=== PATIENT | male | born 1935 | race Caucasian/White ===

== ENCOUNTER 2017-05-05 14:32 | Inpatient (IN) | payer MEDICARE, BC ==
[2017-05-05] MEDS: METHYLPREDNISOLONE 125 MG INJ IV (15:30)
[2017-05-05] MEDS: SOD CHLORIDE 0.9% 500 ML IV (15:30)
[2017-05-05 15:42] LABS: ADD MAN DIFF? NO
[2017-05-05 16:01] LABS: ANION GAP 16 (8-16); BLOOD UREA NITROGEN 17 mg/dl (7-20); CALCIUM 9.8 mg/dl (8.4-10.2); CARBON DIOXIDE 31 mmol/L (21-31); CHLORIDE 99 mmol/L (97-110); GLUCOSE 117 mg/dl (70-220); POTASSIUM 4.8 mmol/L (3.5-5.1); SODIUM 141 mmol/L (135-144)
[2017-05-05 16:02] LABS: WHITE BLOOD COUNT 10.3 10^3/ul (4.8-10.8)
[2017-05-05 16:02] LABS: BASOPHILS % 0.4 % (0.0-2.0); EOSINOPHILS # 0.2 10^3/ul (0.0-0.5); EOSINOPHILS % 1.7 % (0.0-7.0); HEMATOCRIT 32.6 % (42.0-52.0); HEMOGLOBIN 10.6 g/dl (14.0-18.0); LYMPHOCYTES # 1.2 10^3/ul (0.8-2.9); LYMPHOCYTES % 11.3 % (15.0-51.0); MEAN CORPUSCULAR HGB CONC 32.5 g/dl (32.0-37.0); MEAN CORPUSCULAR VOLUME 89.1 fl (82.0-101.0); MEAN PLATELET VOLUME 9.7 fl (7.4-10.4); MONOCYTE # 1.3 10^3/ul (0.3-0.9); MONOCYTES % 12.1 % (0.0-11.0); NEUTROPHIL # 7.6 10^3/ul (1.6-7.5); NEUTROPHILS % 73.6 % (39.0-77.0); POSITIVE DIFF @See below; RED BLOOD COUNT 3.66 10^6/ul (4.70-6.10); RED CELL DISTRIBUTION WIDTH 16.3 % (11.5-14.5)
[2017-05-05 16:05] LABS: PLATELET COUNT 300 10^3/UL (140-415)
[2017-05-05 16:10] LABS: B-TYPE NATRIURETIC PEPTIDE 1350 PG/ML (0-450)
[2017-05-05] MEDS: ALBUTEROL 0.083% (NEB) 2.5 MG/3 ML AMP INH (16:33)
[2017-05-05] MEDS: IPRATROPIUM (NEB) 0.5 MG/2.5 ML AMP INH (16:34)
[2017-05-05] MEDS: DILTIAZEM-D5W 125MG/125ML DRIP 125 ML IV (17:05)
[2017-05-05] MEDS: DILTIAZEM 25 MG INJ IV (17:05)
[2017-05-05] MEDS ORDERED: ACETAMINOPHEN 325 MG TAB PO (17:30)
[2017-05-05] MEDS ORDERED: ONDANSETRON 4 MG INJ IV (17:30)
[2017-05-05] MEDS: DIGOXIN 500 MCG INJ IV (18:36)
[2017-05-05 21:36] LABS: CREATINE KINASE 27 IU/L (23-200)
[2017-05-05 21:47] LABS: CK-MB 1.63 ng/ml (0.0-2.4); TROPONIN-I 0.098 ng/ml (0.00-0.12)
[2017-05-05] MEDS: FERROUS SULFATE (EC) 325 MG TAB PO (23:03)
[2017-05-05] MEDS: ATORVASTATIN 20 MG TAB PO (23:03)
[2017-05-05] MEDS: MAGNESIUM OXIDE 400 MG TAB PO (23:03)
[2017-05-05] MEDS: MONTELUKAST 10 MG TAB PO (23:03)
[2017-05-05] MEDS: LUBIPROSTONE 24 MCG CAP PO (23:03)
[2017-05-05] MEDS: APIXABAN 5 MG TABLET PO (23:03)
[2017-05-05] MEDS: DIAZEPAM 5 MG TAB PO (23:15)
[2017-05-06 03:33] LABS: ADD MAN DIFF? NO
[2017-05-06 03:53] LABS: ALANINE AMINOTRANSFERASE 29 IU/L (13-69); ALBUMIN 3.2 g/dl (3.3-4.9); ALBUMIN/GLOBULIN RATIO 0.86; ALKALINE PHOSPHATASE 79 IU/L (42-121); ANION GAP 14 (8-16); ASPARTATE AMINO TRANSFERASE 18 IU/L (15-46); BILIRUBIN,INDIRECT 0.1 mg/dl (0-1.1); BILIRUBIN,TOTAL 0.1 mg/dl (0.2-1.3); BLOOD UREA NITROGEN 19 mg/dl (7-20); CALCIUM 9.3 mg/dl (8.4-10.2); CARBON DIOXIDE 30 mmol/L (21-31); CHLORIDE 102 mmol/L (97-110); CREATINE KINASE 28 IU/L (23-200); CREATININE 0.97 mg/dl (0.61-1.24); GLUCOSE 185 mg/dl (70-220); POTASSIUM 4.6 mmol/L (3.5-5.1); SODIUM 141 mmol/L (135-144); TOTAL PROTEIN 6.9 g/dl (6.1-8.1)
[2017-05-06 04:01] LABS: DIGOXIN 0.9 ng/ml (1.0-2.0)
[2017-05-06 04:02] LABS: B-TYPE NATRIURETIC PEPTIDE 2220 PG/ML (0-450)
[2017-05-06 04:07] LABS: CK INDEX 7.5; TROPONIN-I 0.101 ng/ml (0.00-0.12)
[2017-05-06 04:08] LABS: CK-MB 2.09 ng/ml (0.0-2.4)
[2017-05-06 04:14] LABS: WHITE BLOOD COUNT 7.7 10^3/ul (4.8-10.8)
[2017-05-06 04:14] LABS: ABNORMAL IP MESSAGE 1; BASOPHILS % 0.1 % (0.0-2.0); HEMATOCRIT 29.2 % (42.0-52.0); HEMOGLOBIN 9.5 g/dl (14.0-18.0); LYMPHOCYTES # 0.6 10^3/ul (0.8-2.9); LYMPHOCYTES % 7.4 % (15.0-51.0); MEAN CORPUSCULAR HEMOGLOBIN 29.2 pg (29.0-33.0); MEAN CORPUSCULAR HGB CONC 32.5 g/dl (32.0-37.0); MEAN CORPUSCULAR VOLUME 89.8 fl (82.0-101.0); MEAN PLATELET VOLUME 9.4 fl (7.4-10.4); MONOCYTE # 0.1 10^3/ul (0.3-0.9); MONOCYTES % 0.6 % (0.0-11.0); NEUTROPHILS % 91.1 % (39.0-77.0); PLATELET COUNT 281 10^3/UL (140-415); POSITIVE DIFF @See below; RED BLOOD COUNT 3.25 10^6/ul (4.70-6.10)
[2017-05-06] MEDS: LISINOPRIL 5 MG TAB PO (09:23)
[2017-05-06] MEDS: FERROUS SULFATE (EC) 325 MG TAB PO ×2 (09:23→21:15)
[2017-05-06] MEDS: FUROSEMIDE 20 MG TAB PO (09:23)
[2017-05-06] MEDS: ASPIRIN (EC) 81 MG TAB PO (09:23)
[2017-05-06] MEDS: DIAZEPAM 5 MG TAB PO ×3 (09:30→21:15)
[2017-05-06] MEDS: MAGNESIUM OXIDE 400 MG TAB PO ×3 (09:30→21:15)
[2017-05-06] MEDS: APIXABAN 5 MG TABLET PO (09:30)
[2017-05-06] MEDS: LUBIPROSTONE 24 MCG CAP PO ×3 (09:30→21:15)
[2017-05-06] MEDS: TIOTROPIUM 18 MCG CAPSULE INHA DEV INH ×2 (09:30→11:29)
[2017-05-06 13:46] LABS: TROPONIN-I 0.058 ng/ml (0.00-0.12)
[2017-05-06] MEDS: DIGOXIN 0.125 MG TAB PO (13:51)
[2017-05-06] MEDS: ATORVASTATIN 20 MG TAB PO (21:15)
[2017-05-06] MEDS: MONTELUKAST 10 MG TAB PO (21:15)
[2017-05-06] MEDS: GUAIFENESIN LA 600 MG TABSR PO (21:15)
[2017-05-07] MEDS: DIAZEPAM 5 MG TAB PO ×2 (09:00→20:50)
[2017-05-07 09:53] LABS: DIGOXIN 0.6 ng/ml (1.0-2.0)
[2017-05-07 09:55] LABS: ANION GAP 14 (8-16); BLOOD UREA NITROGEN 23 mg/dl (7-20); CALCIUM 9.2 mg/dl (8.4-10.2); CARBON DIOXIDE 33 mmol/L (21-31); CHLORIDE 100 mmol/L (97-110); CREATININE 0.95 mg/dl (0.61-1.24); GLUCOSE 101 mg/dl (70-220); POTASSIUM 4.4 mmol/L (3.5-5.1); SODIUM 143 mmol/L (135-144)
[2017-05-07 10:05] LABS: B-TYPE NATRIURETIC PEPTIDE 1740 PG/ML (0-450); TROPONIN-I 0.052 ng/ml (0.00-0.12)
[2017-05-07] MEDS: ASPIRIN (EC) 81 MG TAB PO (10:31)
[2017-05-07] MEDS: TIOTROPIUM 18 MCG CAPSULE INHA DEV INH (10:31)
[2017-05-07] MEDS: GUAIFENESIN LA 600 MG TABSR PO ×2 (10:31→20:50)
[2017-05-07] MEDS: predniSONE 20 MG TAB PO (10:32)
[2017-05-07] MEDS: FERROUS SULFATE (EC) 325 MG TAB PO ×2 (10:32→20:50)
[2017-05-07] MEDS: MAGNESIUM OXIDE 400 MG TAB PO ×2 (10:32→20:50)
[2017-05-07] MEDS: LISINOPRIL 5 MG TAB PO (10:32)
[2017-05-07] MEDS: FUROSEMIDE 40 MG TAB PO (10:32)
[2017-05-07] MEDS: LUBIPROSTONE 24 MCG CAP PO ×2 (10:32→20:50)
[2017-05-07] MEDS: ALBUTEROL HFA 8 GM INHALER INH ×2 (11:07→18:41)
[2017-05-07] MEDS: DIGOXIN 0.25 MG TAB PO (12:41)
[2017-05-07] MEDS: INFLUENZA VIRUS VACCINE 0.5 ML (DISPENSING) IM* (12:43)
[2017-05-07] MEDS: IPRATROPIUM (NEB) 0.5 MG/2.5 ML AMP HHN ×2 (14:50→21:55)
[2017-05-07] MEDS: AZITHROMYCIN 250 MG in SOD CHLORIDE 0.9% 250 ML IVPB (18:41)
[2017-05-07] MEDS: MONTELUKAST 10 MG TAB PO (20:50)
[2017-05-07] MEDS: ATORVASTATIN 20 MG TAB PO (20:50)
[2017-05-08] MEDS: IPRATROPIUM (NEB) 0.5 MG/2.5 ML AMP HHN ×5 (01:38→19:51)
[2017-05-08] MEDS: ALBUTEROL HFA 8 GM INHALER INH ×3 (02:02→20:35)
[2017-05-08] MEDS: DILTIAZEM (CD) 180 MG CAP PO ×2 (09:00→12:31)
[2017-05-08] MEDS: DIAZEPAM 5 MG TAB PO ×3 (09:00→20:35)
[2017-05-08] MEDS: FUROSEMIDE 40 MG TAB PO ×2 (09:00→12:32)
[2017-05-08] MEDS: LISINOPRIL 5 MG TAB PO (09:00)
[2017-05-08] MEDS: predniSONE 20 MG TAB PO (09:23)
[2017-05-08] MEDS: LUBIPROSTONE 24 MCG CAP PO ×2 (09:23→20:35)
[2017-05-08] MEDS: FERROUS SULFATE (EC) 325 MG TAB PO ×2 (09:23→20:35)
[2017-05-08] MEDS: ASPIRIN (EC) 81 MG TAB PO (09:23)
[2017-05-08] MEDS: GUAIFENESIN LA 600 MG TABSR PO ×2 (09:23→20:35)
[2017-05-08] MEDS: MAGNESIUM OXIDE 400 MG TAB PO ×2 (09:23→20:35)
[2017-05-08] MEDS: TIOTROPIUM 18 MCG CAPSULE INHA DEV INH (09:26)
[2017-05-08] MEDS: DIGOXIN 0.25 MG TAB PO (12:29)
[2017-05-08] MEDS: AZITHROMYCIN 250 MG in SOD CHLORIDE 0.9% 250 ML IVPB (17:57)
[2017-05-08] MEDS: ATORVASTATIN 20 MG TAB PO (20:35)
[2017-05-08] MEDS: MONTELUKAST 10 MG TAB PO (20:35)
[2017-05-09] MEDS: IPRATROPIUM (NEB) 0.5 MG/2.5 ML AMP HHN ×4 (01:20→22:07)
[2017-05-09] MEDS: ALBUTEROL HFA 8 GM INHALER INH (01:43)
[2017-05-09 08:44] LABS: ADD MAN DIFF? NO
[2017-05-09 08:46] LABS: BASOPHILS % 0.2 % (0.0-2.0); EOSINOPHILS % 0.1 % (0.0-7.0); HEMATOCRIT 32.1 % (42.0-52.0); HEMOGLOBIN 10.3 g/dl (14.0-18.0); LYMPHOCYTES # 1.7 10^3/ul (0.8-2.9); LYMPHOCYTES % 11.1 % (15.0-51.0); MEAN CORPUSCULAR HEMOGLOBIN 28.7 pg (29.0-33.0); MEAN CORPUSCULAR HGB CONC 32.1 g/dl (32.0-37.0); MEAN CORPUSCULAR VOLUME 89.4 fl (82.0-101.0); MEAN PLATELET VOLUME 9.7 fl (7.4-10.4); MONOCYTE # 1.5 10^3/ul (0.3-0.9); MONOCYTES % 9.7 % (0.0-11.0); NEUTROPHIL # 11.8 10^3/ul (1.6-7.5); NEUTROPHILS % 77.8 % (39.0-77.0); PLATELET COUNT 283 10^3/UL (140-415); RED BLOOD COUNT 3.59 10^6/ul (4.70-6.10); RED CELL DISTRIBUTION WIDTH 15.6 % (11.5-14.5)
[2017-05-09 08:46] LABS: WHITE BLOOD COUNT 15.2 10^3/ul (4.8-10.8)
[2017-05-09] MEDS: TIOTROPIUM 18 MCG CAPSULE INHA DEV INH ×2 (09:00→12:59)
[2017-05-09 09:36] LABS: DIGOXIN 0.8 ng/ml (1.0-2.0)
[2017-05-09 09:37] LABS: ANION GAP 13 (8-16); BLOOD UREA NITROGEN 32 mg/dl (7-20); CALCIUM 9.5 mg/dl (8.4-10.2); CARBON DIOXIDE 37 mmol/L (21-31); CHLORIDE 95 mmol/L (97-110); CREATININE 0.96 mg/dl (0.61-1.24); GLUCOSE 91 mg/dl (70-220); POTASSIUM 3.6 mmol/L (3.5-5.1); SODIUM 141 mmol/L (135-144)
[2017-05-09] MEDS: ASPIRIN (EC) 81 MG TAB PO (09:37)
[2017-05-09] MEDS: DILTIAZEM (CD) 180 MG CAP PO (09:37)
[2017-05-09] MEDS: LUBIPROSTONE 24 MCG CAP PO ×2 (09:37→21:48)
[2017-05-09] MEDS: MAGNESIUM OXIDE 400 MG TAB PO ×2 (09:38→21:48)
[2017-05-09] MEDS: GUAIFENESIN LA 600 MG TABSR PO ×2 (09:38→21:49)
[2017-05-09] MEDS: predniSONE 20 MG TAB PO (09:38)
[2017-05-09] MEDS: DIAZEPAM 5 MG TAB PO ×2 (09:38→21:48)
[2017-05-09] MEDS: FUROSEMIDE 40 MG TAB PO (09:38)
[2017-05-09] MEDS: FERROUS SULFATE (EC) 325 MG TAB PO ×2 (09:38→21:48)
[2017-05-09] MEDS: LISINOPRIL 5 MG TAB PO (09:40)
[2017-05-09 10:19] LABS: ALANINE AMINOTRANSFERASE 34 IU/L (13-69); ALBUMIN 3.3 g/dl (3.3-4.9); ALKALINE PHOSPHATASE 94 IU/L (42-121); ASPARTATE AMINO TRANSFERASE 20 IU/L (15-46); TOTAL PROTEIN 6.2 g/dl (6.1-8.1)
[2017-05-09 10:46] LABS: MAGNESIUM 1.8 mg/dl (1.7-2.5)
[2017-05-09 10:56] LABS: B-TYPE NATRIURETIC PEPTIDE 1260 PG/ML (0-450)
[2017-05-09] MEDS: predniSONE 10 MG TAB PO (12:57)
[2017-05-09] MEDS: DIGOXIN 0.25 MG TAB PO (12:58)
[2017-05-09] MEDS: AZITHROMYCIN 250 MG in SOD CHLORIDE 0.9% 250 ML IVPB (17:28)
[2017-05-09] MEDS: ATORVASTATIN 20 MG TAB PO (21:48)
[2017-05-09] MEDS: MONTELUKAST 10 MG TAB PO (21:48)
[2017-05-09] MEDS: LEVALBUTEROL (NEB) 0.63 MG/3 ML AMP HHN (22:07)
[2017-05-10] MEDS: IPRATROPIUM (NEB) 0.5 MG/2.5 ML AMP HHN ×4 (02:31→20:50)
[2017-05-10] MEDS: LEVALBUTEROL (NEB) 0.63 MG/3 ML AMP HHN ×4 (02:31→20:50)
[2017-05-10 06:10] LABS: ADD UMIC NO; UR ASCORBIC ACID NEGATIVE (NEGATIVE); UR BILIRUBIN (Dip) NEGATIVE (NEGATIVE); UR BLOOD (Dip) NEGATIVE (NEGATIVE); UR CLARITY CLEAR (CLEAR); UR COLOR YELLOW (YELLOW); UR GLUCOSE (Dip) NEGATIVE (NEGATIVE); UR KETONES (Dip) NEGATIVE (NEGATIVE); UR LEUKOCYTE ESTERASE (Dip) NEGATIVE Leu/ul (NEGATIVE); UR NITRITE (Dip) NEGATIVE (NEGATIVE); UR SPECIFIC GRAVITY (Dip) 1.019 (1.003-1.030); UR TOTAL PROTEIN (Dip) NEGATIVE (NEGATIVE); UR UROBILINOGEN (Dip) NEGATIVE (NEGATIVE)
[2017-05-10] MEDS: ASPIRIN (EC) 81 MG TAB PO (08:24)
[2017-05-10] MEDS: MAGNESIUM OXIDE 400 MG TAB PO ×2 (08:24→20:36)
[2017-05-10] MEDS: FERROUS SULFATE (EC) 325 MG TAB PO ×2 (08:24→20:36)
[2017-05-10] MEDS: TIOTROPIUM 18 MCG CAPSULE INHA DEV INH (08:25)
[2017-05-10] MEDS: DIAZEPAM 5 MG TAB PO ×2 (08:25→21:00)
[2017-05-10] MEDS: GUAIFENESIN LA 600 MG TABSR PO ×2 (08:25→20:37)
[2017-05-10] MEDS: LISINOPRIL 5 MG TAB PO (08:25)
[2017-05-10] MEDS: LUBIPROSTONE 24 MCG CAP PO ×2 (08:25→20:36)
[2017-05-10] MEDS: FUROSEMIDE 40 MG TAB PO (08:25)
[2017-05-10] MEDS: DILTIAZEM (CD) 180 MG CAP PO (08:26)
[2017-05-10 08:48] LABS: ADD MAN DIFF? NO
[2017-05-10 09:06] LABS: ABNORMAL IP MESSAGE 1; BASOPHILS % 0.1 % (0.0-2.0); HEMATOCRIT 33.1 % (42.0-52.0); HEMOGLOBIN 10.8 g/dl (14.0-18.0); LYMPHOCYTES # 1.3 10^3/ul (0.8-2.9); LYMPHOCYTES % 5.2 % (15.0-51.0); MEAN CORPUSCULAR HEMOGLOBIN 29.1 pg (29.0-33.0); MEAN CORPUSCULAR HGB CONC 32.6 g/dl (32.0-37.0); MEAN CORPUSCULAR VOLUME 89.2 fl (82.0-101.0); MEAN PLATELET VOLUME 9.7 fl (7.4-10.4); MONOCYTE # 2.1 10^3/ul (0.3-0.9); MONOCYTES % 8.5 % (0.0-11.0); NEUTROPHIL # 21.3 10^3/ul (1.6-7.5); NEUTROPHILS % 85.3 % (39.0-77.0); PLATELET COUNT 270 10^3/UL (140-415); POSITIVE DIFF @See below; RED BLOOD COUNT 3.71 10^6/ul (4.70-6.10); RED CELL DISTRIBUTION WIDTH 15.9 % (11.5-14.5)
[2017-05-10 09:38] LABS: ANION GAP 10 (8-16); BLOOD UREA NITROGEN 38 mg/dl (7-20); CALCIUM 9.4 mg/dl (8.4-10.2); CARBON DIOXIDE 37 mmol/L (21-31); CHLORIDE 95 mmol/L (97-110); CREATININE 0.91 mg/dl (0.61-1.24); GLUCOSE 97 mg/dl (70-220); POTASSIUM 3.8 mmol/L (3.5-5.1); SODIUM 138 mmol/L (135-144)
[2017-05-10 10:08] LABS: ERYTHROCYTE SEDIMENTATION RATE 58 mm/Hr (0-20)
[2017-05-10] MEDS: DIGOXIN 0.25 MG TAB PO (13:05)
[2017-05-10] MEDS: AZITHROMYCIN 250 MG in SOD CHLORIDE 0.9% 250 ML IVPB ×2 (17:26→18:00)
[2017-05-10] MEDS: MONTELUKAST 10 MG TAB PO (20:36)
[2017-05-10] MEDS: ATORVASTATIN 20 MG TAB PO (20:37)
[2017-05-10] MEDS: AZITHROMYCIN 250 MG TAB PO (23:37)
[2017-05-11] MEDS: IPRATROPIUM (NEB) 0.5 MG/2.5 ML AMP HHN ×3 (01:41→13:51)
[2017-05-11] MEDS: LEVALBUTEROL (NEB) 0.63 MG/3 ML AMP HHN ×3 (01:41→13:51)
[2017-05-11] MEDS: LUBIPROSTONE 24 MCG CAP PO (08:56)
[2017-05-11] MEDS: FUROSEMIDE 40 MG TAB PO (08:56)
[2017-05-11] MEDS: FERROUS SULFATE (EC) 325 MG TAB PO (08:56)
[2017-05-11] MEDS: DIAZEPAM 5 MG TAB PO (08:56)
[2017-05-11] MEDS: GUAIFENESIN LA 600 MG TABSR PO (08:57)
[2017-05-11] MEDS: DILTIAZEM (CD) 180 MG CAP PO (08:57)
[2017-05-11] MEDS: LISINOPRIL 5 MG TAB PO (08:57)
[2017-05-11] MEDS: MAGNESIUM OXIDE 400 MG TAB PO (08:57)
[2017-05-11] MEDS: ASPIRIN (EC) 81 MG TAB PO (08:57)
[2017-05-11] MEDS: TIOTROPIUM 18 MCG CAPSULE INHA DEV INH (08:57)
[2017-05-11 09:25] LABS: ADD MAN DIFF? NO
[2017-05-11 09:37] LABS: WHITE BLOOD COUNT 18.8 10^3/ul (4.8-10.8)
[2017-05-11 09:37] LABS: ABNORMAL IP MESSAGE 1; BASOPHILS % 0.2 % (0.0-2.0); EOSINOPHILS % 0.2 % (0.0-7.0); HEMATOCRIT 33.1 % (42.0-52.0); HEMOGLOBIN 10.6 g/dl (14.0-18.0); LYMPHOCYTES # 1.6 10^3/ul (0.8-2.9); LYMPHOCYTES % 8.7 % (15.0-51.0); MEAN CORPUSCULAR HEMOGLOBIN 28.6 pg (29.0-33.0); MEAN CORPUSCULAR VOLUME 89.2 fl (82.0-101.0); MEAN PLATELET VOLUME 9.6 fl (7.4-10.4); MONOCYTE # 1.7 10^3/ul (0.3-0.9); NEUTROPHIL # 15.2 10^3/ul (1.6-7.5); NEUTROPHILS % 80.9 % (39.0-77.0); PLATELET COUNT 265 10^3/UL (140-415); POSITIVE DIFF @See below; RED BLOOD COUNT 3.71 10^6/ul (4.70-6.10); RED CELL DISTRIBUTION WIDTH 16.5 % (11.5-14.5)
[2017-05-11 09:54] LABS: ALANINE AMINOTRANSFERASE 32 IU/L (13-69); ALBUMIN 3.2 g/dl (3.3-4.9); ALBUMIN/GLOBULIN RATIO 0.94; ALKALINE PHOSPHATASE 102 IU/L (42-121); ANION GAP 11 (8-16); ASPARTATE AMINO TRANSFERASE 17 IU/L (15-46); BILIRUBIN,INDIRECT 0.1 mg/dl (0-1.1); BILIRUBIN,TOTAL 0.1 mg/dl (0.2-1.3); BLOOD UREA NITROGEN 40 mg/dl (7-20); CALCIUM 9.1 mg/dl (8.4-10.2); CARBON DIOXIDE 34 mmol/L (21-31); CHLORIDE 96 mmol/L (97-110); CREATININE 1.01 mg/dl (0.61-1.24); GLUCOSE 107 mg/dl (70-220); POTASSIUM 3.8 mmol/L (3.5-5.1); SODIUM 137 mmol/L (135-144); TOTAL PROTEIN 6.6 g/dl (6.1-8.1)
[2017-05-11 10:00] LABS: B-TYPE NATRIURETIC PEPTIDE 872 PG/ML (0-450)
[2017-05-11] MEDS: DIGOXIN 0.25 MG TAB PO (12:41)
== END 2017-05-11 19:30 | disposition home health service (06) | DRG 308 ==
LOC: MS4 17:02 → E/R 14:32
DX: I48.0 Paroxysmal atrial fibrillation (principal); I50.33 Acute on chronic diastolic (congestive) heart failure; J96.01 Acute respiratory failure with hypoxia; I95.9 Hypotension, unspecified; I24.8 Other forms of acute ischemic heart disease; I27.23 Pulmonary hypertension due to lung diseases and hypoxia; I11.0 Hypertensive heart disease with heart failure; J44.1 Chronic obstructive pulmonary disease with (acute) exacerbation; Z99.81 Dependence on supplemental oxygen; I50.9 Heart failure, unspecified; I25.10 Atherosclerotic heart disease of native coronary artery without angina pectoris; I25.2 Old myocardial infarction; F17.210 Nicotine dependence, cigarettes, uncomplicated; I65.29 Occlusion and stenosis of unspecified carotid artery; D64.9 Anemia, unspecified; I10 Essential (primary) hypertension; E78.5 Hyperlipidemia, unspecified; I73.9 Peripheral vascular disease, unspecified; K59.09 Other constipation; R07.89 Other chest pain
CPT/HCPCS: 36415; 71045; 80048; 80053; 80076; 80162; 81003; 82550; 82553; 83735; 83880; 84484; 85025; 85651; 87081; 87086; 90686; 93005; 93306; 94640; 94644; 94664; 94667; 94668; 96365; 96366; 96375; 97162; 99291-25

== ENCOUNTER 2017-06-06 08:04 | Inpatient (IN) | payer MEDICARE, BC ==
[2017-06-06] MEDS ORDERED: NITROGLYCERIN (SL) 0.4 MG TAB SL (08:30)
[2017-06-06] MEDS: ASPIRIN 81 MG TAB PO (09:12)
[2017-06-06] MEDS: METHYLPREDNISOLONE 125 MG INJ IV (09:12)
[2017-06-06 09:27] LABS: ADD MAN DIFF? NO
[2017-06-06] MEDS: ALBUTEROL 0.083% (NEB) 2.5 MG/3 ML AMP NEB (09:32)
[2017-06-06] MEDS: IPRATROPIUM (NEB) 0.5 MG/2.5 ML AMP NEB (09:32)
[2017-06-06 09:33] LABS: BASOPHIL # 0.1 10^3/ul (0.0-0.1); BASOPHILS % 0.5 % (0.0-2.0); EOSINOPHILS # 0.3 10^3/ul (0.0-0.5); EOSINOPHILS % 2.7 % (0.0-7.0); HEMATOCRIT 33.1 % (42.0-52.0); HEMOGLOBIN 10.4 g/dl (14.0-18.0); LYMPHOCYTES # 1.5 10^3/ul (0.8-2.9); LYMPHOCYTES % 15.1 % (15.0-51.0); MEAN CORPUSCULAR HEMOGLOBIN 29.1 pg (29.0-33.0); MEAN CORPUSCULAR HGB CONC 31.4 g/dl (32.0-37.0); MEAN CORPUSCULAR VOLUME 92.5 fl (82.0-101.0); MEAN PLATELET VOLUME 10.4 fl (7.4-10.4); MONOCYTE # 1.4 10^3/ul (0.3-0.9); NEUTROPHIL # 6.9 10^3/ul (1.6-7.5); NEUTROPHILS % 67.5 % (39.0-77.0); PLATELET COUNT 206 10^3/UL (140-415); RED BLOOD COUNT 3.58 10^6/ul (4.70-6.10); RED CELL DISTRIBUTION WIDTH 18.3 % (11.5-14.5)
[2017-06-06 09:33] LABS: WHITE BLOOD COUNT 10.2 10^3/ul (4.8-10.8)
[2017-06-06] MEDS: NITROGLYCERIN 2% 1 GM OINT PKT TD (09:39)
[2017-06-06 09:51] LABS: ANION GAP 14 (8-16); BLOOD UREA NITROGEN 16 mg/dl (7-20); CALCIUM 9.3 mg/dl (8.4-10.2); CARBON DIOXIDE 30 mmol/L (21-31); CHLORIDE 102 mmol/L (97-110); CREATININE 0.99 mg/dl (0.61-1.24); GLUCOSE 113 mg/dl (70-220); POTASSIUM 4.9 mmol/L (3.5-5.1); SODIUM 141 mmol/L (135-144)
[2017-06-06] MEDS ORDERED: ONDANSETRON 4 MG INJ IV (10:00)
[2017-06-06] MEDS ORDERED: ACETAMINOPHEN 325 MG TAB PO (10:00)
[2017-06-06 10:02] LABS: TROPONIN-I 0.036 ng/ml (0.00-0.12)
[2017-06-06] MEDS: FUROSEMIDE 40 MG INJ IV (11:40)
[2017-06-06] MEDS: ALBUTEROL 0.083% (NEB) 2.5 MG/3 ML AMP HHN (11:59)
[2017-06-06 14:47] LABS: CREATINE KINASE 45 IU/L (23-200)
[2017-06-06 15:00] LABS: CK INDEX 1.6; CK-MB 0.71 ng/ml (0.0-2.4); TROPONIN-I 0.025 ng/ml (0.00-0.12)
[2017-06-06 20:40] LABS: CREATINE KINASE 41 IU/L (23-200)
[2017-06-06 20:52] LABS: CK INDEX 1.9; TROPONIN-I 0.028 ng/ml (0.00-0.12)
[2017-06-06 20:54] LABS: CK-MB 0.76 ng/ml (0.0-2.4)
[2017-06-07] MEDS: LEVALBUTEROL (NEB) 0.63 MG/3 ML AMP HHN ×4 (00:21→17:36)
[2017-06-07] MEDS: GUAIFENESIN/CODEINE 5ML CUP PO (01:23)
[2017-06-07] MEDS: TIOTROPIUM 18 MCG CAPSULE INHA DEV INH ×2 (01:23→09:03)
[2017-06-07] MEDS: MAGNESIUM HYDROXIDE 30ML CUP PO ×2 (06:55→17:12)
[2017-06-07] MEDS: FUROSEMIDE 40 MG INJ IV ×2 (06:56→17:13)
[2017-06-07 07:36] LABS: ADD MAN DIFF? NO
[2017-06-07 07:49] LABS: BASOPHILS % 0.1 % (0.0-2.0); HEMATOCRIT 29.9 % (42.0-52.0); HEMOGLOBIN 9.5 g/dl (14.0-18.0); LYMPHOCYTES # 0.8 10^3/ul (0.8-2.9); LYMPHOCYTES % 5.5 % (15.0-51.0); MEAN CORPUSCULAR HEMOGLOBIN 28.8 pg (29.0-33.0); MEAN CORPUSCULAR HGB CONC 31.8 g/dl (32.0-37.0); MEAN CORPUSCULAR VOLUME 90.6 fl (82.0-101.0); MEAN PLATELET VOLUME 10.4 fl (7.4-10.4); MONOCYTE # 0.9 10^3/ul (0.3-0.9); MONOCYTES % 5.7 % (0.0-11.0); NEUTROPHIL # 13.2 10^3/ul (1.6-7.5); PLATELET COUNT 224 10^3/UL (140-415); POSITIVE DIFF @See below; RED CELL DISTRIBUTION WIDTH 17.9 % (11.5-14.5)
[2017-06-07 08:03] LABS: ALANINE AMINOTRANSFERASE 26 IU/L (13-69); ALBUMIN 3.6 g/dl (3.3-4.9); ALBUMIN/GLOBULIN RATIO 1.12; ALKALINE PHOSPHATASE 80 IU/L (42-121); ANION GAP 15 (8-16); ASPARTATE AMINO TRANSFERASE 19 IU/L (15-46); BLOOD UREA NITROGEN 21 mg/dl (7-20); CALCIUM 9.1 mg/dl (8.4-10.2); CARBON DIOXIDE 30 mmol/L (21-31); CHLORIDE 101 mmol/L (97-110); CREATININE 1.09 mg/dl (0.61-1.24); GLUCOSE 133 mg/dl (70-220); POTASSIUM 4.6 mmol/L (3.5-5.1); SODIUM 141 mmol/L (135-144); TOTAL PROTEIN 6.8 g/dl (6.1-8.1)
[2017-06-07 08:07] LABS: MAGNESIUM 1.5 mg/dl (1.7-2.5)
[2017-06-07 08:11] LABS: DIGOXIN < 0.4 ng/ml (1.0-2.0)
[2017-06-07] MEDS: LUBIPROSTONE 24 MCG CAP PO ×2 (08:57→21:28)
[2017-06-07] MEDS: FERROUS SULFATE (EC) 325 MG TAB PO ×2 (08:57→21:28)
[2017-06-07] MEDS: SALMETEROL/FLUTICASONE 500/50 INHA INH ×2 (08:57→21:27)
[2017-06-07] MEDS: predniSONE 10 MG TAB PO (08:58)
[2017-06-07] MEDS: ESCITALOPRAM 10 MG TAB PO (08:58)
[2017-06-07] MEDS: MAGNESIUM OXIDE 400 MG TAB PO ×2 (08:58→21:28)
[2017-06-07] MEDS: DIAZEPAM 5 MG TAB PO ×2 (08:58→21:28)
[2017-06-07] MEDS: POTASSIUM CHLORIDE (SR) 20 MEQ TAB PO (08:58)
[2017-06-07] MEDS: ASPIRIN (EC) 81 MG TAB PO (08:58)
[2017-06-07] MEDS: LISINOPRIL 5 MG TAB PO (08:59)
[2017-06-07] MEDS ORDERED: TIOTROPIUM 18 MCG CAPSULE INHA DEV INH (09:00)
[2017-06-07] MEDS ORDERED: LEVALBUTEROL (NEB) 0.63 MG/3 ML AMP HHN (09:00)
[2017-06-07] MEDS: DILTIAZEM (CD) 120 MG CAP PO (09:05)
[2017-06-07] MEDS: DIGOXIN 0.125 MG TAB PO (12:11)
[2017-06-07 13:17] LABS: B-TYPE NATRIURETIC PEPTIDE 1800 PG/ML (0-450)
[2017-06-07] MEDS: MAGNESIUM SULFATE 3 GM in DEXTROSE 5% 100 ML IVPB (14:39)
[2017-06-07] MEDS ORDERED: MAGNESIUM SULFATE 4 GM in DEXTROSE 5% 100 ML IV (16:30)
[2017-06-07] MEDS: MAGNESIUM CHLORIDE (SR) 64 MG TAB PO (21:27)
[2017-06-07] MEDS: MONTELUKAST 10 MG TAB PO (21:28)
[2017-06-07] MEDS: ATORVASTATIN 20 MG TAB PO (21:28)
[2017-06-08] MEDS: ENOXAPARIN 100 MG/ML SYG SC ×2 (03:16→22:02)
[2017-06-08] MEDS: FUROSEMIDE 40 MG INJ IV (06:50)
[2017-06-08 08:08] LABS: ADD MAN DIFF? NO
[2017-06-08 08:15] LABS: BASOPHILS % 0.1 % (0.0-2.0); EOSINOPHILS % 0.1 % (0.0-7.0); HEMATOCRIT 31.9 % (42.0-52.0); HEMOGLOBIN 10.2 g/dl (14.0-18.0); LYMPHOCYTES # 1.9 10^3/ul (0.8-2.9); LYMPHOCYTES % 11.2 % (15.0-51.0); MEAN CORPUSCULAR HEMOGLOBIN 29.3 pg (29.0-33.0); MEAN CORPUSCULAR VOLUME 91.7 fl (82.0-101.0); MEAN PLATELET VOLUME 10.2 fl (7.4-10.4); MONOCYTE # 1.3 10^3/ul (0.3-0.9); MONOCYTES % 7.4 % (0.0-11.0); NEUTROPHIL # 13.6 10^3/ul (1.6-7.5); NEUTROPHILS % 80.4 % (39.0-77.0); PLATELET COUNT 249 10^3/UL (140-415); RED BLOOD COUNT 3.48 10^6/ul (4.70-6.10); RED CELL DISTRIBUTION WIDTH 18.5 % (11.5-14.5)
[2017-06-08] MEDS: MAGNESIUM OXIDE 400 MG TAB PO ×2 (08:40→21:57)
[2017-06-08] MEDS: POTASSIUM CHLORIDE (SR) 20 MEQ TAB PO (08:41)
[2017-06-08] MEDS: predniSONE 10 MG TAB PO (08:41)
[2017-06-08] MEDS: LUBIPROSTONE 24 MCG CAP PO ×2 (08:41→21:57)
[2017-06-08] MEDS: ASPIRIN (EC) 81 MG TAB PO (08:41)
[2017-06-08] MEDS: FERROUS SULFATE (EC) 325 MG TAB PO ×2 (08:41→21:56)
[2017-06-08] MEDS: ESCITALOPRAM 10 MG TAB PO (08:41)
[2017-06-08] MEDS: LISINOPRIL 5 MG TAB PO (08:42)
[2017-06-08] MEDS: SALMETEROL/FLUTICASONE 500/50 INHA INH ×2 (08:42→21:57)
[2017-06-08] MEDS: DILTIAZEM (CD) 120 MG CAP PO (08:42)
[2017-06-08] MEDS: TIOTROPIUM 18 MCG CAPSULE INHA DEV INH (08:43)
[2017-06-08] MEDS: DIAZEPAM 5 MG TAB PO ×2 (08:47→21:57)
[2017-06-08 08:54] LABS: ANION GAP 14 (8-16); BLOOD UREA NITROGEN 38 mg/dl (7-20); CALCIUM 9.3 mg/dl (8.4-10.2); CARBON DIOXIDE 34 mmol/L (21-31); CHLORIDE 97 mmol/L (97-110); CREATININE 1.17 mg/dl (0.61-1.24); GLUCOSE 121 mg/dl (70-220); SODIUM 141 mmol/L (135-144)
[2017-06-08] MEDS: LEVALBUTEROL (NEB) 0.63 MG/3 ML AMP HHN ×3 (09:00→16:15)
[2017-06-08] MEDS: DIGOXIN 0.125 MG TAB PO (13:01)
[2017-06-08] MEDS: ATORVASTATIN 20 MG TAB PO (21:57)
[2017-06-08] MEDS: MONTELUKAST 10 MG TAB PO (21:57)
[2017-06-09 07:20] LABS: ADD MAN DIFF? NO
[2017-06-09 07:28] LABS: WHITE BLOOD COUNT 12.9 10^3/ul (4.8-10.8)
[2017-06-09 07:28] LABS: BASOPHILS % 0.2 % (0.0-2.0); EOSINOPHILS % 0.2 % (0.0-7.0); HEMATOCRIT 31.3 % (42.0-52.0); LYMPHOCYTES % 15.9 % (15.0-51.0); MEAN CORPUSCULAR HEMOGLOBIN 29.2 pg (29.0-33.0); MEAN CORPUSCULAR HGB CONC 31.9 g/dl (32.0-37.0); MEAN CORPUSCULAR VOLUME 91.5 fl (82.0-101.0); MEAN PLATELET VOLUME 10.1 fl (7.4-10.4); MONOCYTE # 1.2 10^3/ul (0.3-0.9); MONOCYTES % 9.6 % (0.0-11.0); NEUTROPHIL # 9.5 10^3/ul (1.6-7.5); NEUTROPHILS % 73.4 % (39.0-77.0); PLATELET COUNT 242 10^3/UL (140-415); RED BLOOD COUNT 3.42 10^6/ul (4.70-6.10); RED CELL DISTRIBUTION WIDTH 18.4 % (11.5-14.5)
[2017-06-09 07:46] LABS: MAGNESIUM 2.5 mg/dl (1.7-2.5)
[2017-06-09 07:50] LABS: ANION GAP 13 (8-16); BLOOD UREA NITROGEN 44 mg/dl (7-20); CARBON DIOXIDE 33 mmol/L (21-31); CHLORIDE 100 mmol/L (97-110); CREATININE 1.03 mg/dl (0.61-1.24); GLUCOSE 94 mg/dl (70-220); POTASSIUM 3.9 mmol/L (3.5-5.1); SODIUM 142 mmol/L (135-144)
[2017-06-09] MEDS: ESCITALOPRAM 10 MG TAB PO (08:43)
[2017-06-09] MEDS: FERROUS SULFATE (EC) 325 MG TAB PO ×2 (08:43→20:04)
[2017-06-09] MEDS: predniSONE 20 MG TAB PO (08:44)
[2017-06-09] MEDS: DILTIAZEM (CD) 120 MG CAP PO (08:44)
[2017-06-09] MEDS: MAGNESIUM OXIDE 400 MG TAB PO ×2 (08:44→20:04)
[2017-06-09] MEDS: ASPIRIN (EC) 81 MG TAB PO (08:44)
[2017-06-09] MEDS: ARIPIPRAZOLE 2 MG TAB PO (08:44)
[2017-06-09] MEDS: LUBIPROSTONE 24 MCG CAP PO ×2 (08:44→20:05)
[2017-06-09] MEDS: LISINOPRIL 5 MG TAB PO (08:45)
[2017-06-09] MEDS: POTASSIUM CHLORIDE (SR) 20 MEQ TAB PO (08:45)
[2017-06-09] MEDS: FUROSEMIDE 40 MG TAB PO (08:45)
[2017-06-09] MEDS: DIAZEPAM 5 MG TAB PO ×2 (08:49→20:06)
[2017-06-09] MEDS: SALMETEROL/FLUTICASONE 500/50 INHA INH ×2 (08:49→20:04)
[2017-06-09] MEDS: TIOTROPIUM 18 MCG CAPSULE INHA DEV INH (08:49)
[2017-06-09] MEDS: LEVALBUTEROL (NEB) 0.63 MG/3 ML AMP HHN ×3 (09:24→17:29)
[2017-06-09] MEDS: DIGOXIN 0.125 MG TAB PO (12:29)
[2017-06-09] MEDS: ATORVASTATIN 20 MG TAB PO (20:05)
[2017-06-09] MEDS: MONTELUKAST 10 MG TAB PO (20:05)
== END 2017-06-09 21:00 | disposition home or self-care (01) | DRG 190 ==
LOC: E/R 08:04 → TEL 09:55
DX: J44.1 Chronic obstructive pulmonary disease with (acute) exacerbation (principal); I50.33 Acute on chronic diastolic (congestive) heart failure; I25.5 Ischemic cardiomyopathy; E83.42 Hypomagnesemia; I11.0 Hypertensive heart disease with heart failure; F17.210 Nicotine dependence, cigarettes, uncomplicated; Z91.19 Patient's noncompliance with other medical treatment and regimen; F41.8 Other specified anxiety disorders
CPT/HCPCS: 36415; 71045; 80048; 80053; 80162; 82550; 82553; 83735; 83880; 84484; 85025; 87081; 93005; 93970; 94640; 94664; 96374; 96375; 97163; 99285-25; G0378

== ENCOUNTER 2017-06-12 20:36 | Inpatient (IN) | payer MEDICARE, BC ==
[2017-06-12 21:54] LABS: ABNORMAL IP MESSAGE 1; HEMATOCRIT 34.9 % (42.0-52.0); HEMOGLOBIN 11.4 g/dl (14.0-18.0); MEAN CORPUSCULAR HEMOGLOBIN 29.5 pg (29.0-33.0); MEAN CORPUSCULAR HGB CONC 32.7 g/dl (32.0-37.0); MEAN CORPUSCULAR VOLUME 90.2 fl (82.0-101.0); PLATELET COUNT 261 10^3/UL (140-415); POSITIVE DIFF @See below; RED BLOOD COUNT 3.87 10^6/ul (4.70-6.10); RED CELL DISTRIBUTION WIDTH 18.6 % (11.5-14.5)
[2017-06-12 21:54] LABS: WHITE BLOOD COUNT 29.6 10^3/ul (4.8-10.8)
[2017-06-12 22:00] LABS: ADD MAN DIFF? YES
[2017-06-12 22:20] LABS: ALANINE AMINOTRANSFERASE 42 IU/L (13-69); ALBUMIN 3.7 g/dl (3.3-4.9); ALBUMIN/GLOBULIN RATIO 1.02; ALKALINE PHOSPHATASE 85 IU/L (42-121); ANION GAP 14 (8-16); ASPARTATE AMINO TRANSFERASE 26 IU/L (15-46); BILIRUBIN,INDIRECT 0.7 mg/dl (0-1.1); BILIRUBIN,TOTAL 0.7 mg/dl (0.2-1.3); BLOOD UREA NITROGEN 40 mg/dl (7-20); CALCIUM 9.4 mg/dl (8.4-10.2); CARBON DIOXIDE 29 mmol/L (21-31); CHLORIDE 100 mmol/L (97-110); CREATINE KINASE 21 IU/L (23-200); CREATININE 1.58 mg/dl (0.61-1.24); GLUCOSE 163 mg/dl (70-220); INR 1.02; POTASSIUM 4.7 mmol/L (3.5-5.1); PROTIME 13.5 Sec (11.9-14.9); PT RATIO 1.1; SODIUM 138 mmol/L (135-144); TOTAL PROTEIN 7.3 g/dl (6.1-8.1)
[2017-06-12 22:21] LABS: PARTIAL THROMBOPLASTIN TIME 30.8 Sec (25.0-35.0)
[2017-06-12] MEDS: ONDANSETRON 4 MG INJ IV (22:21)
[2017-06-12] MEDS: METHYLPREDNISOLONE 125 MG INJ IV (22:23)
[2017-06-12 22:32] LABS: CK INDEX 2.2; TROPONIN-I 0.043 ng/ml (0.00-0.12)
[2017-06-12 22:37] LABS: CK-MB 0.47 ng/ml (0.0-2.4)
[2017-06-12] MEDS: IPRATROPIUM (NEB) 0.5 MG/2.5 ML AMP INH (22:51)
[2017-06-12] MEDS: ALBUTEROL 0.5% (NEB) 2.5 MG/0.5 ML AMP INH (22:52)
[2017-06-12 22:54] LABS: ANISOCYTOSIS 2+ (0-0); BAND NEUTROPHILS #M 5.6 10^3/ul (0.0-0.6); BAND NEUTROPHILS % (M) 19 % (0-4); BASOPHIL #M 0.2 10^3/ul (0.0-0.0); BASOPHILS % (M) 1 % (0-2); GIANT THROMBO% (M) 1 % (0-0); LYMPHOCYTES #M 0.8 10^3/ul (0.8-2.9); LYMPHOCYTES % (M) 3 % (15-51); METAMYELOCYTES #M 0.2 10^3/ul (0.0-0.0); METAMYELOCYTES %M 1 % (0-0); MICROCYTOSIS 1+ (0-0); MONOCYTE #M 1.7 10^3/ul (0.3-0.9); MONOCYTES % (M) 6 % (0-11); PLATELET ESTIMATE NORMAL; POIKILOCYTOSIS 1+ (0-0); POLYCHROMASIA 3+ (0-0); SEG NEUT #M 22.4 10^3/ul (1.6-7.5); SEGMENTED NEUTROPHILS (M) % 70 % (39-77); SMUDGE%M 2 % (0-0)
[2017-06-12] MEDS: LEVOFLOXACIN 750MG/D5W (PMX) 150 ML IVPB (23:16)
[2017-06-12] MEDS ORDERED: ONDANSETRON 4 MG INJ IV (23:30)
[2017-06-12] MEDS ORDERED: ACETAMINOPHEN 325 MG TAB PO (23:30)
[2017-06-13] MEDS ORDERED: GUAIFENESIN/CODEINE 5ML CUP PO
[2017-06-13] MEDS ORDERED: ZOLPIDEM 5 MG TAB PO
[2017-06-13] MEDS ORDERED: ONDANSETRON 4 MG INJ IV
[2017-06-13] MEDS ORDERED: PROVENTIL HFA 6.7GM INHALER INH
[2017-06-13] MEDS ORDERED: NACL 0.9% 3 ML SYG IV
[2017-06-13] MEDS ORDERED: ALBUTEROL HFA 8 GM INHALER INH (00:10)
[2017-06-13 01:14] LABS: LACTIC ACID 1.5 mmol/L (0.5-2.0)
[2017-06-13 03:00] LABS: LACTIC ACID 1.5 mmol/L (0.5-2.0)
[2017-06-13] MEDS: ACETAMINOPHEN 325 MG TAB PO (03:43)
[2017-06-13] MEDS: DILTIAZEM 25 MG INJ IV (04:10)
[2017-06-13 07:33] LABS: WHITE BLOOD COUNT 29.8 10^3/ul (4.8-10.8)
[2017-06-13 07:33] LABS: ABNORMAL IP MESSAGE 1; HEMOGLOBIN 11.1 g/dl (14.0-18.0); MEAN CORPUSCULAR HEMOGLOBIN 29.3 pg (29.0-33.0); MEAN CORPUSCULAR HGB CONC 32.6 g/dl (32.0-37.0); MEAN CORPUSCULAR VOLUME 89.7 fl (82.0-101.0); PLATELET COUNT 229 10^3/UL (140-415); POSITIVE DIFF @See below; RED BLOOD COUNT 3.79 10^6/ul (4.70-6.10); RED CELL DISTRIBUTION WIDTH 18.6 % (11.5-14.5)
[2017-06-13 07:40] LABS: ADD MAN DIFF? YES
[2017-06-13 07:50] LABS: ALANINE AMINOTRANSFERASE 37 IU/L (13-69); ALBUMIN 3.8 g/dl (3.3-4.9); ALBUMIN/GLOBULIN RATIO 1.02; ALKALINE PHOSPHATASE 75 IU/L (42-121); ANION GAP 15 (8-16); ASPARTATE AMINO TRANSFERASE 22 IU/L (15-46); BILIRUBIN,INDIRECT 0.4 mg/dl (0-1.1); BILIRUBIN,TOTAL 0.4 mg/dl (0.2-1.3); BLOOD UREA NITROGEN 39 mg/dl (7-20); CALCIUM 9.4 mg/dl (8.4-10.2); CARBON DIOXIDE 28 mmol/L (21-31); CHLORIDE 99 mmol/L (97-110); CREATININE 1.42 mg/dl (0.61-1.24); GLUCOSE 192 mg/dl (70-220); POTASSIUM 4.3 mmol/L (3.5-5.1); SODIUM 138 mmol/L (135-144); TOTAL PROTEIN 7.5 g/dl (6.1-8.1)
[2017-06-13 08:07] LABS: LACTIC ACID 1.5 mmol/L (0.5-2.0)
[2017-06-13] MEDS: FUROSEMIDE 40 MG TAB PO (09:00)
[2017-06-13] MEDS: DILTIAZEM (CD) 120 MG CAP PO ×2 (09:00→12:47)
[2017-06-13] MEDS: FERROUS SULFATE (EC) 325 MG TAB PO ×2 (09:16→22:22)
[2017-06-13] MEDS: DIAZEPAM 5 MG TAB PO ×2 (09:17→22:22)
[2017-06-13] MEDS: SALMETEROL/FLUTICASONE 500/50 INHA INH ×2 (09:17→22:23)
[2017-06-13] MEDS: ASPIRIN (EC) 81 MG TAB PO (09:17)
[2017-06-13] MEDS: ESCITALOPRAM 10 MG TAB PO (09:18)
[2017-06-13] MEDS: LUBIPROSTONE 24 MCG CAP PO ×2 (09:19→21:00)
[2017-06-13] MEDS: ARIPIPRAZOLE 2 MG TAB PO (09:19)
[2017-06-13] MEDS: METHYLPREDNISOLONE 125 MG INJ IV (09:20)
[2017-06-13 09:39] LABS: ANISOCYTOSIS 2+ (0-0); BAND NEUTROPHILS #M 10.7 10^3/ul (0.0-0.6); BAND NEUTROPHILS % (M) 36 % (0-4); GIANT THROMBO% (M) 4 % (0-0); LYMPHOCYTES #M 0.5 10^3/ul (0.8-2.9); LYMPHOCYTES % (M) 2 % (15-51); MICROCYTOSIS 1+ (0-0); MONOCYTE #M 0.8 10^3/ul (0.3-0.9); MONOCYTES % (M) 3 % (0-11); MYELOCYTES #M 0.2 10^3/ul (0.0-0.0); MYELOCYTES % (M) 1 % (0-0); PLATELET ESTIMATE NORMAL; POIKILOCYTOSIS 1+ (0-0); POLYCHROMASIA 2+ (0-0); REACTIVE LYMPHOCYTES #M 0.2 10^3/ul (0.0-0.0); REACTIVE LYMPHOCYTES% (M) 1 % (0-0); SEG NEUT #M 20.5 10^3/ul (1.6-7.5); SEGMENTED NEUTROPHILS (M) % 58 % (39-77); SMUDGE%M 12 % (0-0)
[2017-06-13] MEDS: ENOXAPARIN 40 MG/0.4 ML SYG SC (09:45)
[2017-06-13] MEDS: LEVALBUTEROL (NEB) 0.63 MG/3 ML AMP HHN ×3 (10:13→18:05)
[2017-06-13] MEDS: DIGOXIN 0.125 MG TAB PO (12:46)
[2017-06-13] MEDS: ATORVASTATIN 20 MG TAB PO (22:22)
[2017-06-13] MEDS: MONTELUKAST 10 MG TAB PO (22:22)
[2017-06-14 06:56] LABS: WHITE BLOOD COUNT 26.6 10^3/ul (4.8-10.8)
[2017-06-14 06:56] LABS: ABNORMAL IP MESSAGE 1; HEMOGLOBIN 9.9 g/dl (14.0-18.0); MEAN CORPUSCULAR HEMOGLOBIN 29.7 pg (29.0-33.0); MEAN CORPUSCULAR VOLUME 90.1 fl (82.0-101.0); MEAN PLATELET VOLUME 10.8 fl (7.4-10.4); PLATELET COUNT 234 10^3/UL (140-415); POSITIVE DIFF @See below; RED BLOOD COUNT 3.33 10^6/ul (4.70-6.10); RED CELL DISTRIBUTION WIDTH 18.4 % (11.5-14.5)
[2017-06-14 07:08] LABS: ADD MAN DIFF? YES
[2017-06-14 07:33] LABS: LIPASE 17 U/L (23-300)
[2017-06-14 07:33] LABS: AMYLASE 72 U/L (11-123)
[2017-06-14 07:35] LABS: BLOOD UREA NITROGEN 53 mg/dl (7-20); CALCIUM 9.2 mg/dl (8.4-10.2); CARBON DIOXIDE 29 mmol/L (21-31); CHLORIDE 101 mmol/L (97-110); CREATININE 1.26 mg/dl (0.61-1.24); GLUCOSE 145 mg/dl (70-220); SODIUM 137 mmol/L (135-144)
[2017-06-14 07:36] LABS: ANION GAP 11 (8-16)
[2017-06-14 07:40] LABS: POTASSIUM 4.3 mmol/L (3.5-5.1)
[2017-06-14 08:11] LABS: ANISOCYTOSIS 1+ (0-0); BAND NEUTROPHILS #M 2.1 10^3/ul (0.0-0.6); BAND NEUTROPHILS % (M) 8 % (0-4); LYMPHOCYTES #M 2.1 10^3/ul (0.8-2.9); LYMPHOCYTES % (M) 8 % (15-51); MICROCYTOSIS 1+ (0-0); MONOCYTE #M 1.5 10^3/ul (0.3-0.9); MONOCYTES % (M) 6 % (0-11); PLATELET ESTIMATE NORMAL; POLYCHROMASIA 3+ (0-0); REACTIVE LYMPHOCYTES #M 0.2 10^3/ul (0.0-0.0); REACTIVE LYMPHOCYTES% (M) 1 % (0-0); SEGMENTED NEUTROPHILS (M) % 77 % (39-77); SMUDGE%M 1 % (0-0)
[2017-06-14 08:12] LABS: ERYTHROCYTE SEDIMENTATION RATE 110 mm/Hr (0-20)
[2017-06-14] MEDS: predniSONE 20 MG TAB PO (09:05)
[2017-06-14] MEDS: ASPIRIN (EC) 81 MG TAB PO (09:05)
[2017-06-14] MEDS: FERROUS SULFATE (EC) 325 MG TAB PO ×2 (09:05→22:36)
[2017-06-14] MEDS: SALMETEROL/FLUTICASONE 500/50 INHA INH ×2 (09:05→22:34)
[2017-06-14] MEDS: LUBIPROSTONE 24 MCG CAP PO ×2 (09:05→22:36)
[2017-06-14] MEDS: ESCITALOPRAM 10 MG TAB PO (09:06)
[2017-06-14] MEDS: FUROSEMIDE 40 MG TAB PO (09:06)
[2017-06-14] MEDS: ARIPIPRAZOLE 2 MG TAB PO (09:06)
[2017-06-14] MEDS: DIAZEPAM 5 MG TAB PO ×2 (09:07→22:36)
[2017-06-14] MEDS: DILTIAZEM (CD) 120 MG CAP PO (09:08)
[2017-06-14] MEDS: ENOXAPARIN 40 MG/0.4 ML SYG SC (09:09)
[2017-06-14] MEDS: LEVALBUTEROL (NEB) 0.63 MG/3 ML AMP HHN ×3 (09:40→17:29)
[2017-06-14 13:18] LABS: ADD UMIC YES; UR ASCORBIC ACID NEGATIVE (NEGATIVE); UR BILIRUBIN (Dip) NEGATIVE (NEGATIVE); UR BLOOD (Dip) NEGATIVE (NEGATIVE); UR CLARITY CLEAR (CLEAR); UR COLOR YELLOW (YELLOW); UR GLUCOSE (Dip) NEGATIVE (NEGATIVE); UR KETONES (Dip) NEGATIVE (NEGATIVE); UR LEUKOCYTE ESTERASE (Dip) NEGATIVE Leu/ul (NEGATIVE); UR NITRITE (Dip) NEGATIVE (NEGATIVE); UR RBC 1 /HPF (0-5); UR SPECIFIC GRAVITY (Dip) 1.019 (1.003-1.030); UR TOTAL PROTEIN (Dip) 1+ mg/dl (NEGATIVE); UR UROBILINOGEN (Dip) NEGATIVE (NEGATIVE); UR WBC 1 /HPF (0-5)
[2017-06-14] MEDS: DIGOXIN 0.125 MG TAB PO (13:49)
[2017-06-14] MEDS: AMIODARONE 200 MG TAB PO ×2 (14:49→21:00)
[2017-06-14] MEDS: ATORVASTATIN 20 MG TAB PO (22:36)
[2017-06-14] MEDS: MONTELUKAST 10 MG TAB PO (22:36)
[2017-06-15 07:16] LABS: ADD MAN DIFF? NO
[2017-06-15 07:23] LABS: WHITE BLOOD COUNT 20.3 10^3/ul (4.8-10.8)
[2017-06-15 07:23] LABS: BASOPHILS % 0.1 % (0.0-2.0); HEMOGLOBIN 9.8 g/dl (14.0-18.0); LYMPHOCYTES # 1.2 10^3/ul (0.8-2.9); MEAN CORPUSCULAR HEMOGLOBIN 29.5 pg (29.0-33.0); MEAN CORPUSCULAR HGB CONC 32.7 g/dl (32.0-37.0); MEAN CORPUSCULAR VOLUME 90.4 fl (82.0-101.0); MEAN PLATELET VOLUME 10.3 fl (7.4-10.4); MONOCYTE # 1.5 10^3/ul (0.3-0.9); MONOCYTES % 7.3 % (0.0-11.0); NEUTROPHIL # 17.4 10^3/ul (1.6-7.5); NEUTROPHILS % 85.8 % (39.0-77.0); PLATELET COUNT 231 10^3/UL (140-415); RED BLOOD COUNT 3.32 10^6/ul (4.70-6.10)
[2017-06-15 07:50] LABS: ANION GAP 13 (8-16); BLOOD UREA NITROGEN 57 mg/dl (7-20); CALCIUM 8.9 mg/dl (8.4-10.2); CARBON DIOXIDE 27 mmol/L (21-31); CHLORIDE 102 mmol/L (97-110); CREATININE 1.06 mg/dl (0.61-1.24); GLUCOSE 120 mg/dl (70-220); POTASSIUM 4.1 mmol/L (3.5-5.1); SODIUM 138 mmol/L (135-144)
[2017-06-15] MEDS: LEVALBUTEROL (NEB) 0.63 MG/3 ML AMP HHN ×4 (08:37→18:21)
[2017-06-15] MEDS: ARIPIPRAZOLE 2 MG TAB PO (10:20)
[2017-06-15] MEDS: LUBIPROSTONE 24 MCG CAP PO ×2 (10:20→22:53)
[2017-06-15] MEDS: predniSONE 20 MG TAB PO (10:20)
[2017-06-15] MEDS: FERROUS SULFATE (EC) 325 MG TAB PO ×2 (10:20→22:50)
[2017-06-15] MEDS: ESCITALOPRAM 10 MG TAB PO (10:20)
[2017-06-15] MEDS: ASPIRIN (EC) 81 MG TAB PO (10:21)
[2017-06-15] MEDS: SALMETEROL/FLUTICASONE 500/50 INHA INH ×2 (10:21→22:49)
[2017-06-15] MEDS: FUROSEMIDE 40 MG TAB PO (10:22)
[2017-06-15] MEDS: AMIODARONE 200 MG TAB PO ×2 (10:22→21:00)
[2017-06-15] MEDS: DILTIAZEM (CD) 120 MG CAP PO (10:23)
[2017-06-15] MEDS: ENOXAPARIN 40 MG/0.4 ML SYG SC (11:17)
[2017-06-15] MEDS: DIAZEPAM 5 MG TAB PO ×2 (11:21→22:50)
[2017-06-15] MEDS: DIGOXIN 0.125 MG TAB PO (14:42)
[2017-06-15] MEDS: MONTELUKAST 10 MG TAB PO (22:50)
[2017-06-15] MEDS: ATORVASTATIN 20 MG TAB PO (22:50)
[2017-06-16] MEDS: DIAZEPAM 5 MG TAB PO ×2 (09:00→21:15)
[2017-06-16] MEDS: DILTIAZEM (CD) 120 MG CAP PO (09:14)
[2017-06-16] MEDS: SALMETEROL/FLUTICASONE 500/50 INHA INH ×2 (09:14→21:15)
[2017-06-16] MEDS: predniSONE 10 MG TAB PO (09:15)
[2017-06-16] MEDS: FUROSEMIDE 40 MG TAB PO (09:15)
[2017-06-16] MEDS: LUBIPROSTONE 24 MCG CAP PO ×2 (09:15→21:15)
[2017-06-16] MEDS: FERROUS SULFATE (EC) 325 MG TAB PO ×2 (09:15→21:15)
[2017-06-16] MEDS: ESCITALOPRAM 10 MG TAB PO (09:15)
[2017-06-16] MEDS: ARIPIPRAZOLE 2 MG TAB PO (09:15)
[2017-06-16] MEDS: ASPIRIN (EC) 81 MG TAB PO (09:15)
[2017-06-16] MEDS: AMIODARONE 200 MG TAB PO ×2 (09:15→21:16)
[2017-06-16] MEDS: ENOXAPARIN 40 MG/0.4 ML SYG SC (09:21)
[2017-06-16] MEDS: DIGOXIN 0.125 MG TAB PO (12:19)
[2017-06-16] MEDS: LEVALBUTEROL (NEB) 0.63 MG/3 ML AMP HHN ×2 (13:00→16:16)
[2017-06-16] MEDS: D5W-0.45 NACL + KCL 20 MEQ 1,000 ML IV (18:52)
[2017-06-16] MEDS: ATORVASTATIN 20 MG TAB PO (21:15)
[2017-06-16] MEDS: MONTELUKAST 10 MG TAB PO (21:15)
[2017-06-17 06:51] LABS: ADD MAN DIFF? NO
[2017-06-17 07:02] LABS: WHITE BLOOD COUNT 17.3 10^3/ul (4.8-10.8)
[2017-06-17 07:02] LABS: BASOPHIL # 0.1 10^3/ul (0.0-0.1); BASOPHILS % 0.3 % (0.0-2.0); EOSINOPHILS # 0.1 10^3/ul (0.0-0.5); EOSINOPHILS % 0.3 % (0.0-7.0); HEMATOCRIT 33.2 % (42.0-52.0); HEMOGLOBIN 10.7 g/dl (14.0-18.0); LYMPHOCYTES # 1.9 10^3/ul (0.8-2.9); MEAN CORPUSCULAR HGB CONC 32.2 g/dl (32.0-37.0); MONOCYTE # 1.4 10^3/ul (0.3-0.9); NEUTROPHIL # 13.6 10^3/ul (1.6-7.5); NEUTROPHILS % 78.5 % (39.0-77.0); PLATELET COUNT 232 10^3/UL (140-415); POSITIVE DIFF @See below; RED BLOOD COUNT 3.69 10^6/ul (4.70-6.10); RED CELL DISTRIBUTION WIDTH 17.6 % (11.5-14.5)
[2017-06-17 07:10] LABS: ANION GAP 12 (8-16); BLOOD UREA NITROGEN 40 mg/dl (7-20); CALCIUM 9.3 mg/dl (8.4-10.2); CARBON DIOXIDE 27 mmol/L (21-31); CHLORIDE 103 mmol/L (97-110); CREATININE 1.04 mg/dl (0.61-1.24); GLUCOSE 121 mg/dl (70-220); MAGNESIUM 1.6 mg/dl (1.7-2.5); SODIUM 138 mmol/L (135-144)
[2017-06-17] MEDS: LEVALBUTEROL (NEB) 0.63 MG/3 ML AMP HHN ×3 (07:51→16:33)
[2017-06-17] MEDS: LUBIPROSTONE 24 MCG CAP PO ×2 (08:12→21:09)
[2017-06-17] MEDS: ESCITALOPRAM 10 MG TAB PO (08:12)
[2017-06-17] MEDS: ASPIRIN (EC) 81 MG TAB PO (08:12)
[2017-06-17] MEDS: FERROUS SULFATE (EC) 325 MG TAB PO ×2 (08:12→21:09)
[2017-06-17] MEDS: FUROSEMIDE 40 MG TAB PO (08:12)
[2017-06-17] MEDS: DILTIAZEM (CD) 120 MG CAP PO (08:13)
[2017-06-17] MEDS: SALMETEROL/FLUTICASONE 500/50 INHA INH ×2 (08:13→21:08)
[2017-06-17] MEDS: predniSONE 10 MG TAB PO (08:13)
[2017-06-17] MEDS: ARIPIPRAZOLE 2 MG TAB PO (08:13)
[2017-06-17] MEDS: AMIODARONE 200 MG TAB PO (08:13)
[2017-06-17] MEDS: ENOXAPARIN 40 MG/0.4 ML SYG SC (08:18)
[2017-06-17] MEDS: DIAZEPAM 5 MG TAB PO ×2 (08:19→21:09)
[2017-06-17 08:37] LABS: ERYTHROCYTE SEDIMENTATION RATE 45 mm/Hr (0-20)
[2017-06-17] MEDS: DIGOXIN 0.125 MG TAB PO (12:35)
[2017-06-17] MEDS: MAGNESIUM SULFATE 3 GM in DEXTROSE 5% 100 ML IVPB (13:18)
[2017-06-17] MEDS: CEFTRIAXONE 1 GM/50 ML (PMX) 50 ML IVPB (17:37)
[2017-06-17] MEDS: MONTELUKAST 10 MG TAB PO (21:08)
[2017-06-17] MEDS: APIXABAN 5 MG TABLET PO (21:09)
[2017-06-17] MEDS: ATORVASTATIN 20 MG TAB PO (21:09)
[2017-06-18] MEDS: DILTIAZEM (CD) 120 MG CAP PO (09:00)
[2017-06-18] MEDS: ESCITALOPRAM 10 MG TAB PO (09:28)
[2017-06-18] MEDS: FUROSEMIDE 40 MG TAB PO (09:29)
[2017-06-18] MEDS: predniSONE 10 MG TAB PO (09:29)
[2017-06-18] MEDS: ASPIRIN (EC) 81 MG TAB PO (09:29)
[2017-06-18] MEDS: FERROUS SULFATE (EC) 325 MG TAB PO ×2 (09:29→20:20)
[2017-06-18] MEDS: APIXABAN 5 MG TABLET PO ×2 (09:30→20:21)
[2017-06-18] MEDS: LUBIPROSTONE 24 MCG CAP PO ×2 (09:30→20:20)
[2017-06-18] MEDS: DIAZEPAM 5 MG TAB PO ×2 (09:30→20:21)
[2017-06-18] MEDS: ARIPIPRAZOLE 2 MG TAB PO (09:30)
[2017-06-18] MEDS: SALMETEROL/FLUTICASONE 500/50 INHA INH ×2 (09:31→20:21)
[2017-06-18] MEDS: AMIODARONE 200 MG TAB PO (09:31)
[2017-06-18] MEDS: LEVALBUTEROL (NEB) 0.63 MG/3 ML AMP HHN ×3 (09:43→17:00)
[2017-06-18] MEDS: DIGOXIN 0.125 MG TAB PO (13:00)
[2017-06-18] MEDS: CEFTRIAXONE 1 GM/50 ML (PMX) 50 ML IVPB (17:07)
[2017-06-18] MEDS: ATORVASTATIN 20 MG TAB PO (20:21)
[2017-06-18] MEDS: MONTELUKAST 10 MG TAB PO (20:21)
[2017-06-19 06:21] LABS: ADD MAN DIFF? NO
[2017-06-19 06:27] LABS: WHITE BLOOD COUNT 19.5 10^3/ul (4.8-10.8)
[2017-06-19 06:27] LABS: BASOPHILS % 0.2 % (0.0-2.0); EOSINOPHILS # 0.2 10^3/ul (0.0-0.5); EOSINOPHILS % 0.8 % (0.0-7.0); HEMATOCRIT 34.9 % (42.0-52.0); HEMOGLOBIN 11.4 g/dl (14.0-18.0); LYMPHOCYTES # 2.2 10^3/ul (0.8-2.9); LYMPHOCYTES % 11.4 % (15.0-51.0); MEAN CORPUSCULAR HEMOGLOBIN 29.1 pg (29.0-33.0); MEAN CORPUSCULAR HGB CONC 32.7 g/dl (32.0-37.0); MEAN PLATELET VOLUME 9.7 fl (7.4-10.4); MONOCYTE # 1.4 10^3/ul (0.3-0.9); MONOCYTES % 7.1 % (0.0-11.0); NEUTROPHIL # 15.4 10^3/ul (1.6-7.5); PLATELET COUNT 293 10^3/UL (140-415); RED BLOOD COUNT 3.92 10^6/ul (4.70-6.10); RED CELL DISTRIBUTION WIDTH 17.6 % (11.5-14.5)
[2017-06-19 07:31] LABS: ANION GAP 12 (8-16); BLOOD UREA NITROGEN 35 mg/dl (7-20); CALCIUM 9.3 mg/dl (8.4-10.2); CARBON DIOXIDE 32 mmol/L (21-31); CHLORIDE 100 mmol/L (97-110); CREATININE 1.03 mg/dl (0.61-1.24); GLUCOSE 97 mg/dl (70-220); MAGNESIUM 1.6 mg/dl (1.7-2.5); POTASSIUM 4.1 mmol/L (3.5-5.1); SODIUM 140 mmol/L (135-144)
[2017-06-19 07:49] LABS: DIGOXIN 0.5 ng/ml (1.0-2.0)
[2017-06-19] MEDS: LEVALBUTEROL (NEB) 0.63 MG/3 ML AMP HHN ×3 (09:00→17:32)
[2017-06-19] MEDS: AMIODARONE 200 MG TAB PO (09:00)
[2017-06-19] MEDS: FUROSEMIDE 40 MG TAB PO (09:00)
[2017-06-19] MEDS: DILTIAZEM (CD) 120 MG CAP PO (09:00)
[2017-06-19] MEDS: ASPIRIN (EC) 81 MG TAB PO (09:33)
[2017-06-19] MEDS: DIAZEPAM 5 MG TAB PO ×2 (09:34→20:38)
[2017-06-19] MEDS: predniSONE 10 MG TAB PO (09:34)
[2017-06-19] MEDS: ESCITALOPRAM 10 MG TAB PO (09:35)
[2017-06-19] MEDS: LUBIPROSTONE 24 MCG CAP PO ×2 (09:35→20:38)
[2017-06-19] MEDS: ARIPIPRAZOLE 2 MG TAB PO (09:35)
[2017-06-19] MEDS: FERROUS SULFATE (EC) 325 MG TAB PO ×2 (09:36→20:38)
[2017-06-19] MEDS: APIXABAN 5 MG TABLET PO ×2 (09:38→20:38)
[2017-06-19] MEDS: SALMETEROL/FLUTICASONE 500/50 INHA INH ×2 (09:41→20:39)
[2017-06-19] MEDS: MAGNESIUM SULFATE 3 GM in DEXTROSE 5% 100 ML IVPB (10:50)
[2017-06-19 11:58] LABS: ALANINE AMINOTRANSFERASE 34 IU/L (13-69); ALBUMIN 3.7 g/dl (3.3-4.9); ALKALINE PHOSPHATASE 109 IU/L (42-121); ASPARTATE AMINO TRANSFERASE 20 IU/L (15-46); TOTAL PROTEIN 6.9 g/dl (6.1-8.1)
[2017-06-19] MEDS ORDERED: MAGNESIUM SULFATE 3 GM in DEXTROSE 5% 100 ML IVPB (13:00)
[2017-06-19] MEDS: DIGOXIN 0.125 MG TAB PO (14:08)
[2017-06-19] MEDS: CEFTRIAXONE 1 GM/50 ML (PMX) 50 ML IVPB (17:17)
[2017-06-19] MEDS: MONTELUKAST 10 MG TAB PO (20:38)
[2017-06-19] MEDS: ATORVASTATIN 20 MG TAB PO (20:38)
[2017-06-20 07:00] LABS: ADD MAN DIFF? NO
[2017-06-20 07:07] LABS: WHITE BLOOD COUNT 15.1 10^3/ul (4.8-10.8)
[2017-06-20 07:07] LABS: BASOPHILS % 0.1 % (0.0-2.0); EOSINOPHILS # 0.1 10^3/ul (0.0-0.5); EOSINOPHILS % 0.9 % (0.0-7.0); HEMATOCRIT 32.3 % (42.0-52.0); HEMOGLOBIN 10.5 g/dl (14.0-18.0); LYMPHOCYTES # 1.9 10^3/ul (0.8-2.9); LYMPHOCYTES % 12.8 % (15.0-51.0); MEAN CORPUSCULAR HGB CONC 32.5 g/dl (32.0-37.0); MEAN CORPUSCULAR VOLUME 89.2 fl (82.0-101.0); MEAN PLATELET VOLUME 10.1 fl (7.4-10.4); MONOCYTE # 1.2 10^3/ul (0.3-0.9); MONOCYTES % 7.9 % (0.0-11.0); NEUTROPHIL # 11.6 10^3/ul (1.6-7.5); PLATELET COUNT 278 10^3/UL (140-415); RED BLOOD COUNT 3.62 10^6/ul (4.70-6.10); RED CELL DISTRIBUTION WIDTH 17.5 % (11.5-14.5)
[2017-06-20 07:22] LABS: ALANINE AMINOTRANSFERASE 28 IU/L (13-69); ALBUMIN 3.2 g/dl (3.3-4.9); ALBUMIN/GLOBULIN RATIO 0.96; ALKALINE PHOSPHATASE 106 IU/L (42-121); ANION GAP 11 (8-16); ASPARTATE AMINO TRANSFERASE 15 IU/L (15-46); BLOOD UREA NITROGEN 37 mg/dl (7-20); CALCIUM 9.3 mg/dl (8.4-10.2); CARBON DIOXIDE 32 mmol/L (21-31); CHLORIDE 98 mmol/L (97-110); CREATININE 1.03 mg/dl (0.61-1.24); GLUCOSE 126 mg/dl (70-220); MAGNESIUM 1.9 mg/dl (1.7-2.5); SODIUM 137 mmol/L (135-144); TOTAL PROTEIN 6.5 g/dl (6.1-8.1)
[2017-06-20] MEDS: ASPIRIN (EC) 81 MG TAB PO (08:11)
[2017-06-20] MEDS: SALMETEROL/FLUTICASONE 500/50 INHA INH ×2 (08:11→20:26)
[2017-06-20] MEDS: FERROUS SULFATE (EC) 325 MG TAB PO ×2 (08:12→20:27)
[2017-06-20] MEDS: LUBIPROSTONE 24 MCG CAP PO ×2 (08:12→20:27)
[2017-06-20] MEDS: predniSONE 10 MG TAB PO (08:12)
[2017-06-20] MEDS: DIAZEPAM 5 MG TAB PO ×2 (08:12→20:27)
[2017-06-20] MEDS: APIXABAN 5 MG TABLET PO ×2 (08:12→20:27)
[2017-06-20] MEDS: FUROSEMIDE 40 MG TAB PO (08:12)
[2017-06-20] MEDS: AMIODARONE 200 MG TAB PO (08:12)
[2017-06-20] MEDS: ESCITALOPRAM 10 MG TAB PO (08:13)
[2017-06-20] MEDS: ARIPIPRAZOLE 2 MG TAB PO (08:13)
[2017-06-20] MEDS: DILTIAZEM (CD) 120 MG CAP PO (08:13)
[2017-06-20] MEDS: LEVALBUTEROL (NEB) 0.63 MG/3 ML AMP HHN ×3 (09:32→17:13)
[2017-06-20] MEDS: DIGOXIN 0.125 MG TAB PO (12:44)
[2017-06-20] MEDS: TRIMETHOPRIM/SULFAMETHOX (DS) TAB PO (16:39)
[2017-06-20] MEDS: CEFTRIAXONE 1 GM/50 ML (PMX) 50 ML IVPB (16:39)
[2017-06-20] MEDS: ATORVASTATIN 20 MG TAB PO (20:27)
[2017-06-20] MEDS: MONTELUKAST 10 MG TAB PO (20:27)
[2017-06-21] MEDS: SALMETEROL/FLUTICASONE 500/50 INHA INH ×2 (08:19→20:51)
[2017-06-21] MEDS: FUROSEMIDE 40 MG TAB PO (08:20)
[2017-06-21] MEDS: predniSONE 10 MG TAB PO (08:21)
[2017-06-21] MEDS: LUBIPROSTONE 24 MCG CAP PO ×2 (08:21→20:51)
[2017-06-21] MEDS: APIXABAN 5 MG TABLET PO ×2 (08:21→20:51)
[2017-06-21] MEDS: FERROUS SULFATE (EC) 325 MG TAB PO ×2 (08:21→20:51)
[2017-06-21] MEDS: TRIMETHOPRIM/SULFAMETHOX (DS) TAB PO ×2 (08:21→20:51)
[2017-06-21] MEDS: ESCITALOPRAM 10 MG TAB PO (08:21)
[2017-06-21] MEDS: DILTIAZEM (CD) 120 MG CAP PO (08:21)
[2017-06-21] MEDS: AMIODARONE 200 MG TAB PO (08:21)
[2017-06-21] MEDS: ASPIRIN (EC) 81 MG TAB PO (08:21)
[2017-06-21] MEDS: ARIPIPRAZOLE 2 MG TAB PO (08:21)
[2017-06-21] MEDS: DIAZEPAM 5 MG TAB PO ×2 (08:23→20:51)
[2017-06-21] MEDS: LEVALBUTEROL (NEB) 0.63 MG/3 ML AMP HHN ×3 (10:04→16:52)
[2017-06-21] MEDS: DIGOXIN 0.125 MG TAB PO (12:04)
[2017-06-21] MEDS: CEFTRIAXONE 1 GM/50 ML (PMX) 50 ML IVPB (17:09)
[2017-06-21] MEDS: MONTELUKAST 10 MG TAB PO (20:51)
[2017-06-21] MEDS: ATORVASTATIN 20 MG TAB PO (20:51)
[2017-06-22 07:08] LABS: ADD MAN DIFF? NO
[2017-06-22 07:10] LABS: BASOPHILS % 0.1 % (0.0-2.0); EOSINOPHILS # 0.1 10^3/ul (0.0-0.5); EOSINOPHILS % 0.9 % (0.0-7.0); HEMATOCRIT 30.9 % (42.0-52.0); HEMOGLOBIN 10.1 g/dl (14.0-18.0); LYMPHOCYTES # 1.9 10^3/ul (0.8-2.9); LYMPHOCYTES % 12.8 % (15.0-51.0); MEAN CORPUSCULAR HEMOGLOBIN 28.9 pg (29.0-33.0); MEAN CORPUSCULAR HGB CONC 32.7 g/dl (32.0-37.0); MEAN CORPUSCULAR VOLUME 88.5 fl (82.0-101.0); MEAN PLATELET VOLUME 9.7 fl (7.4-10.4); MONOCYTE # 0.9 10^3/ul (0.3-0.9); NEUTROPHIL # 11.8 10^3/ul (1.6-7.5); NEUTROPHILS % 79.5 % (39.0-77.0); PLATELET COUNT 264 10^3/UL (140-415); RED BLOOD COUNT 3.49 10^6/ul (4.70-6.10); RED CELL DISTRIBUTION WIDTH 17.4 % (11.5-14.5)
[2017-06-22 07:10] LABS: WHITE BLOOD COUNT 14.8 10^3/ul (4.8-10.8)
[2017-06-22 07:30] LABS: ALANINE AMINOTRANSFERASE 33 IU/L (13-69); ALBUMIN 3.3 g/dl (3.3-4.9); ALKALINE PHOSPHATASE 107 IU/L (42-121); ANION GAP 13 (8-16); ASPARTATE AMINO TRANSFERASE 17 IU/L (15-46); BLOOD UREA NITROGEN 34 mg/dl (7-20); CALCIUM 9.1 mg/dl (8.4-10.2); CARBON DIOXIDE 32 mmol/L (21-31); CHLORIDE 100 mmol/L (97-110); CREATININE 1.24 mg/dl (0.61-1.24); GLUCOSE 106 mg/dl (70-220); POTASSIUM 3.7 mmol/L (3.5-5.1); SODIUM 141 mmol/L (135-144); TOTAL PROTEIN 6.3 g/dl (6.1-8.1)
[2017-06-22] MEDS: SALMETEROL/FLUTICASONE 500/50 INHA INH ×2 (08:46→21:13)
[2017-06-22] MEDS: DILTIAZEM (CD) 120 MG CAP PO (08:46)
[2017-06-22] MEDS: FERROUS SULFATE (EC) 325 MG TAB PO ×2 (08:47→21:14)
[2017-06-22] MEDS: AMIODARONE 200 MG TAB PO (08:47)
[2017-06-22] MEDS: ESCITALOPRAM 10 MG TAB PO (08:47)
[2017-06-22] MEDS: FUROSEMIDE 40 MG TAB PO (08:47)
[2017-06-22] MEDS: APIXABAN 5 MG TABLET PO ×2 (08:47→21:13)
[2017-06-22] MEDS: predniSONE 1 MG TAB PO (08:47)
[2017-06-22] MEDS: LUBIPROSTONE 24 MCG CAP PO ×2 (08:48→21:14)
[2017-06-22] MEDS: ASPIRIN (EC) 81 MG TAB PO (08:48)
[2017-06-22] MEDS: ARIPIPRAZOLE 2 MG TAB PO (08:48)
[2017-06-22] MEDS: TRIMETHOPRIM/SULFAMETHOX (DS) TAB PO ×2 (08:48→21:14)
[2017-06-22] MEDS: DIAZEPAM 5 MG TAB PO ×2 (08:50→21:14)
[2017-06-22] MEDS: LEVALBUTEROL (NEB) 0.63 MG/3 ML AMP HHN ×3 (09:00→17:06)
[2017-06-22] MEDS: CEFTRIAXONE 1 GM/50 ML (PMX) 50 ML IVPB (17:17)
[2017-06-22] MEDS: MAGNESIUM CITRATE 300 ML BTL PO (19:00)
[2017-06-22] MEDS: MONTELUKAST 10 MG TAB PO (21:14)
[2017-06-22] MEDS: ATORVASTATIN 20 MG TAB PO (21:14)
[2017-06-23] MEDS: LEVALBUTEROL (NEB) 0.63 MG/3 ML AMP HHN ×3 (07:22→16:54)
[2017-06-23] MEDS: ESCITALOPRAM 10 MG TAB PO (08:31)
[2017-06-23] MEDS: predniSONE 1 MG TAB PO (08:31)
[2017-06-23] MEDS: ARIPIPRAZOLE 2 MG TAB PO (08:31)
[2017-06-23] MEDS: FERROUS SULFATE (EC) 325 MG TAB PO ×2 (08:32→20:54)
[2017-06-23] MEDS: DILTIAZEM (CD) 120 MG CAP PO (08:32)
[2017-06-23] MEDS: TRIMETHOPRIM/SULFAMETHOX (DS) TAB PO ×2 (08:33→20:55)
[2017-06-23] MEDS: FUROSEMIDE 40 MG TAB PO (08:33)
[2017-06-23] MEDS: APIXABAN 5 MG TABLET PO ×2 (08:33→20:55)
[2017-06-23] MEDS: ASPIRIN (EC) 81 MG TAB PO (08:34)
[2017-06-23] MEDS: AMIODARONE 200 MG TAB PO (08:34)
[2017-06-23] MEDS: DIAZEPAM 5 MG TAB PO ×2 (08:57→20:55)
[2017-06-23] MEDS: SALMETEROL/FLUTICASONE 500/50 INHA INH ×2 (08:57→20:55)
[2017-06-23] MEDS: LUBIPROSTONE 24 MCG CAP PO ×3 (09:00→20:55)
[2017-06-23] MEDS: DIGOXIN 0.125 MG TAB PO (12:32)
[2017-06-23] MEDS: CEFTRIAXONE 1 GM/50 ML (PMX) 50 ML IVPB (16:39)
[2017-06-23] MEDS: MONTELUKAST 10 MG TAB PO (20:54)
[2017-06-23] MEDS: ATORVASTATIN 20 MG TAB PO (20:55)
[2017-06-24] MEDS: SALMETEROL/FLUTICASONE 500/50 INHA INH (08:32)
[2017-06-24] MEDS: predniSONE 1 MG TAB PO (08:33)
[2017-06-24] MEDS: AMOXICILLIN/CLAV 500 MG TAB PO ×2 (08:33→12:45)
[2017-06-24] MEDS: TIOTROPIUM 18 MCG CAPSULE INHA DEV INH (08:33)
[2017-06-24] MEDS: ESCITALOPRAM 10 MG TAB PO (08:34)
[2017-06-24] MEDS: TRIMETHOPRIM/SULFAMETHOX (DS) TAB PO (08:34)
[2017-06-24] MEDS: CELECOXIB 200 MG CAP PO (08:34)
[2017-06-24] MEDS: LUBIPROSTONE 24 MCG CAP PO (08:34)
[2017-06-24] MEDS: APIXABAN 5 MG TABLET PO (08:34)
[2017-06-24] MEDS: ARIPIPRAZOLE 2 MG TAB PO (08:34)
[2017-06-24] MEDS: ASPIRIN (EC) 81 MG TAB PO (08:34)
[2017-06-24] MEDS: FERROUS SULFATE (EC) 325 MG TAB PO (08:34)
[2017-06-24] MEDS: AMIODARONE 200 MG TAB PO (08:36)
[2017-06-24] MEDS: DILTIAZEM (CD) 120 MG CAP PO (08:36)
[2017-06-24] MEDS: FUROSEMIDE 40 MG TAB PO (08:39)
[2017-06-24] MEDS: DIAZEPAM 5 MG TAB PO (08:40)
[2017-06-24] MEDS: LEVALBUTEROL (NEB) 0.63 MG/3 ML AMP HHN ×2 (09:42→13:56)
[2017-06-24 18:31] LABS: FREE TESTOSTERONE 0.5 pg/mL (30.0-135.0); TESTOSTERONE, TOTAL 2 ng/dL (250-1100)
== END 2017-06-24 14:48 | disposition home health service (06) | DRG 190 ==
LOC: TEL 23:07 → E/R 20:36
DX: J44.1 Chronic obstructive pulmonary disease with (acute) exacerbation (principal); J18.9 Pneumonia, unspecified organism; N17.9 Acute kidney failure, unspecified; I11.0 Hypertensive heart disease with heart failure; I50.42 Chronic combined systolic (congestive) and diastolic (congestive) heart failure; I48.0 Paroxysmal atrial fibrillation; I10 Essential (primary) hypertension; D72.829 Elevated white blood cell count, unspecified; M48.061 Spinal stenosis, lumbar region without neurogenic claudication; F41.9 Anxiety disorder, unspecified; F32.9 Major depressive disorder, single episode, unspecified; K59.00 Constipation, unspecified; Z79.82 Long term (current) use of aspirin; F17.200 Nicotine dependence, unspecified, uncomplicated; I25.10 Atherosclerotic heart disease of native coronary artery without angina pectoris; R11.2 Nausea with vomiting, unspecified
CPT/HCPCS: 71045; 71250; 80048; 80053; 80076; 80162; 81001; 82150; 82550; 82553; 83605; 83690; 83735; 84403; 84484; 85025; 85610; 85651; 85730; 87040; 87086; 87400; 92610; 93005; 94640; 94664; 96374; 96375; 97116; 97162; 97530; 99291-25

== ENCOUNTER 2017-10-27 08:24 | Inpatient (IN) | payer MEDICARE, BC ==
[2017-10-27] MEDS: METHYLPREDNISOLONE 125 MG INJ IV ×2 (09:16→22:31)
[2017-10-27 09:38] LABS: ADD MAN DIFF? NO
[2017-10-27] MEDS: ALBUTEROL 0.5% (NEB) 2.5 MG/0.5 ML AMP INH (09:38)
[2017-10-27 09:54] LABS: BASOPHIL # 0.1 10^3/ul (0.0-0.1); BASOPHILS % 0.7 % (0.0-2.0); EOSINOPHILS # 0.4 10^3/ul (0.0-0.5); EOSINOPHILS % 4.5 % (0.0-7.0); HEMATOCRIT 38.7 % (42.0-52.0); HEMOGLOBIN 12.1 g/dl (14.0-18.0); LYMPHOCYTES # 1.4 10^3/ul (0.8-2.9); LYMPHOCYTES % 17.4 % (15.0-51.0); MEAN CORPUSCULAR HEMOGLOBIN 27.6 pg (29.0-33.0); MEAN CORPUSCULAR HGB CONC 31.3 g/dl (32.0-37.0); MEAN CORPUSCULAR VOLUME 88.2 fl (82.0-101.0); MEAN PLATELET VOLUME 11.4 fl (7.4-10.4); MONOCYTE # 0.9 10^3/ul (0.3-0.9); MONOCYTES % 11.3 % (0.0-11.0); NEUTROPHIL # 5.4 10^3/ul (1.6-7.5); NEUTROPHILS % 65.9 % (39.0-77.0); PLATELET COUNT 181 10^3/UL (140-415); RED BLOOD COUNT 4.39 10^6/ul (4.70-6.10); RED CELL DISTRIBUTION WIDTH 16.1 % (11.5-14.5)
[2017-10-27 09:54] LABS: WHITE BLOOD COUNT 8.3 10^3/ul (4.8-10.8)
[2017-10-27 10:11] LABS: ALANINE AMINOTRANSFERASE 18 IU/L (13-69); ALBUMIN 4.3 g/dl (3.3-4.9); ALBUMIN/GLOBULIN RATIO 0.95; ALKALINE PHOSPHATASE 104 IU/L (42-121); ANION GAP 17 (8-16); ASPARTATE AMINO TRANSFERASE 29 IU/L (15-46); BILIRUBIN,INDIRECT 0.4 mg/dl (0-1.1); BILIRUBIN,TOTAL 0.4 mg/dl (0.2-1.3); BLOOD UREA NITROGEN 20 mg/dl (7-20); CALCIUM 9.3 mg/dl (8.4-10.2); CARBON DIOXIDE 23 mmol/L (21-31); CHLORIDE 106 mmol/L (97-110); CREATININE 1.11 mg/dl (0.61-1.24); GLUCOSE 119 mg/dl (70-220); POTASSIUM 4.9 mmol/L (3.5-5.1); SODIUM 141 mmol/L (135-144); TOTAL PROTEIN 8.8 g/dl (6.1-8.1)
[2017-10-27 10:22] LABS: B-TYPE NATRIURETIC PEPTIDE 521 PG/ML (0-450)
[2017-10-27 10:42] LABS: TROPONIN-I < 0.012 ng/ml (0.000-0.120)
[2017-10-27] MEDS: FUROSEMIDE 40 MG INJ IV (13:56)
[2017-10-27] MEDS ORDERED: ACETAMINOPHEN 325 MG TAB PO (14:00)
[2017-10-27] MEDS ORDERED: ONDANSETRON 4 MG INJ IV (14:00)
[2017-10-27] MEDS ORDERED: LEVALBUTEROL (NEB) 0.63 MG/3 ML AMP HHN (14:30)
[2017-10-27 18:16] LABS: CREATINE KINASE 33 IU/L (23-200)
[2017-10-27 18:27] LABS: CK INDEX 1.6
[2017-10-27 18:29] LABS: CK-MB 0.54 ng/ml (0.0-2.4); TROPONIN-I < 0.012 ng/ml (0.000-0.120)
[2017-10-27] MEDS: LUBIPROSTONE 24 MCG CAP PO (20:19)
[2017-10-27] MEDS: APIXABAN 5 MG TABLET PO (20:20)
[2017-10-27] MEDS: MAGNESIUM OXIDE 400 MG TAB PO (20:20)
[2017-10-27] MEDS: FERROUS SULFATE (EC) 325 MG TAB PO (20:20)
[2017-10-27] MEDS: ATORVASTATIN 20 MG TAB PO (20:20)
[2017-10-27] MEDS: MONTELUKAST 10 MG TAB PO (20:21)
[2017-10-27] MEDS ORDERED: DIAZEPAM 5 MG TAB PO ×2 (21:00)
[2017-10-28 05:22] LABS: ADD MAN DIFF? NO
[2017-10-28 05:37] LABS: BASOPHILS % 0.1 % (0.0-2.0); HEMATOCRIT 35.8 % (42.0-52.0); HEMOGLOBIN 11.2 g/dl (14.0-18.0); LYMPHOCYTES # 0.7 10^3/ul (0.8-2.9); LYMPHOCYTES % 6.4 % (15.0-51.0); MEAN CORPUSCULAR HGB CONC 31.3 g/dl (32.0-37.0); MEAN CORPUSCULAR VOLUME 86.3 fl (82.0-101.0); MEAN PLATELET VOLUME 11.1 fl (7.4-10.4); MONOCYTE # 0.1 10^3/ul (0.3-0.9); MONOCYTES % 1.1 % (0.0-11.0); NEUTROPHILS % 91.9 % (39.0-77.0); PLATELET COUNT 242 10^3/UL (140-415); RED BLOOD COUNT 4.15 10^6/ul (4.70-6.10); RED CELL DISTRIBUTION WIDTH 15.6 % (11.5-14.5)
[2017-10-28 05:37] LABS: WHITE BLOOD COUNT 10.9 10^3/ul (4.8-10.8)
[2017-10-28] MEDS: METHYLPREDNISOLONE 125 MG INJ IV ×3 (05:38→21:05)
[2017-10-28 06:00] LABS: ALANINE AMINOTRANSFERASE 12 IU/L (13-69); ALBUMIN 3.9 g/dl (3.3-4.9); ALBUMIN/GLOBULIN RATIO 1.14; ALKALINE PHOSPHATASE 98 IU/L (42-121); ANION GAP 18 (8-16); ASPARTATE AMINO TRANSFERASE 13 IU/L (15-46); BILIRUBIN,INDIRECT 0.1 mg/dl (0-1.1); BILIRUBIN,TOTAL 0.1 mg/dl (0.2-1.3); BLOOD UREA NITROGEN 29 mg/dl (7-20); CALCIUM 9.4 mg/dl (8.4-10.2); CARBON DIOXIDE 33 mmol/L (21-31); CHLORIDE 97 mmol/L (97-110); CREATININE 1.19 mg/dl (0.61-1.24); GLUCOSE 167 mg/dl (70-220); MAGNESIUM 1.9 mg/dl (1.7-2.5); POTASSIUM 4.8 mmol/L (3.5-5.1); SODIUM 143 mmol/L (135-144); TOTAL PROTEIN 7.3 g/dl (6.1-8.1)
[2017-10-28 06:39] LABS: B-TYPE NATRIURETIC PEPTIDE 1330 PG/ML (0-450)
[2017-10-28] MEDS ORDERED: ARIPIPRAZOLE 2 MG TAB PO (09:00)
[2017-10-28] MEDS ORDERED: ESCITALOPRAM 10 MG TAB PO (09:00)
[2017-10-28] MEDS: FERROUS SULFATE (EC) 325 MG TAB PO ×2 (09:40→21:04)
[2017-10-28] MEDS: MAGNESIUM OXIDE 400 MG TAB PO ×2 (09:41→21:00)
[2017-10-28] MEDS: APIXABAN 5 MG TABLET PO ×2 (09:41→21:04)
[2017-10-28] MEDS: LUBIPROSTONE 24 MCG CAP PO ×2 (09:41→21:04)
[2017-10-28] MEDS: DILTIAZEM (CD) 120 MG CAP PO (09:42)
[2017-10-28] MEDS: FUROSEMIDE 40 MG INJ IV (09:42)
[2017-10-28] MEDS: TIOTROPIUM 18 MCG CAPSULE INHA DEV INH (09:43)
[2017-10-28] MEDS: MAGNESIUM HYDROXIDE 30ML CUP PO (09:43)
[2017-10-28] MEDS: POTASSIUM CHLORIDE (SR) 20 MEQ TAB PO (11:21)
[2017-10-28] MEDS: FUROSEMIDE 40 MG TAB PO (16:44)
[2017-10-28] MEDS: ATORVASTATIN 20 MG TAB PO (21:04)
[2017-10-28] MEDS: MONTELUKAST 10 MG TAB PO (21:09)
[2017-10-29] MEDS: METHYLPREDNISOLONE 125 MG INJ IV ×3 (05:21→21:55)
[2017-10-29 06:11] LABS: ADD MAN DIFF? NO
[2017-10-29 06:13] LABS: WHITE BLOOD COUNT 20.1 10^3/ul (4.8-10.8)
[2017-10-29 06:13] LABS: BASOPHILS % 0.1 % (0.0-2.0); HEMATOCRIT 35.9 % (42.0-52.0); HEMOGLOBIN 11.4 g/dl (14.0-18.0); LYMPHOCYTES # 0.8 10^3/ul (0.8-2.9); LYMPHOCYTES % 3.8 % (15.0-51.0); MEAN CORPUSCULAR HEMOGLOBIN 27.5 pg (29.0-33.0); MEAN CORPUSCULAR HGB CONC 31.8 g/dl (32.0-37.0); MEAN CORPUSCULAR VOLUME 86.5 fl (82.0-101.0); MEAN PLATELET VOLUME 10.9 fl (7.4-10.4); MONOCYTE # 0.4 10^3/ul (0.3-0.9); MONOCYTES % 1.9 % (0.0-11.0); NEUTROPHIL # 18.8 10^3/ul (1.6-7.5); NEUTROPHILS % 93.5 % (39.0-77.0); PLATELET COUNT 250 10^3/UL (140-415); RED BLOOD COUNT 4.15 10^6/ul (4.70-6.10); RED CELL DISTRIBUTION WIDTH 16.1 % (11.5-14.5)
[2017-10-29 06:58] LABS: B-TYPE NATRIURETIC PEPTIDE 1080 PG/ML (0-450)
[2017-10-29 07:11] LABS: ANION GAP 17 (8-16); BLOOD UREA NITROGEN 48 mg/dl (7-20); CALCIUM 9.4 mg/dl (8.4-10.2); CARBON DIOXIDE 33 mmol/L (21-31); CHLORIDE 96 mmol/L (97-110); CREATININE 1.21 mg/dl (0.61-1.24); GLUCOSE 144 mg/dl (70-220); MAGNESIUM 2.2 mg/dl (1.7-2.5); POTASSIUM 4.6 mmol/L (3.5-5.1); SODIUM 141 mmol/L (135-144)
[2017-10-29] MEDS: DILTIAZEM (CD) 120 MG CAP PO (08:53)
[2017-10-29] MEDS: POTASSIUM CHLORIDE (SR) 20 MEQ TAB PO (08:53)
[2017-10-29] MEDS: MAGNESIUM OXIDE 400 MG TAB PO ×2 (08:53→21:53)
[2017-10-29] MEDS: APIXABAN 5 MG TABLET PO ×2 (08:53→21:53)
[2017-10-29] MEDS: FERROUS SULFATE (EC) 325 MG TAB PO ×2 (08:53→21:53)
[2017-10-29] MEDS: FUROSEMIDE 40 MG TAB PO (08:53)
[2017-10-29] MEDS: LUBIPROSTONE 24 MCG CAP PO ×2 (08:54→21:51)
[2017-10-29] MEDS: TIOTROPIUM 18 MCG CAPSULE INHA DEV INH (09:00)
[2017-10-29] MEDS: ATORVASTATIN 20 MG TAB PO (21:53)
[2017-10-29] MEDS: MONTELUKAST 10 MG TAB PO (21:59)
[2017-10-29] MEDS: CEFAZOLIN 1 GM/50 ML (PMX) 50 ML IVPB (22:03)
[2017-10-30] MEDS: CEFAZOLIN 1 GM/50 ML (PMX) 50 ML IVPB ×3 (05:54→21:26)
[2017-10-30] MEDS: METHYLPREDNISOLONE 125 MG INJ IV ×3 (05:54→21:26)
[2017-10-30 06:12] LABS: ADD MAN DIFF? NO
[2017-10-30 06:20] LABS: BASOPHILS % 0.2 % (0.0-2.0); HEMOGLOBIN 11.9 g/dl (14.0-18.0); LYMPHOCYTES # 0.6 10^3/ul (0.8-2.9); LYMPHOCYTES % 3.8 % (15.0-51.0); MEAN CORPUSCULAR HEMOGLOBIN 27.3 pg (29.0-33.0); MEAN CORPUSCULAR HGB CONC 31.3 g/dl (32.0-37.0); MEAN CORPUSCULAR VOLUME 87.2 fl (82.0-101.0); MONOCYTE # 0.3 10^3/ul (0.3-0.9); NEUTROPHIL # 15.5 10^3/ul (1.6-7.5); NEUTROPHILS % 92.9 % (39.0-77.0); PLATELET COUNT 241 10^3/UL (140-415); RED BLOOD COUNT 4.36 10^6/ul (4.70-6.10); RED CELL DISTRIBUTION WIDTH 15.7 % (11.5-14.5)
[2017-10-30 06:20] LABS: WHITE BLOOD COUNT 16.6 10^3/ul (4.8-10.8)
[2017-10-30 07:19] LABS: B-TYPE NATRIURETIC PEPTIDE 1450 PG/ML (0-450)
[2017-10-30 07:28] LABS: ALANINE AMINOTRANSFERASE 53 IU/L (13-69); ALBUMIN 3.7 g/dl (3.3-4.9); ALBUMIN/GLOBULIN RATIO 0.97; ALKALINE PHOSPHATASE 96 IU/L (42-121); ANION GAP 16 (8-16); ASPARTATE AMINO TRANSFERASE 58 IU/L (15-46); BILIRUBIN,INDIRECT 0.2 mg/dl (0-1.1); BILIRUBIN,TOTAL 0.2 mg/dl (0.2-1.3); BLOOD UREA NITROGEN 57 mg/dl (7-20); CALCIUM 9.2 mg/dl (8.4-10.2); CARBON DIOXIDE 30 mmol/L (21-31); CHLORIDE 101 mmol/L (97-110); CREATININE 1.05 mg/dl (0.61-1.24); GLUCOSE 139 mg/dl (70-220); MAGNESIUM 2.2 mg/dl (1.7-2.5); POTASSIUM 5.2 mmol/L (3.5-5.1); SODIUM 142 mmol/L (135-144); TOTAL PROTEIN 7.5 g/dl (6.1-8.1)
[2017-10-30] MEDS: APIXABAN 5 MG TABLET PO ×2 (08:42→21:23)
[2017-10-30] MEDS: MAGNESIUM OXIDE 400 MG TAB PO ×2 (08:42→21:22)
[2017-10-30] MEDS: FERROUS SULFATE (EC) 325 MG TAB PO ×2 (08:42→21:23)
[2017-10-30] MEDS: LUBIPROSTONE 24 MCG CAP PO ×2 (08:42→21:23)
[2017-10-30] MEDS: DILTIAZEM (CD) 120 MG CAP PO (08:42)
[2017-10-30] MEDS: TIOTROPIUM 18 MCG CAPSULE INHA DEV INH (08:42)
[2017-10-30] MEDS: FUROSEMIDE 40 MG TAB PO (08:42)
[2017-10-30] MEDS: ATORVASTATIN 20 MG TAB PO (21:23)
[2017-10-30] MEDS: MONTELUKAST 10 MG TAB PO (21:23)
[2017-10-31] MEDS ORDERED: MAGNESIUM HYDROXIDE 30ML CUP PO (03:00)
[2017-10-31] MEDS: NA POLYST SULFON 15 GM/60 ML BTL PO (05:22)
[2017-10-31] MEDS: METHYLPREDNISOLONE 125 MG INJ IV ×2 (05:22→13:16)
[2017-10-31] MEDS: MAGNESIUM HYDROXIDE 30ML CUP PO (05:23)
[2017-10-31] MEDS: CEFAZOLIN 1 GM/50 ML (PMX) 50 ML IVPB ×4 (05:24→22:00)
[2017-10-31 07:47] LABS: ADD MAN DIFF? NO
[2017-10-31 07:51] LABS: BASOPHILS % 0.2 % (0.0-2.0); HEMATOCRIT 38.4 % (42.0-52.0); HEMOGLOBIN 11.8 g/dl (14.0-18.0); LYMPHOCYTES # 0.6 10^3/ul (0.8-2.9); LYMPHOCYTES % 5.2 % (15.0-51.0); MEAN CORPUSCULAR HEMOGLOBIN 27.1 pg (29.0-33.0); MEAN CORPUSCULAR HGB CONC 30.7 g/dl (32.0-37.0); MEAN CORPUSCULAR VOLUME 88.3 fl (82.0-101.0); MEAN PLATELET VOLUME 10.8 fl (7.4-10.4); MONOCYTE # 0.4 10^3/ul (0.3-0.9); MONOCYTES % 3.3 % (0.0-11.0); NEUTROPHIL # 10.8 10^3/ul (1.6-7.5); NEUTROPHILS % 90.1 % (39.0-77.0); PLATELET COUNT 225 10^3/UL (140-415); RED BLOOD COUNT 4.35 10^6/ul (4.70-6.10); RED CELL DISTRIBUTION WIDTH 15.7 % (11.5-14.5)
[2017-10-31 08:40] LABS: ANION GAP 18 (8-16); BLOOD UREA NITROGEN 57 mg/dl (7-20); CALCIUM 8.9 mg/dl (8.4-10.2); CARBON DIOXIDE 32 mmol/L (21-31); CHLORIDE 98 mmol/L (97-110); CREATININE 1.09 mg/dl (0.61-1.24); GLUCOSE 142 mg/dl (70-220); POTASSIUM 4.5 mmol/L (3.5-5.1); SODIUM 143 mmol/L (135-144)
[2017-10-31] MEDS: TIOTROPIUM 18 MCG CAPSULE INHA DEV INH (09:00)
[2017-10-31] MEDS: MAGNESIUM OXIDE 400 MG TAB PO ×2 (09:21→21:28)
[2017-10-31] MEDS: LUBIPROSTONE 24 MCG CAP PO ×2 (09:22→21:28)
[2017-10-31] MEDS: FERROUS SULFATE (EC) 325 MG TAB PO ×2 (09:22→21:28)
[2017-10-31] MEDS: DOCUSATE SODIUM 100 MG CAP PO ×2 (09:23→21:28)
[2017-10-31] MEDS: DILTIAZEM (CD) 120 MG CAP PO (09:24)
[2017-10-31] MEDS: APIXABAN 5 MG TABLET PO ×2 (09:25→21:28)
[2017-10-31] MEDS: FUROSEMIDE 40 MG TAB PO (09:28)
[2017-10-31] MEDS: LEVALBUTEROL (NEB) 0.63 MG/3 ML AMP HHN (20:21)
[2017-10-31] MEDS: METHYLPREDNISOLONE 40 MG INJ IV ×2 (21:00→21:27)
[2017-10-31] MEDS: ATORVASTATIN 20 MG TAB PO (21:28)
[2017-10-31] MEDS: MONTELUKAST 10 MG TAB PO (21:28)
[2017-10-31] MEDS: GUAIFENESIN LA 600 MG TABSR PO (22:21)
[2017-11-01] MEDS: CEFAZOLIN 1 GM/50 ML (PMX) 50 ML IVPB ×3 (05:40→20:53)
[2017-11-01 07:13] LABS: ADD MAN DIFF? NO
[2017-11-01 07:16] LABS: BASOPHILS % 0.1 % (0.0-2.0); HEMATOCRIT 38.4 % (42.0-52.0); HEMOGLOBIN 12.2 g/dl (14.0-18.0); LYMPHOCYTES # 0.7 10^3/ul (0.8-2.9); LYMPHOCYTES % 5.2 % (15.0-51.0); MEAN CORPUSCULAR HEMOGLOBIN 27.6 pg (29.0-33.0); MEAN CORPUSCULAR HGB CONC 31.8 g/dl (32.0-37.0); MEAN CORPUSCULAR VOLUME 86.9 fl (82.0-101.0); MEAN PLATELET VOLUME 10.6 fl (7.4-10.4); MONOCYTE # 0.6 10^3/ul (0.3-0.9); MONOCYTES % 4.6 % (0.0-11.0); NEUTROPHIL # 12.2 10^3/ul (1.6-7.5); NEUTROPHILS % 88.6 % (39.0-77.0); PLATELET COUNT 222 10^3/UL (140-415); RED BLOOD COUNT 4.42 10^6/ul (4.70-6.10); RED CELL DISTRIBUTION WIDTH 15.4 % (11.5-14.5)
[2017-11-01 07:16] LABS: WHITE BLOOD COUNT 13.7 10^3/ul (4.8-10.8)
[2017-11-01 07:35] LABS: ANION GAP 12 (8-16); BLOOD UREA NITROGEN 56 mg/dl (7-20); CALCIUM 8.5 mg/dl (8.4-10.2); CARBON DIOXIDE 38 mmol/L (21-31); CHLORIDE 95 mmol/L (97-110); CREATININE 0.99 mg/dl (0.61-1.24); GLUCOSE 134 mg/dl (70-220); POTASSIUM 4.4 mmol/L (3.5-5.1); SODIUM 141 mmol/L (135-144)
[2017-11-01] MEDS: TIOTROPIUM 18 MCG CAPSULE INHA DEV INH (08:23)
[2017-11-01] MEDS: GUAIFENESIN LA 600 MG TABSR PO ×2 (08:24→20:53)
[2017-11-01] MEDS: LUBIPROSTONE 24 MCG CAP PO ×2 (08:24→20:53)
[2017-11-01] MEDS: MAGNESIUM OXIDE 400 MG TAB PO ×2 (08:24→20:53)
[2017-11-01] MEDS: FERROUS SULFATE (EC) 325 MG TAB PO ×2 (08:25→20:53)
[2017-11-01] MEDS: DILTIAZEM (CD) 120 MG CAP PO (08:25)
[2017-11-01] MEDS: APIXABAN 5 MG TABLET PO ×2 (08:25→20:53)
[2017-11-01] MEDS: DOCUSATE SODIUM 100 MG CAP PO ×2 (08:25→20:53)
[2017-11-01] MEDS: METHYLPREDNISOLONE 40 MG INJ IV ×2 (08:25→20:52)
[2017-11-01] MEDS: ESCITALOPRAM 10 MG TAB PO (08:25)
[2017-11-01] MEDS: FUROSEMIDE 40 MG INJ IV (08:25)
[2017-11-01] MEDS: LEVALBUTEROL (NEB) 0.63 MG/3 ML AMP HHN ×3 (09:00→16:37)
[2017-11-01] MEDS: ATORVASTATIN 20 MG TAB PO (20:53)
[2017-11-01] MEDS: MONTELUKAST 10 MG TAB PO (20:53)
[2017-11-02] MEDS: LEVALBUTEROL (NEB) 0.63 MG/3 ML AMP HHN ×4 (00:21→17:13)
[2017-11-02] MEDS: ACETYLCYSTEINE 20% 4 ML VIAL NEB ×3 (00:21→17:13)
[2017-11-02 03:47] LABS: PROTEIN, TOTAL 6.5 g/dL (6.1-8.1)
[2017-11-02] MEDS: CEFAZOLIN 1 GM/50 ML (PMX) 50 ML IVPB ×3 (05:57→21:24)
[2017-11-02] MEDS: DOCUSATE SODIUM 100 MG CAP PO ×2 (08:37→20:21)
[2017-11-02] MEDS: TIOTROPIUM 18 MCG CAPSULE INHA DEV INH (08:37)
[2017-11-02] MEDS: FERROUS SULFATE (EC) 325 MG TAB PO ×2 (08:38→20:21)
[2017-11-02] MEDS: FUROSEMIDE 40 MG INJ IV (08:38)
[2017-11-02] MEDS: DILTIAZEM (CD) 120 MG CAP PO (08:38)
[2017-11-02] MEDS: MAGNESIUM OXIDE 400 MG TAB PO ×2 (08:39→20:21)
[2017-11-02] MEDS: GUAIFENESIN LA 600 MG TABSR PO ×2 (08:39→20:21)
[2017-11-02] MEDS: APIXABAN 5 MG TABLET PO ×2 (08:39→20:21)
[2017-11-02] MEDS: METHYLPREDNISOLONE 40 MG INJ IV (08:39)
[2017-11-02] MEDS: ESCITALOPRAM 10 MG TAB PO (08:39)
[2017-11-02] MEDS: LUBIPROSTONE 24 MCG CAP PO ×2 (08:40→20:21)
[2017-11-02 08:44] LABS: ABNORMAL IP MESSAGE 1; MEAN CORPUSCULAR HGB CONC 31.7 g/dl (32.0-37.0); MEAN CORPUSCULAR VOLUME 85.1 fl (82.0-101.0); PLATELET COUNT 238 10^3/UL (140-415); POSITIVE DIFF @See below; RED BLOOD COUNT 4.82 10^6/ul (4.70-6.10); RED CELL DISTRIBUTION WIDTH 15.8 % (11.5-14.5)
[2017-11-02 08:51] LABS: ADD MAN DIFF? YES
[2017-11-02 09:11] LABS: ANION GAP 17 (8-16); BLOOD UREA NITROGEN 65 mg/dl (7-20); CALCIUM 8.6 mg/dl (8.4-10.2); GLUCOSE 161 mg/dl (70-220)
[2017-11-02 09:15] LABS: ANISOCYTOSIS 1+ (0-0); BAND NEUTROPHILS #M 0.2 10^3/ul (0.0-0.6); BAND NEUTROPHILS % (M) 1 % (0-4); GIANT THROMBO% (M) 2 % (0-0); LYMPHOCYTES #M 0.2 10^3/ul (0.8-2.9); LYMPHOCYTES % (M) 1 % (15-51); MICROCYTOSIS 1+ (0-0); MONOCYTE #M 3.7 10^3/ul (0.3-0.9); MONOCYTES % (M) 13 % (0-11); PLATELET ESTIMATE NORMAL; POLYCHROMASIA 2+ (0-0); RBC MORPHOLOGY COMMENT @See below; SEG NEUT #M 24.7 10^3/ul (1.6-7.5); SEGMENTED NEUTROPHILS (M) % 85 % (39-77); SMUDGE%M 3 % (0-0); WBC MORPHOLOGY COMMENT @See below
[2017-11-02 09:22] LABS: POTASSIUM 4.2 mmol/L (3.5-5.1); SODIUM 141 mmol/L (135-144)
[2017-11-02 09:23] LABS: CARBON DIOXIDE 35 mmol/L (21-31); CHLORIDE 93 mmol/L (97-110)
[2017-11-02] MEDS ORDERED: ACETAMINOPHEN 325 MG TAB PO (10:30)
[2017-11-02] MEDS: ACETAMINOPHEN 325 MG TAB PO (10:36)
[2017-11-02] MEDS: DILTIAZEM 25 MG INJ IV (10:42)
[2017-11-02] MEDS: ATORVASTATIN 20 MG TAB PO (20:21)
[2017-11-02] MEDS: MONTELUKAST 10 MG TAB PO (20:21)
[2017-11-03] MEDS: CEFAZOLIN 1 GM/50 ML (PMX) 50 ML IVPB ×3 (05:36→21:21)
[2017-11-03 06:38] LABS: ABNORMAL IP MESSAGE 1; HEMATOCRIT 37.7 % (42.0-52.0); HEMOGLOBIN 12.1 g/dl (14.0-18.0); MEAN CORPUSCULAR HEMOGLOBIN 27.3 pg (29.0-33.0); MEAN CORPUSCULAR HGB CONC 32.1 g/dl (32.0-37.0); MEAN CORPUSCULAR VOLUME 85.1 fl (82.0-101.0); MEAN PLATELET VOLUME 11.3 fl (7.4-10.4); PLATELET COUNT 175 10^3/UL (140-415); POSITIVE DIFF @See below; RED BLOOD COUNT 4.43 10^6/ul (4.70-6.10); RED CELL DISTRIBUTION WIDTH 16.2 % (11.5-14.5)
[2017-11-03 07:04] LABS: ADD MAN DIFF? YES
[2017-11-03 07:11] LABS: ANION GAP 12 (8-16); BLOOD UREA NITROGEN 68 mg/dl (7-20); CALCIUM 8.3 mg/dl (8.4-10.2); CARBON DIOXIDE 40 mmol/L (21-31); CHLORIDE 93 mmol/L (97-110); CREATININE 1.03 mg/dl (0.61-1.24); GLUCOSE 120 mg/dl (70-220); MAGNESIUM 2.2 mg/dl (1.7-2.5); POTASSIUM 4.1 mmol/L (3.5-5.1); SODIUM 141 mmol/L (135-144)
[2017-11-03] MEDS: ACETYLCYSTEINE 20% 4 ML VIAL NEB ×3 (07:15→23:43)
[2017-11-03] MEDS: LEVALBUTEROL (NEB) 0.63 MG/3 ML AMP HHN ×4 (07:15→23:43)
[2017-11-03 08:54] LABS: BAND NEUTROPHILS #M 2.4 10^3/ul (0.0-0.6); BAND NEUTROPHILS % (M) 9 % (0-4); LYMPHOCYTES #M 1.8 10^3/ul (0.8-2.9); LYMPHOCYTES % (M) 7 % (15-51); MONOCYTE #M 2.4 10^3/ul (0.3-0.9); MONOCYTES % (M) 9 % (0-11); OVALOCYTES 1+ (0-0); PLATELET ESTIMATE NORMAL; POIKILOCYTOSIS 2+ (0-0); SEG NEUT #M 20.9 10^3/ul (1.6-7.5); SEGMENTED NEUTROPHILS (M) % 75 % (39-77); SMUDGE%M 2 % (0-0)
[2017-11-03] MEDS: APIXABAN 5 MG TABLET PO ×2 (08:59→20:19)
[2017-11-03] MEDS: MAGNESIUM OXIDE 400 MG TAB PO ×2 (08:59→20:19)
[2017-11-03] MEDS: GUAIFENESIN LA 600 MG TABSR PO ×2 (08:59→20:19)
[2017-11-03] MEDS: LUBIPROSTONE 24 MCG CAP PO ×2 (08:59→20:19)
[2017-11-03] MEDS: DOCUSATE SODIUM 100 MG CAP PO ×2 (09:00→20:19)
[2017-11-03] MEDS: predniSONE 20 MG TAB PO ×2 (09:01→20:21)
[2017-11-03] MEDS: ESCITALOPRAM 10 MG TAB PO (09:01)
[2017-11-03] MEDS: DILTIAZEM (CD) 120 MG CAP PO (09:01)
[2017-11-03] MEDS: FERROUS SULFATE (EC) 325 MG TAB PO ×2 (09:01→20:19)
[2017-11-03] MEDS: TIOTROPIUM 18 MCG CAPSULE INHA DEV INH (09:02)
[2017-11-03] MEDS: FUROSEMIDE 40 MG INJ IV (09:02)
[2017-11-03 10:05] LABS: ADD UMIC NO; UR ASCORBIC ACID NEGATIVE (NEGATIVE); UR BILIRUBIN (Dip) NEGATIVE (NEGATIVE); UR BLOOD (Dip) NEGATIVE (NEGATIVE); UR CLARITY CLEAR (CLEAR); UR COLOR YELLOW (YELLOW); UR GLUCOSE (Dip) NEGATIVE (NEGATIVE); UR KETONES (Dip) NEGATIVE (NEGATIVE); UR LEUKOCYTE ESTERASE (Dip) NEGATIVE Leu/ul (NEGATIVE); UR NITRITE (Dip) NEGATIVE (NEGATIVE); UR SPECIFIC GRAVITY (Dip) 1.023 (1.003-1.030); UR TOTAL PROTEIN (Dip) NEGATIVE (NEGATIVE); UR UROBILINOGEN (Dip) NEGATIVE (NEGATIVE)
[2017-11-03] MEDS: DILTIAZEM 25 MG INJ IV ×3 (11:44→13:50)
[2017-11-03] MEDS: FUROSEMIDE 20 MG INJ IV (13:49)
[2017-11-03] MEDS: DIGOXIN 500 MCG INJ IV (16:34)
[2017-11-03 16:41] LABS: ALBUMIN 3.3 g/dL (3.8-4.8); ALPHA-1-GLOBULINS 0.3 g/dL (0.2-0.3); ALPHA-2-GLOBULINS 0.7 g/dL (0.5-0.9); BETA 2 GLOBULINS 0.5 g/dL (0.2-0.5); BETA GLOBULINS 0.5 g/dL (0.4-0.6); GAMMA GLOBULINS 1.2 g/dL (0.8-1.7)
[2017-11-03] MEDS: DILTIAZEM-D5W 125MG/125ML DRIP 125 ML IV (17:43)
[2017-11-03] MEDS: ATORVASTATIN 20 MG TAB PO (20:19)
[2017-11-03] MEDS: MONTELUKAST 10 MG TAB PO (20:19)
[2017-11-04] MEDS: CEFAZOLIN 1 GM/50 ML (PMX) 50 ML IVPB ×2 (05:31→13:47)
[2017-11-04 05:54] LABS: ADD MAN DIFF? NO
[2017-11-04 06:03] LABS: ABNORMAL IP MESSAGE 1; BASOPHIL # 0.1 10^3/ul (0.0-0.1); BASOPHILS % 0.2 % (0.0-2.0); HEMOGLOBIN 11.9 g/dl (14.0-18.0); LYMPHOCYTES # 0.6 10^3/ul (0.8-2.9); LYMPHOCYTES % 1.8 % (15.0-51.0); MEAN CORPUSCULAR HEMOGLOBIN 27.2 pg (29.0-33.0); MEAN CORPUSCULAR HGB CONC 32.2 g/dl (32.0-37.0); MEAN CORPUSCULAR VOLUME 84.7 fl (82.0-101.0); MEAN PLATELET VOLUME 11.2 fl (7.4-10.4); MONOCYTE # 1.7 10^3/ul (0.3-0.9); MONOCYTES % 5.1 % (0.0-11.0); NEUTROPHILS % 91.5 % (39.0-77.0); PLATELET COUNT 172 10^3/UL (140-415); POSITIVE DIFF @See below; RED BLOOD COUNT 4.37 10^6/ul (4.70-6.10); RED CELL DISTRIBUTION WIDTH 16.3 % (11.5-14.5)
[2017-11-04 06:03] LABS: WHITE BLOOD COUNT 33.9 10^3/ul (4.8-10.8)
[2017-11-04 06:57] LABS: B-TYPE NATRIURETIC PEPTIDE 7310 PG/ML (0-450)
[2017-11-04] MEDS: DILTIAZEM-D5W 125MG/125ML DRIP 125 ML IV (07:03)
[2017-11-04] MEDS: LEVALBUTEROL (NEB) 0.63 MG/3 ML AMP HHN ×4 (08:17→23:40)
[2017-11-04] MEDS: ACETYLCYSTEINE 20% 4 ML VIAL NEB ×3 (08:28→23:40)
[2017-11-04] MEDS: TIOTROPIUM 18 MCG CAPSULE INHA DEV INH (09:16)
[2017-11-04] MEDS: LUBIPROSTONE 24 MCG CAP PO ×2 (09:17→20:21)
[2017-11-04] MEDS: MAGNESIUM OXIDE 400 MG TAB PO ×2 (09:17→20:20)
[2017-11-04] MEDS: ESCITALOPRAM 10 MG TAB PO (09:18)
[2017-11-04] MEDS: FERROUS SULFATE (EC) 325 MG TAB PO ×2 (09:18→20:21)
[2017-11-04] MEDS: DOCUSATE SODIUM 100 MG CAP PO ×2 (09:19→20:20)
[2017-11-04] MEDS: GUAIFENESIN LA 600 MG TABSR PO ×2 (09:19→20:20)
[2017-11-04] MEDS: FUROSEMIDE 40 MG INJ IV (09:19)
[2017-11-04] MEDS: predniSONE 20 MG TAB PO (09:19)
[2017-11-04] MEDS: APIXABAN 5 MG TABLET PO ×2 (09:19→20:20)
[2017-11-04 10:01] LABS: ADD UMIC YES; UR ASCORBIC ACID NEGATIVE (NEGATIVE); UR BILIRUBIN (Dip) NEGATIVE (NEGATIVE); UR BLOOD (Dip) NEGATIVE (NEGATIVE); UR CLARITY CLEAR (CLEAR); UR COLOR YELLOW (YELLOW); UR GLUCOSE (Dip) NEGATIVE (NEGATIVE); UR KETONES (Dip) NEGATIVE (NEGATIVE); UR LEUKOCYTE ESTERASE (Dip) NEGATIVE Leu/ul (NEGATIVE); UR NITRITE (Dip) NEGATIVE (NEGATIVE); UR RBC 1 /HPF (0-5); UR SPECIFIC GRAVITY (Dip) 1.014 (1.003-1.030); UR TOTAL PROTEIN (Dip) 1+ mg/dl (NEGATIVE); UR UROBILINOGEN (Dip) NEGATIVE (NEGATIVE); UR WBC 0 /HPF (0-5)
[2017-11-04] MEDS: DILTIAZEM 30 MG TAB NGT ×2 (12:30→17:39)
[2017-11-04] MEDS: AMIODARONE 150MG/D5W BOLUS 100 ML IV (12:46)
[2017-11-04] MEDS ORDERED: FUROSEMIDE 40 MG INJ IV (14:00)
[2017-11-04] MEDS ORDERED: VANCOMYCIN IV PER PHARMACY XX (14:00)
[2017-11-04] MEDS: AMIODARONE 900 MG in DEXTROSE 5% 482 ML IV (14:05)
[2017-11-04] MEDS: MEROPENEM 1 GM/50ML(PMX) 50 ML IVPB ×2 (15:49→21:17)
[2017-11-04] MEDS: FUROSEMIDE 20 MG TAB PO (16:11)
[2017-11-04] MEDS: VANCOMYCIN 1.75 GM in SOD CHLORIDE 0.9% 500 ML IVPB (16:24)
[2017-11-04] MEDS: NACL 3% FOR INHALATION 15 ML NEBU NEB (18:06)
[2017-11-04] MEDS: MONTELUKAST 10 MG TAB PO (20:20)
[2017-11-04] MEDS: ATORVASTATIN 20 MG TAB PO (20:21)
[2017-11-05] MEDS: DILTIAZEM 30 MG TAB NGT ×5 (00:20→23:37)
[2017-11-05] MEDS: MEROPENEM 1 GM/50ML(PMX) 50 ML IVPB ×3 (05:33→21:26)
[2017-11-05] MEDS: FUROSEMIDE 40 MG TAB PO (05:34)
[2017-11-05 06:12] LABS: ADD MAN DIFF? NO
[2017-11-05 06:30] LABS: ABNORMAL IP MESSAGE 1; BASOPHIL # 0.1 10^3/ul (0.0-0.1); BASOPHILS % 0.2 % (0.0-2.0); HEMATOCRIT 34.7 % (42.0-52.0); HEMOGLOBIN 11.3 g/dl (14.0-18.0); LYMPHOCYTES # 1.3 10^3/ul (0.8-2.9); MEAN CORPUSCULAR HEMOGLOBIN 27.8 pg (29.0-33.0); MEAN CORPUSCULAR HGB CONC 32.6 g/dl (32.0-37.0); MEAN CORPUSCULAR VOLUME 85.3 fl (82.0-101.0); MEAN PLATELET VOLUME 11.3 fl (7.4-10.4); MONOCYTE # 1.8 10^3/ul (0.3-0.9); MONOCYTES % 7.1 % (0.0-11.0); NEUTROPHIL # 21.9 10^3/ul (1.6-7.5); NEUTROPHILS % 86.4 % (39.0-77.0); PLATELET COUNT 173 10^3/UL (140-415); POSITIVE DIFF @See below; RED BLOOD COUNT 4.07 10^6/ul (4.70-6.10); RED CELL DISTRIBUTION WIDTH 16.7 % (11.5-14.5)
[2017-11-05 06:30] LABS: WHITE BLOOD COUNT 25.4 10^3/ul (4.8-10.8)
[2017-11-05 06:50] LABS: MAGNESIUM 2.2 mg/dl (1.7-2.5)
[2017-11-05 06:53] LABS: ANION GAP 11 (8-16); BLOOD UREA NITROGEN 63 mg/dl (7-20); CALCIUM 8.3 mg/dl (8.4-10.2); CARBON DIOXIDE 35 mmol/L (21-31); CHLORIDE 98 mmol/L (97-110); CREATININE 1.05 mg/dl (0.61-1.24); GLUCOSE 115 mg/dl (70-220); POTASSIUM 4.1 mmol/L (3.5-5.1); SODIUM 140 mmol/L (135-144)
[2017-11-05 07:56] LABS: B-TYPE NATRIURETIC PEPTIDE 2860 PG/ML (0-450)
[2017-11-05] MEDS: ACETYLCYSTEINE 20% 4 ML VIAL NEB ×2 (09:07→16:08)
[2017-11-05] MEDS: LEVALBUTEROL (NEB) 0.63 MG/3 ML AMP HHN ×3 (09:08→16:09)
[2017-11-05] MEDS: ESCITALOPRAM 10 MG TAB PO (09:15)
[2017-11-05] MEDS: MAGNESIUM OXIDE 400 MG TAB PO ×2 (09:15→20:33)
[2017-11-05] MEDS: DOCUSATE SODIUM 100 MG CAP PO ×2 (09:15→20:33)
[2017-11-05] MEDS: predniSONE 20 MG TAB PO (09:15)
[2017-11-05] MEDS: LUBIPROSTONE 24 MCG CAP PO ×2 (09:15→20:33)
[2017-11-05] MEDS: FERROUS SULFATE (EC) 325 MG TAB PO ×2 (09:15→20:33)
[2017-11-05] MEDS: APIXABAN 5 MG TABLET PO ×2 (09:15→20:33)
[2017-11-05] MEDS: GUAIFENESIN LA 600 MG TABSR PO ×2 (09:16→20:33)
[2017-11-05] MEDS: TIOTROPIUM 18 MCG CAPSULE INHA DEV INH (09:23)
[2017-11-05] MEDS: AMIODARONE 900 MG in DEXTROSE 5% 482 ML IV (11:31)
[2017-11-05] MEDS: VANCOMYCIN 1.5 GM in SOD CHLORIDE 0.9% 250 ML IVPB (13:34)
[2017-11-05] MEDS: ATORVASTATIN 20 MG TAB PO (20:33)
[2017-11-05] MEDS: MONTELUKAST 10 MG TAB PO (20:33)
[2017-11-06] MEDS: LEVALBUTEROL (NEB) 0.63 MG/3 ML AMP HHN ×5 (00:28→23:34)
[2017-11-06] MEDS: ACETYLCYSTEINE 20% 4 ML VIAL NEB ×4 (00:29→23:34)
[2017-11-06] MEDS: MEROPENEM 1 GM/50ML(PMX) 50 ML IVPB ×3 (05:40→23:28)
[2017-11-06] MEDS: DILTIAZEM 30 MG TAB NGT (05:40)
[2017-11-06] MEDS: FUROSEMIDE 40 MG TAB PO (05:40)
[2017-11-06 06:10] LABS: ADD MAN DIFF? NO
[2017-11-06 06:18] LABS: ABNORMAL IP MESSAGE 1; BASOPHILS % 0.1 % (0.0-2.0); EOSINOPHILS % 0.1 % (0.0-7.0); HEMATOCRIT 35.5 % (42.0-52.0); HEMOGLOBIN 11.3 g/dl (14.0-18.0); LYMPHOCYTES # 1.3 10^3/ul (0.8-2.9); LYMPHOCYTES % 6.2 % (15.0-51.0); MEAN CORPUSCULAR HGB CONC 31.8 g/dl (32.0-37.0); MEAN CORPUSCULAR VOLUME 84.7 fl (82.0-101.0); MEAN PLATELET VOLUME 11.5 fl (7.4-10.4); MONOCYTE # 1.8 10^3/ul (0.3-0.9); MONOCYTES % 8.8 % (0.0-11.0); NEUTROPHIL # 17.1 10^3/ul (1.6-7.5); NEUTROPHILS % 83.6 % (39.0-77.0); PLATELET COUNT 169 10^3/UL (140-415); POSITIVE DIFF @See below; RED BLOOD COUNT 4.19 10^6/ul (4.70-6.10); RED CELL DISTRIBUTION WIDTH 16.8 % (11.5-14.5)
[2017-11-06 06:18] LABS: WHITE BLOOD COUNT 20.4 10^3/ul (4.8-10.8)
[2017-11-06 07:01] LABS: ANION GAP 9 (8-16); BLOOD UREA NITROGEN 56 mg/dl (7-20); CALCIUM 8.3 mg/dl (8.4-10.2); CARBON DIOXIDE 35 mmol/L (21-31); CHLORIDE 98 mmol/L (97-110); CREATININE 0.93 mg/dl (0.61-1.24); GLUCOSE 112 mg/dl (70-220); MAGNESIUM 2.1 mg/dl (1.7-2.5); POTASSIUM 4.3 mmol/L (3.5-5.1); SODIUM 138 mmol/L (135-144)
[2017-11-06 07:51] LABS: B-TYPE NATRIURETIC PEPTIDE 1650 PG/ML (0-450)
[2017-11-06 08:12] LABS: AADO2 Arterial 135.1 mmHg (7.0-24.0); Allen Test ACCEPTAB; Arterial Base Excess 9.2 mmol/L (-3.0-3); Arterial Blood Gas Oxygen Sat 96.4 mmHG (95.0-100.0); Arterial COHb 0.7 % (0.0-3.0); Arterial Fraction of Oxyhgb 95.4 % (93.0-99.0); Arterial HCO3 35.1 mmol/L (22.0-26.0); Arterial MetHb 0.3 % (0.0-1.5); Arterial Total Hemglobin 15.8 g/dl (12.0-18.0); Arterial pCO2 51.9 mmhg (35-45); MODE NASAL CANNULA; Site Right Radial
[2017-11-06] MEDS: MAGNESIUM OXIDE 400 MG TAB PO ×2 (09:40→20:39)
[2017-11-06] MEDS: TIOTROPIUM 18 MCG CAPSULE INHA DEV INH (09:40)
[2017-11-06] MEDS: DOCUSATE SODIUM 100 MG CAP PO ×2 (09:40→20:44)
[2017-11-06] MEDS: FERROUS SULFATE (EC) 325 MG TAB PO ×2 (09:40→20:39)
[2017-11-06] MEDS: GUAIFENESIN LA 600 MG TABSR PO ×2 (09:40→20:43)
[2017-11-06] MEDS: predniSONE 20 MG TAB PO (09:41)
[2017-11-06] MEDS: ESCITALOPRAM 10 MG TAB PO (09:41)
[2017-11-06] MEDS: LUBIPROSTONE 24 MCG CAP PO ×2 (09:41→20:39)
[2017-11-06] MEDS: APIXABAN 5 MG TABLET PO ×2 (09:41→20:39)
[2017-11-06] MEDS: AMIODARONE 200 MG TAB PO ×2 (13:44→20:39)
[2017-11-06] MEDS: DILTIAZEM (CD) 120 MG CAP PO ×2 (15:39→20:39)
[2017-11-06] MEDS: ATORVASTATIN 20 MG TAB PO (20:39)
[2017-11-06] MEDS: MONTELUKAST 10 MG TAB PO (20:39)
[2017-11-07] MEDS: MEROPENEM 1 GM/50ML(PMX) 50 ML IVPB ×3 (05:28→20:30)
[2017-11-07] MEDS: FUROSEMIDE 40 MG TAB PO (05:32)
[2017-11-07] MEDS: LEVALBUTEROL (NEB) 0.63 MG/3 ML AMP HHN ×3 (07:36→16:16)
[2017-11-07 07:42] LABS: ADD MAN DIFF? NO
[2017-11-07 07:47] LABS: ABNORMAL IP MESSAGE 1; BASOPHILS % 0.2 % (0.0-2.0); EOSINOPHILS % 0.1 % (0.0-7.0); HEMATOCRIT 35.2 % (42.0-52.0); HEMOGLOBIN 11.2 g/dl (14.0-18.0); LYMPHOCYTES # 1.5 10^3/ul (0.8-2.9); LYMPHOCYTES % 7.2 % (15.0-51.0); MEAN CORPUSCULAR HEMOGLOBIN 27.1 pg (29.0-33.0); MEAN CORPUSCULAR HGB CONC 31.8 g/dl (32.0-37.0); MEAN CORPUSCULAR VOLUME 85.2 fl (82.0-101.0); MEAN PLATELET VOLUME 11.1 fl (7.4-10.4); MONOCYTE # 2.2 10^3/ul (0.3-0.9); MONOCYTES % 10.9 % (0.0-11.0); NEUTROPHIL # 16.2 10^3/ul (1.6-7.5); NEUTROPHILS % 80.7 % (39.0-77.0); PLATELET COUNT 167 10^3/UL (140-415); POSITIVE DIFF @See below; RED BLOOD COUNT 4.13 10^6/ul (4.70-6.10); RED CELL DISTRIBUTION WIDTH 16.6 % (11.5-14.5)
[2017-11-07 07:47] LABS: WHITE BLOOD COUNT 20.1 10^3/ul (4.8-10.8)
[2017-11-07] MEDS: ACETYLCYSTEINE 20% 4 ML VIAL NEB ×2 (07:49→16:27)
[2017-11-07 08:10] LABS: ANION GAP 9 (8-16); BLOOD UREA NITROGEN 55 mg/dl (7-20); CALCIUM 8.5 mg/dl (8.4-10.2); CARBON DIOXIDE 34 mmol/L (21-31); CHLORIDE 98 mmol/L (97-110); CREATININE 1.04 mg/dl (0.61-1.24); GLUCOSE 93 mg/dl (70-220); POTASSIUM 4.2 mmol/L (3.5-5.1); SODIUM 137 mmol/L (135-144)
[2017-11-07 08:16] LABS: B-TYPE NATRIURETIC PEPTIDE 1450 PG/ML (0-450)
[2017-11-07] MEDS: DOCUSATE SODIUM 100 MG CAP PO ×2 (08:56→20:31)
[2017-11-07] MEDS: TIOTROPIUM 18 MCG CAPSULE INHA DEV INH (08:56)
[2017-11-07] MEDS: FERROUS SULFATE (EC) 325 MG TAB PO ×2 (08:56→20:31)
[2017-11-07] MEDS: MAGNESIUM OXIDE 400 MG TAB PO ×2 (08:56→20:31)
[2017-11-07] MEDS: GUAIFENESIN LA 600 MG TABSR PO ×2 (08:57→20:31)
[2017-11-07] MEDS: LUBIPROSTONE 24 MCG CAP PO ×2 (08:57→20:31)
[2017-11-07] MEDS: APIXABAN 5 MG TABLET PO ×2 (08:57→20:31)
[2017-11-07] MEDS: predniSONE 20 MG TAB PO (08:57)
[2017-11-07] MEDS: ESCITALOPRAM 10 MG TAB PO (08:57)
[2017-11-07] MEDS: AMIODARONE 200 MG TAB PO ×2 (08:58→20:31)
[2017-11-07] MEDS: DILTIAZEM (CD) 120 MG CAP PO ×2 (08:59→20:31)
[2017-11-07] MEDS: ATORVASTATIN 20 MG TAB PO (20:31)
[2017-11-07] MEDS: MONTELUKAST 10 MG TAB PO (20:31)
[2017-11-08] MEDS: LEVALBUTEROL (NEB) 0.63 MG/3 ML AMP HHN ×4 (00:08→16:45)
[2017-11-08] MEDS: ACETYLCYSTEINE 20% 4 ML VIAL NEB ×4 (00:08→23:59)
[2017-11-08] MEDS: HYDROCODONE/APAP (10/325) TAB PO ×2 (05:32→13:06)
[2017-11-08] MEDS: MEROPENEM 1 GM/50ML(PMX) 50 ML IVPB ×3 (05:32→21:12)
[2017-11-08] MEDS: FUROSEMIDE 40 MG TAB PO (06:41)
[2017-11-08] MEDS: TIOTROPIUM 18 MCG CAPSULE INHA DEV INH (08:51)
[2017-11-08] MEDS: DOCUSATE SODIUM 100 MG CAP PO ×2 (08:51→21:00)
[2017-11-08] MEDS: DILTIAZEM (CD) 120 MG CAP PO ×2 (08:51→21:04)
[2017-11-08] MEDS: GUAIFENESIN LA 600 MG TABSR PO ×2 (08:51→21:00)
[2017-11-08] MEDS: FERROUS SULFATE (EC) 325 MG TAB PO ×2 (08:51→21:00)
[2017-11-08] MEDS: MAGNESIUM OXIDE 400 MG TAB PO ×2 (08:51→21:00)
[2017-11-08] MEDS: APIXABAN 5 MG TABLET PO ×2 (08:51→21:00)
[2017-11-08] MEDS: ESCITALOPRAM 10 MG TAB PO (08:52)
[2017-11-08] MEDS: ACETAMINOPHEN 325 MG TAB PO (08:52)
[2017-11-08] MEDS: AMIODARONE 200 MG TAB PO ×2 (08:52→21:04)
[2017-11-08] MEDS: predniSONE 20 MG TAB PO (08:52)
[2017-11-08] MEDS: LUBIPROSTONE 24 MCG CAP PO ×2 (09:09→21:00)
[2017-11-08] MEDS: ATORVASTATIN 20 MG TAB PO (21:00)
[2017-11-08] MEDS: MONTELUKAST 10 MG TAB PO (21:12)
[2017-11-08] MEDS: POTASSIUM IODIDE 20 DROPS/ML 30 ML BTL PO (21:13)
[2017-11-09] MEDS: ACETYLCYSTEINE 20% 4 ML VIAL NEB ×4 (01:49→19:43)
[2017-11-09] MEDS: LEVALBUTEROL (NEB) 0.63 MG/3 ML AMP HHN ×5 (01:49→19:43)
[2017-11-09] MEDS: FUROSEMIDE 40 MG TAB PO (05:26)
[2017-11-09] MEDS: MEROPENEM 1 GM/50ML(PMX) 50 ML IVPB ×3 (05:29→22:18)
[2017-11-09] MEDS: POTASSIUM IODIDE 20 DROPS/ML 30 ML BTL PO ×3 (05:29→21:35)
[2017-11-09 07:38] LABS: ADD MAN DIFF? NO
[2017-11-09 07:41] LABS: ABNORMAL IP MESSAGE 1; BASOPHILS % 0.2 % (0.0-2.0); EOSINOPHILS % 0.2 % (0.0-7.0); HEMATOCRIT 35.3 % (42.0-52.0); HEMOGLOBIN 11.4 g/dl (14.0-18.0); LYMPHOCYTES # 1.9 10^3/ul (0.8-2.9); LYMPHOCYTES % 7.6 % (15.0-51.0); MEAN CORPUSCULAR HEMOGLOBIN 27.7 pg (29.0-33.0); MEAN CORPUSCULAR HGB CONC 32.3 g/dl (32.0-37.0); MEAN CORPUSCULAR VOLUME 85.9 fl (82.0-101.0); MEAN PLATELET VOLUME 10.9 fl (7.4-10.4); MONOCYTE # 2.7 10^3/ul (0.3-0.9); MONOCYTES % 10.6 % (0.0-11.0); NEUTROPHIL # 20.4 10^3/ul (1.6-7.5); NEUTROPHILS % 80.5 % (39.0-77.0); PLATELET COUNT 189 10^3/UL (140-415); POSITIVE DIFF @See below; RED BLOOD COUNT 4.11 10^6/ul (4.70-6.10)
[2017-11-09 07:41] LABS: WHITE BLOOD COUNT 25.3 10^3/ul (4.8-10.8)
[2017-11-09 08:02] LABS: ANION GAP 11 (8-16); BLOOD UREA NITROGEN 62 mg/dl (7-20); CALCIUM 8.4 mg/dl (8.4-10.2); CARBON DIOXIDE 33 mmol/L (21-31); CHLORIDE 98 mmol/L (97-110); CREATININE 0.97 mg/dl (0.61-1.24); GLUCOSE 87 mg/dl (70-220); MAGNESIUM 2.1 mg/dl (1.7-2.5); PHOSPHORUS 3.2 mg/dl (2.5-4.9); POTASSIUM 4.3 mmol/L (3.5-5.1); SODIUM 138 mmol/L (135-144)
[2017-11-09] MEDS: TIOTROPIUM 18 MCG CAPSULE INHA DEV INH (08:29)
[2017-11-09] MEDS: LUBIPROSTONE 24 MCG CAP PO ×2 (08:31→21:27)
[2017-11-09] MEDS: GUAIFENESIN LA 600 MG TABSR PO ×2 (08:31→21:29)
[2017-11-09] MEDS: predniSONE 20 MG TAB PO (08:31)
[2017-11-09] MEDS: MAGNESIUM OXIDE 400 MG TAB PO ×2 (08:31→21:29)
[2017-11-09] MEDS: APIXABAN 5 MG TABLET PO ×2 (08:31→21:29)
[2017-11-09] MEDS: FERROUS SULFATE (EC) 325 MG TAB PO ×2 (08:31→21:29)
[2017-11-09] MEDS: DOCUSATE SODIUM 100 MG CAP PO ×2 (08:31→21:29)
[2017-11-09] MEDS: ESCITALOPRAM 10 MG TAB PO (08:31)
[2017-11-09] MEDS: AMIODARONE 200 MG TAB PO ×2 (08:32→21:29)
[2017-11-09] MEDS: DILTIAZEM (CD) 120 MG CAP PO ×2 (08:32→21:28)
[2017-11-09] MEDS: ATORVASTATIN 20 MG TAB PO (21:29)
[2017-11-09] MEDS: MONTELUKAST 10 MG TAB PO (21:29)
[2017-11-10] MEDS: ACETYLCYSTEINE 20% 4 ML VIAL NEB ×4 (02:30→21:07)
[2017-11-10] MEDS: FUROSEMIDE 40 MG TAB PO (05:22)
[2017-11-10] MEDS: MEROPENEM 1 GM/50ML(PMX) 50 ML IVPB ×3 (05:22→20:49)
[2017-11-10] MEDS: POTASSIUM IODIDE 20 DROPS/ML 30 ML BTL PO ×3 (05:22→20:50)
[2017-11-10 08:04] LABS: ADD MAN DIFF? NO
[2017-11-10 08:10] LABS: ABNORMAL IP MESSAGE 1; BASOPHILS % 0.1 % (0.0-2.0); EOSINOPHILS % 0.3 % (0.0-7.0); HEMATOCRIT 33.8 % (42.0-52.0); HEMOGLOBIN 10.6 g/dl (14.0-18.0); LYMPHOCYTES # 1.9 10^3/ul (0.8-2.9); LYMPHOCYTES % 12.6 % (15.0-51.0); MEAN CORPUSCULAR HEMOGLOBIN 26.6 pg (29.0-33.0); MEAN CORPUSCULAR HGB CONC 31.4 g/dl (32.0-37.0); MEAN CORPUSCULAR VOLUME 84.9 fl (82.0-101.0); MEAN PLATELET VOLUME 10.5 fl (7.4-10.4); MONOCYTE # 1.6 10^3/ul (0.3-0.9); MONOCYTES % 10.9 % (0.0-11.0); NEUTROPHILS % 75.1 % (39.0-77.0); PLATELET COUNT 175 10^3/UL (140-415); POSITIVE DIFF @See below; RED BLOOD COUNT 3.98 10^6/ul (4.70-6.10); RED CELL DISTRIBUTION WIDTH 17.1 % (11.5-14.5)
[2017-11-10 08:10] LABS: WHITE BLOOD COUNT 14.7 10^3/ul (4.8-10.8)
[2017-11-10 08:30] LABS: ANION GAP 6 (8-16); BLOOD UREA NITROGEN 51 mg/dl (7-20); CALCIUM 8.2 mg/dl (8.4-10.2); CARBON DIOXIDE 35 mmol/L (21-31); CHLORIDE 100 mmol/L (97-110); CREATININE 0.91 mg/dl (0.61-1.24); GLUCOSE 89 mg/dl (70-220); PHOSPHORUS 2.8 mg/dl (2.5-4.9); POTASSIUM 3.8 mmol/L (3.5-5.1); SODIUM 137 mmol/L (135-144)
[2017-11-10] MEDS: FERROUS SULFATE (EC) 325 MG TAB PO ×2 (08:38→20:40)
[2017-11-10] MEDS: ESCITALOPRAM 10 MG TAB PO (08:38)
[2017-11-10] MEDS: predniSONE 20 MG TAB PO (08:39)
[2017-11-10] MEDS: LUBIPROSTONE 24 MCG CAP PO ×2 (08:39→20:40)
[2017-11-10] MEDS: APIXABAN 5 MG TABLET PO ×2 (08:40→20:40)
[2017-11-10] MEDS: MAGNESIUM OXIDE 400 MG TAB PO ×2 (08:40→20:40)
[2017-11-10] MEDS: DOCUSATE SODIUM 100 MG CAP PO ×2 (08:40→20:40)
[2017-11-10] MEDS: GUAIFENESIN LA 600 MG TABSR PO ×2 (08:40→20:40)
[2017-11-10] MEDS: AMIODARONE 200 MG TAB PO ×2 (08:41→20:41)
[2017-11-10] MEDS: TIOTROPIUM 18 MCG CAPSULE INHA DEV INH ×2 (08:43→11:20)
[2017-11-10] MEDS: LEVALBUTEROL (NEB) 0.63 MG/3 ML AMP HHN ×4 (08:54→21:07)
[2017-11-10] MEDS: DILTIAZEM (CD) 120 MG CAP PO ×2 (08:55→20:40)
[2017-11-10] MEDS: MAGNESIUM HYDROXIDE 30ML CUP PO (18:02)
[2017-11-10] MEDS: ATORVASTATIN 20 MG TAB PO (20:40)
[2017-11-10] MEDS: MONTELUKAST 10 MG TAB PO (20:40)
[2017-11-11] MEDS: ACETYLCYSTEINE 20% 4 ML VIAL NEB ×3 (01:31→13:19)
[2017-11-11] MEDS: LEVALBUTEROL (NEB) 0.63 MG/3 ML AMP HHN ×3 (01:32→13:00)
[2017-11-11] MEDS: POTASSIUM IODIDE 20 DROPS/ML 30 ML BTL PO ×2 (05:28→14:13)
[2017-11-11] MEDS: FUROSEMIDE 40 MG TAB PO (05:28)
[2017-11-11] MEDS: DOCUSATE SODIUM 100 MG CAP PO (08:37)
[2017-11-11] MEDS: APIXABAN 5 MG TABLET PO (08:37)
[2017-11-11] MEDS: LUBIPROSTONE 24 MCG CAP PO (08:38)
[2017-11-11] MEDS: ESCITALOPRAM 10 MG TAB PO (08:38)
[2017-11-11] MEDS: predniSONE 20 MG TAB PO (08:38)
[2017-11-11] MEDS: FERROUS SULFATE (EC) 325 MG TAB PO (08:38)
[2017-11-11] MEDS: MAGNESIUM OXIDE 400 MG TAB PO (08:38)
[2017-11-11] MEDS: AMIODARONE 200 MG TAB PO (08:38)
[2017-11-11] MEDS: GUAIFENESIN LA 600 MG TABSR PO (08:38)
[2017-11-11] MEDS: DILTIAZEM (CD) 120 MG CAP PO (08:39)
[2017-11-11] MEDS: TIOTROPIUM 18 MCG CAPSULE INHA DEV INH (08:39)
== END 2017-11-11 16:20 | DRG 291 ==
LOC: MS4 17:12 → E/R 08:24 → MS3 13:53
DX: I11.0 Hypertensive heart disease with heart failure (principal); J96.22 Acute and chronic respiratory failure with hypercapnia; J96.21 Acute and chronic respiratory failure with hypoxia; J18.9 Pneumonia, unspecified organism; J44.1 Chronic obstructive pulmonary disease with (acute) exacerbation; J98.11 Atelectasis; J44.0 Chronic obstructive pulmonary disease with (acute) lower respiratory infection; I50.33 Acute on chronic diastolic (congestive) heart failure; I25.10 Atherosclerotic heart disease of native coronary artery without angina pectoris; I48.0 Paroxysmal atrial fibrillation; F17.210 Nicotine dependence, cigarettes, uncomplicated; F41.9 Anxiety disorder, unspecified; F32.9 Major depressive disorder, single episode, unspecified; E78.5 Hyperlipidemia, unspecified; K59.09 Other constipation; D64.9 Anemia, unspecified; I73.9 Peripheral vascular disease, unspecified; K59.00 Constipation, unspecified; R53.1 Weakness; F17.208 Nicotine dependence, unspecified, with other nicotine-induced disorders; T17.990A Other foreign object in respiratory tract, part unspecified in causing asphyxiation, initial encounter; X58.XXXA Exposure to other specified factors, initial encounter; Y92.230 Patient room in hospital as the place of occurrence of the external cause; Z98.61 Coronary angioplasty status; Z99.81 Dependence on supplemental oxygen
CPT/HCPCS: 36600; 71045; 71250; 73030-50; 76604; 80048; 80053; 81001; 81003; 82550; 82553; 82803; 82962; 83735; 83880; 84100; 84155; 84165; 84484; 85025; 87040; 89220; 92610; 93005; 93306; 93922; 94640; 94644; 94667; 94668; 96374; 96375; 97110; 97116; 97162; 97530; 99285-25; G0378

== ENCOUNTER 2017-12-05 12:42 | Inpatient (IN) | payer MEDICARE, BC ==
[2017-12-05 13:28] LABS: WHITE BLOOD COUNT 11.2 10^3/ul (4.8-10.8)
[2017-12-05 13:28] LABS: ABNORMAL IP MESSAGE 1; HEMATOCRIT 21.2 % (42.0-52.0); MEAN CORPUSCULAR HEMOGLOBIN 27.6 pg (29.0-33.0); MEAN CORPUSCULAR HGB CONC 29.7 g/dl (32.0-37.0); MEAN PLATELET VOLUME 10.5 fl (7.4-10.4); PLATELET COUNT 196 10^3/UL (140-415); POSITIVE DIFF @See below; RED BLOOD COUNT 2.28 10^6/ul (4.70-6.10); RED CELL DISTRIBUTION WIDTH 21.1 % (11.5-14.5)
[2017-12-05 13:35] LABS: HEMOGLOBIN 6.3 g/dl (14.0-18.0)
[2017-12-05 13:36] LABS: ADD MAN DIFF? YES
[2017-12-05 13:42] LABS: ALANINE AMINOTRANSFERASE 22 IU/L (13-69); ALBUMIN 3.1 g/dl (3.3-4.9); ALBUMIN/GLOBULIN RATIO 1.03; ALKALINE PHOSPHATASE 84 IU/L (42-121); ASPARTATE AMINO TRANSFERASE 13 IU/L (15-46); BILIRUBIN,INDIRECT 0.3 mg/dl (0-1.1); BILIRUBIN,TOTAL 0.3 mg/dl (0.2-1.3); BLOOD UREA NITROGEN 39 mg/dl (7-20); CALCIUM 8.7 mg/dl (8.4-10.2); CHLORIDE 111 mmol/L (97-110); CREATININE 1.16 mg/dl (0.61-1.24); GLUCOSE 115 mg/dl (70-220); IRON 31 ug/dl (35-150); RETICULOCYTE COUNT # 0.103 X10^6 (0.020-0.110); RETICULOCYTE COUNT % 4.6 % (0.5-1.5); SODIUM 140 mmol/L (135-144); TOTAL PROTEIN 6.1 g/dl (6.1-8.1)
[2017-12-05 13:42] LABS: RETICULOCYTE RBC 2.24
[2017-12-05 13:49] LABS: PROTIME 15.4 Sec (11.9-14.9); PT RATIO 1.2
[2017-12-05 13:50] LABS: PARTIAL THROMBOPLASTIN TIME 34.5 Sec (25.0-35.0)
[2017-12-05 13:52] LABS: % IRON SATURATION 12 % SAT (22-52); TOTAL IRON BINDING CAPACITY 255 ug/dl (241-421)
[2017-12-05 14:06] LABS: ANION GAP -8 (8-16); CARBON DIOXIDE 41 mmol/L (21-31)
[2017-12-05 14:12] LABS: IMMEDIATE SPIN CROSSMATCH 1 3
[2017-12-05 14:22] LABS: ANISOCYTOSIS 2+ (0-0); BAND NEUTROPHILS #M 1.1 10^3/ul (0.0-0.6); BAND NEUTROPHILS % (M) 10 % (0-4); GIANT THROMBO% (M) 1 % (0-0); LYMPHOCYTES #M 0.2 10^3/ul (0.8-2.9); LYMPHOCYTES % (M) 2 % (15-51); MICROCYTOSIS 1+ (0-0); MONOCYTE #M 0.2 10^3/ul (0.3-0.9); MONOCYTES % (M) 2 % (0-11); PLATELET ESTIMATE NORMAL; POIKILOCYTOSIS 1+ (0-0); POLYCHROMASIA 3+ (0-0); REACTIVE LYMPHOCYTES #M 0.1 10^3/ul (0.0-0.0); REACTIVE LYMPHOCYTES% (M) 1 % (0-0); SEG NEUT #M 9.6 10^3/ul (1.6-7.5); SEGMENTED NEUTROPHILS (M) % 85 % (39-77); SMUDGE%M 1 % (0-0)
[2017-12-05] MEDS ORDERED: SOD CHLORIDE 0.9% 1,000 ML IV (14:46)
[2017-12-05 14:48] LABS: FOLATE 8.1 ng/ml (2.8-20.0)
[2017-12-05 14:50] LABS: ADD UMIC NO; UR ASCORBIC ACID 40 mg/dL (NEGATIVE); UR BILIRUBIN (Dip) NEGATIVE (NEGATIVE); UR BLOOD (Dip) NEGATIVE (NEGATIVE); UR CLARITY CLEAR (CLEAR); UR COLOR YELLOW (YELLOW); UR GLUCOSE (Dip) NEGATIVE (NEGATIVE); UR KETONES (Dip) NEGATIVE (NEGATIVE); UR LEUKOCYTE ESTERASE (Dip) NEGATIVE Leu/ul (NEGATIVE); UR NITRITE (Dip) NEGATIVE (NEGATIVE); UR SPECIFIC GRAVITY (Dip) 1.013 (1.003-1.030); UR TOTAL PROTEIN (Dip) NEGATIVE (NEGATIVE); UR UROBILINOGEN (Dip) NEGATIVE (NEGATIVE)
[2017-12-05] MEDS ORDERED: ACETAMINOPHEN 325 MG TAB PO (15:00)
[2017-12-05] MEDS ORDERED: ONDANSETRON 4 MG INJ IV (15:00)
[2017-12-05] MEDS: CEFEPIME 2GM/50 ML (PMX) 50 ML IVPB (16:03)
[2017-12-05] MEDS: VANCOMYCIN 1 GM (PMX) 250 ML IVPB (16:36)
[2017-12-05] MEDS ORDERED: ALBUTEROL HFA 8 GM INHALER INH (17:30)
[2017-12-05] MEDS: LUBIPROSTONE 24 MCG CAP PO (21:22)
[2017-12-05] MEDS: BUPROPION (SR) 150 MG TAB PO (21:22)
[2017-12-05] MEDS: MONTELUKAST 10 MG TAB PO (21:23)
[2017-12-05] MEDS: ATORVASTATIN 20 MG TAB PO (21:23)
[2017-12-05] MEDS: DIAZEPAM 5 MG TAB PO (21:23)
[2017-12-06] MEDS: CEFEPIME 1GM/50 ML (PMX) 50 ML IVPB ×3 (00:30→21:21)
[2017-12-06] MEDS: LUBIPROSTONE 24 MCG CAP PO ×2 (08:22→21:21)
[2017-12-06] MEDS: DIAZEPAM 5 MG TAB PO ×2 (08:22→21:22)
[2017-12-06] MEDS: ESCITALOPRAM 10 MG TAB PO (08:24)
[2017-12-06] MEDS: AMIODARONE 200 MG TAB PO (08:24)
[2017-12-06] MEDS: BUPROPION (SR) 150 MG TAB PO ×2 (08:24→21:21)
[2017-12-06] MEDS: POTASSIUM CHLORIDE (SR) 20 MEQ TAB PO (08:24)
[2017-12-06] MEDS: FUROSEMIDE 20 MG TAB PO (08:25)
[2017-12-06] MEDS: LEVALBUTEROL (NEB) 0.63 MG/3 ML AMP HHN (08:38)
[2017-12-06 08:43] LABS: ADD MAN DIFF? NO
[2017-12-06 08:56] LABS: WHITE BLOOD COUNT 7.1 10^3/ul (4.8-10.8)
[2017-12-06 08:56] LABS: BASOPHILS % 0.1 % (0.0-2.0); EOSINOPHILS % 0.3 % (0.0-7.0); HEMATOCRIT 25.8 % (42.0-52.0); HEMOGLOBIN 7.9 g/dl (14.0-18.0); LYMPHOCYTES % 14.5 % (15.0-51.0); MEAN CORPUSCULAR HGB CONC 30.6 g/dl (32.0-37.0); MEAN CORPUSCULAR VOLUME 91.5 fl (82.0-101.0); MEAN PLATELET VOLUME 10.9 fl (7.4-10.4); MONOCYTE # 0.7 10^3/ul (0.3-0.9); NEUTROPHIL # 5.2 10^3/ul (1.6-7.5); NEUTROPHILS % 73.7 % (39.0-77.0); NUCLEATED RED BLOOD CELLS% 0.3 /100WBC (0.0-0.0); PLATELET COUNT 195 10^3/UL (140-415); RED BLOOD COUNT 2.82 10^6/ul (4.70-6.10)
[2017-12-06 10:10] LABS: ALANINE AMINOTRANSFERASE 14 IU/L (13-69); ALBUMIN 2.9 g/dl (3.3-4.9); ALBUMIN/GLOBULIN RATIO 0.96; ALKALINE PHOSPHATASE 70 IU/L (42-121); ANION GAP 1 (8-16); ASPARTATE AMINO TRANSFERASE 16 IU/L (15-46); BILIRUBIN,INDIRECT 0.3 mg/dl (0-1.1); BILIRUBIN,TOTAL 0.3 mg/dl (0.2-1.3); BLOOD UREA NITROGEN 40 mg/dl (7-20); CALCIUM 8.2 mg/dl (8.4-10.2); CARBON DIOXIDE 38 mmol/L (21-31); CHLORIDE 106 mmol/L (97-110); CREATININE 0.97 mg/dl (0.61-1.24); GLUCOSE 85 mg/dl (70-220); SODIUM 141 mmol/L (135-144); TOTAL PROTEIN 5.9 g/dl (6.1-8.1)
[2017-12-06] MEDS: FLUTICASONE/VILANTEROL 200-25 INH DEVICE INH (11:28)
[2017-12-06] MEDS ORDERED: FUROSEMIDE 20 MG INJ IV (16:30)
[2017-12-06] MEDS: PANTOPRAZOLE 40 MG INJ IV (18:01)
[2017-12-06] MEDS: DILTIAZEM (CD) 120 MG CAP PO (18:01)
[2017-12-06] MEDS: FUROSEMIDE 20 MG INJ IV (18:02)
[2017-12-06] MEDS: DIPHENHYDRAMINE 25 MG CAP PO ×2 (18:27→22:57)
[2017-12-06] MEDS: MONTELUKAST 10 MG TAB PO (21:21)
[2017-12-06] MEDS: ATORVASTATIN 20 MG TAB PO (21:22)
[2017-12-06] MEDS: ACETAMINOPHEN 325 MG TAB PO (22:57)
[2017-12-07 05:54] LABS: ADD MAN DIFF? NO
[2017-12-07 05:57] LABS: WHITE BLOOD COUNT 7.9 10^3/ul (4.8-10.8)
[2017-12-07 05:57] LABS: BASOPHILS % 0.1 % (0.0-2.0); EOSINOPHILS % 0.4 % (0.0-7.0); HEMATOCRIT 26.6 % (42.0-52.0); HEMOGLOBIN 8.4 g/dl (14.0-18.0); LYMPHOCYTES # 1.2 10^3/ul (0.8-2.9); LYMPHOCYTES % 15.5 % (15.0-51.0); MEAN CORPUSCULAR HEMOGLOBIN 28.9 pg (29.0-33.0); MEAN CORPUSCULAR HGB CONC 31.6 g/dl (32.0-37.0); MEAN CORPUSCULAR VOLUME 91.4 fl (82.0-101.0); MEAN PLATELET VOLUME 10.4 fl (7.4-10.4); MONOCYTE # 0.7 10^3/ul (0.3-0.9); MONOCYTES % 8.2 % (0.0-11.0); NEUTROPHIL # 5.9 10^3/ul (1.6-7.5); NEUTROPHILS % 74.7 % (39.0-77.0); PLATELET COUNT 185 10^3/UL (140-415); RED BLOOD COUNT 2.91 10^6/ul (4.70-6.10); RED CELL DISTRIBUTION WIDTH 19.4 % (11.5-14.5)
[2017-12-07] MEDS: PANTOPRAZOLE 40 MG INJ IV ×2 (06:34→18:37)
[2017-12-07 06:42] LABS: BLOOD UREA NITROGEN 32 mg/dl (7-20); CALCIUM 8.1 mg/dl (8.4-10.2); CHLORIDE 102 mmol/L (97-110); GLUCOSE 88 mg/dl (70-220); POTASSIUM 3.5 mmol/L (3.5-5.1); SODIUM 139 mmol/L (135-144)
[2017-12-07 06:45] LABS: MAGNESIUM 1.8 mg/dl (1.7-2.5)
[2017-12-07 06:49] LABS: ANION GAP 1 (8-16)
[2017-12-07 07:03] LABS: CARBON DIOXIDE 40 mmol/L (21-31)
[2017-12-07 07:35] LABS: AADO2 Arterial 100.9 mmHg (7.0-24.0); Allen Test ACCEPTAB; Arterial Base Excess 13.3 mmol/L (-3.0-3); Arterial Blood Gas Oxygen Sat 90.2 mmHG (95.0-100.0); Arterial COHb 0.3 % (0.0-3.0); Arterial Fraction of Oxyhgb 89.6 % (93.0-99.0); Arterial HCO3 39.1 mmol/L (22.0-26.0); Arterial MetHb 0.4 % (0.0-1.5); Arterial Total Hemglobin 9.5 g/dl (12.0-18.0); Arterial pCO2 57.5 mmhg (35-45); MODE NASAL CANNULA; Site Right Radial
[2017-12-07] MEDS: CEFEPIME 1GM/50 ML (PMX) 50 ML IVPB ×2 (09:35→21:40)
[2017-12-07] MEDS: FLUTICASONE/VILANTEROL 200-25 INH DEVICE INH (09:35)
[2017-12-07] MEDS: ESCITALOPRAM 10 MG TAB PO (09:36)
[2017-12-07] MEDS: POTASSIUM CHLORIDE (SR) 20 MEQ TAB PO ×2 (09:36→18:37)
[2017-12-07] MEDS: LUBIPROSTONE 24 MCG CAP PO ×2 (09:36→21:40)
[2017-12-07] MEDS: BUPROPION (SR) 150 MG TAB PO ×2 (09:36→21:40)
[2017-12-07] MEDS: DILTIAZEM (CD) 120 MG CAP PO (09:37)
[2017-12-07] MEDS: FUROSEMIDE 20 MG TAB PO ×2 (09:38→18:38)
[2017-12-07] MEDS: AMIODARONE 200 MG TAB PO (09:38)
[2017-12-07] MEDS: DIAZEPAM 5 MG TAB PO ×2 (09:43→21:40)
[2017-12-07] MEDS: LEVALBUTEROL (NEB) 0.63 MG/3 ML AMP HHN (10:44)
[2017-12-07] MEDS: MAGNESIUM SULFATE 2 GM/50 ML 50 ML IVPB (18:37)
[2017-12-07] MEDS: ACETYLCYSTEINE 20% 4 ML VIAL NEB (20:21)
[2017-12-07] MEDS: GUAIFENESIN LA 600 MG TABSR PO (21:40)
[2017-12-07] MEDS: MONTELUKAST 10 MG TAB PO (21:40)
[2017-12-07] MEDS: ATORVASTATIN 20 MG TAB PO (21:41)
[2017-12-07] MEDS: EPOETIN ALFA (NESRD) 3,000 UNITS/ML VIAL SC (23:30)
[2017-12-08] MEDS: ACETYLCYSTEINE 20% 4 ML VIAL NEB ×4 (01:54→21:21)
[2017-12-08] MEDS: FUROSEMIDE 20 MG TAB PO ×2 (05:31→17:24)
[2017-12-08] MEDS: PANTOPRAZOLE 40 MG INJ IV ×2 (05:31→17:23)
[2017-12-08] MEDS: LEVALBUTEROL (NEB) 0.63 MG/3 ML AMP HHN ×3 (08:02→21:21)
[2017-12-08] MEDS: FLUTICASONE/VILANTEROL 200-25 INH DEVICE INH (09:02)
[2017-12-08] MEDS: CEFEPIME 1GM/50 ML (PMX) 50 ML IVPB ×2 (09:03→20:01)
[2017-12-08] MEDS: DIAZEPAM 5 MG TAB PO ×2 (09:04→20:01)
[2017-12-08] MEDS: FERROUS SULFATE (SR) 142 MG TAB PO ×2 (09:04→20:02)
[2017-12-08] MEDS: POTASSIUM CHLORIDE (SR) 20 MEQ TAB PO (09:04)
[2017-12-08] MEDS: ESCITALOPRAM 10 MG TAB PO (09:04)
[2017-12-08] MEDS: AMIODARONE 200 MG TAB PO (09:04)
[2017-12-08] MEDS: GUAIFENESIN LA 600 MG TABSR PO ×2 (09:04→20:02)
[2017-12-08] MEDS: LUBIPROSTONE 24 MCG CAP PO ×2 (09:04→20:01)
[2017-12-08] MEDS: BUPROPION (SR) 150 MG TAB PO ×2 (09:05→20:01)
[2017-12-08] MEDS: DILTIAZEM (CD) 120 MG CAP PO (09:05)
[2017-12-08] MEDS: MONTELUKAST 10 MG TAB PO (20:01)
[2017-12-08] MEDS: ATORVASTATIN 20 MG TAB PO (20:02)
[2017-12-09] MEDS: LEVALBUTEROL (NEB) 0.63 MG/3 ML AMP HHN ×2 (03:21→07:23)
[2017-12-09] MEDS: ACETYLCYSTEINE 20% 4 ML VIAL NEB ×4 (03:21→20:14)
[2017-12-09] MEDS: FUROSEMIDE 20 MG TAB PO ×2 (05:19→18:34)
[2017-12-09] MEDS: PANTOPRAZOLE 40 MG INJ IV ×2 (05:20→18:33)
[2017-12-09 05:55] LABS: ADD MAN DIFF? NO
[2017-12-09 06:07] LABS: WHITE BLOOD COUNT 8.8 10^3/ul (4.8-10.8)
[2017-12-09 06:07] LABS: BASOPHILS % 0.1 % (0.0-2.0); EOSINOPHILS % 0.1 % (0.0-7.0); HEMATOCRIT 26.4 % (42.0-52.0); HEMOGLOBIN 8.2 g/dl (14.0-18.0); LYMPHOCYTES # 1.3 10^3/ul (0.8-2.9); LYMPHOCYTES % 15.1 % (15.0-51.0); MEAN CORPUSCULAR HEMOGLOBIN 28.7 pg (29.0-33.0); MEAN CORPUSCULAR HGB CONC 31.1 g/dl (32.0-37.0); MEAN CORPUSCULAR VOLUME 92.3 fl (82.0-101.0); MEAN PLATELET VOLUME 10.4 fl (7.4-10.4); MONOCYTE # 0.8 10^3/ul (0.3-0.9); MONOCYTES % 8.5 % (0.0-11.0); NEUTROPHIL # 6.7 10^3/ul (1.6-7.5); NEUTROPHILS % 75.5 % (39.0-77.0); PLATELET COUNT 193 10^3/UL (140-415); RED BLOOD COUNT 2.86 10^6/ul (4.70-6.10); RED CELL DISTRIBUTION WIDTH 19.5 % (11.5-14.5)
[2017-12-09 07:03] LABS: ALANINE AMINOTRANSFERASE 17 IU/L (13-69); ALBUMIN 2.7 g/dl (3.3-4.9); ALKALINE PHOSPHATASE 60 IU/L (42-121); ANION GAP 10 (8-16); ASPARTATE AMINO TRANSFERASE 12 IU/L (15-46); BILIRUBIN,INDIRECT 0.5 mg/dl (0-1.1); BILIRUBIN,TOTAL 0.5 mg/dl (0.2-1.3); BLOOD UREA NITROGEN 23 mg/dl (7-20); CALCIUM 7.8 mg/dl (8.4-10.2); CARBON DIOXIDE 35 mmol/L (21-31); CHLORIDE 100 mmol/L (97-110); CREATININE 1.06 mg/dl (0.61-1.24); GLUCOSE 94 mg/dl (70-220); POTASSIUM 3.9 mmol/L (3.5-5.1); SODIUM 141 mmol/L (135-144); TOTAL PROTEIN 5.7 g/dl (6.1-8.1)
[2017-12-09] MEDS: CEFEPIME 1GM/50 ML (PMX) 50 ML IVPB ×2 (08:06→21:30)
[2017-12-09] MEDS: DILTIAZEM (CD) 120 MG CAP PO ×2 (08:07→18:34)
[2017-12-09] MEDS: FLUTICASONE/VILANTEROL 200-25 INH DEVICE INH (08:07)
[2017-12-09] MEDS: LUBIPROSTONE 24 MCG CAP PO ×2 (08:07→21:30)
[2017-12-09] MEDS: POTASSIUM CHLORIDE (SR) 20 MEQ TAB PO (08:07)
[2017-12-09] MEDS: GUAIFENESIN LA 600 MG TABSR PO ×2 (08:08→21:30)
[2017-12-09] MEDS: FERROUS SULFATE (SR) 142 MG TAB PO ×2 (08:08→21:30)
[2017-12-09] MEDS: BUPROPION (SR) 150 MG TAB PO ×2 (08:08→21:31)
[2017-12-09] MEDS: AMIODARONE 200 MG TAB PO (08:09)
[2017-12-09] MEDS: ESCITALOPRAM 10 MG TAB PO (08:09)
[2017-12-09] MEDS: AZITHROMYCIN 250 MG TAB PO (10:32)
[2017-12-09] MEDS: DIAZEPAM 5 MG TAB PO ×2 (10:32→21:36)
[2017-12-09] MEDS: METHYLPREDNISOLONE 40 MG INJ IV ×2 (10:32→21:30)
[2017-12-09] MEDS: ALBUTEROL/IPRATROPIUM (NEB) 3 ML AMP HHN ×2 (13:14→20:14)
[2017-12-09] MEDS: ATORVASTATIN 20 MG TAB PO (21:30)
[2017-12-09] MEDS: DOCUSATE SODIUM 250 MG CAP PO (21:31)
[2017-12-09] MEDS: MONTELUKAST 10 MG TAB PO (21:31)
[2017-12-10] MEDS: ACETYLCYSTEINE 20% 4 ML VIAL NEB ×4 (02:50→19:41)
[2017-12-10] MEDS: PANTOPRAZOLE 40 MG INJ IV ×2 (05:49→17:27)
[2017-12-10] MEDS: FUROSEMIDE 20 MG TAB PO ×2 (05:50→17:28)
[2017-12-10 06:38] LABS: ADD MAN DIFF? NO
[2017-12-10 06:46] LABS: WHITE BLOOD COUNT 9.1 10^3/ul (4.8-10.8)
[2017-12-10 06:46] LABS: ABNORMAL IP MESSAGE 1; HEMATOCRIT 27.4 % (42.0-52.0); HEMOGLOBIN 8.6 g/dl (14.0-18.0); IMMATURE GRANS #M 0.05 10^3/ul; IMMATURE GRANS % (M) 0.5 %; LYMPHOCYTES # 0.5 10^3/ul (0.8-2.9); LYMPHOCYTES % 5.1 % (15.0-51.0); MEAN CORPUSCULAR HEMOGLOBIN 28.8 pg (29.0-33.0); MEAN CORPUSCULAR HGB CONC 31.4 g/dl (32.0-37.0); MEAN CORPUSCULAR VOLUME 91.6 fl (82.0-101.0); MEAN PLATELET VOLUME 10.6 fl (7.4-10.4); MONOCYTE # 0.1 10^3/ul (0.3-0.9); MONOCYTES % 1.4 % (0.0-11.0); NEUTROPHIL # 8.5 10^3/ul (1.6-7.5); PLATELET COUNT 212 10^3/UL (140-415); POSITIVE DIFF @See below; RED BLOOD COUNT 2.99 10^6/ul (4.70-6.10); RED CELL DISTRIBUTION WIDTH 18.9 % (11.5-14.5)
[2017-12-10 07:07] LABS: ANION GAP 9 (8-16); BLOOD UREA NITROGEN 22 mg/dl (7-20); CALCIUM 8.3 mg/dl (8.4-10.2); CARBON DIOXIDE 33 mmol/L (21-31); CHLORIDE 101 mmol/L (97-110); CREATININE 0.89 mg/dl (0.61-1.24); GLUCOSE 145 mg/dl (70-220); POTASSIUM 4.2 mmol/L (3.5-5.1); SODIUM 139 mmol/L (135-144)
[2017-12-10] MEDS: ALBUTEROL/IPRATROPIUM (NEB) 3 ML AMP HHN ×3 (07:45→19:41)
[2017-12-10] MEDS: FERROUS SULFATE (SR) 142 MG TAB PO ×2 (08:54→21:48)
[2017-12-10] MEDS: ESCITALOPRAM 10 MG TAB PO (08:54)
[2017-12-10] MEDS: DIAZEPAM 5 MG TAB PO ×2 (08:54→21:53)
[2017-12-10] MEDS: FLUTICASONE/VILANTEROL 200-25 INH DEVICE INH (08:54)
[2017-12-10] MEDS: METHYLPREDNISOLONE 40 MG INJ IV ×2 (08:54→21:49)
[2017-12-10] MEDS: BUPROPION (SR) 150 MG TAB PO ×2 (08:55→21:48)
[2017-12-10] MEDS: AZITHROMYCIN 250 MG TAB PO (08:55)
[2017-12-10] MEDS: LUBIPROSTONE 24 MCG CAP PO ×2 (08:55→21:48)
[2017-12-10] MEDS: DILTIAZEM (CD) 120 MG CAP PO (08:56)
[2017-12-10] MEDS: AMIODARONE 200 MG TAB PO (08:56)
[2017-12-10] MEDS: GUAIFENESIN LA 600 MG TABSR PO ×2 (08:57→21:49)
[2017-12-10] MEDS: POTASSIUM CHLORIDE (SR) 20 MEQ TAB PO (08:57)
[2017-12-10] MEDS: CEFEPIME 1GM/50 ML (PMX) 50 ML IVPB ×2 (09:05→21:49)
[2017-12-10] MEDS: ATORVASTATIN 20 MG TAB PO (21:48)
[2017-12-10] MEDS: MONTELUKAST 10 MG TAB PO (21:48)
[2017-12-10] MEDS: DOCUSATE SODIUM 250 MG CAP PO (21:48)
[2017-12-11] MEDS: ACETYLCYSTEINE 20% 4 ML VIAL NEB ×4 (02:20→19:30)
[2017-12-11] MEDS: LEVALBUTEROL (NEB) 0.63 MG/3 ML AMP HHN (02:20)
[2017-12-11 05:47] LABS: HEMATOCRIT 26.5 % (42.0-52.0); HEMOGLOBIN 8.1 g/dl (14.0-18.0)
[2017-12-11] MEDS: FUROSEMIDE 20 MG TAB PO ×2 (06:10→17:26)
[2017-12-11] MEDS: PANTOPRAZOLE 40 MG INJ IV ×2 (06:10→17:25)
[2017-12-11 06:18] LABS: ALBUMIN 3.1 g/dl (3.3-4.9); ANION GAP 10 (8-16); BLOOD UREA NITROGEN 30 mg/dl (7-20); CALCIUM 8.4 mg/dl (8.4-10.2); CARBON DIOXIDE 33 mmol/L (21-31); CHLORIDE 99 mmol/L (97-110); CREATININE 1.04 mg/dl (0.61-1.24); GLUCOSE 156 mg/dl (70-220); POTASSIUM 4.9 mmol/L (3.5-5.1); SODIUM 137 mmol/L (135-144)
[2017-12-11] MEDS: ALBUTEROL/IPRATROPIUM (NEB) 3 ML AMP HHN ×3 (07:22→19:30)
[2017-12-11] MEDS: METHYLPREDNISOLONE 40 MG INJ IV ×2 (08:31→22:02)
[2017-12-11] MEDS: BUPROPION (SR) 150 MG TAB PO ×2 (08:33→22:02)
[2017-12-11] MEDS: LUBIPROSTONE 24 MCG CAP PO ×2 (08:33→22:02)
[2017-12-11] MEDS: ESCITALOPRAM 10 MG TAB PO (08:33)
[2017-12-11] MEDS: FERROUS SULFATE (SR) 142 MG TAB PO ×2 (08:33→22:02)
[2017-12-11] MEDS: DILTIAZEM (CD) 120 MG CAP PO (08:35)
[2017-12-11] MEDS: AZITHROMYCIN 250 MG TAB PO (08:35)
[2017-12-11] MEDS: POTASSIUM CHLORIDE (SR) 20 MEQ TAB PO (08:35)
[2017-12-11] MEDS: GUAIFENESIN LA 600 MG TABSR PO ×2 (08:35→22:02)
[2017-12-11] MEDS: DIAZEPAM 5 MG TAB PO ×2 (08:36→22:32)
[2017-12-11] MEDS: AMIODARONE 200 MG TAB PO (08:37)
[2017-12-11] MEDS: CEFEPIME 1GM/50 ML (PMX) 50 ML IVPB ×2 (08:37→22:01)
[2017-12-11] MEDS: FLUTICASONE/VILANTEROL 200-25 INH DEVICE INH (08:37)
[2017-12-11 14:06] LABS: HAPTOGLOBIN 200 mg/dL (43-212); TRANSFERRIN 182 mg/dL (188-341)
[2017-12-11] MEDS: MONTELUKAST 10 MG TAB PO (22:02)
[2017-12-11] MEDS: ATORVASTATIN 20 MG TAB PO (22:02)
[2017-12-11] MEDS: DOCUSATE SODIUM 250 MG CAP PO (22:02)
[2017-12-11] MEDS: DOXYCYCLINE 100 MG in SOD CHLORIDE 0.9% 250 ML IVPB (22:27)
[2017-12-12 06:05] LABS: HEMATOCRIT 27.5 % (42.0-52.0); HEMOGLOBIN 8.4 g/dl (14.0-18.0)
[2017-12-12 06:17] LABS: INR 1.03; PARTIAL THROMBOPLASTIN TIME 25.2 Sec (25.0-35.0); PROTIME 13.6 Sec (11.9-14.9); PT RATIO 1.1
[2017-12-12] MEDS: PANTOPRAZOLE 40 MG INJ IV ×2 (06:20→17:10)
[2017-12-12] MEDS: FUROSEMIDE 20 MG TAB PO ×2 (06:21→17:10)
[2017-12-12 06:51] LABS: ANION GAP 11 (8-16); BLOOD UREA NITROGEN 35 mg/dl (7-20); CALCIUM 8.5 mg/dl (8.4-10.2); CARBON DIOXIDE 32 mmol/L (21-31); CHLORIDE 101 mmol/L (97-110); CREATININE 1.05 mg/dl (0.61-1.24); GLUCOSE 101 mg/dl (70-220); POTASSIUM 4.5 mmol/L (3.5-5.1); SODIUM 139 mmol/L (135-144)
[2017-12-12] MEDS: ALBUTEROL/IPRATROPIUM (NEB) 3 ML AMP HHN ×3 (07:30→20:03)
[2017-12-12] MEDS: ACETYLCYSTEINE 20% 4 ML VIAL NEB ×4 (07:38→20:03)
[2017-12-12] MEDS: ESCITALOPRAM 10 MG TAB PO (08:42)
[2017-12-12] MEDS: CEFEPIME 1GM/50 ML (PMX) 50 ML IVPB ×2 (08:43→22:37)
[2017-12-12] MEDS: LUBIPROSTONE 24 MCG CAP PO ×2 (08:43→22:40)
[2017-12-12] MEDS: DILTIAZEM (CD) 120 MG CAP PO (08:43)
[2017-12-12] MEDS: POTASSIUM CHLORIDE (SR) 20 MEQ TAB PO (08:43)
[2017-12-12] MEDS: FERROUS SULFATE (SR) 142 MG TAB PO ×2 (08:43→22:40)
[2017-12-12] MEDS: AMIODARONE 200 MG TAB PO (08:43)
[2017-12-12] MEDS: GUAIFENESIN LA 600 MG TABSR PO ×2 (08:43→22:40)
[2017-12-12] MEDS: METHYLPREDNISOLONE 40 MG INJ IV ×2 (08:44→22:37)
[2017-12-12] MEDS: BUPROPION (SR) 150 MG TAB PO ×2 (09:15→22:40)
[2017-12-12] MEDS: DIAZEPAM 5 MG TAB PO ×2 (09:15→22:39)
[2017-12-12] MEDS: FLUTICASONE/VILANTEROL 200-25 INH DEVICE INH (09:15)
[2017-12-12] MEDS: DOXYCYCLINE 100 MG in SOD CHLORIDE 0.9% 250 ML IVPB ×2 (09:19→22:39)
[2017-12-12] MEDS: LACTULOSE 30ML CUP PO ×2 (18:01→22:37)
[2017-12-12] MEDS: DOCUSATE SODIUM 250 MG CAP PO (21:00)
[2017-12-12] MEDS: MONTELUKAST 10 MG TAB PO (22:40)
[2017-12-12] MEDS: ATORVASTATIN 20 MG TAB PO (22:40)
[2017-12-13] MEDS: LACTULOSE 30ML CUP PO ×6 (01:39→21:00)
[2017-12-13] MEDS: ACETYLCYSTEINE 20% 4 ML VIAL NEB ×4 (02:29→19:21)
[2017-12-13] MEDS: FUROSEMIDE 20 MG TAB PO ×2 (06:03→17:51)
[2017-12-13] MEDS: PANTOPRAZOLE 40 MG INJ IV ×2 (06:03→17:51)
[2017-12-13 06:14] LABS: ADD MAN DIFF? NO
[2017-12-13 06:19] LABS: WHITE BLOOD COUNT 10.5 10^3/ul (4.8-10.8)
[2017-12-13 06:19] LABS: ABNORMAL IP MESSAGE 1; HEMATOCRIT 28.4 % (42.0-52.0); HEMOGLOBIN 8.9 g/dl (14.0-18.0); IMMATURE GRANS #M 0.08 10^3/ul; IMMATURE GRANS % (M) 0.8 %; LYMPHOCYTES # 0.5 10^3/ul (0.8-2.9); LYMPHOCYTES % 4.3 % (15.0-51.0); MEAN CORPUSCULAR HEMOGLOBIN 28.9 pg (29.0-33.0); MEAN CORPUSCULAR HGB CONC 31.3 g/dl (32.0-37.0); MEAN CORPUSCULAR VOLUME 92.2 fl (82.0-101.0); MEAN PLATELET VOLUME 10.5 fl (7.4-10.4); MONOCYTE # 0.3 10^3/ul (0.3-0.9); NEUTROPHIL # 9.7 10^3/ul (1.6-7.5); NEUTROPHILS % 91.9 % (39.0-77.0); PLATELET COUNT 225 10^3/UL (140-415); POSITIVE DIFF @See below; RED BLOOD COUNT 3.08 10^6/ul (4.70-6.10); RED CELL DISTRIBUTION WIDTH 18.5 % (11.5-14.5)
[2017-12-13 06:52] LABS: ALANINE AMINOTRANSFERASE 21 IU/L (13-69); ALBUMIN 3.2 g/dl (3.3-4.9); ALBUMIN/GLOBULIN RATIO 1.03; ALKALINE PHOSPHATASE 66 IU/L (42-121); ANION GAP 14 (8-16); ASPARTATE AMINO TRANSFERASE 17 IU/L (15-46); BILIRUBIN,INDIRECT 0.1 mg/dl (0-1.1); BILIRUBIN,TOTAL 0.1 mg/dl (0.2-1.3); BLOOD UREA NITROGEN 34 mg/dl (7-20); CALCIUM 8.9 mg/dl (8.4-10.2); CARBON DIOXIDE 30 mmol/L (21-31); CHLORIDE 102 mmol/L (97-110); CREATININE 1.02 mg/dl (0.61-1.24); GLUCOSE 131 mg/dl (70-220); MAGNESIUM 1.7 mg/dl (1.7-2.5); POTASSIUM 4.5 mmol/L (3.5-5.1); SODIUM 141 mmol/L (135-144); TOTAL PROTEIN 6.3 g/dl (6.1-8.1)
[2017-12-13] MEDS: ALBUTEROL/IPRATROPIUM (NEB) 3 ML AMP HHN ×3 (08:00→19:21)
[2017-12-13] MEDS: METHYLPREDNISOLONE 40 MG INJ IV ×2 (08:16→20:44)
[2017-12-13] MEDS: LUBIPROSTONE 24 MCG CAP PO ×2 (08:16→23:15)
[2017-12-13] MEDS: ESCITALOPRAM 10 MG TAB PO (08:16)
[2017-12-13] MEDS: FERROUS SULFATE (SR) 142 MG TAB PO ×2 (08:16→23:16)
[2017-12-13] MEDS: BUPROPION (SR) 150 MG TAB PO ×2 (08:16→23:14)
[2017-12-13] MEDS: GUAIFENESIN LA 600 MG TABSR PO ×2 (08:16→23:16)
[2017-12-13] MEDS: POTASSIUM CHLORIDE (SR) 20 MEQ TAB PO (08:17)
[2017-12-13] MEDS: AMIODARONE 200 MG TAB PO (08:17)
[2017-12-13] MEDS: FLUTICASONE/VILANTEROL 200-25 INH DEVICE INH (08:18)
[2017-12-13] MEDS: CEFEPIME 1GM/50 ML (PMX) 50 ML IVPB (08:18)
[2017-12-13] MEDS: DILTIAZEM (CD) 120 MG CAP PO (08:18)
[2017-12-13] MEDS: DIAZEPAM 5 MG TAB PO ×2 (09:07→23:21)
[2017-12-13] MEDS: DOXYCYCLINE 100 MG in SOD CHLORIDE 0.9% 250 ML IVPB (09:08)
[2017-12-13 10:08] LABS: B-TYPE NATRIURETIC PEPTIDE 2440 PG/ML (0-450)
[2017-12-13] MEDS: MAGNESIUM SULFATE 1 GM/D5W 100 ML IVPB (10:48)
[2017-12-13] MEDS ORDERED: ONDANSETRON 4 MG TAB PO (20:00)
[2017-12-13] MEDS: ONDANSETRON 4 MG INJ IV (23:09)
[2017-12-13] MEDS: DOXYCYCLINE 100 MG TAB PO (23:14)
[2017-12-13] MEDS: MONTELUKAST 10 MG TAB PO (23:14)
[2017-12-13] MEDS: ATORVASTATIN 20 MG TAB PO (23:16)
[2017-12-13] MEDS: DOCUSATE SODIUM 250 MG CAP PO (23:21)
[2017-12-13] MEDS: LEVALBUTEROL (NEB) 0.63 MG/3 ML AMP HHN (23:42)
[2017-12-14] MEDS: FUROSEMIDE 40 MG INJ IV (00:10)
[2017-12-14] MEDS: hydrALAzine 20 MG INJ IV (00:18)
[2017-12-14] MEDS: LACTULOSE 30ML CUP PO ×6 (01:00→21:11)
[2017-12-14] MEDS: ALBUTEROL/IPRATROPIUM (NEB) 3 ML AMP HHN ×4 (01:09→20:10)
[2017-12-14] MEDS: ACETYLCYSTEINE 20% 4 ML VIAL NEB ×4 (01:09→20:10)
[2017-12-14] MEDS: HYDROmorphONE 2 MG/ML SYG IV (03:16)
[2017-12-14 03:33] LABS: AADO2 Arterial 575.5 mmHg (7.0-24.0); Allen Test ACCEPTAB; Arterial Base Excess 4.4 mmol/L (-3.0-3); Arterial Blood Gas Oxygen Sat 92.4 mmHG (95.0-100.0); Arterial COHb 0.4 % (0.0-3.0); Arterial Fraction of Oxyhgb 91.7 % (93.0-99.0); Arterial HCO3 32.1 mmol/L (22.0-26.0); Arterial MetHb 0.4 % (0.0-1.5); Arterial Total Hemglobin 11.9 g/dl (12.0-18.0); Arterial pCO2 63.8 mmhg (35-45); MODE MASK - NRB; Site Right Radial
[2017-12-14] MEDS: LEVALBUTEROL (NEB) 0.63 MG/3 ML AMP HHN (04:06)
[2017-12-14 05:12] LABS: ABNORMAL IP MESSAGE 1; HEMATOCRIT 35.6 % (42.0-52.0); HEMOGLOBIN 11.1 g/dl (14.0-18.0); IMMATURE GRANS #M 0.28 10^3/ul; IMMATURE GRANS % (M) 0.9 %; MEAN CORPUSCULAR HEMOGLOBIN 28.5 pg (29.0-33.0); MEAN CORPUSCULAR HGB CONC 31.2 g/dl (32.0-37.0); MEAN CORPUSCULAR VOLUME 91.3 fl (82.0-101.0); MEAN PLATELET VOLUME 10.7 fl (7.4-10.4); PLATELET COUNT 316 10^3/UL (140-415); POSITIVE DIFF @See below; RED CELL DISTRIBUTION WIDTH 18.1 % (11.5-14.5)
[2017-12-14 05:12] LABS: WHITE BLOOD COUNT 32.2 10^3/ul (4.8-10.8)
[2017-12-14 05:25] LABS: ADD MAN DIFF? YES
[2017-12-14 05:35] LABS: ANION GAP 13 (8-16); BLOOD UREA NITROGEN 30 mg/dl (7-20); CALCIUM 9.1 mg/dl (8.4-10.2); CARBON DIOXIDE 33 mmol/L (21-31); CHLORIDE 98 mmol/L (97-110); CREATININE 1.08 mg/dl (0.61-1.24); GLUCOSE 161 mg/dl (70-220); MAGNESIUM 1.7 mg/dl (1.7-2.5); POTASSIUM 4.4 mmol/L (3.5-5.1); SODIUM 140 mmol/L (135-144)
[2017-12-14] MEDS: FUROSEMIDE 20 MG TAB PO ×2 (06:00→18:32)
[2017-12-14] MEDS: PANTOPRAZOLE 40 MG INJ IV ×2 (06:41→18:32)
[2017-12-14 07:36] LABS: ANISOCYTOSIS 1+ (0-0); BAND NEUTROPHILS #M 1.9 10^3/ul (0.0-0.6); BAND NEUTROPHILS % (M) 6 % (0-4); EOSINOPHILS % (M) 1 % (0-7); LYMPHOCYTES #M 0.3 10^3/ul (0.8-2.9); LYMPHOCYTES % (M) 1 % (15-51); MONOCYTE #M 2.2 10^3/ul (0.3-0.9); MONOCYTES % (M) 7 % (0-11); MYELOCYTES #M 0.3 10^3/ul (0.0-0.0); MYELOCYTES % (M) 1 % (0-0); PLATELET ESTIMATE NORMAL; POIKILOCYTOSIS 1+ (0-0); POLYCHROMASIA 1+ (0-0); SEG NEUT #M 27.7 10^3/ul (1.6-7.5); SEGMENTED NEUTROPHILS (M) % 84 % (39-77); SMUDGE%M 4 % (0-0)
[2017-12-14 08:19] LABS: AADO2 Arterial 222.1 mmHg (7.0-24.0); Allen Test ACCEPTAB; Arterial Blood Gas Oxygen Sat 99.5 mmHG (95.0-100.0); Arterial COHb 0.1 % (0.0-3.0); Arterial HCO3 33.8 mmol/L (22.0-26.0); Arterial MetHb 0.4 % (0.0-1.5); Arterial Total Hemglobin 11.8 g/dl (12.0-18.0); Arterial pCO2 66.1 mmhg (35-45); Blood Gas IEPAP 15/5; Blood Gas PS 10; MODE MASK - BIPAP; Site Right Radial
[2017-12-14] MEDS: DIAZEPAM 5 MG TAB PO ×2 (09:00→21:00)
[2017-12-14] MEDS: METHYLPREDNISOLONE 40 MG INJ IV ×2 (09:29→21:12)
[2017-12-14] MEDS: LUBIPROSTONE 24 MCG CAP PO ×2 (09:32→21:12)
[2017-12-14] MEDS: AMIODARONE 200 MG TAB PO (09:32)
[2017-12-14] MEDS: DILTIAZEM (CD) 120 MG CAP PO (09:32)
[2017-12-14] MEDS: BUPROPION (SR) 150 MG TAB PO ×2 (09:32→21:12)
[2017-12-14] MEDS: FERROUS SULFATE (SR) 142 MG TAB PO ×2 (09:32→21:11)
[2017-12-14] MEDS: ESCITALOPRAM 10 MG TAB PO (09:32)
[2017-12-14] MEDS: POTASSIUM CHLORIDE (SR) 20 MEQ TAB PO (09:33)
[2017-12-14] MEDS: GUAIFENESIN LA 600 MG TABSR PO ×2 (09:33→21:11)
[2017-12-14] MEDS: MAGNESIUM SULFATE 1 GM/D5W 100 ML IVPB (09:50)
[2017-12-14] MEDS: DOXYCYCLINE 100 MG TAB PO ×2 (11:59→21:12)
[2017-12-14] MEDS: ATORVASTATIN 20 MG TAB PO (21:11)
[2017-12-14] MEDS: MONTELUKAST 10 MG TAB PO (21:11)
[2017-12-14] MEDS: FLUTICASONE/VILANTEROL 200-25 INH DEVICE INH (21:11)
[2017-12-14] MEDS: DOCUSATE SODIUM 250 MG CAP PO (21:12)
[2017-12-14] MEDS: MEROPENEM 500MG/50 ML (PMX) 50 ML IVPB (22:05)
[2017-12-15] MEDS: LACTULOSE 30ML CUP PO ×6 (01:12→21:00)
[2017-12-15] MEDS: LEVALBUTEROL (NEB) 0.63 MG/3 ML AMP HHN (02:11)
[2017-12-15] MEDS: ACETYLCYSTEINE 20% 4 ML VIAL NEB ×4 (02:11→20:00)
[2017-12-15 05:50] LABS: ABNORMAL IP MESSAGE 1; HEMATOCRIT 35.7 % (42.0-52.0); MEAN CORPUSCULAR HEMOGLOBIN 28.2 pg (29.0-33.0); MEAN CORPUSCULAR HGB CONC 30.8 g/dl (32.0-37.0); MEAN CORPUSCULAR VOLUME 91.5 fl (82.0-101.0); MEAN PLATELET VOLUME 11.1 fl (7.4-10.4); PLATELET COUNT 272 10^3/UL (140-415); POSITIVE DIFF @See below; RED CELL DISTRIBUTION WIDTH 18.9 % (11.5-14.5)
[2017-12-15 05:50] LABS: WHITE BLOOD COUNT 32.8 10^3/ul (4.8-10.8)
[2017-12-15 05:55] LABS: ADD MAN DIFF? YES
[2017-12-15] MEDS: PANTOPRAZOLE 40 MG INJ IV ×2 (06:05→18:00)
[2017-12-15] MEDS: FUROSEMIDE 20 MG TAB PO ×2 (06:06→18:00)
[2017-12-15] MEDS: MEROPENEM 500MG/50 ML (PMX) 50 ML IVPB ×3 (06:06→22:03)
[2017-12-15 06:15] LABS: ALANINE AMINOTRANSFERASE 26 IU/L (13-69); ALBUMIN 3.3 g/dl (3.3-4.9); ALBUMIN/GLOBULIN RATIO 0.94; ALKALINE PHOSPHATASE 95 IU/L (42-121); ANION GAP 11 (8-16); ASPARTATE AMINO TRANSFERASE 16 IU/L (15-46); B-TYPE NATRIURETIC PEPTIDE 4420 PG/ML (0-450); BILIRUBIN,INDIRECT 0.6 mg/dl (0-1.1); BILIRUBIN,TOTAL 0.6 mg/dl (0.2-1.3); BLOOD UREA NITROGEN 41 mg/dl (7-20); CALCIUM 9.4 mg/dl (8.4-10.2); CARBON DIOXIDE 34 mmol/L (21-31); CHLORIDE 101 mmol/L (97-110); CREATININE 1.22 mg/dl (0.61-1.24); GLUCOSE 155 mg/dl (70-220); MAGNESIUM 2.1 mg/dl (1.7-2.5); SODIUM 142 mmol/L (135-144); TOTAL PROTEIN 6.8 g/dl (6.1-8.1)
[2017-12-15] MEDS ORDERED: ALBUMIN HUMAN 5% 250 ML INJ (07:00)
[2017-12-15 07:16] LABS: ANISOCYTOSIS 1+ (0-0); BAND NEUTROPHILS #M 1.9 10^3/ul (0.0-0.6); BAND NEUTROPHILS % (M) 6 % (0-4); BURR CELLS 2+ (0-0); EOSINOPHILS % (M) 1 % (0-7); LYMPHOCYTES #M 1.6 10^3/ul (0.8-2.9); LYMPHOCYTES % (M) 5 % (15-51); MICROCYTOSIS 1+ (0-0); MONOCYTE #M 0.9 10^3/ul (0.3-0.9); MONOCYTES % (M) 3 % (0-11); PLATELET ESTIMATE NORMAL; POIKILOCYTOSIS 2+ (0-0); POLYCHROMASIA 3+ (0-0); REACTIVE LYMPHOCYTES #M 0.3 10^3/ul (0.0-0.0); REACTIVE LYMPHOCYTES% (M) 1 % (0-0); SEG NEUT #M 28.2 10^3/ul (1.6-7.5); SEGMENTED NEUTROPHILS (M) % 84 % (39-77)
[2017-12-15 07:35] LABS: AADO2 Arterial 229.6 mmHg (7.0-24.0); Allen Test ACCEPTAB; Arterial Base Excess 7.8 mmol/L (-3.0-3); Arterial Blood Gas Oxygen Sat 93.2 mmHG (95.0-100.0); Arterial COHb 0.7 % (0.0-3.0); Arterial Fraction of Oxyhgb 92.3 % (93.0-99.0); Arterial HCO3 33.7 mmol/L (22.0-26.0); Arterial MetHb 0.3 % (0.0-1.5); Arterial Total Hemglobin 11.6 g/dl (12.0-18.0); Arterial pCO2 53.5 mmhg (35-45); MODE HFNC; Site Right Radial
[2017-12-15] MEDS: ALBUTEROL/IPRATROPIUM (NEB) 3 ML AMP HHN ×3 (08:23→20:00)
[2017-12-15] MEDS: DIAZEPAM 5 MG TAB PO ×2 (09:00→21:00)
[2017-12-15] MEDS: LUBIPROSTONE 24 MCG CAP PO ×2 (09:47→21:00)
[2017-12-15] MEDS: FUROSEMIDE 40 MG INJ IV (09:47)
[2017-12-15] MEDS: METHYLPREDNISOLONE 40 MG INJ IV ×2 (09:47→22:03)
[2017-12-15] MEDS: FERROUS SULFATE (SR) 142 MG TAB PO ×2 (09:48→21:00)
[2017-12-15] MEDS: DILTIAZEM (CD) 120 MG CAP PO (09:48)
[2017-12-15] MEDS: GUAIFENESIN LA 600 MG TABSR PO ×2 (09:48→21:00)
[2017-12-15] MEDS: BUPROPION (SR) 150 MG TAB PO ×2 (09:48→21:00)
[2017-12-15] MEDS: DOXYCYCLINE 100 MG TAB PO ×2 (09:48→21:00)
[2017-12-15] MEDS: POTASSIUM CHLORIDE (SR) 20 MEQ TAB PO (09:49)
[2017-12-15] MEDS: AMIODARONE 200 MG TAB PO (09:49)
[2017-12-15] MEDS: ESCITALOPRAM 10 MG TAB PO (09:49)
[2017-12-15] MEDS ORDERED: SUCCINYLCHOLINE CHLORIDE 100 MG/5 ML SYG IV (17:42)
[2017-12-15] MEDS ORDERED: LIDOCAINE 2% (SDV) 5 ML INJ (18:22)
[2017-12-15] MEDS ORDERED: ETOMIDATE 20 MG INJ (18:22)
[2017-12-15] MEDS ORDERED: ROCURONIUM 50 MG INJ ×4 (18:22→18:52)
[2017-12-15] MEDS ORDERED: PHENYLephrine (100 MCG/ML) 5ML SYG (18:33)
[2017-12-15] MEDS ORDERED: ALBUMIN HUMAN 5% 250 ML (18:39)
[2017-12-15] MEDS ORDERED: HYDROmorphONE 0.5 MG/0.5 ML SYG IV (20:00)
[2017-12-15] MEDS ORDERED: FENTAnyl 50 MCG/ML VIAL IV (20:00)
[2017-12-15] MEDS ORDERED: ONDANSETRON 4 MG INJ IV (20:00)
[2017-12-15] MEDS ORDERED: PROPOFOL 100 ML (20:33)
[2017-12-15] MEDS: MONTELUKAST 10 MG TAB PO (21:00)
[2017-12-15] MEDS: MUPIROCIN 2% 22 GM OINT TOP (21:00)
[2017-12-15] MEDS: ATORVASTATIN 20 MG TAB PO (21:00)
[2017-12-15] MEDS: DOCUSATE SODIUM 250 MG CAP PO (21:00)
[2017-12-15] MEDS: PROPOFOL 100 ML IV (22:04)
[2017-12-15 22:08] LABS: AADO2 Arterial 426.7 mmHg (7.0-24.0); Arterial Base Excess 4.1 mmol/L (-3.0-3); Arterial Blood Gas Oxygen Sat 99.1 mmHG (95.0-100.0); Arterial COHb 0.1 % (0.0-3.0); Arterial Fraction of Oxyhgb 98.6 % (93.0-99.0); Arterial HCO3 31.7 mmol/L (22.0-26.0); Arterial MetHb 0.4 % (0.0-1.5); MODE VENT - AC; Site A-Line
[2017-12-16] MEDS: LACTULOSE 30ML CUP PO ×6 (01:00→20:33)
[2017-12-16] MEDS: LEVALBUTEROL (NEB) 0.63 MG/3 ML AMP HHN (02:12)
[2017-12-16] MEDS: ACETYLCYSTEINE 20% 4 ML VIAL NEB ×4 (02:12→21:05)
[2017-12-16] MEDS: HYDROmorphONE 2 MG/ML SYG IV ×3 (04:02→18:37)
[2017-12-16 05:18] LABS: ABNORMAL IP MESSAGE 1; HEMATOCRIT 28.7 % (42.0-52.0); HEMOGLOBIN 8.6 g/dl (14.0-18.0); MEAN CORPUSCULAR HEMOGLOBIN 27.8 pg (29.0-33.0); MEAN CORPUSCULAR VOLUME 92.9 fl (82.0-101.0); MEAN PLATELET VOLUME 10.6 fl (7.4-10.4); PLATELET COUNT 193 10^3/UL (140-415); POSITIVE DIFF @See below; RED BLOOD COUNT 3.09 10^6/ul (4.70-6.10); RED CELL DISTRIBUTION WIDTH 18.7 % (11.5-14.5)
[2017-12-16 05:18] LABS: WHITE BLOOD COUNT 19.9 10^3/ul (4.8-10.8)
[2017-12-16] MEDS: PANTOPRAZOLE 40 MG INJ IV ×2 (05:24→18:27)
[2017-12-16] MEDS: MEROPENEM 500MG/50 ML (PMX) 50 ML IVPB ×3 (05:25→21:01)
[2017-12-16] MEDS: FUROSEMIDE 20 MG TAB PO ×2 (05:25→18:28)
[2017-12-16 05:27] LABS: ADD MAN DIFF? YES
[2017-12-16 05:52] LABS: ALANINE AMINOTRANSFERASE 21 IU/L (13-69); ALBUMIN 2.7 g/dl (3.3-4.9); ALBUMIN/GLOBULIN RATIO 1.08; ALKALINE PHOSPHATASE 56 IU/L (42-121); ANION GAP 10 (8-16); ASPARTATE AMINO TRANSFERASE 14 IU/L (15-46); BILIRUBIN,INDIRECT 0.5 mg/dl (0-1.1); BILIRUBIN,TOTAL 0.5 mg/dl (0.2-1.3); BLOOD UREA NITROGEN 49 mg/dl (7-20); CALCIUM 8.3 mg/dl (8.4-10.2); CARBON DIOXIDE 31 mmol/L (21-31); CHLORIDE 107 mmol/L (97-110); CREATININE 1.21 mg/dl (0.61-1.24); GLUCOSE 149 mg/dl (70-220); MAGNESIUM 1.7 mg/dl (1.7-2.5); POTASSIUM 4.1 mmol/L (3.5-5.1); SODIUM 144 mmol/L (135-144); TOTAL PROTEIN 5.2 g/dl (6.1-8.1)
[2017-12-16 06:45] LABS: BAND NEUTROPHILS #M 1.3 10^3/ul (0.0-0.6); BAND NEUTROPHILS % (M) 7 % (0-4); LYMPHOCYTES #M 0.7 10^3/ul (0.8-2.9); LYMPHOCYTES % (M) 4 % (15-51); MONOCYTE #M 0.5 10^3/ul (0.3-0.9); MONOCYTES % (M) 3 % (0-11); PLATELET ESTIMATE NORMAL; POIKILOCYTOSIS 1+ (0-0); POLYCHROMASIA 1+ (0-0); SEG NEUT #M 17.4 10^3/ul (1.6-7.5); SEGMENTED NEUTROPHILS (M) % 86 % (39-77); SMUDGE%M 59 % (0-0); SPHEROCYTES 1+ (0-0)
[2017-12-16] MEDS: PROPOFOL 100 ML IV ×3 (06:46→22:23)
[2017-12-16] MEDS: ALBUTEROL/IPRATROPIUM (NEB) 3 ML AMP HHN ×3 (07:56→21:05)
[2017-12-16 08:06] LABS: PHOSPHORUS 3.9 mg/dl (2.5-4.9)
[2017-12-16] MEDS: DILTIAZEM (CD) 120 MG CAP PO (09:00)
[2017-12-16] MEDS: LUBIPROSTONE 24 MCG CAP PO ×2 (09:00→20:34)
[2017-12-16] MEDS: GUAIFENESIN LA 600 MG TABSR PO ×2 (09:00→20:57)
[2017-12-16] MEDS: POTASSIUM CHLORIDE (SR) 20 MEQ TAB PO (09:00)
[2017-12-16] MEDS: BUPROPION (SR) 150 MG TAB PO ×2 (09:00→20:57)
[2017-12-16] MEDS: FERROUS SULFATE (SR) 142 MG TAB PO ×2 (09:00→20:57)
[2017-12-16] MEDS: DIAZEPAM 5 MG TAB PO ×2 (09:57→20:57)
[2017-12-16] MEDS: AMIODARONE 200 MG TAB PO (09:57)
[2017-12-16] MEDS: ESCITALOPRAM 10 MG TAB PO (09:57)
[2017-12-16] MEDS: METHYLPREDNISOLONE 40 MG INJ IV ×2 (09:58→20:57)
[2017-12-16] MEDS: MUPIROCIN 2% 22 GM OINT TOP ×2 (09:58→20:59)
[2017-12-16] MEDS: DOXYCYCLINE 100 MG TAB PO ×2 (09:58→20:57)
[2017-12-16] MEDS: MAGNESIUM SULFATE 2 GM/50 ML 50 ML IVPB (10:02)
[2017-12-16 10:21] LABS: AADO2 Arterial 302.5 mmHg (7.0-24.0); Arterial Blood Gas Oxygen Sat 93.1 mmHG (95.0-100.0); Arterial COHb 0 % (0.0-3.0); Arterial Fraction of Oxyhgb 92.8 % (93.0-99.0); Arterial HCO3 30.7 mmol/L (22.0-26.0); Arterial MetHb 0.3 % (0.0-1.5); Arterial Total Hemglobin 9.7 g/dl (12.0-18.0); Arterial pCO2 51.8 mmhg (35-45); MODE VENT - AC; Site A-Line
[2017-12-16] MEDS: DOCUSATE SODIUM 250 MG CAP PO (20:33)
[2017-12-16] MEDS: MONTELUKAST 10 MG TAB PO (20:57)
[2017-12-16] MEDS: ATORVASTATIN 20 MG TAB PO (20:57)
[2017-12-16] MEDS: FLUTICASONE/VILANTEROL 200-25 INH DEVICE INH (22:24)
[2017-12-17] MEDS: HYDROmorphONE 2 MG/ML SYG IV (00:53)
[2017-12-17] MEDS: LACTULOSE 30ML CUP PO ×6 (01:00→21:00)
[2017-12-17] MEDS: LEVALBUTEROL (NEB) 0.63 MG/3 ML AMP HHN (01:15)
[2017-12-17] MEDS: ACETYLCYSTEINE 20% 4 ML VIAL NEB ×4 (01:15→19:35)
[2017-12-17 05:33] LABS: ADD MAN DIFF? NO
[2017-12-17] MEDS: PANTOPRAZOLE 40 MG INJ IV ×2 (05:36→17:33)
[2017-12-17] MEDS: FUROSEMIDE 20 MG TAB PO (05:36)
[2017-12-17] MEDS: MEROPENEM 500MG/50 ML (PMX) 50 ML IVPB ×3 (05:36→22:35)
[2017-12-17 05:43] LABS: ABNORMAL IP MESSAGE 1; HEMATOCRIT 26.3 % (42.0-52.0); LYMPHOCYTES # 0.2 10^3/ul (0.8-2.9); LYMPHOCYTES % 1.1 % (15.0-51.0); MEAN CORPUSCULAR HEMOGLOBIN 28.7 pg (29.0-33.0); MEAN CORPUSCULAR HGB CONC 30.4 g/dl (32.0-37.0); MEAN CORPUSCULAR VOLUME 94.3 fl (82.0-101.0); MEAN PLATELET VOLUME 11.1 fl (7.4-10.4); MONOCYTE # 0.6 10^3/ul (0.3-0.9); NEUTROPHIL # 14.1 10^3/ul (1.6-7.5); NEUTROPHILS % 94.4 % (39.0-77.0); PLATELET COUNT 173 10^3/UL (140-415); POSITIVE DIFF @See below; RED BLOOD COUNT 2.79 10^6/ul (4.70-6.10); RED CELL DISTRIBUTION WIDTH 18.6 % (11.5-14.5)
[2017-12-17 05:43] LABS: WHITE BLOOD COUNT 14.9 10^3/ul (4.8-10.8)
[2017-12-17 06:16] LABS: ALANINE AMINOTRANSFERASE 17 IU/L (13-69); ALBUMIN 2.4 g/dl (3.3-4.9); ALBUMIN/GLOBULIN RATIO 1.04; ALKALINE PHOSPHATASE 60 IU/L (42-121); ANION GAP 13 (8-16); ASPARTATE AMINO TRANSFERASE 13 IU/L (15-46); BILIRUBIN,INDIRECT 0.1 mg/dl (0-1.1); BILIRUBIN,TOTAL 0.1 mg/dl (0.2-1.3); BLOOD UREA NITROGEN 57 mg/dl (7-20); CALCIUM 8.4 mg/dl (8.4-10.2); CARBON DIOXIDE 30 mmol/L (21-31); CHLORIDE 107 mmol/L (97-110); CREATININE 1.18 mg/dl (0.61-1.24); GLUCOSE 138 mg/dl (70-220); MAGNESIUM 2.4 mg/dl (1.7-2.5); PHOSPHORUS 3.3 mg/dl (2.5-4.9); POTASSIUM 3.9 mmol/L (3.5-5.1); SODIUM 146 mmol/L (135-144); TOTAL PROTEIN 4.7 g/dl (6.1-8.1)
[2017-12-17] MEDS: PROPOFOL 100 ML IV (06:26)
[2017-12-17] MEDS: ALBUTEROL/IPRATROPIUM (NEB) 3 ML AMP HHN ×3 (08:06→19:35)
[2017-12-17] MEDS: FERROUS SULFATE (SR) 142 MG TAB PO ×2 (08:20→21:00)
[2017-12-17] MEDS: LUBIPROSTONE 24 MCG CAP PO ×2 (08:20→21:00)
[2017-12-17] MEDS: DOXYCYCLINE 100 MG TAB PO ×2 (08:20→21:00)
[2017-12-17] MEDS: BUPROPION (SR) 150 MG TAB PO ×2 (08:20→21:00)
[2017-12-17] MEDS: AMIODARONE 200 MG TAB PO (08:21)
[2017-12-17] MEDS: POTASSIUM CHLORIDE (SR) 20 MEQ TAB PO (08:21)
[2017-12-17] MEDS: METHYLPREDNISOLONE 40 MG INJ IV ×2 (08:21→21:21)
[2017-12-17] MEDS: ESCITALOPRAM 10 MG TAB PO (08:21)
[2017-12-17] MEDS: DILTIAZEM (CD) 120 MG CAP PO ×2 (08:22→08:27)
[2017-12-17] MEDS: DIAZEPAM 5 MG TAB PO ×2 (08:26→21:00)
[2017-12-17] MEDS: GUAIFENESIN LA 600 MG TABSR PO ×2 (08:27→21:00)
[2017-12-17 08:48] LABS: AADO2 Arterial 182.5 mmHg (7.0-24.0); Allen Test ACCEPTAB; Arterial Base Excess 7.3 mmol/L (-3.0-3); Arterial Blood Gas Oxygen Sat 84.3 mmHG (95.0-100.0); Arterial COHb 0.3 % (0.0-3.0); Arterial Fraction of Oxyhgb 83.8 % (93.0-99.0); Arterial HCO3 32.1 mmol/L (22.0-26.0); Arterial MetHb 0.3 % (0.0-1.5); Arterial Total Hemglobin 8.4 g/dl (12.0-18.0); Arterial pCO2 47.2 mmhg (35-45); MODE VENT - AC; Site Left Radial
[2017-12-17] MEDS: FLUTICASONE/VILANTEROL 200-25 INH DEVICE INH (09:00)
[2017-12-17] MEDS: MUPIROCIN 2% 22 GM OINT TOP ×2 (10:08→21:21)
[2017-12-17 10:19] LABS: AADO2 Arterial 142.4 mmHg (7.0-24.0); Arterial Base Excess 7.5 mmol/L (-3.0-3); Arterial Blood Gas Oxygen Sat 97.2 mmHG (95.0-100.0); Arterial COHb 0.3 % (0.0-3.0); Arterial Fraction of Oxyhgb 96.5 % (93.0-99.0); Arterial HCO3 31.5 mmol/L (22.0-26.0); Arterial MetHb 0.4 % (0.0-1.5); Arterial Total Hemglobin 8.6 g/dl (12.0-18.0); Arterial pCO2 42.3 mmhg (35-45); MODE VENT - AC; Site A-Line
[2017-12-17 12:52] LABS: AADO2 Arterial 153.6 mmHg (7.0-24.0); Arterial Base Excess 5.9 mmol/L (-3.0-3); Arterial Blood Gas Oxygen Sat 93.5 mmHG (95.0-100.0); Arterial COHb 0.3 % (0.0-3.0); Arterial Fraction of Oxyhgb 92.8 % (93.0-99.0); Arterial HCO3 31.8 mmol/L (22.0-26.0); Arterial MetHb 0.4 % (0.0-1.5); Arterial Total Hemglobin 10.2 g/dl (12.0-18.0); Blood Gas PS 10; MODE VENT - CPAP; Site A-Line
[2017-12-17] MEDS: POTASSIUM CHLORIDE 50 ML IVPB (18:43)
[2017-12-17] MEDS: FUROSEMIDE 20 MG INJ IV (18:43)
[2017-12-17] MEDS: ATORVASTATIN 20 MG TAB PO (21:00)
[2017-12-17] MEDS: MONTELUKAST 10 MG TAB PO (21:00)
[2017-12-17] MEDS: DOCUSATE SODIUM 250 MG CAP PO (21:00)
[2017-12-18] MEDS: LACTULOSE 30ML CUP PO ×6 (01:00→21:00)
[2017-12-18] MEDS: PANTOPRAZOLE 40 MG INJ IV ×2 (05:14→17:14)
[2017-12-18] MEDS: FUROSEMIDE 20 MG INJ IV ×2 (05:14→17:14)
[2017-12-18] MEDS: MEROPENEM 500MG/50 ML (PMX) 50 ML IVPB ×3 (05:14→21:32)
[2017-12-18 05:18] LABS: ADD MAN DIFF? NO
[2017-12-18 05:26] LABS: WHITE BLOOD COUNT 14.9 10^3/ul (4.8-10.8)
[2017-12-18 05:26] LABS: HEMATOCRIT 27.6 % (42.0-52.0); HEMOGLOBIN 8.3 g/dl (14.0-18.0); LYMPHOCYTES % 1.7 % (15.0-51.0); MEAN CORPUSCULAR HGB CONC 30.1 g/dl (32.0-37.0); MEAN CORPUSCULAR VOLUME 93.2 fl (82.0-101.0); NEUTROPHILS % 92.2 % (39.0-77.0); PLATELET COUNT 197 10^3/UL (140-415); RED BLOOD COUNT 2.96 10^6/ul (4.70-6.10); RED CELL DISTRIBUTION WIDTH 18.5 % (11.5-14.5)
[2017-12-18 05:27] LABS: ABNORMAL IP MESSAGE 1; BASOPHILS % 0.1 % (0.0-2.0); LYMPHOCYTES # 0.3 10^3/ul (0.8-2.9); MONOCYTE # 0.8 10^3/ul (0.3-0.9); MONOCYTES % 5.2 % (0.0-11.0); NEUTROPHIL # 13.8 10^3/ul (1.6-7.5); POSITIVE DIFF @See below
[2017-12-18 06:00] LABS: ANION GAP 9 (8-16); BLOOD UREA NITROGEN 55 mg/dl (7-20); CALCIUM 8.7 mg/dl (8.4-10.2); CARBON DIOXIDE 33 mmol/L (21-31); CHLORIDE 109 mmol/L (97-110); CREATININE 1.02 mg/dl (0.61-1.24); GLUCOSE 135 mg/dl (70-220); MAGNESIUM 2.1 mg/dl (1.7-2.5); PHOSPHORUS 2.9 mg/dl (2.5-4.9); POTASSIUM 3.7 mmol/L (3.5-5.1); SODIUM 147 mmol/L (135-144)
[2017-12-18 06:07] LABS: B-TYPE NATRIURETIC PEPTIDE 4470 PG/ML (0-450)
[2017-12-18] MEDS: DILTIAZEM-D5W 125MG/125ML DRIP 125 ML IV ×3 (06:27→23:04)
[2017-12-18] MEDS: ACETYLCYSTEINE 20% 4 ML VIAL NEB ×2 (06:36→08:24)
[2017-12-18] MEDS: PROPOFOL 100 ML IV ×2 (08:00→20:00)
[2017-12-18] MEDS: ALBUTEROL/IPRATROPIUM (NEB) 3 ML AMP HHN ×3 (08:24→19:38)
[2017-12-18] MEDS: POTASSIUM CHLORIDE (SR) 20 MEQ TAB PO (08:29)
[2017-12-18] MEDS: AMIODARONE 200 MG TAB PO (08:29)
[2017-12-18] MEDS: GUAIFENESIN LA 600 MG TABSR PO ×2 (08:29→21:00)
[2017-12-18] MEDS: DILTIAZEM (CD) 120 MG CAP PO (08:29)
[2017-12-18] MEDS: FERROUS SULFATE (SR) 142 MG TAB PO ×2 (08:29→21:00)
[2017-12-18] MEDS: LUBIPROSTONE 24 MCG CAP PO ×2 (08:29→21:00)
[2017-12-18] MEDS: ESCITALOPRAM 10 MG TAB PO (08:29)
[2017-12-18] MEDS: BUPROPION (SR) 150 MG TAB PO ×2 (08:30→21:00)
[2017-12-18] MEDS: DOXYCYCLINE 100 MG TAB PO ×2 (08:30→21:00)
[2017-12-18] MEDS: DIAZEPAM 5 MG TAB PO ×2 (08:30→21:00)
[2017-12-18] MEDS: METHYLPREDNISOLONE 40 MG INJ IV ×2 (08:36→21:32)
[2017-12-18] MEDS: MUPIROCIN 2% 22 GM OINT TOP ×2 (08:36→21:32)
[2017-12-18] MEDS: FLUTICASONE/VILANTEROL 200-25 INH DEVICE INH (09:00)
[2017-12-18 11:36] LABS: ALANINE AMINOTRANSFERASE 27 IU/L (13-69); ALBUMIN 2.9 g/dl (3.3-4.9); ALBUMIN/GLOBULIN RATIO 0.96; ALKALINE PHOSPHATASE 62 IU/L (42-121); ANION GAP 10 (8-16); ASPARTATE AMINO TRANSFERASE 21 IU/L (15-46); BILIRUBIN,INDIRECT 0.4 mg/dl (0-1.1); BILIRUBIN,TOTAL 0.4 mg/dl (0.2-1.3); BLOOD UREA NITROGEN 54 mg/dl (7-20); CALCIUM 8.8 mg/dl (8.4-10.2); CARBON DIOXIDE 36 mmol/L (21-31); CHLORIDE 105 mmol/L (97-110); CREATININE 1.03 mg/dl (0.61-1.24); GLUCOSE 128 mg/dl (70-220); MAGNESIUM 1.9 mg/dl (1.7-2.5); PHOSPHORUS 2.8 mg/dl (2.5-4.9); POTASSIUM 3.6 mmol/L (3.5-5.1); SODIUM 147 mmol/L (135-144); TOTAL PROTEIN 5.9 g/dl (6.1-8.1); TRIGLYCERIDES 108 mg/dl (0-149)
[2017-12-18 12:47] LABS: PREALBUMIN 11.2 mg/dl (17.6-36.0)
[2017-12-18] MEDS: hydrALAzine 20 MG INJ IV (15:10)
[2017-12-18] MEDS: TPN 1,000 ML IV ×2 (16:00→17:14)
[2017-12-18] MEDS: ACCU-CHEK XX ×2 (16:36→21:00)
[2017-12-18] MEDS: HYDROmorphONE 2 MG/ML SYG IV (16:50)
[2017-12-18] MEDS ORDERED: TPN 1,000 ML IV (17:00)
[2017-12-18] MEDS: MONTELUKAST 10 MG TAB PO (21:00)
[2017-12-18] MEDS: DOCUSATE SODIUM 250 MG CAP PO (21:00)
[2017-12-18] MEDS: ATORVASTATIN 20 MG TAB PO (21:00)
[2017-12-18] MEDS: AMIODARONE 150MG/D5W BOLUS 100 ML IV (22:32)
[2017-12-18 22:43] LABS: ADD MAN DIFF? NO
[2017-12-18 22:44] LABS: ABNORMAL IP MESSAGE 1; BASOPHILS % 0.1 % (0.0-2.0); HEMATOCRIT 28.3 % (42.0-52.0); HEMOGLOBIN 8.7 g/dl (14.0-18.0); LYMPHOCYTES # 0.4 10^3/ul (0.8-2.9); MEAN CORPUSCULAR HEMOGLOBIN 28.4 pg (29.0-33.0); MEAN CORPUSCULAR HGB CONC 30.7 g/dl (32.0-37.0); MEAN CORPUSCULAR VOLUME 92.5 fl (82.0-101.0); MEAN PLATELET VOLUME 10.8 fl (7.4-10.4); MONOCYTES % 7.8 % (0.0-11.0); NEUTROPHIL # 11.5 10^3/ul (1.6-7.5); NEUTROPHILS % 88.6 % (39.0-77.0); PLATELET COUNT 189 10^3/UL (140-415); POSITIVE DIFF @See below; RED BLOOD COUNT 3.06 10^6/ul (4.70-6.10); RED CELL DISTRIBUTION WIDTH 18.2 % (11.5-14.5)
[2017-12-18] MEDS: AMIODARONE 900 MG in DEXTROSE 5% 482 ML IV (23:05)
[2017-12-18] MEDS ORDERED: GLUCOSE GEL 15 GRAM TUBE BUCCAL (23:45)
[2017-12-18] MEDS ORDERED: GLUCAGON 1 MG INJ IM (23:45)
[2017-12-18] MEDS ORDERED: GLUCOSE GEL 15 GRAM TUBE PO ×2 (23:45)
[2017-12-18] MEDS ORDERED: DEXTROSE 50% 50 ML SYRINGE IV ×2 (23:45)
[2017-12-19] MEDS: LACTULOSE 30ML CUP PO ×6 (01:00→21:50)
[2017-12-19] MEDS: ACCU-CHEK XX ×6 (01:00→21:00)
[2017-12-19] MEDS ORDERED: INSULIN ASPART [NOVOLOG] 3 ML PEN SC ×2 (01:00→07:35)
[2017-12-19] MEDS ORDERED: Insulin NOVOLOG SS MILD Algorithm (NPO/TPN/ENTERAL FEEDS) SC (01:00)
[2017-12-19] MEDS: Insulin NOVOLOG SS MILD Algorithm (NPO/TPN/ENTERAL FEEDS) SC ×6 (01:53→20:46)
[2017-12-19] MEDS: HYDROmorphONE 2 MG/ML SYG IV (01:59)
[2017-12-19 05:22] LABS: ADD MAN DIFF? NO
[2017-12-19 05:29] LABS: ABNORMAL IP MESSAGE 1; BASOPHILS % 0.1 % (0.0-2.0); HEMOGLOBIN 8.4 g/dl (14.0-18.0); LYMPHOCYTES % 0.1 % (15.0-51.0); MEAN CORPUSCULAR HEMOGLOBIN 28.2 pg (29.0-33.0); MEAN PLATELET VOLUME 10.9 fl (7.4-10.4); MONOCYTE # 0.9 10^3/ul (0.3-0.9); MONOCYTES % 6.7 % (0.0-11.0); NEUTROPHIL # 12.1 10^3/ul (1.6-7.5); NEUTROPHILS % 92.3 % (39.0-77.0); PLATELET COUNT 184 10^3/UL (140-415); POSITIVE DIFF @See below; RED BLOOD COUNT 2.98 10^6/ul (4.70-6.10); RED CELL DISTRIBUTION WIDTH 18.2 % (11.5-14.5)
[2017-12-19 05:29] LABS: WHITE BLOOD COUNT 13.1 10^3/ul (4.8-10.8)
[2017-12-19] MEDS: PANTOPRAZOLE 40 MG INJ IV ×2 (05:29→17:45)
[2017-12-19] MEDS: FUROSEMIDE 20 MG INJ IV ×2 (05:29→17:45)
[2017-12-19] MEDS: MEROPENEM 500MG/50 ML (PMX) 50 ML IVPB ×3 (05:29→21:48)
[2017-12-19] MEDS: TPN 1,000 ML IV ×2 (05:31→21:45)
[2017-12-19 06:05] LABS: PHOSPHORUS 3.3 mg/dl (2.5-4.9)
[2017-12-19 06:07] LABS: ALANINE AMINOTRANSFERASE 22 IU/L (13-69); ALBUMIN 2.7 g/dl (3.3-4.9); ALBUMIN/GLOBULIN RATIO 0.93; ALKALINE PHOSPHATASE 49 IU/L (42-121); ANION GAP 9 (8-16); ASPARTATE AMINO TRANSFERASE 18 IU/L (15-46); BILIRUBIN,INDIRECT 0.2 mg/dl (0-1.1); BILIRUBIN,TOTAL 0.2 mg/dl (0.2-1.3); BLOOD UREA NITROGEN 61 mg/dl (7-20); CALCIUM 8.7 mg/dl (8.4-10.2); CARBON DIOXIDE 37 mmol/L (21-31); CHLORIDE 104 mmol/L (97-110); CREATININE 0.99 mg/dl (0.61-1.24); GLUCOSE 171 mg/dl (70-220); POTASSIUM 4.1 mmol/L (3.5-5.1); SODIUM 146 mmol/L (135-144); TOTAL PROTEIN 5.6 g/dl (6.1-8.1)
[2017-12-19] MEDS: PROPOFOL 100 ML IV ×2 (08:00→20:00)
[2017-12-19] MEDS: ALBUTEROL/IPRATROPIUM (NEB) 3 ML AMP HHN ×3 (08:16→19:38)
[2017-12-19] MEDS: AMIODARONE 200 MG TAB PO (09:00)
[2017-12-19] MEDS: METHYLPREDNISOLONE 40 MG INJ IV ×2 (10:24→21:46)
[2017-12-19] MEDS: MUPIROCIN 2% 22 GM OINT TOP ×2 (10:24→21:47)
[2017-12-19] MEDS: FERROUS SULFATE (SR) 142 MG TAB PO ×2 (14:40→21:59)
[2017-12-19] MEDS: DIAZEPAM 5 MG TAB PO ×2 (14:40→21:50)
[2017-12-19] MEDS: DOXYCYCLINE 100 MG TAB PO ×2 (14:41→21:46)
[2017-12-19] MEDS: ESCITALOPRAM 10 MG TAB PO (14:41)
[2017-12-19] MEDS: BUPROPION (SR) 150 MG TAB PO ×2 (14:41→21:46)
[2017-12-19] MEDS: LUBIPROSTONE 24 MCG CAP PO ×2 (14:47→21:46)
[2017-12-19] MEDS: GUAIFENESIN LA 600 MG TABSR PO ×2 (14:53→21:59)
[2017-12-19] MEDS: POTASSIUM CHLORIDE (SR) 20 MEQ TAB PO (14:53)
[2017-12-19] MEDS: DILTIAZEM (CD) 120 MG CAP PO (14:53)
[2017-12-19] MEDS: ENOXAPARIN 100 MG/ML SYG SC ×2 (14:59→21:47)
[2017-12-19] MEDS: DILTIAZEM-D5W 125MG/125ML DRIP 125 ML IV (17:36)
[2017-12-19] MEDS: FLUTICASONE/VILANTEROL 200-25 INH DEVICE INH (21:44)
[2017-12-19] MEDS: ATORVASTATIN 20 MG TAB PO (21:50)
[2017-12-19] MEDS: MONTELUKAST 10 MG TAB PO (21:50)
[2017-12-19] MEDS: DOCUSATE SODIUM 250 MG CAP PO (21:59)
[2017-12-20] MEDS: Insulin NOVOLOG SS MILD Algorithm (NPO/TPN/ENTERAL FEEDS) SC ×6 (00:55→21:38)
[2017-12-20] MEDS: DILTIAZEM-D5W 125MG/125ML DRIP 125 ML IV ×3 (00:58→21:49)
[2017-12-20] MEDS: ACCU-CHEK XX ×6 (01:00→21:40)
[2017-12-20] MEDS: LACTULOSE 30ML CUP PO ×6 (01:00→21:50)
[2017-12-20] MEDS: AMIODARONE 900 MG in DEXTROSE 5% 482 ML IV (02:10)
[2017-12-20] MEDS: FUROSEMIDE 20 MG INJ IV ×2 (05:32→17:21)
[2017-12-20] MEDS: PANTOPRAZOLE 40 MG INJ IV ×2 (05:32→17:20)
[2017-12-20] MEDS: MEROPENEM 500MG/50 ML (PMX) 50 ML IVPB ×3 (05:32→21:50)
[2017-12-20 05:37] LABS: ABNORMAL IP MESSAGE 1; ADD MAN DIFF? NO; BASOPHILS % 0.2 % (0.0-2.0); HEMATOCRIT 31.6 % (42.0-52.0); HEMOGLOBIN 9.6 g/dl (14.0-18.0); LYMPHOCYTES # 0.5 10^3/ul (0.8-2.9); LYMPHOCYTES % 2.7 % (15.0-51.0); MEAN CORPUSCULAR HEMOGLOBIN 27.9 pg (29.0-33.0); MEAN CORPUSCULAR HGB CONC 30.4 g/dl (32.0-37.0); MEAN CORPUSCULAR VOLUME 91.9 fl (82.0-101.0); MEAN PLATELET VOLUME 11.4 fl (7.4-10.4); MONOCYTE # 0.7 10^3/ul (0.3-0.9); MONOCYTES % 3.6 % (0.0-11.0); NEUTROPHIL # 18.5 10^3/ul (1.6-7.5); NEUTROPHILS % 92.5 % (39.0-77.0); PLATELET COUNT 221 10^3/UL (140-415); POSITIVE DIFF @See below; RED BLOOD COUNT 3.44 10^6/ul (4.70-6.10)
[2017-12-20 05:41] LABS: MAGNESIUM 1.8 mg/dl (1.7-2.5)
[2017-12-20 05:41] LABS: PHOSPHORUS 2.3 mg/dl (2.5-4.9)
[2017-12-20 05:42] LABS: ALANINE AMINOTRANSFERASE 34 IU/L (13-69); ALBUMIN 2.8 g/dl (3.3-4.9); ALKALINE PHOSPHATASE 63 IU/L (42-121); ANION GAP 11 (8-16); ASPARTATE AMINO TRANSFERASE 24 IU/L (15-46); BILIRUBIN,INDIRECT 0.4 mg/dl (0-1.1); BILIRUBIN,TOTAL 0.4 mg/dl (0.2-1.3); BLOOD UREA NITROGEN 62 mg/dl (7-20); CALCIUM 9.1 mg/dl (8.4-10.2); CARBON DIOXIDE 31 mmol/L (21-31); CHLORIDE 103 mmol/L (97-110); CREATININE 0.88 mg/dl (0.61-1.24); GLUCOSE 158 mg/dl (70-220); POTASSIUM 4.3 mmol/L (3.5-5.1); SODIUM 141 mmol/L (135-144); TOTAL PROTEIN 5.9 g/dl (6.1-8.1)
[2017-12-20] MEDS: PROPOFOL 100 ML IV ×2 (08:00→19:45)
[2017-12-20] MEDS: ALBUTEROL/IPRATROPIUM (NEB) 3 ML AMP HHN ×3 (08:01→19:46)
[2017-12-20] MEDS: METHYLPREDNISOLONE 40 MG INJ IV ×2 (08:52→21:36)
[2017-12-20] MEDS: DOXYCYCLINE 100 MG TAB PO ×2 (08:53→21:42)
[2017-12-20] MEDS: ESCITALOPRAM 10 MG TAB PO (08:53)
[2017-12-20] MEDS: AMIODARONE 200 MG TAB PO (08:53)
[2017-12-20] MEDS: BUPROPION (SR) 150 MG TAB PO ×2 (08:53→21:43)
[2017-12-20] MEDS: POTASSIUM CHLORIDE (SR) 20 MEQ TAB PO (08:53)
[2017-12-20] MEDS: GUAIFENESIN LA 600 MG TABSR PO ×2 (08:53→21:44)
[2017-12-20] MEDS: LUBIPROSTONE 24 MCG CAP PO ×2 (08:53→21:42)
[2017-12-20] MEDS: FERROUS SULFATE (SR) 142 MG TAB PO ×2 (08:53→21:42)
[2017-12-20] MEDS: MUPIROCIN 2% 22 GM OINT TOP ×2 (08:54→21:40)
[2017-12-20] MEDS: FLUTICASONE/VILANTEROL 200-25 INH DEVICE INH (08:54)
[2017-12-20] MEDS: DIAZEPAM 5 MG TAB PO ×2 (08:57→21:48)
[2017-12-20] MEDS: ENOXAPARIN 100 MG/ML SYG SC ×2 (08:59→21:39)
[2017-12-20] MEDS: TPN 1,000 ML IV (10:22)
[2017-12-20] MEDS: DILTIAZEM (CD) 240 MG CAP PO (10:31)
[2017-12-20] MEDS: DIGOXIN 0.125 MG TAB PO (12:28)
[2017-12-20] MEDS: ATORVASTATIN 20 MG TAB PO (21:43)
[2017-12-20] MEDS: DOCUSATE SODIUM 250 MG CAP PO (21:44)
[2017-12-20] MEDS: MONTELUKAST 10 MG TAB PO (21:48)
[2017-12-21] MEDS: LACTULOSE 30ML CUP PO ×6 (00:28→20:41)
[2017-12-21] MEDS: TPN 1,000 ML IV ×2 (00:28→14:18)
[2017-12-21] MEDS: Insulin NOVOLOG SS MILD Algorithm (NPO/TPN/ENTERAL FEEDS) SC ×2 (00:32→05:28)
[2017-12-21] MEDS: ACCU-CHEK XX ×6 (00:37→20:37)
[2017-12-21] MEDS: FUROSEMIDE 20 MG INJ IV ×2 (05:14→17:06)
[2017-12-21] MEDS: PANTOPRAZOLE 40 MG INJ IV ×2 (05:15→17:06)
[2017-12-21] MEDS: MEROPENEM 500MG/50 ML (PMX) 50 ML IVPB ×3 (05:15→22:26)
[2017-12-21] MEDS: DILTIAZEM-D5W 125MG/125ML DRIP 125 ML IV ×2 (05:21→12:28)
[2017-12-21 05:26] LABS: ADD MAN DIFF? NO
[2017-12-21 05:31] LABS: ABNORMAL IP MESSAGE 1; BASOPHILS % 0.2 % (0.0-2.0); HEMATOCRIT 30.5 % (42.0-52.0); HEMOGLOBIN 9.4 g/dl (14.0-18.0); LYMPHOCYTES # 0.5 10^3/ul (0.8-2.9); LYMPHOCYTES % 2.3 % (15.0-51.0); MEAN CORPUSCULAR HGB CONC 30.8 g/dl (32.0-37.0); MEAN CORPUSCULAR VOLUME 90.8 fl (82.0-101.0); MEAN PLATELET VOLUME 11.4 fl (7.4-10.4); MONOCYTE # 0.6 10^3/ul (0.3-0.9); MONOCYTES % 3.2 % (0.0-11.0); NEUTROPHIL # 18.1 10^3/ul (1.6-7.5); PLATELET COUNT 221 10^3/UL (140-415); POSITIVE DIFF @See below; RED BLOOD COUNT 3.36 10^6/ul (4.70-6.10); RED CELL DISTRIBUTION WIDTH 17.8 % (11.5-14.5)
[2017-12-21 05:31] LABS: WHITE BLOOD COUNT 19.6 10^3/ul (4.8-10.8)
[2017-12-21 05:53] LABS: NEUTROPHILS % 92.6 % (39.0-77.0)
[2017-12-21 05:57] LABS: ALANINE AMINOTRANSFERASE 32 IU/L (13-69); ALBUMIN 3.1 g/dl (3.3-4.9); ALBUMIN/GLOBULIN RATIO 0.96; ALKALINE PHOSPHATASE 59 IU/L (42-121); ANION GAP 12 (8-16); ASPARTATE AMINO TRANSFERASE 27 IU/L (15-46); BILIRUBIN,INDIRECT 0.3 mg/dl (0-1.1); BILIRUBIN,TOTAL 0.3 mg/dl (0.2-1.3); BLOOD UREA NITROGEN 65 mg/dl (7-20); CALCIUM 9.1 mg/dl (8.4-10.2); CARBON DIOXIDE 30 mmol/L (21-31); CHLORIDE 103 mmol/L (97-110); CREATININE 0.96 mg/dl (0.61-1.24); GLUCOSE 176 mg/dl (70-220); MAGNESIUM 1.9 mg/dl (1.7-2.5); POTASSIUM 4.2 mmol/L (3.5-5.1); SODIUM 141 mmol/L (135-144); TOTAL PROTEIN 6.3 g/dl (6.1-8.1)
[2017-12-21] MEDS: PROPOFOL 100 ML IV ×2 (08:00→19:59)
[2017-12-21] MEDS: ALBUTEROL/IPRATROPIUM (NEB) 3 ML AMP HHN ×3 (08:32→20:11)
[2017-12-21] MEDS: METHYLPREDNISOLONE 40 MG INJ IV ×2 (08:40→20:32)
[2017-12-21] MEDS: FLUTICASONE/VILANTEROL 200-25 INH DEVICE INH (08:40)
[2017-12-21] MEDS: MUPIROCIN 2% 22 GM OINT TOP ×2 (08:40→20:32)
[2017-12-21] MEDS: LUBIPROSTONE 24 MCG CAP PO ×2 (08:41→20:38)
[2017-12-21] MEDS: DOXYCYCLINE 100 MG TAB PO (08:41)
[2017-12-21] MEDS: DILTIAZEM (CD) 240 MG CAP PO (08:41)
[2017-12-21] MEDS: FERROUS SULFATE (SR) 142 MG TAB PO ×2 (08:41→20:40)
[2017-12-21] MEDS: BUPROPION (SR) 150 MG TAB PO ×2 (08:41→20:38)
[2017-12-21] MEDS: AMIODARONE 200 MG TAB PO (08:41)
[2017-12-21] MEDS: ESCITALOPRAM 10 MG TAB PO (08:42)
[2017-12-21] MEDS: POTASSIUM CHLORIDE (SR) 20 MEQ TAB PO (08:42)
[2017-12-21] MEDS: GUAIFENESIN LA 600 MG TABSR PO ×2 (08:42→20:41)
[2017-12-21] MEDS: ENOXAPARIN 100 MG/ML SYG SC ×2 (08:44→20:34)
[2017-12-21] MEDS: DIAZEPAM 5 MG TAB PO ×2 (08:47→20:38)
[2017-12-21] MEDS: AMIODARONE 900 MG in DEXTROSE 5% 482 ML IV (09:10)
[2017-12-21] MEDS: INSULIN ASPART [NOVOLOG] 3 ML PEN SC ×3 (11:15→20:33)
[2017-12-21] MEDS: DIGOXIN 0.125 MG TAB PO (12:20)
[2017-12-21 13:23] LABS: AADO2 Arterial 91.3 mmHg (7.0-24.0); Allen Test ACCEPTAB; Arterial Base Excess 4.8 mmol/L (-3.0-3); Arterial Blood Gas Oxygen Sat 91.1 mmHG (95.0-100.0); Arterial COHb 0.1 % (0.0-3.0); Arterial Fraction of Oxyhgb 90.8 % (93.0-99.0); Arterial HCO3 27.7 mmol/L (22.0-26.0); Arterial MetHb 0.2 % (0.0-1.5); Arterial Total Hemglobin 11.5 g/dl (12.0-18.0); Arterial pCO2 35.1 mmhg (35-45); MODE NASAL CANNULA; Site Right Radial
[2017-12-21] MEDS: METOPROLOL 5 MG INJ IV ×2 (13:53→21:08)
[2017-12-21] MEDS: DOXYCYCLINE 100 MG in SOD CHLORIDE 0.9% 250 ML IVPB (20:30)
[2017-12-21] MEDS: MONTELUKAST 10 MG TAB PO (20:39)
[2017-12-21] MEDS: ATORVASTATIN 20 MG TAB PO (20:40)
[2017-12-21] MEDS: DOCUSATE SODIUM 250 MG CAP PO (20:40)
[2017-12-22] MEDS: ACCU-CHEK XX ×6 (01:00→21:00)
[2017-12-22] MEDS: LACTULOSE 30ML CUP PO ×6 (01:00→21:00)
[2017-12-22 03:43] LABS: ADD MAN DIFF? NO
[2017-12-22 04:01] LABS: ABNORMAL IP MESSAGE 1; BASOPHILS % 0.1 % (0.0-2.0); LYMPHOCYTES # 0.3 10^3/ul (0.8-2.9); LYMPHOCYTES % 1.6 % (15.0-51.0); MEAN CORPUSCULAR HEMOGLOBIN 27.9 pg (29.0-33.0); MEAN CORPUSCULAR VOLUME 89.8 fl (82.0-101.0); MEAN PLATELET VOLUME 11.4 fl (7.4-10.4); MONOCYTE # 0.4 10^3/ul (0.3-0.9); MONOCYTES % 2.2 % (0.0-11.0); NEUTROPHIL # 18.1 10^3/ul (1.6-7.5); NEUTROPHILS % 94.2 % (39.0-77.0); PLATELET COUNT 208 10^3/UL (140-415); POSITIVE DIFF @See below; RED BLOOD COUNT 3.23 10^6/ul (4.70-6.10); RED CELL DISTRIBUTION WIDTH 17.9 % (11.5-14.5)
[2017-12-22 04:01] LABS: WHITE BLOOD COUNT 19.2 10^3/ul (4.8-10.8)
[2017-12-22] MEDS: TPN 1,000 ML IV ×2 (06:24→18:40)
[2017-12-22] MEDS: PANTOPRAZOLE 40 MG INJ IV ×2 (06:24→17:28)
[2017-12-22] MEDS: FUROSEMIDE 20 MG INJ IV ×2 (06:25→17:28)
[2017-12-22] MEDS: MEROPENEM 500MG/50 ML (PMX) 50 ML IVPB ×3 (06:28→22:11)
[2017-12-22] MEDS: METOPROLOL 5 MG INJ IV ×3 (06:37→22:12)
[2017-12-22 07:07] LABS: ALANINE AMINOTRANSFERASE 36 IU/L (13-69); ALBUMIN/GLOBULIN RATIO 1.07; ALKALINE PHOSPHATASE 61 IU/L (42-121); ANION GAP 14 (8-16); ASPARTATE AMINO TRANSFERASE 20 IU/L (15-46); BILIRUBIN,INDIRECT 0.1 mg/dl (0-1.1); BILIRUBIN,TOTAL 0.1 mg/dl (0.2-1.3); BLOOD UREA NITROGEN 72 mg/dl (7-20); CARBON DIOXIDE 24 mmol/L (21-31); CHLORIDE 106 mmol/L (97-110); CREATININE 1.01 mg/dl (0.61-1.24); GLUCOSE 185 mg/dl (70-220); MAGNESIUM 1.9 mg/dl (1.7-2.5); PHOSPHORUS 3.8 mg/dl (2.5-4.9); POTASSIUM 4.3 mmol/L (3.5-5.1); SODIUM 140 mmol/L (135-144); TOTAL PROTEIN 5.8 g/dl (6.1-8.1)
[2017-12-22] MEDS: ALBUTEROL/IPRATROPIUM (NEB) 3 ML AMP HHN ×4 (08:00→21:46)
[2017-12-22] MEDS: PROPOFOL 100 ML IV (08:00)
[2017-12-22 09:07] LABS: AADO2 Arterial 70.5 mmHg (7.0-24.0); Allen Test ACCEPTAB; Arterial Base Excess 0.6 mmol/L (-3.0-3); Arterial Blood Gas Oxygen Sat 94.2 mmHG (95.0-100.0); Arterial COHb 0 % (0.0-3.0); Arterial Fraction of Oxyhgb 93.9 % (93.0-99.0); Arterial HCO3 24.9 mmol/L (22.0-26.0); Arterial MetHb 0.3 % (0.0-1.5); Arterial Total Hemglobin 10.9 g/dl (12.0-18.0); Arterial pCO2 38.6 mmhg (35-45); MODE NASAL CANNULA; Site Right Radial
[2017-12-22] MEDS: DILTIAZEM (CD) 300 MG CAP PO (09:07)
[2017-12-22] MEDS: GUAIFENESIN LA 600 MG TABSR PO ×2 (09:07→21:06)
[2017-12-22] MEDS: BUPROPION (SR) 150 MG TAB PO ×2 (09:08→21:06)
[2017-12-22] MEDS: AMIODARONE 200 MG TAB PO (09:08)
[2017-12-22] MEDS: DIAZEPAM 5 MG TAB PO ×2 (09:08→21:07)
[2017-12-22] MEDS: LUBIPROSTONE 24 MCG CAP PO ×2 (09:09→21:07)
[2017-12-22] MEDS: ENOXAPARIN 100 MG/ML SYG SC ×2 (09:09→21:15)
[2017-12-22] MEDS: FERROUS SULFATE (SR) 142 MG TAB PO ×2 (09:09→22:12)
[2017-12-22] MEDS: ESCITALOPRAM 10 MG TAB PO (09:10)
[2017-12-22] MEDS: MUPIROCIN 2% 22 GM OINT TOP ×2 (09:10→22:12)
[2017-12-22] MEDS: DOXYCYCLINE 100 MG in SOD CHLORIDE 0.9% 250 ML IVPB (09:10)
[2017-12-22] MEDS: POTASSIUM CHLORIDE (SR) 20 MEQ TAB PO (09:10)
[2017-12-22] MEDS: predniSONE 20 MG TAB PO (09:10)
[2017-12-22] MEDS: FLUTICASONE/VILANTEROL 200-25 INH DEVICE INH (09:11)
[2017-12-22] MEDS: INSULIN ASPART [NOVOLOG] 3 ML PEN SC ×4 (09:22→20:45)
[2017-12-22] MEDS: AMIODARONE 900 MG in DEXTROSE 5% 482 ML IV (10:20)
[2017-12-22] MEDS ORDERED: VANCOMYCIN IV PER PHARMACY XX (12:30)
[2017-12-22] MEDS: DIGOXIN 0.125 MG TAB PO (14:06)
[2017-12-22] MEDS: VANCOMYCIN 1 GM 250 ML IVPB ×2 (15:20→17:41)
[2017-12-22] MEDS: DILTIAZEM-D5W 125MG/125ML DRIP 125 ML IV (18:37)
[2017-12-22] MEDS: DOCUSATE SODIUM 250 MG CAP PO (21:00)
[2017-12-22] MEDS: MONTELUKAST 10 MG TAB PO (21:06)
[2017-12-22] MEDS: ATORVASTATIN 20 MG TAB PO (21:06)
[2017-12-23] MEDS: LACTULOSE 30ML CUP PO ×6 (01:00→21:31)
[2017-12-23] MEDS: ACCU-CHEK XX ×6 (01:00→21:30)
[2017-12-23] MEDS: PANTOPRAZOLE 40 MG INJ IV ×2 (05:25→17:46)
[2017-12-23] MEDS: MEROPENEM 500MG/50 ML (PMX) 50 ML IVPB ×3 (05:25→21:47)
[2017-12-23] MEDS: METOPROLOL 5 MG INJ IV (05:31)
[2017-12-23] MEDS: FUROSEMIDE 20 MG INJ IV (05:31)
[2017-12-23 06:24] LABS: ADD MAN DIFF? NO
[2017-12-23 06:26] LABS: ABNORMAL IP MESSAGE 1; BASOPHILS % 0.1 % (0.0-2.0); HEMATOCRIT 31.8 % (42.0-52.0); HEMOGLOBIN 9.8 g/dl (14.0-18.0); LYMPHOCYTES # 0.6 10^3/ul (0.8-2.9); LYMPHOCYTES % 2.1 % (15.0-51.0); MEAN CORPUSCULAR HEMOGLOBIN 28.1 pg (29.0-33.0); MEAN CORPUSCULAR HGB CONC 30.8 g/dl (32.0-37.0); MEAN CORPUSCULAR VOLUME 91.1 fl (82.0-101.0); MEAN PLATELET VOLUME 11.3 fl (7.4-10.4); MONOCYTE # 1.5 10^3/ul (0.3-0.9); MONOCYTES % 5.1 % (0.0-11.0); NEUTROPHIL # 25.6 10^3/ul (1.6-7.5); NEUTROPHILS % 90.6 % (39.0-77.0); NUCLEATED RED BLOOD CELLS% 0.1 /100WBC (0.0-0.0); PLATELET COUNT 217 10^3/UL (140-415); POSITIVE DIFF @See below; RED BLOOD COUNT 3.49 10^6/ul (4.70-6.10); RED CELL DISTRIBUTION WIDTH 17.9 % (11.5-14.5)
[2017-12-23 06:26] LABS: WHITE BLOOD COUNT 28.2 10^3/ul (4.8-10.8)
[2017-12-23 06:58] LABS: ALANINE AMINOTRANSFERASE 30 IU/L (13-69); ALBUMIN 2.9 g/dl (3.3-4.9); ALBUMIN/GLOBULIN RATIO 0.96; ALKALINE PHOSPHATASE 66 IU/L (42-121); ANION GAP 13 (8-16); ASPARTATE AMINO TRANSFERASE 17 IU/L (15-46); BILIRUBIN,INDIRECT 0.2 mg/dl (0-1.1); BILIRUBIN,TOTAL 0.2 mg/dl (0.2-1.3); BLOOD UREA NITROGEN 85 mg/dl (7-20); CALCIUM 9.1 mg/dl (8.4-10.2); CARBON DIOXIDE 23 mmol/L (21-31); CHLORIDE 106 mmol/L (97-110); GLUCOSE 139 mg/dl (70-220); MAGNESIUM 1.9 mg/dl (1.7-2.5); POTASSIUM 4.5 mmol/L (3.5-5.1); SODIUM 137 mmol/L (135-144); TOTAL PROTEIN 5.9 g/dl (6.1-8.1)
[2017-12-23 07:04] LABS: PHOSPHORUS 4.4 mg/dl (2.5-4.9)
[2017-12-23] MEDS: LEVALBUTEROL (NEB) 0.63 MG/3 ML AMP HHN (08:07)
[2017-12-23] MEDS: INSULIN ASPART [NOVOLOG] 3 ML PEN SC ×4 (08:18→21:00)
[2017-12-23] MEDS: FERROUS SULFATE (SR) 142 MG TAB PO ×2 (08:46→21:29)
[2017-12-23] MEDS: BUPROPION (SR) 150 MG TAB PO ×2 (08:46→21:29)
[2017-12-23] MEDS: GUAIFENESIN LA 600 MG TABSR PO ×2 (08:47→21:29)
[2017-12-23] MEDS: predniSONE 20 MG TAB PO (08:47)
[2017-12-23] MEDS: POTASSIUM CHLORIDE (SR) 20 MEQ TAB PO (08:47)
[2017-12-23] MEDS: ESCITALOPRAM 10 MG TAB PO (08:47)
[2017-12-23] MEDS: LUBIPROSTONE 24 MCG CAP PO ×2 (08:47→23:48)
[2017-12-23] MEDS: AMIODARONE 200 MG TAB PO (08:49)
[2017-12-23] MEDS: DILTIAZEM (CD) 300 MG CAP PO (08:49)
[2017-12-23] MEDS: MUPIROCIN 2% 22 GM OINT TOP ×2 (08:50→21:31)
[2017-12-23] MEDS: ENOXAPARIN 100 MG/ML SYG SC ×2 (08:52→21:50)
[2017-12-23] MEDS: DIAZEPAM 5 MG TAB PO ×2 (08:55→21:29)
[2017-12-23] MEDS: FLUTICASONE/VILANTEROL 200-25 INH DEVICE INH (09:00)
[2017-12-23] MEDS: TPN 1,000 ML IV (12:11)
[2017-12-23] MEDS: DIGOXIN 0.125 MG TAB PO (13:21)
[2017-12-23] MEDS ORDERED: METOPROLOL 5 MG INJ IV (13:30)
[2017-12-23] MEDS: ALBUTEROL/IPRATROPIUM (NEB) 3 ML AMP HHN ×2 (14:48→21:23)
[2017-12-23] MEDS: VANCOMYCIN 1.5 GM in SOD CHLORIDE 0.9% 250 ML IVPB (16:22)
[2017-12-23] MEDS: ATORVASTATIN 20 MG TAB PO (21:29)
[2017-12-23] MEDS: DOCUSATE SODIUM 250 MG CAP PO (21:30)
[2017-12-23] MEDS: METOPROLOL 50 MG TAB PO (21:30)
[2017-12-23] MEDS: MONTELUKAST 10 MG TAB PO (21:31)
[2017-12-24] MEDS: LACTULOSE 30ML CUP PO ×6 (01:14→22:20)
[2017-12-24] MEDS: TPN 1,000 ML IV ×2 (01:15→16:02)
[2017-12-24] MEDS: ACCU-CHEK XX ×6 (01:15→21:00)
[2017-12-24] MEDS: MEROPENEM 500MG/50 ML (PMX) 50 ML IVPB ×3 (05:48→22:20)
[2017-12-24] MEDS: PANTOPRAZOLE 40 MG INJ IV ×2 (05:48→17:14)
[2017-12-24 06:37] LABS: ADD MAN DIFF? NO
[2017-12-24 06:46] LABS: WHITE BLOOD COUNT 20.4 10^3/ul (4.8-10.8)
[2017-12-24 06:46] LABS: ABNORMAL IP MESSAGE 1; BASOPHILS % 0.1 % (0.0-2.0); HEMATOCRIT 32.9 % (42.0-52.0); HEMOGLOBIN 10.5 g/dl (14.0-18.0); LYMPHOCYTES # 0.5 10^3/ul (0.8-2.9); LYMPHOCYTES % 2.4 % (15.0-51.0); MEAN CORPUSCULAR HEMOGLOBIN 28.9 pg (29.0-33.0); MEAN CORPUSCULAR HGB CONC 31.9 g/dl (32.0-37.0); MEAN CORPUSCULAR VOLUME 90.6 fl (82.0-101.0); MONOCYTE # 1.1 10^3/ul (0.3-0.9); MONOCYTES % 5.1 % (0.0-11.0); NEUTROPHIL # 18.4 10^3/ul (1.6-7.5); NEUTROPHILS % 90.2 % (39.0-77.0); PLATELET COUNT 197 10^3/UL (140-415); POSITIVE DIFF @See below; RED BLOOD COUNT 3.63 10^6/ul (4.70-6.10); RED CELL DISTRIBUTION WIDTH 17.9 % (11.5-14.5)
[2017-12-24 07:10] LABS: ALANINE AMINOTRANSFERASE 28 IU/L (13-69); ALBUMIN 2.9 g/dl (3.3-4.9); ALBUMIN/GLOBULIN RATIO 0.96; ALKALINE PHOSPHATASE 61 IU/L (42-121); ANION GAP 12 (8-16); ASPARTATE AMINO TRANSFERASE 15 IU/L (15-46); BILIRUBIN,INDIRECT 0.1 mg/dl (0-1.1); BILIRUBIN,TOTAL 0.1 mg/dl (0.2-1.3); BLOOD UREA NITROGEN 79 mg/dl (7-20); CALCIUM 9.1 mg/dl (8.4-10.2); CARBON DIOXIDE 21 mmol/L (21-31); CHLORIDE 110 mmol/L (97-110); CREATININE 0.99 mg/dl (0.61-1.24); GLUCOSE 133 mg/dl (70-220); MAGNESIUM 2.1 mg/dl (1.7-2.5); POTASSIUM 4.4 mmol/L (3.5-5.1); SODIUM 139 mmol/L (135-144); TOTAL PROTEIN 5.9 g/dl (6.1-8.1)
[2017-12-24] MEDS: ALBUTEROL/IPRATROPIUM (NEB) 3 ML AMP HHN ×3 (08:22→20:48)
[2017-12-24] MEDS: INSULIN ASPART [NOVOLOG] 3 ML PEN SC ×4 (08:57→22:19)
[2017-12-24] MEDS: FLUTICASONE/VILANTEROL 200-25 INH DEVICE INH (08:58)
[2017-12-24] MEDS: MUPIROCIN 2% 22 GM OINT TOP ×2 (08:58→22:22)
[2017-12-24] MEDS: ESCITALOPRAM 10 MG TAB PO (08:59)
[2017-12-24] MEDS: LUBIPROSTONE 24 MCG CAP PO ×2 (08:59→22:20)
[2017-12-24] MEDS: FERROUS SULFATE (SR) 142 MG TAB PO ×2 (08:59→22:20)
[2017-12-24] MEDS: DILTIAZEM (CD) 300 MG CAP PO (08:59)
[2017-12-24] MEDS: predniSONE 20 MG TAB PO (09:00)
[2017-12-24] MEDS: METOPROLOL 50 MG TAB PO ×2 (09:00→22:21)
[2017-12-24] MEDS: POTASSIUM CHLORIDE (SR) 20 MEQ TAB PO (09:00)
[2017-12-24] MEDS: AMIODARONE 200 MG TAB PO (09:01)
[2017-12-24] MEDS: GUAIFENESIN LA 600 MG TABSR PO ×2 (09:01→22:20)
[2017-12-24] MEDS: BUPROPION (SR) 150 MG TAB PO ×2 (09:01→22:21)
[2017-12-24] MEDS: FUROSEMIDE 20 MG INJ IV (09:02)
[2017-12-24] MEDS: DIAZEPAM 5 MG TAB PO ×2 (09:05→22:21)
[2017-12-24] MEDS: ENOXAPARIN 100 MG/ML SYG SC ×2 (09:27→22:58)
[2017-12-24] MEDS: DIGOXIN 0.125 MG TAB PO (12:59)
[2017-12-24] MEDS: VANCOMYCIN 1.5 GM in SOD CHLORIDE 0.9% 250 ML IVPB (16:01)
[2017-12-24] MEDS: DOCUSATE SODIUM 250 MG CAP PO (22:20)
[2017-12-24] MEDS: ATORVASTATIN 20 MG TAB PO (22:21)
[2017-12-24] MEDS: MONTELUKAST 10 MG TAB PO (22:22)
[2017-12-25] MEDS: LACTULOSE 30ML CUP PO ×6 (01:00→22:13)
[2017-12-25] MEDS: ACCU-CHEK XX ×6 (01:00→21:00)
[2017-12-25 06:16] LABS: ADD MAN DIFF? NO
[2017-12-25] MEDS: PANTOPRAZOLE 40 MG INJ IV ×2 (06:22→17:05)
[2017-12-25] MEDS: MEROPENEM 500MG/50 ML (PMX) 50 ML IVPB (06:23)
[2017-12-25] MEDS: TPN 1,000 ML IV ×2 (06:23→22:13)
[2017-12-25 06:24] LABS: WHITE BLOOD COUNT 19.6 10^3/ul (4.8-10.8)
[2017-12-25 06:24] LABS: ABNORMAL IP MESSAGE 1; BASOPHILS % 0.1 % (0.0-2.0); EOSINOPHILS % 0.1 % (0.0-7.0); HEMATOCRIT 36.9 % (42.0-52.0); HEMOGLOBIN 11.5 g/dl (14.0-18.0); LYMPHOCYTES # 0.5 10^3/ul (0.8-2.9); LYMPHOCYTES % 2.3 % (15.0-51.0); MEAN CORPUSCULAR HEMOGLOBIN 28.4 pg (29.0-33.0); MEAN CORPUSCULAR HGB CONC 31.2 g/dl (32.0-37.0); MEAN CORPUSCULAR VOLUME 91.1 fl (82.0-101.0); MEAN PLATELET VOLUME 12.6 fl (7.4-10.4); MONOCYTE # 1.2 10^3/ul (0.3-0.9); MONOCYTES % 6.2 % (0.0-11.0); NEUTROPHIL # 17.5 10^3/ul (1.6-7.5); NEUTROPHILS % 89.5 % (39.0-77.0); PLATELET COUNT 144 10^3/UL (140-415); POSITIVE DIFF @See below; RED BLOOD COUNT 4.05 10^6/ul (4.70-6.10); RED CELL DISTRIBUTION WIDTH 18.2 % (11.5-14.5)
[2017-12-25 06:43] LABS: DIGOXIN 0.6 ng/ml (1.0-2.0)
[2017-12-25 06:51] LABS: ALANINE AMINOTRANSFERASE 33 IU/L (13-69); ALBUMIN 3.2 g/dl (3.3-4.9); ALKALINE PHOSPHATASE 68 IU/L (42-121); ANION GAP 14 (8-16); ASPARTATE AMINO TRANSFERASE 18 IU/L (15-46); BILIRUBIN,INDIRECT 0.2 mg/dl (0-1.1); BILIRUBIN,TOTAL 0.2 mg/dl (0.2-1.3); BLOOD UREA NITROGEN 83 mg/dl (7-20); CALCIUM 9.4 mg/dl (8.4-10.2); CARBON DIOXIDE 18 mmol/L (21-31); CHLORIDE 115 mmol/L (97-110); CREATININE 0.94 mg/dl (0.61-1.24); GLUCOSE 124 mg/dl (70-220); MAGNESIUM 2.5 mg/dl (1.7-2.5); POTASSIUM 4.6 mmol/L (3.5-5.1); SODIUM 142 mmol/L (135-144); TOTAL PROTEIN 6.4 g/dl (6.1-8.1)
[2017-12-25 06:54] LABS: B-TYPE NATRIURETIC PEPTIDE 1090 PG/ML (0-450)
[2017-12-25 07:15] LABS: PREALBUMIN 33.9 mg/dl (17.6-36.0)
[2017-12-25 07:23] LABS: PHOSPHORUS 4.1 mg/dl (2.5-4.9)
[2017-12-25] MEDS: INSULIN ASPART [NOVOLOG] 3 ML PEN SC ×4 (07:55→21:00)
[2017-12-25] MEDS: ALBUTEROL/IPRATROPIUM (NEB) 3 ML AMP HHN ×3 (08:42→20:20)
[2017-12-25] MEDS: METOPROLOL 50 MG TAB PO ×2 (09:00→22:15)
[2017-12-25] MEDS: ENOXAPARIN 100 MG/ML SYG SC ×2 (09:01→22:41)
[2017-12-25] MEDS: FUROSEMIDE 20 MG INJ IV (09:04)
[2017-12-25] MEDS: DILTIAZEM (CD) 300 MG CAP PO (09:05)
[2017-12-25] MEDS: FERROUS SULFATE (SR) 142 MG TAB PO ×2 (09:06→22:14)
[2017-12-25] MEDS: DIAZEPAM 5 MG TAB PO ×2 (09:06→22:14)
[2017-12-25] MEDS: predniSONE 20 MG TAB PO (09:06)
[2017-12-25] MEDS: GUAIFENESIN LA 600 MG TABSR PO ×2 (09:06→22:14)
[2017-12-25] MEDS: BUPROPION (SR) 150 MG TAB PO ×2 (09:06→22:15)
[2017-12-25] MEDS: AMIODARONE 200 MG TAB PO (09:07)
[2017-12-25] MEDS: ESCITALOPRAM 10 MG TAB PO (09:07)
[2017-12-25] MEDS: LUBIPROSTONE 24 MCG CAP PO ×2 (09:08→22:14)
[2017-12-25] MEDS: POTASSIUM CHLORIDE (SR) 20 MEQ TAB PO (09:08)
[2017-12-25] MEDS: MUPIROCIN 2% 22 GM OINT TOP ×2 (09:09→21:00)
[2017-12-25] MEDS: FLUTICASONE/VILANTEROL 200-25 INH DEVICE INH (09:10)
[2017-12-25] MEDS: DIGOXIN 0.125 MG TAB PO (12:57)
[2017-12-25 15:10] LABS: LACTIC ACID 0.9 mmol/L (0.5-2.0)
[2017-12-25 15:22] LABS: VANCOMYCIN,TROUGH 19.1 ug/ml (10.0-20.0)
[2017-12-25] MEDS: VANCOMYCIN 1 GM 250 ML IVPB (16:47)
[2017-12-25] MEDS: ATORVASTATIN 20 MG TAB PO (22:14)
[2017-12-25] MEDS: MONTELUKAST 10 MG TAB PO (22:14)
[2017-12-25] MEDS: DOCUSATE SODIUM 250 MG CAP PO (22:14)
[2017-12-26] MEDS: LACTULOSE 30ML CUP PO ×6 (01:00→21:25)
[2017-12-26] MEDS: ACCU-CHEK XX ×6 (01:00→21:00)
[2017-12-26] MEDS: PANTOPRAZOLE 40 MG INJ IV ×2 (06:18→16:42)
[2017-12-26 07:07] LABS: ANION GAP 12 (8-16); BLOOD UREA NITROGEN 90 mg/dl (7-20); CARBON DIOXIDE 18 mmol/L (21-31); CHLORIDE 117 mmol/L (97-110); CREATININE 1.03 mg/dl (0.61-1.24); GLUCOSE 122 mg/dl (70-220); MAGNESIUM 2.5 mg/dl (1.7-2.5); PHOSPHORUS 3.4 mg/dl (2.5-4.9); SODIUM 143 mmol/L (135-144)
[2017-12-26] MEDS: LIDOCAINE 1% (MPF) 5 ML VIAL SC (07:28)
[2017-12-26] MEDS: INSULIN ASPART [NOVOLOG] 3 ML PEN SC ×4 (07:55→21:00)
[2017-12-26] MEDS: ALBUTEROL/IPRATROPIUM (NEB) 3 ML AMP HHN ×3 (08:05→20:20)
[2017-12-26] MEDS: DILTIAZEM (CD) 300 MG CAP PO (09:00)
[2017-12-26] MEDS: predniSONE 20 MG TAB PO (09:09)
[2017-12-26] MEDS: FERROUS SULFATE (SR) 142 MG TAB PO ×2 (09:09→21:24)
[2017-12-26] MEDS: LUBIPROSTONE 24 MCG CAP PO ×2 (09:09→21:24)
[2017-12-26] MEDS: ESCITALOPRAM 10 MG TAB PO (09:09)
[2017-12-26] MEDS: POTASSIUM CHLORIDE (SR) 20 MEQ TAB PO (09:11)
[2017-12-26] MEDS: FUROSEMIDE 20 MG INJ IV (09:11)
[2017-12-26] MEDS: AMIODARONE 200 MG TAB PO (09:11)
[2017-12-26] MEDS: METOPROLOL 50 MG TAB PO ×2 (09:12→21:25)
[2017-12-26] MEDS: BUPROPION (SR) 150 MG TAB PO ×2 (09:12→21:24)
[2017-12-26] MEDS: MUPIROCIN 2% 22 GM OINT TOP ×2 (09:12→21:27)
[2017-12-26] MEDS: ENOXAPARIN 100 MG/ML SYG SC ×2 (09:16→21:29)
[2017-12-26] MEDS: GUAIFENESIN LA 600 MG TABSR PO ×2 (09:35→21:26)
[2017-12-26] MEDS: DIAZEPAM 5 MG TAB PO ×2 (09:35→21:27)
[2017-12-26] MEDS: FLUTICASONE/VILANTEROL 200-25 INH DEVICE INH (09:35)
[2017-12-26] MEDS: TPN 1,000 ML IV ×2 (10:46→23:54)
[2017-12-26] MEDS: DIGOXIN 0.125 MG TAB PO (13:21)
[2017-12-26] MEDS: VANCOMYCIN 1 GM 250 ML IVPB (16:42)
[2017-12-26] MEDS: MONTELUKAST 10 MG TAB PO (21:24)
[2017-12-26] MEDS: ATORVASTATIN 20 MG TAB PO (21:25)
[2017-12-26] MEDS: DOCUSATE SODIUM 250 MG CAP PO (21:25)
[2017-12-27] MEDS: ACCU-CHEK XX ×6 (01:00→20:55)
[2017-12-27] MEDS: LACTULOSE 30ML CUP PO ×6 (01:00→21:04)
[2017-12-27] MEDS: PANTOPRAZOLE 40 MG INJ IV ×2 (05:03→17:37)
[2017-12-27] MEDS: INSULIN ASPART [NOVOLOG] 3 ML PEN SC ×4 (07:55→20:54)
[2017-12-27 08:13] LABS: ADD MAN DIFF? NO
[2017-12-27 08:23] LABS: WHITE BLOOD COUNT 17.9 10^3/ul (4.8-10.8)
[2017-12-27 08:23] LABS: BASOPHILS % 0.2 % (0.0-2.0); EOSINOPHILS % 0.2 % (0.0-7.0); HEMATOCRIT 36.9 % (42.0-52.0); HEMOGLOBIN 11.4 g/dl (14.0-18.0); LYMPHOCYTES # 0.8 10^3/ul (0.8-2.9); LYMPHOCYTES % 4.5 % (15.0-51.0); MEAN CORPUSCULAR HEMOGLOBIN 28.5 pg (29.0-33.0); MEAN CORPUSCULAR HGB CONC 30.9 g/dl (32.0-37.0); MEAN CORPUSCULAR VOLUME 92.3 fl (82.0-101.0); MEAN PLATELET VOLUME 12.3 fl (7.4-10.4); MONOCYTE # 1.4 10^3/ul (0.3-0.9); MONOCYTES % 7.5 % (0.0-11.0); NEUTROPHIL # 15.5 10^3/ul (1.6-7.5); NEUTROPHILS % 86.4 % (39.0-77.0); PLATELET COUNT 176 10^3/UL (140-415); RED CELL DISTRIBUTION WIDTH 18.2 % (11.5-14.5)
[2017-12-27 08:38] LABS: ANION GAP 10 (8-16); BLOOD UREA NITROGEN 99 mg/dl (7-20); CALCIUM 9.4 mg/dl (8.4-10.2); CARBON DIOXIDE 20 mmol/L (21-31); CHLORIDE 115 mmol/L (97-110); CREATININE 1.02 mg/dl (0.61-1.24); GLUCOSE 120 mg/dl (70-220); MAGNESIUM 2.4 mg/dl (1.7-2.5); POTASSIUM 4.3 mmol/L (3.5-5.1); SODIUM 141 mmol/L (135-144)
[2017-12-27] MEDS: MUPIROCIN 2% 22 GM OINT TOP ×2 (09:00→20:55)
[2017-12-27] MEDS: DILTIAZEM (CD) 300 MG CAP PO (09:00)
[2017-12-27] MEDS: FLUTICASONE/VILANTEROL 200-25 INH DEVICE INH (09:00)
[2017-12-27] MEDS: DIAZEPAM 5 MG TAB PO (09:00)
[2017-12-27] MEDS: ALBUTEROL/IPRATROPIUM (NEB) 3 ML AMP HHN ×3 (09:01→20:45)
[2017-12-27] MEDS: LUBIPROSTONE 24 MCG CAP PO ×2 (10:40→20:54)
[2017-12-27] MEDS: GUAIFENESIN LA 600 MG TABSR PO ×2 (10:40→20:54)
[2017-12-27] MEDS: BUPROPION (SR) 150 MG TAB PO ×2 (10:40→21:04)
[2017-12-27] MEDS: POTASSIUM CHLORIDE (SR) 20 MEQ TAB PO (10:41)
[2017-12-27] MEDS: predniSONE 20 MG TAB PO (10:41)
[2017-12-27] MEDS: FERROUS SULFATE (SR) 142 MG TAB PO ×2 (10:41→20:54)
[2017-12-27] MEDS: ESCITALOPRAM 10 MG TAB PO (10:41)
[2017-12-27] MEDS: AMIODARONE 200 MG TAB PO (10:42)
[2017-12-27] MEDS: METOPROLOL 50 MG TAB PO ×2 (10:42→20:55)
[2017-12-27] MEDS: FUROSEMIDE 20 MG INJ IV (10:43)
[2017-12-27] MEDS: ENOXAPARIN 100 MG/ML SYG SC (10:44)
[2017-12-27] MEDS: DIGOXIN 0.125 MG TAB PO (14:57)
[2017-12-27] MEDS: TPN 1,000 ML IV (16:32)
[2017-12-27] MEDS: POTASSIUM CHLORIDE 10 MEQ in DEXTROSE 5%-0.9% NACL 1,000 ML IV (20:53)
[2017-12-27] MEDS: DOCUSATE SODIUM 250 MG CAP PO (20:54)
[2017-12-27] MEDS: MONTELUKAST 10 MG TAB PO (20:54)
[2017-12-27] MEDS: ATORVASTATIN 20 MG TAB PO (20:54)
[2017-12-28] MEDS: LACTULOSE 30ML CUP PO ×6 (01:00→20:40)
[2017-12-28] MEDS: ACCU-CHEK XX ×6 (01:00→20:58)
[2017-12-28] MEDS: TPN 1,000 ML IV ×2 (05:41→18:06)
[2017-12-28] MEDS: PANTOPRAZOLE 40 MG INJ IV ×2 (05:41→18:06)
[2017-12-28] MEDS: PIPER-TAZO 3.375 GM IV (PMX) 100 ML IVPB ×3 (05:41→18:05)
[2017-12-28 06:18] LABS: ADD MAN DIFF? NO
[2017-12-28 06:37] LABS: ABNORMAL IP MESSAGE 1; BASOPHILS % 0.1 % (0.0-2.0); EOSINOPHILS % 0.1 % (0.0-7.0); HEMATOCRIT 37.9 % (42.0-52.0); HEMOGLOBIN 11.6 g/dl (14.0-18.0); LYMPHOCYTES # 0.6 10^3/ul (0.8-2.9); LYMPHOCYTES % 2.9 % (15.0-51.0); MEAN CORPUSCULAR HGB CONC 30.6 g/dl (32.0-37.0); MEAN CORPUSCULAR VOLUME 91.3 fl (82.0-101.0); MEAN PLATELET VOLUME 12.2 fl (7.4-10.4); MONOCYTE # 1.1 10^3/ul (0.3-0.9); MONOCYTES % 5.7 % (0.0-11.0); NEUTROPHILS % 90.2 % (39.0-77.0); NUCLEATED RED BLOOD CELLS% 0.1 /100WBC (0.0-0.0); PLATELET COUNT 185 10^3/UL (140-415); POSITIVE DIFF @See below; RED BLOOD COUNT 4.15 10^6/ul (4.70-6.10); RED CELL DISTRIBUTION WIDTH 18.6 % (11.5-14.5)
[2017-12-28 06:37] LABS: WHITE BLOOD COUNT 19.9 10^3/ul (4.8-10.8)
[2017-12-28 06:52] LABS: AMMONIA < 9 umol/l (9-30)
[2017-12-28 07:37] LABS: ALANINE AMINOTRANSFERASE 27 IU/L (13-69); ALBUMIN 2.8 g/dl (3.3-4.9); ALKALINE PHOSPHATASE 65 IU/L (42-121); ANION GAP 13 (8-16); ASPARTATE AMINO TRANSFERASE 17 IU/L (15-46); BILIRUBIN,INDIRECT 0.2 mg/dl (0-1.1); BILIRUBIN,TOTAL 0.2 mg/dl (0.2-1.3); BLOOD UREA NITROGEN 102 mg/dl (7-20); CALCIUM 9.6 mg/dl (8.4-10.2); CARBON DIOXIDE 20 mmol/L (21-31); CHLORIDE 115 mmol/L (97-110); CREATININE 1.03 mg/dl (0.61-1.24); GLUCOSE 127 mg/dl (70-220); SODIUM 143 mmol/L (135-144); TOTAL PROTEIN 5.8 g/dl (6.1-8.1)
[2017-12-28 07:38] LABS: ALBUMIN/GLOBULIN RATIO 0.93
[2017-12-28] MEDS: INSULIN ASPART [NOVOLOG] 3 ML PEN SC ×4 (07:55→20:59)
[2017-12-28] MEDS ORDERED: FUROSEMIDE 20 MG TAB PO (09:00)
[2017-12-28] MEDS: ALBUTEROL/IPRATROPIUM (NEB) 3 ML AMP HHN ×3 (09:11→20:52)
[2017-12-28] MEDS: ESCITALOPRAM 10 MG TAB PO (09:27)
[2017-12-28] MEDS: LUBIPROSTONE 24 MCG CAP PO ×2 (09:28→20:40)
[2017-12-28] MEDS: FLUTICASONE/VILANTEROL 200-25 INH DEVICE INH (09:28)
[2017-12-28] MEDS: predniSONE 20 MG TAB PO (09:28)
[2017-12-28] MEDS: GUAIFENESIN LA 600 MG TABSR PO ×2 (09:29→20:40)
[2017-12-28] MEDS: METOPROLOL 50 MG TAB PO (09:29)
[2017-12-28] MEDS: FERROUS SULFATE (SR) 142 MG TAB PO ×2 (09:30→20:40)
[2017-12-28] MEDS: DILTIAZEM (CD) 300 MG CAP PO (09:30)
[2017-12-28] MEDS: AMIODARONE 200 MG TAB PO (09:30)
[2017-12-28] MEDS: MUPIROCIN 2% 22 GM OINT TOP ×2 (09:31→20:42)
[2017-12-28] MEDS: BUPROPION (SR) 150 MG TAB PO ×2 (09:31→20:40)
[2017-12-28] MEDS ORDERED: VANCOMYCIN IV PER PHARMACY XX (10:30)
[2017-12-28] MEDS: VANCOMYCIN 1.5 GM in SOD CHLORIDE 0.9% 250 ML IVPB (12:02)
[2017-12-28] MEDS: DIGOXIN 0.125 MG TAB PO (12:03)
[2017-12-28] MEDS: POTASSIUM CHLORIDE 10 MEQ in DEXTROSE 5%-0.9% NACL 1,000 ML IV (15:46)
[2017-12-28] MEDS: DOCUSATE SODIUM 250 MG CAP PO (20:39)
[2017-12-28] MEDS: MONTELUKAST 10 MG TAB PO (20:40)
[2017-12-28] MEDS: ATORVASTATIN 20 MG TAB PO (20:40)
[2017-12-28] MEDS: METOPROLOL 25 MG TAB PO (20:41)
[2017-12-29] MEDS: PIPER-TAZO 3.375 GM IV (PMX) 100 ML IVPB ×3 (00:12→11:51)
[2017-12-29] MEDS: ACCU-CHEK XX ×6 (00:23→20:31)
[2017-12-29] MEDS: LACTULOSE 30ML CUP PO ×6 (04:05→20:30)
[2017-12-29] MEDS: PANTOPRAZOLE 40 MG INJ IV ×2 (05:24→17:47)
[2017-12-29 06:47] LABS: ADD MAN DIFF? NO
[2017-12-29 06:53] LABS: WHITE BLOOD COUNT 18.3 10^3/ul (4.8-10.8)
[2017-12-29 06:53] LABS: BASOPHILS % 0.1 % (0.0-2.0); EOSINOPHILS % 0.1 % (0.0-7.0); HEMATOCRIT 32.2 % (42.0-52.0); HEMOGLOBIN 9.9 g/dl (14.0-18.0); LYMPHOCYTES # 0.7 10^3/ul (0.8-2.9); LYMPHOCYTES % 3.9 % (15.0-51.0); MEAN CORPUSCULAR HEMOGLOBIN 28.3 pg (29.0-33.0); MEAN CORPUSCULAR HGB CONC 30.7 g/dl (32.0-37.0); MEAN PLATELET VOLUME 12.5 fl (7.4-10.4); MONOCYTE # 1.3 10^3/ul (0.3-0.9); MONOCYTES % 7.2 % (0.0-11.0); NEUTROPHIL # 16.2 10^3/ul (1.6-7.5); PLATELET COUNT 157 10^3/UL (140-415); RED CELL DISTRIBUTION WIDTH 18.6 % (11.5-14.5)
[2017-12-29 07:28] LABS: ANION GAP 8 (8-16); BLOOD UREA NITROGEN 86 mg/dl (7-20); CALCIUM 9.1 mg/dl (8.4-10.2); CARBON DIOXIDE 21 mmol/L (21-31); CHLORIDE 117 mmol/L (97-110); CREATININE 0.97 mg/dl (0.61-1.24); GLUCOSE 105 mg/dl (70-220); MAGNESIUM 1.9 mg/dl (1.7-2.5); PHOSPHORUS 3.2 mg/dl (2.5-4.9); POTASSIUM 4.3 mmol/L (3.5-5.1); SODIUM 142 mmol/L (135-144)
[2017-12-29 07:32] LABS: DIGOXIN 0.7 ng/ml (1.0-2.0)
[2017-12-29] MEDS: INSULIN ASPART [NOVOLOG] 3 ML PEN SC ×4 (07:43→20:31)
[2017-12-29] MEDS: ALBUTEROL/IPRATROPIUM (NEB) 3 ML AMP HHN ×3 (08:08→20:21)
[2017-12-29] MEDS: FERROUS SULFATE (SR) 142 MG TAB PO ×2 (08:18→20:29)
[2017-12-29] MEDS: BUPROPION (SR) 150 MG TAB PO ×2 (08:18→20:29)
[2017-12-29] MEDS: FLUTICASONE/VILANTEROL 200-25 INH DEVICE INH (08:18)
[2017-12-29] MEDS: MUPIROCIN 2% 22 GM OINT TOP ×2 (08:18→20:31)
[2017-12-29] MEDS: ESCITALOPRAM 10 MG TAB PO (08:19)
[2017-12-29] MEDS: predniSONE 20 MG TAB PO (08:19)
[2017-12-29] MEDS: GUAIFENESIN LA 600 MG TABSR PO ×2 (08:19→20:29)
[2017-12-29] MEDS: METOPROLOL 25 MG TAB PO ×2 (08:19→20:30)
[2017-12-29] MEDS: DILTIAZEM (CD) 240 MG CAP PO (08:20)
[2017-12-29] MEDS: LUBIPROSTONE 24 MCG CAP PO ×2 (08:20→20:29)
[2017-12-29] MEDS: AMIODARONE 200 MG TAB PO (08:20)
[2017-12-29] MEDS: TPN 1,000 ML IV ×3 (09:07→23:00)
[2017-12-29] MEDS: POTASSIUM CHLORIDE 10 MEQ in DEXTROSE 5%-0.9% NACL 1,000 ML IV (11:23)
[2017-12-29] MEDS: VANCOMYCIN 1 GM 250 ML IVPB (12:36)
[2017-12-29] MEDS: DIGOXIN 0.125 MG TAB PO (12:36)
[2017-12-29] MEDS: FLUCONAZOLE 100 MG TAB PO ×2 (14:50→14:59)
[2017-12-29] MEDS: ATORVASTATIN 20 MG TAB PO (20:29)
[2017-12-29] MEDS: MONTELUKAST 10 MG TAB PO (20:29)
[2017-12-29] MEDS: DOCUSATE SODIUM 250 MG CAP PO (20:30)
[2017-12-29] MEDS: DILTIAZEM 30 MG TAB PO (21:26)
[2017-12-30] MEDS: ACCU-CHEK XX ×6 (00:09→21:02)
[2017-12-30] MEDS: LACTULOSE 30ML CUP PO ×5 (00:09→17:00)
[2017-12-30] MEDS: DILTIAZEM 30 MG TAB PO (05:28)
[2017-12-30] MEDS: PANTOPRAZOLE 40 MG INJ IV ×2 (05:36→17:49)
[2017-12-30 06:09] LABS: ADD MAN DIFF? NO
[2017-12-30 06:18] LABS: WHITE BLOOD COUNT 12.3 10^3/ul (4.8-10.8)
[2017-12-30 06:18] LABS: BASOPHILS % 0.1 % (0.0-2.0); EOSINOPHILS # 0.1 10^3/ul (0.0-0.5); EOSINOPHILS % 0.6 % (0.0-7.0); HEMATOCRIT 29.2 % (42.0-52.0); HEMOGLOBIN 8.9 g/dl (14.0-18.0); LYMPHOCYTES # 0.7 10^3/ul (0.8-2.9); MEAN CORPUSCULAR HEMOGLOBIN 28.1 pg (29.0-33.0); MEAN CORPUSCULAR HGB CONC 30.5 g/dl (32.0-37.0); MEAN CORPUSCULAR VOLUME 92.1 fl (82.0-101.0); MEAN PLATELET VOLUME 12.1 fl (7.4-10.4); MONOCYTE # 0.8 10^3/ul (0.3-0.9); MONOCYTES % 6.7 % (0.0-11.0); NEUTROPHIL # 10.6 10^3/ul (1.6-7.5); PLATELET COUNT 141 10^3/UL (140-415); RED BLOOD COUNT 3.17 10^6/ul (4.70-6.10); RED CELL DISTRIBUTION WIDTH 18.7 % (11.5-14.5)
[2017-12-30 07:01] LABS: B-TYPE NATRIURETIC PEPTIDE 715 PG/ML (0-450)
[2017-12-30 07:24] LABS: ANION GAP 13 (8-16); BLOOD UREA NITROGEN 62 mg/dl (7-20); CALCIUM 8.8 mg/dl (8.4-10.2); CARBON DIOXIDE 22 mmol/L (21-31); CHLORIDE 119 mmol/L (97-110); CREATININE 0.81 mg/dl (0.61-1.24); GLUCOSE 111 mg/dl (70-220); POTASSIUM 3.5 mmol/L (3.5-5.1); SODIUM 150 mmol/L (135-144)
[2017-12-30] MEDS: INSULIN ASPART [NOVOLOG] 3 ML PEN SC ×4 (07:42→20:57)
[2017-12-30] MEDS: ALBUTEROL/IPRATROPIUM (NEB) 3 ML AMP HHN ×3 (08:35→20:35)
[2017-12-30] MEDS: LUBIPROSTONE 24 MCG CAP PO ×2 (09:00→20:58)
[2017-12-30] MEDS: POTASSIUM CHLORIDE 10 MEQ in DEXTROSE 5%-0.9% NACL 1,000 ML IV (09:29)
[2017-12-30] MEDS: predniSONE 20 MG TAB PO (09:32)
[2017-12-30] MEDS: BUPROPION (SR) 150 MG TAB PO ×2 (09:32→20:59)
[2017-12-30] MEDS: FERROUS SULFATE (SR) 142 MG TAB PO ×2 (09:32→20:58)
[2017-12-30] MEDS: GUAIFENESIN LA 600 MG TABSR PO ×2 (09:32→21:01)
[2017-12-30] MEDS: MUPIROCIN 2% 22 GM OINT TOP ×2 (09:32→21:01)
[2017-12-30] MEDS: ESCITALOPRAM 10 MG TAB PO (09:32)
[2017-12-30] MEDS: FLUTICASONE/VILANTEROL 200-25 INH DEVICE INH (09:33)
[2017-12-30] MEDS: METOPROLOL 25 MG TAB PO ×2 (09:36→21:04)
[2017-12-30] MEDS: AMIODARONE 200 MG TAB PO ×2 (09:36→21:01)
[2017-12-30] MEDS: VANCOMYCIN 1 GM 250 ML IVPB (11:54)
[2017-12-30] MEDS: DIGOXIN 0.125 MG TAB PO (13:14)
[2017-12-30] MEDS: TPN 1,000 ML IV (14:06)
[2017-12-30] MEDS: POTASSIUM CHLORIDE (SR) 10 MEQ TAB PO (14:55)
[2017-12-30] MEDS: MAGNESIUM SULFATE 2 GM/50 ML 50 ML IVPB (14:57)
[2017-12-30] MEDS: NYSTATIN SUSP 5 ML CUP PO ×2 (18:33→21:01)
[2017-12-30] MEDS: D5W + KCL 20 MEQ 1,000 ML IV (18:34)
[2017-12-30] MEDS: DOCUSATE SODIUM 250 MG CAP PO (20:58)
[2017-12-30] MEDS: ATORVASTATIN 20 MG TAB PO (20:59)
[2017-12-30] MEDS: MONTELUKAST 10 MG TAB PO (21:01)
[2017-12-31] MEDS: ACCU-CHEK XX ×6 (01:10→21:02)
[2017-12-31] MEDS: TPN 1,000 ML IV ×2 (04:20→18:08)
[2017-12-31] MEDS: PANTOPRAZOLE 40 MG INJ IV ×2 (05:31→18:07)
[2017-12-31 07:41] LABS: ANION GAP 11 (8-16); BLOOD UREA NITROGEN 52 mg/dl (7-20); CALCIUM 8.9 mg/dl (8.4-10.2); CARBON DIOXIDE 21 mmol/L (21-31); CHLORIDE 119 mmol/L (97-110); CREATININE 0.75 mg/dl (0.61-1.24); GLUCOSE 98 mg/dl (70-220); PHOSPHORUS 1.7 mg/dl (2.5-4.9); POTASSIUM 4.1 mmol/L (3.5-5.1); SODIUM 147 mmol/L (135-144)
[2017-12-31] MEDS: INSULIN ASPART [NOVOLOG] 3 ML PEN SC ×4 (07:55→21:00)
[2017-12-31] MEDS: ALBUTEROL/IPRATROPIUM (NEB) 3 ML AMP HHN ×3 (08:18→20:00)
[2017-12-31] MEDS: METOPROLOL 25 MG TAB PO ×2 (09:00→20:51)
[2017-12-31] MEDS: AMIODARONE 200 MG TAB PO ×2 (09:00→20:52)
[2017-12-31] MEDS: FLUTICASONE/VILANTEROL 200-25 INH DEVICE INH (09:03)
[2017-12-31] MEDS: NYSTATIN SUSP 5 ML CUP PO ×4 (09:04→20:54)
[2017-12-31] MEDS: GUAIFENESIN LA 600 MG TABSR PO ×2 (09:04→20:49)
[2017-12-31] MEDS: MUPIROCIN 2% 22 GM OINT TOP ×2 (09:04→20:54)
[2017-12-31] MEDS: ESCITALOPRAM 10 MG TAB PO (09:04)
[2017-12-31] MEDS: FERROUS SULFATE (SR) 142 MG TAB PO ×2 (09:04→20:50)
[2017-12-31] MEDS: LUBIPROSTONE 24 MCG CAP PO ×2 (09:04→20:49)
[2017-12-31] MEDS: BUPROPION (SR) 150 MG TAB PO ×2 (09:04→20:50)
[2017-12-31] MEDS: predniSONE 20 MG TAB PO (09:04)
[2017-12-31 12:18] LABS: VANCOMYCIN,TROUGH 12.6 ug/ml (10.0-20.0)
[2017-12-31] MEDS: DIGOXIN 0.125 MG TAB PO (13:00)
[2017-12-31] MEDS: VANCOMYCIN 1 GM 250 ML IVPB (13:01)
[2017-12-31] MEDS: FLUCONAZOLE 100 MG TAB PO (14:13)
[2017-12-31] MEDS: POTASSIUM PHOSPHATE 30 MM in SOD CHLORIDE 0.9% 250 ML IVPB (14:39)
[2017-12-31] MEDS: D5W + KCL 20 MEQ 1,000 ML IV (16:52)
[2017-12-31] MEDS: ATORVASTATIN 20 MG TAB PO (20:49)
[2017-12-31] MEDS: MONTELUKAST 10 MG TAB PO (20:50)
[2017-12-31] MEDS: DOCUSATE SODIUM 250 MG CAP PO (20:53)
[2018-01-01] MEDS: ENOXAPARIN 100 MG/ML SYG SC (00:08)
[2018-01-01] MEDS: ACCU-CHEK XX ×6 (01:53→21:39)
[2018-01-01] MEDS: PANTOPRAZOLE 40 MG INJ IV ×2 (05:53→17:49)
[2018-01-01 07:23] LABS: ADD MAN DIFF? NO
[2018-01-01 07:25] LABS: WHITE BLOOD COUNT 9.8 10^3/ul (4.8-10.8)
[2018-01-01 07:25] LABS: BASOPHILS % 0.1 % (0.0-2.0); EOSINOPHILS # 0.1 10^3/ul (0.0-0.5); EOSINOPHILS % 0.7 % (0.0-7.0); HEMATOCRIT 25.4 % (42.0-52.0); HEMOGLOBIN 7.9 g/dl (14.0-18.0); LYMPHOCYTES # 0.8 10^3/ul (0.8-2.9); LYMPHOCYTES % 8.2 % (15.0-51.0); MEAN CORPUSCULAR HEMOGLOBIN 28.9 pg (29.0-33.0); MEAN CORPUSCULAR HGB CONC 31.1 g/dl (32.0-37.0); MEAN PLATELET VOLUME 12.1 fl (7.4-10.4); MONOCYTE # 0.7 10^3/ul (0.3-0.9); MONOCYTES % 6.8 % (0.0-11.0); NEUTROPHIL # 8.2 10^3/ul (1.6-7.5); NEUTROPHILS % 83.9 % (39.0-77.0); PLATELET COUNT 106 10^3/UL (140-415); RED BLOOD COUNT 2.73 10^6/ul (4.70-6.10); RED CELL DISTRIBUTION WIDTH 18.8 % (11.5-14.5)
[2018-01-01] MEDS: INSULIN ASPART [NOVOLOG] 3 ML PEN SC ×4 (07:36→21:00)
[2018-01-01] MEDS: ALBUTEROL/IPRATROPIUM (NEB) 3 ML AMP HHN ×3 (07:47→21:27)
[2018-01-01 08:09] LABS: ANION GAP 9 (8-16); BLOOD UREA NITROGEN 47 mg/dl (7-20); CALCIUM 8.5 mg/dl (8.4-10.2); CARBON DIOXIDE 21 mmol/L (21-31); CHLORIDE 115 mmol/L (97-110); CREATININE 0.74 mg/dl (0.61-1.24); GLUCOSE 106 mg/dl (70-220); SODIUM 141 mmol/L (135-144)
[2018-01-01] MEDS: NYSTATIN SUSP 5 ML CUP PO ×4 (08:58→21:38)
[2018-01-01] MEDS: TPN 1,000 ML IV (08:58)
[2018-01-01] MEDS: predniSONE 20 MG TAB PO (08:59)
[2018-01-01] MEDS: BUPROPION (SR) 150 MG TAB PO ×2 (09:00→21:39)
[2018-01-01] MEDS: ESCITALOPRAM 10 MG TAB PO (09:01)
[2018-01-01] MEDS: METOPROLOL 25 MG TAB PO ×2 (09:01→21:42)
[2018-01-01] MEDS: FERROUS SULFATE (SR) 142 MG TAB PO ×2 (09:01→21:38)
[2018-01-01] MEDS: LUBIPROSTONE 24 MCG CAP PO ×2 (09:06→21:38)
[2018-01-01] MEDS: AMIODARONE 200 MG TAB PO ×2 (09:06→21:40)
[2018-01-01] MEDS: MUPIROCIN 2% 22 GM OINT TOP ×2 (09:07→21:39)
[2018-01-01] MEDS: FLUTICASONE/VILANTEROL 200-25 INH DEVICE INH (09:07)
[2018-01-01] MEDS: GUAIFENESIN LA 600 MG TABSR PO ×2 (09:09→21:39)
[2018-01-01] MEDS: D5W + KCL 20 MEQ 1,000 ML IV ×2 (11:00→21:42)
[2018-01-01] MEDS: VANCOMYCIN 1 GM 250 ML IVPB (11:26)
[2018-01-01] MEDS: DIGOXIN 0.125 MG TAB PO (12:44)
[2018-01-01] MEDS: FLUCONAZOLE 100 MG TAB PO (13:59)
[2018-01-01 15:07] LABS: ADD MAN DIFF? NO
[2018-01-01 15:08] LABS: ABNORMAL IP MESSAGE 1; BASOPHILS % 0.1 % (0.0-2.0); EOSINOPHILS % 0.2 % (0.0-7.0); HEMATOCRIT 25.6 % (42.0-52.0); LYMPHOCYTES # 0.4 10^3/ul (0.8-2.9); LYMPHOCYTES % 3.2 % (15.0-51.0); MEAN CORPUSCULAR HGB CONC 31.3 g/dl (32.0-37.0); MEAN CORPUSCULAR VOLUME 92.8 fl (82.0-101.0); MEAN PLATELET VOLUME 11.4 fl (7.4-10.4); MONOCYTE # 0.6 10^3/ul (0.3-0.9); MONOCYTES % 4.4 % (0.0-11.0); NEUTROPHIL # 11.4 10^3/ul (1.6-7.5); NEUTROPHILS % 91.8 % (39.0-77.0); PLATELET COUNT 105 10^3/UL (140-415); POSITIVE DIFF @See below; RED BLOOD COUNT 2.76 10^6/ul (4.70-6.10); RED CELL DISTRIBUTION WIDTH 18.8 % (11.5-14.5)
[2018-01-01 15:08] LABS: WHITE BLOOD COUNT 12.4 10^3/ul (4.8-10.8)
[2018-01-01] MEDS: ATORVASTATIN 20 MG TAB PO (21:38)
[2018-01-01] MEDS: DOCUSATE SODIUM 250 MG CAP PO (21:38)
[2018-01-01] MEDS: MONTELUKAST 10 MG TAB PO (21:40)
[2018-01-02] MEDS: ACCU-CHEK XX ×6 (01:29→21:45)
[2018-01-02] MEDS: TPN 1,000 ML IV ×2 (01:29→14:57)
[2018-01-02] MEDS: PANTOPRAZOLE 40 MG INJ IV ×2 (05:25→16:37)
[2018-01-02 06:52] LABS: ADD MAN DIFF? NO
[2018-01-02 07:00] LABS: WHITE BLOOD COUNT 11.3 10^3/ul (4.8-10.8)
[2018-01-02 07:00] LABS: BASOPHILS % 0.1 % (0.0-2.0); EOSINOPHILS # 0.1 10^3/ul (0.0-0.5); EOSINOPHILS % 0.8 % (0.0-7.0); HEMATOCRIT 26.4 % (42.0-52.0); HEMOGLOBIN 8.2 g/dl (14.0-18.0); LYMPHOCYTES # 0.8 10^3/ul (0.8-2.9); LYMPHOCYTES % 7.1 % (15.0-51.0); MEAN CORPUSCULAR HEMOGLOBIN 28.3 pg (29.0-33.0); MEAN CORPUSCULAR HGB CONC 31.1 g/dl (32.0-37.0); MONOCYTE # 0.7 10^3/ul (0.3-0.9); NEUTROPHIL # 9.7 10^3/ul (1.6-7.5); NEUTROPHILS % 85.7 % (39.0-77.0); PLATELET COUNT 106 10^3/UL (140-415); RED CELL DISTRIBUTION WIDTH 18.7 % (11.5-14.5)
[2018-01-02 07:18] LABS: MAGNESIUM 1.4 mg/dl (1.7-2.5)
[2018-01-02 07:18] LABS: PHOSPHORUS 2.3 mg/dl (2.5-4.9)
[2018-01-02 07:24] LABS: ANION GAP 10 (8-16); BLOOD UREA NITROGEN 45 mg/dl (7-20); CALCIUM 8.6 mg/dl (8.4-10.2); CARBON DIOXIDE 21 mmol/L (21-31); CHLORIDE 111 mmol/L (97-110); CREATININE 0.75 mg/dl (0.61-1.24); GLUCOSE 98 mg/dl (70-220); POTASSIUM 4.3 mmol/L (3.5-5.1); SODIUM 138 mmol/L (135-144)
[2018-01-02 07:43] LABS: PREALBUMIN 24.7 mg/dl (17.6-36.0)
[2018-01-02] MEDS: INSULIN ASPART [NOVOLOG] 3 ML PEN SC ×4 (07:55→21:45)
[2018-01-02] MEDS: FERROUS SULFATE (SR) 142 MG TAB PO ×2 (08:35→21:00)
[2018-01-02] MEDS: NYSTATIN SUSP 5 ML CUP PO ×4 (08:35→21:44)
[2018-01-02] MEDS: GUAIFENESIN LA 600 MG TABSR PO ×2 (08:35→21:00)
[2018-01-02] MEDS: predniSONE 20 MG TAB PO (08:35)
[2018-01-02] MEDS: MUPIROCIN 2% 22 GM OINT TOP ×2 (08:36→22:03)
[2018-01-02] MEDS: BUPROPION (SR) 150 MG TAB PO ×2 (08:36→21:00)
[2018-01-02] MEDS: ESCITALOPRAM 10 MG TAB PO (08:36)
[2018-01-02] MEDS: FLUTICASONE/VILANTEROL 200-25 INH DEVICE INH (08:37)
[2018-01-02] MEDS: AMIODARONE 200 MG TAB PO ×2 (08:52→21:44)
[2018-01-02] MEDS: METOPROLOL 25 MG TAB PO ×2 (08:52→21:44)
[2018-01-02] MEDS: LUBIPROSTONE 24 MCG CAP PO (08:56)
[2018-01-02] MEDS: ALBUTEROL/IPRATROPIUM (NEB) 3 ML AMP HHN ×3 (09:30→20:39)
[2018-01-02] MEDS: VANCOMYCIN 1 GM 250 ML IVPB (11:31)
[2018-01-02] MEDS: MAGNESIUM SULFATE 2 GM/50 ML 50 ML IVPB (11:46)
[2018-01-02] MEDS: DIGOXIN 0.125 MG TAB PO (12:40)
[2018-01-02] MEDS: POTASSIUM PHOSPHATE 15 MM in SOD CHLORIDE 0.9% 250 ML IV (13:53)
[2018-01-02] MEDS: FLUCONAZOLE 100 MG TAB PO (14:00)
[2018-01-02] MEDS ORDERED: HALOPERIDOL 5 MG INJ IM (18:30)
[2018-01-02] MEDS: ACETAMINOPHEN 325 MG TAB PO (20:23)
[2018-01-02] MEDS: DIPHENHYDRAMINE 50 MG INJ IV (20:23)
[2018-01-02 20:39] LABS: IMMEDIATE SPIN CROSSMATCH 1 1
[2018-01-02] MEDS: DOCUSATE SODIUM 250 MG CAP PO (21:00)
[2018-01-02] MEDS: ATORVASTATIN 20 MG TAB PO (21:43)
[2018-01-02] MEDS: MONTELUKAST 10 MG TAB PO (21:43)
[2018-01-03] MEDS: ACCU-CHEK XX ×6 (00:39→21:00)
[2018-01-03] MEDS: GUAIFENESIN 20 MG/ML 5ML CUP PO ×4 (01:03→17:35)
[2018-01-03] MEDS: D5W + KCL 20 MEQ 1,000 ML IV (04:14)
[2018-01-03] MEDS: TPN 1,000 ML IV ×2 (04:19→21:02)
[2018-01-03] MEDS: PANTOPRAZOLE 40 MG INJ IV ×2 (05:40→17:22)
[2018-01-03 06:02] LABS: ADD MAN DIFF? NO
[2018-01-03 06:09] LABS: ABNORMAL IP MESSAGE 1; EOSINOPHILS # 0.1 10^3/ul (0.0-0.5); EOSINOPHILS % 0.9 % (0.0-7.0); HEMATOCRIT 25.9 % (42.0-52.0); HEMOGLOBIN 8.2 g/dl (14.0-18.0); LYMPHOCYTES # 0.9 10^3/ul (0.8-2.9); LYMPHOCYTES % 11.3 % (15.0-51.0); MEAN CORPUSCULAR HEMOGLOBIN 28.1 pg (29.0-33.0); MEAN CORPUSCULAR HGB CONC 31.7 g/dl (32.0-37.0); MEAN CORPUSCULAR VOLUME 88.7 fl (82.0-101.0); MEAN PLATELET VOLUME 11.3 fl (7.4-10.4); MONOCYTE # 0.6 10^3/ul (0.3-0.9); MONOCYTES % 7.2 % (0.0-11.0); NEUTROPHIL # 6.4 10^3/ul (1.6-7.5); NEUTROPHILS % 80.2 % (39.0-77.0); PLATELET COUNT 79 10^3/UL (140-415); POSITIVE DIFF @See below; RED BLOOD COUNT 2.92 10^6/ul (4.70-6.10); RED CELL DISTRIBUTION WIDTH 18.6 % (11.5-14.5)
[2018-01-03 06:09] LABS: WHITE BLOOD COUNT 7.9 10^3/ul (4.8-10.8)
[2018-01-03 06:31] LABS: ANION GAP 9 (8-16); BLOOD UREA NITROGEN 41 mg/dl (7-20); CALCIUM 8.6 mg/dl (8.4-10.2); CARBON DIOXIDE 22 mmol/L (21-31); CHLORIDE 108 mmol/L (97-110); CREATININE 0.77 mg/dl (0.61-1.24); GLUCOSE 110 mg/dl (70-220); PHOSPHORUS 2.5 mg/dl (2.5-4.9); POTASSIUM 3.9 mmol/L (3.5-5.1); SODIUM 135 mmol/L (135-144)
[2018-01-03] MEDS: INSULIN ASPART [NOVOLOG] 3 ML PEN SC ×4 (07:55→21:00)
[2018-01-03] MEDS: ALBUTEROL/IPRATROPIUM (NEB) 3 ML AMP HHN ×3 (08:19→19:39)
[2018-01-03] MEDS: FERROUS SULFATE (SR) 142 MG TAB PO ×2 (09:00→21:00)
[2018-01-03] MEDS: GUAIFENESIN LA 600 MG TABSR PO ×2 (09:00→21:00)
[2018-01-03] MEDS: ESCITALOPRAM 10 MG TAB PO (09:06)
[2018-01-03] MEDS: BUPROPION (SR) 150 MG TAB PO ×2 (09:06→21:00)
[2018-01-03] MEDS: DOCUSATE SODIUM 10 MG/ML (10ML CUP) PO ×2 (09:07→23:16)
[2018-01-03] MEDS: FERROUS SULFATE 60 MG/ML 5ML CUP PO ×2 (09:07→23:16)
[2018-01-03] MEDS: METOPROLOL 25 MG TAB PO ×2 (09:07→23:17)
[2018-01-03] MEDS: FLUTICASONE/VILANTEROL 200-25 INH DEVICE INH (09:08)
[2018-01-03] MEDS: AMIODARONE 200 MG TAB PO ×2 (09:09→23:18)
[2018-01-03] MEDS: predniSONE 20 MG TAB PO (09:15)
[2018-01-03] MEDS: NYSTATIN SUSP 5 ML CUP PO ×4 (09:15→23:16)
[2018-01-03] MEDS: MUPIROCIN 2% 22 GM OINT TOP ×2 (09:26→21:00)
[2018-01-03] MEDS: VANCOMYCIN 1 GM 250 ML IVPB (11:59)
[2018-01-03] MEDS: DIGOXIN 0.125 MG TAB PO (13:00)
[2018-01-03] MEDS: FLUCONAZOLE 100 MG TAB PO (17:22)
[2018-01-03 20:40] LABS: ADD MAN DIFF? NO
[2018-01-03 20:44] LABS: WHITE BLOOD COUNT 8.6 10^3/ul (4.8-10.8)
[2018-01-03 20:44] LABS: ABNORMAL IP MESSAGE 1; EOSINOPHILS % 0.3 % (0.0-7.0); HEMATOCRIT 28.7 % (42.0-52.0); LYMPHOCYTES # 0.7 10^3/ul (0.8-2.9); LYMPHOCYTES % 7.9 % (15.0-51.0); MEAN CORPUSCULAR HEMOGLOBIN 28.1 pg (29.0-33.0); MEAN CORPUSCULAR HGB CONC 31.4 g/dl (32.0-37.0); MEAN CORPUSCULAR VOLUME 89.7 fl (82.0-101.0); MONOCYTE # 0.6 10^3/ul (0.3-0.9); MONOCYTES % 6.7 % (0.0-11.0); NEUTROPHIL # 7.3 10^3/ul (1.6-7.5); NEUTROPHILS % 84.9 % (39.0-77.0); PLATELET COUNT 87 10^3/UL (140-415); POSITIVE DIFF @See below; RED CELL DISTRIBUTION WIDTH 18.7 % (11.5-14.5)
[2018-01-03 21:05] LABS: INR 0.93; PARTIAL THROMBOPLASTIN TIME 25.8 Sec (25.0-35.0); PROTIME 12.5 Sec (11.9-14.9)
[2018-01-03 21:08] LABS: D-DIMER 1602.69 ng/ml (<460)
[2018-01-03] MEDS: MONTELUKAST 10 MG TAB PO (23:15)
[2018-01-03] MEDS: ATORVASTATIN 20 MG TAB PO (23:15)
[2018-01-04] MEDS: ACCU-CHEK XX ×5 (01:00→23:42)
[2018-01-04] MEDS: D5W + KCL 20 MEQ 1,000 ML IV (02:24)
[2018-01-04] MEDS: PANTOPRAZOLE 40 MG INJ IV ×2 (06:17→18:18)
[2018-01-04] MEDS: GUAIFENESIN 20 MG/ML 5ML CUP PO ×5 (06:18→23:41)
[2018-01-04 06:48] LABS: ADD MAN DIFF? NO
[2018-01-04 07:01] LABS: WHITE BLOOD COUNT 7.5 10^3/ul (4.8-10.8)
[2018-01-04 07:01] LABS: ABNORMAL IP MESSAGE 1; BASOPHILS % 0.1 % (0.0-2.0); EOSINOPHILS # 0.1 10^3/ul (0.0-0.5); EOSINOPHILS % 1.1 % (0.0-7.0); HEMOGLOBIN 8.5 g/dl (14.0-18.0); LYMPHOCYTES # 0.9 10^3/ul (0.8-2.9); LYMPHOCYTES % 11.7 % (15.0-51.0); MEAN CORPUSCULAR HEMOGLOBIN 28.1 pg (29.0-33.0); MEAN CORPUSCULAR HGB CONC 31.5 g/dl (32.0-37.0); MEAN CORPUSCULAR VOLUME 89.1 fl (82.0-101.0); MEAN PLATELET VOLUME 10.8 fl (7.4-10.4); MONOCYTE # 0.5 10^3/ul (0.3-0.9); MONOCYTES % 6.9 % (0.0-11.0); NEUTROPHILS % 79.9 % (39.0-77.0); PLATELET COUNT 79 10^3/UL (140-415); POSITIVE DIFF @See below; RED BLOOD COUNT 3.03 10^6/ul (4.70-6.10); RED CELL DISTRIBUTION WIDTH 18.8 % (11.5-14.5)
[2018-01-04 07:39] LABS: ALANINE AMINOTRANSFERASE 32 IU/L (13-69); ALBUMIN 2.4 g/dl (3.3-4.9); ALBUMIN/GLOBULIN RATIO 0.92; ALKALINE PHOSPHATASE 60 IU/L (42-121); ANION GAP 8 (8-16); ASPARTATE AMINO TRANSFERASE 19 IU/L (15-46); BILIRUBIN,INDIRECT 0.3 mg/dl (0-1.1); BILIRUBIN,TOTAL 0.3 mg/dl (0.2-1.3); BLOOD UREA NITROGEN 38 mg/dl (7-20); CALCIUM 8.3 mg/dl (8.4-10.2); CARBON DIOXIDE 23 mmol/L (21-31); CHLORIDE 109 mmol/L (97-110); CREATININE 0.72 mg/dl (0.61-1.24); GLUCOSE 121 mg/dl (70-220); POTASSIUM 3.8 mmol/L (3.5-5.1); SODIUM 136 mmol/L (135-144)
[2018-01-04] MEDS: ALBUTEROL/IPRATROPIUM (NEB) 3 ML AMP HHN ×3 (07:47→19:54)
[2018-01-04] MEDS: METOPROLOL 25 MG TAB PO ×2 (09:00→21:35)
[2018-01-04] MEDS: AMIODARONE 200 MG TAB PO ×3 (09:00→21:32)
[2018-01-04 09:41] LABS: ANISOCYTOSIS 1+ (0-0); LYMPHOCYTES #M 0.8 10^3/ul (0.8-2.9); LYMPHOCYTES % (M) 11 % (15-51); MICROCYTOSIS 1+ (0-0); MONOCYTE #M 0.2 10^3/ul (0.3-0.9); MONOCYTES % (M) 3 % (0-11); PLATELET ESTIMATE DECREASED; POIKILOCYTOSIS 1+ (0-0); SEGMENTED NEUTROPHILS (M) % 86 % (39-77); SMUDGE%M 4 % (0-0)
[2018-01-04] MEDS: DOCUSATE SODIUM 10 MG/ML (10ML CUP) PO ×2 (10:05→21:31)
[2018-01-04] MEDS: NYSTATIN SUSP 5 ML CUP PO ×4 (10:06→21:32)
[2018-01-04] MEDS: predniSONE 20 MG TAB PO (10:06)
[2018-01-04] MEDS: FERROUS SULFATE 60 MG/ML 5ML CUP PO ×2 (10:06→21:32)
[2018-01-04] MEDS: ESCITALOPRAM 10 MG TAB PO (10:06)
[2018-01-04] MEDS: FERROUS SULFATE (SR) 142 MG TAB PO ×2 (10:06→21:32)
[2018-01-04] MEDS: BUPROPION (SR) 150 MG TAB PO ×2 (10:07→21:32)
[2018-01-04] MEDS: TPN 1,000 ML IV (10:09)
[2018-01-04] MEDS: MUPIROCIN 2% 22 GM OINT TOP ×2 (10:09→21:41)
[2018-01-04] MEDS: FLUTICASONE/VILANTEROL 200-25 INH DEVICE INH (10:10)
[2018-01-04] MEDS: INSULIN ASPART [NOVOLOG] 3 ML PEN SC ×4 (10:18→21:00)
[2018-01-04] MEDS: GUAIFENESIN LA 600 MG TABSR PO ×2 (11:36→21:33)
[2018-01-04 12:13] LABS: VANCOMYCIN,TROUGH 14.2 ug/ml (10.0-20.0)
[2018-01-04] MEDS: VANCOMYCIN 1 GM 250 ML IVPB (13:14)
[2018-01-04] MEDS: FLUCONAZOLE 100 MG TAB PO (13:19)
[2018-01-04 19:48] LABS: OCCULT BLOOD STOOL NEGATIVE (NEGATIVE)
[2018-01-04] MEDS: ATORVASTATIN 20 MG TAB PO (21:41)
[2018-01-05] MEDS: PANTOPRAZOLE 40 MG INJ IV ×2 (05:29→16:48)
[2018-01-05] MEDS: ACCU-CHEK XX ×3 (05:32→15:43)
[2018-01-05] MEDS: GUAIFENESIN 20 MG/ML 5ML CUP PO ×3 (05:56→16:48)
[2018-01-05 07:27] LABS: ADD MAN DIFF? NO
[2018-01-05 07:31] LABS: ABNORMAL IP MESSAGE 1; BASOPHILS % 0.1 % (0.0-2.0); EOSINOPHILS # 0.1 10^3/ul (0.0-0.5); EOSINOPHILS % 1.3 % (0.0-7.0); HEMATOCRIT 27.1 % (42.0-52.0); HEMOGLOBIN 8.5 g/dl (14.0-18.0); LYMPHOCYTES # 0.8 10^3/ul (0.8-2.9); LYMPHOCYTES % 11.3 % (15.0-51.0); MEAN CORPUSCULAR HEMOGLOBIN 28.6 pg (29.0-33.0); MEAN CORPUSCULAR HGB CONC 31.4 g/dl (32.0-37.0); MEAN CORPUSCULAR VOLUME 91.2 fl (82.0-101.0); MEAN PLATELET VOLUME 12.4 fl (7.4-10.4); MONOCYTE # 0.6 10^3/ul (0.3-0.9); MONOCYTES % 7.8 % (0.0-11.0); NEUTROPHIL # 5.9 10^3/ul (1.6-7.5); NEUTROPHILS % 79.2 % (39.0-77.0); PLATELET COUNT 80 10^3/UL (140-415); POSITIVE DIFF @See below; RED BLOOD COUNT 2.97 10^6/ul (4.70-6.10); RED CELL DISTRIBUTION WIDTH 18.7 % (11.5-14.5)
[2018-01-05 07:31] LABS: WHITE BLOOD COUNT 7.5 10^3/ul (4.8-10.8)
[2018-01-05] MEDS: INSULIN ASPART [NOVOLOG] 3 ML PEN SC ×4 (07:41→20:44)
[2018-01-05 07:52] LABS: ANION GAP 7 (8-16); BLOOD UREA NITROGEN 29 mg/dl (7-20); CALCIUM 8.4 mg/dl (8.4-10.2); CARBON DIOXIDE 25 mmol/L (21-31); CHLORIDE 110 mmol/L (97-110); CREATININE 0.71 mg/dl (0.61-1.24); GLUCOSE 82 mg/dl (70-220); MAGNESIUM 1.7 mg/dl (1.7-2.5); PHOSPHORUS 2.5 mg/dl (2.5-4.9); POTASSIUM 3.8 mmol/L (3.5-5.1); SODIUM 138 mmol/L (135-144)
[2018-01-05] MEDS: NYSTATIN SUSP 5 ML CUP PO ×4 (08:37→20:43)
[2018-01-05] MEDS: DOCUSATE SODIUM 10 MG/ML (10ML CUP) PO ×2 (08:38→20:42)
[2018-01-05] MEDS: FERROUS SULFATE 60 MG/ML 5ML CUP PO ×2 (08:38→20:44)
[2018-01-05] MEDS: FLUTICASONE/VILANTEROL 200-25 INH DEVICE INH (08:39)
[2018-01-05] MEDS: GUAIFENESIN LA 600 MG TABSR PO ×2 (08:39→20:43)
[2018-01-05] MEDS: METOPROLOL 25 MG TAB PO ×2 (08:40→20:44)
[2018-01-05] MEDS: AMIODARONE 200 MG TAB PO ×2 (08:41→20:43)
[2018-01-05] MEDS: FERROUS SULFATE (SR) 142 MG TAB PO ×2 (08:41→20:43)
[2018-01-05] MEDS: BUPROPION (SR) 150 MG TAB PO ×2 (08:41→20:43)
[2018-01-05] MEDS: ESCITALOPRAM 10 MG TAB PO (08:41)
[2018-01-05] MEDS: predniSONE 20 MG TAB PO (08:41)
[2018-01-05] MEDS: MUPIROCIN 2% 22 GM OINT TOP ×2 (08:41→20:45)
[2018-01-05] MEDS: ALBUTEROL/IPRATROPIUM (NEB) 3 ML AMP HHN ×3 (09:21→20:05)
[2018-01-05] MEDS: VANCOMYCIN 1 GM 250 ML IVPB (11:45)
[2018-01-05] MEDS: FLUCONAZOLE 100 MG TAB PO (11:45)
[2018-01-05 17:46] LABS: HAPTOGLOBIN 111 mg/dL (43-212)
[2018-01-05 19:57] LABS: ADD MAN DIFF? NO
[2018-01-05] MEDS ORDERED: DEXTROSE 5%-0.9% NACL 1,000 ML IV (20:00)
[2018-01-05 20:01] LABS: ABNORMAL IP MESSAGE 1; BASOPHILS % 0.1 % (0.0-2.0); HEMATOCRIT 27.9 % (42.0-52.0); HEMOGLOBIN 8.6 g/dl (14.0-18.0); LYMPHOCYTES # 0.4 10^3/ul (0.8-2.9); LYMPHOCYTES % 5.4 % (15.0-51.0); MEAN CORPUSCULAR HEMOGLOBIN 28.3 pg (29.0-33.0); MEAN CORPUSCULAR HGB CONC 30.8 g/dl (32.0-37.0); MEAN CORPUSCULAR VOLUME 91.8 fl (82.0-101.0); MEAN PLATELET VOLUME 12.2 fl (7.4-10.4); MONOCYTE # 0.4 10^3/ul (0.3-0.9); MONOCYTES % 4.8 % (0.0-11.0); NEUTROPHIL # 7.2 10^3/ul (1.6-7.5); NEUTROPHILS % 89.6 % (39.0-77.0); PLATELET COUNT 81 10^3/UL (140-415); POSITIVE DIFF @See below; RED BLOOD COUNT 3.04 10^6/ul (4.70-6.10); RED CELL DISTRIBUTION WIDTH 18.7 % (11.5-14.5)
[2018-01-05 20:01] LABS: WHITE BLOOD COUNT 8.1 10^3/ul (4.8-10.8)
[2018-01-05 20:26] LABS: ANION GAP 10 (8-16); BLOOD UREA NITROGEN 28 mg/dl (7-20); CALCIUM 8.6 mg/dl (8.4-10.2); CARBON DIOXIDE 26 mmol/L (21-31); CHLORIDE 106 mmol/L (97-110); CREATININE 0.79 mg/dl (0.61-1.24); GLUCOSE 130 mg/dl (70-220); POTASSIUM 4.5 mmol/L (3.5-5.1); SODIUM 137 mmol/L (135-144)
[2018-01-05] MEDS: DEXTROSE 5%-0.9% NACL 500 ML IV (20:40)
[2018-01-05] MEDS: ATORVASTATIN 20 MG TAB PO (20:43)
[2018-01-06] MEDS: PANTOPRAZOLE 40 MG INJ IV (04:57)
[2018-01-06] MEDS: GUAIFENESIN 20 MG/ML 5ML CUP PO ×5 (04:57→23:33)
[2018-01-06] MEDS: ACCU-CHEK XX ×5 (04:58→23:33)
[2018-01-06] MEDS: METOPROLOL 25 MG TAB PO ×2 (09:00→20:27)
[2018-01-06] MEDS: FERROUS SULFATE 60 MG/ML 5ML CUP PO ×2 (09:10→20:26)
[2018-01-06] MEDS: GUAIFENESIN LA 600 MG TABSR PO ×2 (09:10→21:08)
[2018-01-06] MEDS: DOCUSATE SODIUM 10 MG/ML (10ML CUP) PO ×2 (09:10→21:00)
[2018-01-06] MEDS: NYSTATIN SUSP 5 ML CUP PO ×3 (09:11→18:16)
[2018-01-06] MEDS: BUPROPION (SR) 150 MG TAB PO (09:11)
[2018-01-06] MEDS: predniSONE 20 MG TAB PO (09:11)
[2018-01-06] MEDS: FERROUS SULFATE (SR) 142 MG TAB PO ×2 (09:12→20:27)
[2018-01-06] MEDS: FLUTICASONE/VILANTEROL 200-25 INH DEVICE INH (09:12)
[2018-01-06] MEDS: ESCITALOPRAM 10 MG TAB PO (09:12)
[2018-01-06] MEDS: AMIODARONE 200 MG TAB PO (09:12)
[2018-01-06] MEDS: MUPIROCIN 2% 22 GM OINT TOP ×2 (09:13→20:28)
[2018-01-06] MEDS: ALBUTEROL/IPRATROPIUM (NEB) 3 ML AMP HHN ×3 (09:19→20:52)
[2018-01-06] MEDS: INSULIN ASPART [NOVOLOG] 3 ML PEN SC ×4 (10:35→20:41)
[2018-01-06] MEDS ORDERED: DEXTROSE 5%-0.9% NACL 1,000 ML IV (12:00)
[2018-01-06 12:26] LABS: ADD MAN DIFF? NO
[2018-01-06 12:29] LABS: ABNORMAL IP MESSAGE 1; BASOPHILS % 0.2 % (0.0-2.0); EOSINOPHILS # 0.1 10^3/ul (0.0-0.5); EOSINOPHILS % 0.8 % (0.0-7.0); HEMATOCRIT 25.7 % (42.0-52.0); HEMOGLOBIN 7.8 g/dl (14.0-18.0); LYMPHOCYTES # 0.6 10^3/ul (0.8-2.9); LYMPHOCYTES % 9.3 % (15.0-51.0); MEAN CORPUSCULAR HEMOGLOBIN 28.2 pg (29.0-33.0); MEAN CORPUSCULAR HGB CONC 30.4 g/dl (32.0-37.0); MEAN CORPUSCULAR VOLUME 92.8 fl (82.0-101.0); MEAN PLATELET VOLUME 12.3 fl (7.4-10.4); MONOCYTE # 0.5 10^3/ul (0.3-0.9); MONOCYTES % 7.8 % (0.0-11.0); NEUTROPHIL # 5.4 10^3/ul (1.6-7.5); NEUTROPHILS % 81.7 % (39.0-77.0); PLATELET COUNT 79 10^3/UL (140-415); POSITIVE DIFF @See below; RED BLOOD COUNT 2.77 10^6/ul (4.70-6.10); RED CELL DISTRIBUTION WIDTH 18.9 % (11.5-14.5)
[2018-01-06 12:29] LABS: WHITE BLOOD COUNT 6.6 10^3/ul (4.8-10.8)
[2018-01-06 12:51] LABS: ALANINE AMINOTRANSFERASE 36 IU/L (13-69); ALBUMIN 2.3 g/dl (3.3-4.9); ALBUMIN/GLOBULIN RATIO 0.88; ALKALINE PHOSPHATASE 68 IU/L (42-121); ANION GAP 9 (8-16); ASPARTATE AMINO TRANSFERASE 17 IU/L (15-46); BILIRUBIN,INDIRECT 0.3 mg/dl (0-1.1); BILIRUBIN,TOTAL 0.3 mg/dl (0.2-1.3); BLOOD UREA NITROGEN 23 mg/dl (7-20); CALCIUM 8.6 mg/dl (8.4-10.2); CARBON DIOXIDE 25 mmol/L (21-31); CHLORIDE 108 mmol/L (97-110); CREATININE 0.76 mg/dl (0.61-1.24); GLUCOSE 158 mg/dl (70-220); SODIUM 138 mmol/L (135-144); TOTAL PROTEIN 4.9 g/dl (6.1-8.1)
[2018-01-06 13:00] LABS: B-TYPE NATRIURETIC PEPTIDE 1110 PG/ML (0-450)
[2018-01-06] MEDS: DEXTROSE 5%-0.9% NACL 1,000 ML IV (13:01)
[2018-01-06] MEDS: METHYLPREDNISOLONE 125 MG INJ IV (13:02)
[2018-01-06] MEDS: FLUCONAZOLE 100 MG TAB PO (13:02)
[2018-01-06] MEDS: D5W + KCL 20 MEQ 1,000 ML IV (14:30)
[2018-01-06] MEDS: ACETAMINOPHEN 325 MG TAB PO (20:19)
[2018-01-06] MEDS: DIPHENHYDRAMINE 50 MG INJ IV (20:19)
[2018-01-06] MEDS: ATORVASTATIN 20 MG TAB PO (20:26)
[2018-01-06 23:20] LABS: IMMEDIATE SPIN CROSSMATCH 1 2
[2018-01-06] MEDS: FUROSEMIDE 20 MG INJ IV (23:31)
[2018-01-07] MEDS: GUAIFENESIN 20 MG/ML 5ML CUP PO ×4 (06:00→23:36)
[2018-01-07] MEDS: ACCU-CHEK XX ×4 (06:00→23:38)
[2018-01-07 07:21] LABS: WHITE BLOOD COUNT 5.8 10^3/ul (4.8-10.8)
[2018-01-07 07:21] LABS: ABNORMAL IP MESSAGE 1; HEMATOCRIT 34.1 % (42.0-52.0); MEAN CORPUSCULAR HEMOGLOBIN 29.3 pg (29.0-33.0); MEAN CORPUSCULAR HGB CONC 32.3 g/dl (32.0-37.0); MEAN CORPUSCULAR VOLUME 90.9 fl (82.0-101.0); PLATELET COUNT 76 10^3/UL (140-415); POSITIVE DIFF @See below; RED BLOOD COUNT 3.75 10^6/ul (4.70-6.10); RETICULOCYTE COUNT % 2.7 % (0.5-1.5); RETICULOCYTE RBC 3.75
[2018-01-07] MEDS ORDERED: AMIODARONE 900 MG in DEXTROSE 5% 482 ML IV (07:30)
[2018-01-07 07:31] LABS: ADD MAN DIFF? YES
[2018-01-07] MEDS: INSULIN ASPART [NOVOLOG] 3 ML PEN SC ×4 (07:44→20:45)
[2018-01-07 07:56] LABS: IRON 111 ug/dl (35-150)
[2018-01-07 07:57] LABS: ALBUMIN 2.5 g/dl (3.3-4.9); ANION GAP 10 (8-16); BLOOD UREA NITROGEN 23 mg/dl (7-20); CALCIUM 8.8 mg/dl (8.4-10.2); CARBON DIOXIDE 28 mmol/L (21-31); CHLORIDE 105 mmol/L (97-110); CREATININE 0.78 mg/dl (0.61-1.24); GLUCOSE 120 mg/dl (70-220); POTASSIUM 3.9 mmol/L (3.5-5.1); SODIUM 139 mmol/L (135-144)
[2018-01-07] MEDS: ALBUTEROL/IPRATROPIUM (NEB) 3 ML AMP HHN ×3 (08:04→20:26)
[2018-01-07 08:05] LABS: % IRON SATURATION 45 % SAT (22-52); TOTAL IRON BINDING CAPACITY 248 ug/dl (241-421)
[2018-01-07] MEDS: FERROUS SULFATE (SR) 142 MG TAB PO ×2 (08:13→20:48)
[2018-01-07] MEDS: BUPROPION (XL) 150 MG TAB PO (08:14)
[2018-01-07] MEDS: predniSONE 20 MG TAB PO (08:14)
[2018-01-07] MEDS: GUAIFENESIN LA 600 MG TABSR PO ×2 (08:14→20:48)
[2018-01-07] MEDS: ESCITALOPRAM 10 MG TAB PO (08:14)
[2018-01-07] MEDS: METOPROLOL 25 MG TAB PO ×2 (08:14→20:51)
[2018-01-07] MEDS: FLUTICASONE/VILANTEROL 200-25 INH DEVICE INH (08:17)
[2018-01-07] MEDS: MUPIROCIN 2% 22 GM OINT TOP ×2 (08:17→20:52)
[2018-01-07] MEDS: DOCUSATE SODIUM 10 MG/ML (10ML CUP) PO ×2 (08:17→20:46)
[2018-01-07] MEDS: FERROUS SULFATE 60 MG/ML 5ML CUP PO ×2 (08:17→20:46)
[2018-01-07 08:54] LABS: ANISOCYTOSIS 2+ (0-0); BURR CELLS 1+ (0-0); LYMPHOCYTES #M 0.2 10^3/ul (0.8-2.9); LYMPHOCYTES % (M) 4 % (15-51); MICROCYTOSIS 2+ (0-0); MONOCYTE #M 0.3 10^3/ul (0.3-0.9); MONOCYTES % (M) 6 % (0-11); PLATELET ESTIMATE DECREASED; POIKILOCYTOSIS 1+ (0-0); POLYCHROMASIA 3+ (0-0); SEGMENTED NEUTROPHILS (M) % 90 % (39-77); SMUDGE%M 7 % (0-0); TEAR DROP CELLS 1+ (0-0)
[2018-01-07 09:05] LABS: FOLATE 8.1 ng/ml (2.8-20.0)
[2018-01-07] MEDS: SOD CHLORIDE 0.9% 250 ML IV (09:47)
[2018-01-07] MEDS: D5W + KCL 20 MEQ 1,000 ML IV ×2 (11:00→17:54)
[2018-01-07] MEDS: FLUCONAZOLE 100 MG TAB PO (13:47)
[2018-01-07] MEDS: ATORVASTATIN 20 MG TAB PO (20:48)
[2018-01-08] MEDS: GUAIFENESIN 20 MG/ML 5ML CUP PO ×3 (05:09→17:17)
[2018-01-08] MEDS: ACCU-CHEK XX ×3 (05:16→17:17)
[2018-01-08] MEDS: INSULIN ASPART [NOVOLOG] 3 ML PEN SC ×4 (07:55→20:44)
[2018-01-08] MEDS: ALBUTEROL/IPRATROPIUM (NEB) 3 ML AMP HHN ×3 (07:58→20:24)
[2018-01-08] MEDS: MUPIROCIN 2% 22 GM OINT TOP ×2 (08:44→20:43)
[2018-01-08] MEDS: ESCITALOPRAM 10 MG TAB PO (08:44)
[2018-01-08] MEDS: FERROUS SULFATE 60 MG/ML 5ML CUP PO ×2 (08:44→20:37)
[2018-01-08] MEDS: DOCUSATE SODIUM 10 MG/ML (10ML CUP) PO ×2 (08:44→20:37)
[2018-01-08] MEDS: METOPROLOL 25 MG TAB PO ×2 (08:45→20:39)
[2018-01-08] MEDS: FERROUS SULFATE (SR) 142 MG TAB PO ×2 (08:47→20:40)
[2018-01-08] MEDS: predniSONE 20 MG TAB PO (08:47)
[2018-01-08] MEDS: BUPROPION (XL) 150 MG TAB PO (08:47)
[2018-01-08] MEDS: GUAIFENESIN LA 600 MG TABSR PO (08:57)
[2018-01-08] MEDS: DIGOXIN 500 MCG INJ IV ×2 (13:04→17:29)
[2018-01-08] MEDS: [UNRECOGNIZED DRUG - REMARK] XX ×2 (14:30→22:00)
[2018-01-08] MEDS: FLUCONAZOLE 100 MG TAB PO (15:10)
[2018-01-08] MEDS: ATORVASTATIN 20 MG TAB PO (20:39)
[2018-01-09] MEDS: DIGOXIN 500 MCG INJ IV ×3 (00:01→12:00)
[2018-01-09] MEDS: ACCU-CHEK XX ×4 (00:08→17:16)
[2018-01-09] MEDS: D5W + KCL 20 MEQ 1,000 ML IV ×2 (02:57→23:00)
[2018-01-09] MEDS: GUAIFENESIN 20 MG/ML 5ML CUP PO ×4 (05:34→17:15)
[2018-01-09 06:00] LABS: ADD MAN DIFF? NO
[2018-01-09] MEDS: [UNRECOGNIZED DRUG - REMARK] XX ×3 (06:00→22:00)
[2018-01-09 06:08] LABS: ABNORMAL IP MESSAGE 1; BASOPHILS % 0.1 % (0.0-2.0); EOSINOPHILS % 0.2 % (0.0-7.0); HEMATOCRIT 38.5 % (42.0-52.0); HEMOGLOBIN 12.3 g/dl (14.0-18.0); LYMPHOCYTES # 1.1 10^3/ul (0.8-2.9); LYMPHOCYTES % 10.3 % (15.0-51.0); MEAN CORPUSCULAR HEMOGLOBIN 29.3 pg (29.0-33.0); MEAN CORPUSCULAR HGB CONC 31.9 g/dl (32.0-37.0); MEAN CORPUSCULAR VOLUME 91.7 fl (82.0-101.0); MEAN PLATELET VOLUME 12.2 fl (7.4-10.4); MONOCYTES % 8.6 % (0.0-11.0); NEUTROPHIL # 8.9 10^3/ul (1.6-7.5); NEUTROPHILS % 80.5 % (39.0-77.0); PLATELET COUNT 88 10^3/UL (140-415); POSITIVE DIFF @See below
[2018-01-09 06:36] LABS: ANION GAP 8 (8-16); BLOOD UREA NITROGEN 30 mg/dl (7-20); CALCIUM 9.3 mg/dl (8.4-10.2); CARBON DIOXIDE 28 mmol/L (21-31); CHLORIDE 105 mmol/L (97-110); CREATININE 0.86 mg/dl (0.61-1.24); GLUCOSE 85 mg/dl (70-220); POTASSIUM 4.4 mmol/L (3.5-5.1); SODIUM 137 mmol/L (135-144)
[2018-01-09] MEDS: INSULIN ASPART [NOVOLOG] 3 ML PEN SC ×4 (07:55→21:00)
[2018-01-09] MEDS: ALBUTEROL/IPRATROPIUM (NEB) 3 ML AMP HHN ×3 (08:10→21:09)
[2018-01-09] MEDS: METOPROLOL 25 MG TAB PO ×2 (08:31→21:25)
[2018-01-09] MEDS: BUPROPION (XL) 150 MG TAB PO (08:32)
[2018-01-09] MEDS: predniSONE 20 MG TAB PO (08:32)
[2018-01-09] MEDS: ESCITALOPRAM 10 MG TAB PO (08:32)
[2018-01-09] MEDS: DOCUSATE SODIUM 10 MG/ML (10ML CUP) PO ×2 (08:33→21:00)
[2018-01-09] MEDS: MUPIROCIN 2% 22 GM OINT TOP ×2 (08:33→21:26)
[2018-01-09] MEDS: FERROUS SULFATE 60 MG/ML 5ML CUP PO ×2 (08:40→21:25)
[2018-01-09] MEDS: DIGOXIN 0.125 MG TAB PO (12:52)
[2018-01-09] MEDS: FLUCONAZOLE 100 MG TAB PO (14:31)
[2018-01-09] MEDS: ATORVASTATIN 20 MG TAB PO (21:25)
[2018-01-09 23:17] LABS: PLATELET ANTIBODY - IGA POSITIVE (NEGATIVE); PLATELET ANTIBODY - IGG NEGATIVE (NEGATIVE); PLATELET ANTIBODY - IGM NEGATIVE (NEGATIVE)
[2018-01-10] MEDS: GUAIFENESIN 20 MG/ML 5ML CUP PO ×5 (05:40→17:08)
[2018-01-10] MEDS: ACCU-CHEK XX ×4 (05:58→17:08)
[2018-01-10] MEDS: [UNRECOGNIZED DRUG - REMARK] XX ×3 (06:00→22:00)
[2018-01-10 06:52] LABS: ADD MAN DIFF? NO
[2018-01-10 07:00] LABS: WHITE BLOOD COUNT 8.6 10^3/ul (4.8-10.8)
[2018-01-10 07:00] LABS: ABNORMAL IP MESSAGE 1; BASOPHILS % 0.1 % (0.0-2.0); EOSINOPHILS % 0.4 % (0.0-7.0); HEMATOCRIT 37.6 % (42.0-52.0); LYMPHOCYTES # 1.2 10^3/ul (0.8-2.9); LYMPHOCYTES % 13.8 % (15.0-51.0); MEAN CORPUSCULAR HEMOGLOBIN 28.8 pg (29.0-33.0); MEAN CORPUSCULAR HGB CONC 31.9 g/dl (32.0-37.0); MEAN CORPUSCULAR VOLUME 90.4 fl (82.0-101.0); MEAN PLATELET VOLUME 11.6 fl (7.4-10.4); MONOCYTE # 0.8 10^3/ul (0.3-0.9); MONOCYTES % 9.6 % (0.0-11.0); NEUTROPHIL # 6.5 10^3/ul (1.6-7.5); NEUTROPHILS % 75.9 % (39.0-77.0); PLATELET COUNT 91 10^3/UL (140-415); POSITIVE DIFF @See below; RED BLOOD COUNT 4.16 10^6/ul (4.70-6.10); RETICULOCYTE COUNT % 1.7 % (0.5-1.5); RETICULOCYTE RBC 4.16
[2018-01-10] MEDS: INSULIN ASPART [NOVOLOG] 3 ML PEN SC ×4 (07:55→21:00)
[2018-01-10 08:01] LABS: ANION GAP 10 (8-16); CARBON DIOXIDE 27 mmol/L (21-31); CHLORIDE 102 mmol/L (97-110); POTASSIUM 4.1 mmol/L (3.5-5.1); SODIUM 135 mmol/L (135-144)
[2018-01-10] MEDS: ALBUTEROL/IPRATROPIUM (NEB) 3 ML AMP HHN ×2 (08:06→20:16)
[2018-01-10 08:14] LABS: ALANINE AMINOTRANSFERASE 40 IU/L (13-69); ALBUMIN 2.9 g/dl (3.3-4.9); ALKALINE PHOSPHATASE 98 IU/L (42-121); ASPARTATE AMINO TRANSFERASE 21 IU/L (15-46); BILIRUBIN,INDIRECT 0.6 mg/dl (0-1.1); BILIRUBIN,TOTAL 0.6 mg/dl (0.2-1.3); BLOOD UREA NITROGEN 28 mg/dl (7-20); CALCIUM 9.6 mg/dl (8.4-10.2); CREATININE 0.95 mg/dl (0.61-1.24); GLUCOSE 75 mg/dl (70-220); TOTAL PROTEIN 5.8 g/dl (6.1-8.1)
[2018-01-10] MEDS: FERROUS SULFATE 60 MG/ML 5ML CUP PO ×2 (08:35→21:29)
[2018-01-10] MEDS: predniSONE 10 MG TAB PO (08:35)
[2018-01-10] MEDS: BUPROPION (XL) 150 MG TAB PO (08:35)
[2018-01-10] MEDS: ESCITALOPRAM 10 MG TAB PO (08:35)
[2018-01-10] MEDS: DOCUSATE SODIUM 10 MG/ML (10ML CUP) PO ×2 (08:35→20:54)
[2018-01-10] MEDS: FOLIC ACID 1 MG TAB PO (08:35)
[2018-01-10] MEDS: MUPIROCIN 2% 22 GM OINT TOP ×2 (08:36→21:29)
[2018-01-10] MEDS: METOPROLOL 25 MG TAB PO ×2 (08:36→20:55)
[2018-01-10] MEDS: FUROSEMIDE 20 MG TAB PO (08:36)
[2018-01-10] MEDS ORDERED: predniSONE 20 MG TAB PO (09:00)
[2018-01-10] MEDS: DIGOXIN 0.125 MG TAB PO (12:14)
[2018-01-10] MEDS: D5W + KCL 20 MEQ 1,000 ML IV (20:54)
[2018-01-10] MEDS: ATORVASTATIN 20 MG TAB PO (20:54)
[2018-01-11] MEDS: GUAIFENESIN 20 MG/ML 5ML CUP PO ×4 (05:42→17:59)
[2018-01-11] MEDS: ACCU-CHEK XX ×4 (06:00→17:59)
[2018-01-11] MEDS: [UNRECOGNIZED DRUG - REMARK] XX ×3 (06:00→22:00)
[2018-01-11] MEDS: INSULIN ASPART [NOVOLOG] 3 ML PEN SC ×4 (07:55→20:39)
[2018-01-11] MEDS: ALBUTEROL/IPRATROPIUM (NEB) 3 ML AMP HHN ×3 (08:37→20:06)
[2018-01-11] MEDS: FERROUS SULFATE 60 MG/ML 5ML CUP PO ×2 (08:37→20:31)
[2018-01-11] MEDS: ESCITALOPRAM 10 MG TAB PO (08:38)
[2018-01-11] MEDS: FUROSEMIDE 20 MG TAB PO (08:38)
[2018-01-11] MEDS: BUPROPION (XL) 150 MG TAB PO (08:39)
[2018-01-11] MEDS: predniSONE 10 MG TAB PO (08:40)
[2018-01-11] MEDS: METOPROLOL 25 MG TAB PO ×2 (08:40→20:31)
[2018-01-11] MEDS: FOLIC ACID 1 MG TAB PO (08:41)
[2018-01-11] MEDS: MUPIROCIN 2% 22 GM OINT TOP ×2 (08:48→20:32)
[2018-01-11] MEDS: DOCUSATE SODIUM 10 MG/ML (10ML CUP) PO ×2 (08:57→20:31)
[2018-01-11 11:10] LABS: ADD MAN DIFF? NO
[2018-01-11 11:24] LABS: ABNORMAL IP MESSAGE 1; BASOPHILS % 0.1 % (0.0-2.0); EOSINOPHILS # 0.1 10^3/ul (0.0-0.5); EOSINOPHILS % 1.3 % (0.0-7.0); HEMOGLOBIN 12.6 g/dl (14.0-18.0); LYMPHOCYTES # 0.7 10^3/ul (0.8-2.9); LYMPHOCYTES % 9.9 % (15.0-51.0); MEAN CORPUSCULAR HEMOGLOBIN 29.1 pg (29.0-33.0); MEAN CORPUSCULAR HGB CONC 32.3 g/dl (32.0-37.0); MEAN CORPUSCULAR VOLUME 90.1 fl (82.0-101.0); MEAN PLATELET VOLUME 11.9 fl (7.4-10.4); MONOCYTE # 0.6 10^3/ul (0.3-0.9); MONOCYTES % 8.2 % (0.0-11.0); NEUTROPHIL # 5.6 10^3/ul (1.6-7.5); NEUTROPHILS % 80.2 % (39.0-77.0); PLATELET COUNT 99 10^3/UL (140-415); POSITIVE DIFF @See below; RED BLOOD COUNT 4.33 10^6/ul (4.70-6.10); RED CELL DISTRIBUTION WIDTH 16.8 % (11.5-14.5); RETICULOCYTE COUNT # 0.056 X10^6 (0.020-0.110); RETICULOCYTE COUNT % 1.3 % (0.5-1.5); RETICULOCYTE RBC 4.33
[2018-01-11] MEDS: DIGOXIN 0.125 MG TAB PO ×2 (12:29→13:35)
[2018-01-11] MEDS: D5W + KCL 20 MEQ 1,000 ML IV ×2 (15:00→20:35)
[2018-01-11] MEDS: ATORVASTATIN 20 MG TAB PO (20:31)
[2018-01-12] MEDS: GUAIFENESIN 20 MG/ML 5ML CUP PO ×4 (06:00→17:24)
[2018-01-12] MEDS: ACCU-CHEK XX ×4 (06:00→17:24)
[2018-01-12] MEDS: [UNRECOGNIZED DRUG - REMARK] XX ×3 (06:00→21:18)
[2018-01-12] MEDS: INSULIN ASPART [NOVOLOG] 3 ML PEN SC ×3 (07:55→17:24)
[2018-01-12] MEDS: ALBUTEROL/IPRATROPIUM (NEB) 3 ML AMP HHN ×3 (08:28→19:59)
[2018-01-12] MEDS: DOCUSATE SODIUM 10 MG/ML (10ML CUP) PO (08:43)
[2018-01-12] MEDS: FOLIC ACID 1 MG TAB PO (08:44)
[2018-01-12] MEDS: FERROUS SULFATE 60 MG/ML 5ML CUP PO ×2 (08:44→21:14)
[2018-01-12] MEDS: ESCITALOPRAM 10 MG TAB PO (08:45)
[2018-01-12] MEDS: FUROSEMIDE 20 MG TAB PO (08:45)
[2018-01-12] MEDS: BUPROPION (XL) 150 MG TAB PO (08:45)
[2018-01-12] MEDS: MUPIROCIN 2% 22 GM OINT TOP ×2 (08:46→21:14)
[2018-01-12] MEDS: predniSONE 10 MG TAB PO (08:46)
[2018-01-12] MEDS: METOPROLOL 25 MG TAB PO ×2 (08:46→21:13)
[2018-01-12] MEDS: DIGOXIN 0.125 MG TAB PO (12:25)
[2018-01-12 14:11] LABS: HEPARIN INDUCED PLATELET AB NEGATIVE (NEGATIVE)
[2018-01-12] MEDS: ATORVASTATIN 20 MG TAB PO (21:13)
[2018-01-13] MEDS: [UNRECOGNIZED DRUG - REMARK] XX ×3 (06:00→22:00)
[2018-01-13] MEDS: GUAIFENESIN 20 MG/ML 5ML CUP PO ×4 (06:00→18:00)
[2018-01-13 06:55] LABS: ADD MAN DIFF? NO
[2018-01-13 07:00] LABS: BASOPHILS % 0.3 % (0.0-2.0); EOSINOPHILS # 0.1 10^3/ul (0.0-0.5); EOSINOPHILS % 1.6 % (0.0-7.0); HEMATOCRIT 39.4 % (42.0-52.0); HEMOGLOBIN 12.9 g/dl (14.0-18.0); LYMPHOCYTES # 1.1 10^3/ul (0.8-2.9); LYMPHOCYTES % 15.6 % (15.0-51.0); MEAN CORPUSCULAR HEMOGLOBIN 29.6 pg (29.0-33.0); MEAN CORPUSCULAR HGB CONC 32.7 g/dl (32.0-37.0); MEAN CORPUSCULAR VOLUME 90.4 fl (82.0-101.0); MEAN PLATELET VOLUME 11.9 fl (7.4-10.4); MONOCYTE # 0.8 10^3/ul (0.3-0.9); MONOCYTES % 11.2 % (0.0-11.0); NEUTROPHILS % 70.9 % (39.0-77.0); PLATELET COUNT 145 10^3/UL (140-415); RED BLOOD COUNT 4.36 10^6/ul (4.70-6.10); RED CELL DISTRIBUTION WIDTH 16.9 % (11.5-14.5)
[2018-01-13 07:36] LABS: ANION GAP 12 (8-16); BLOOD UREA NITROGEN 28 mg/dl (7-20); CALCIUM 9.1 mg/dl (8.4-10.2); CARBON DIOXIDE 26 mmol/L (21-31); CHLORIDE 101 mmol/L (97-110); CREATININE 1.03 mg/dl (0.61-1.24); GLUCOSE 98 mg/dl (70-220); POTASSIUM 3.9 mmol/L (3.5-5.1); SODIUM 135 mmol/L (135-144)
[2018-01-13] MEDS: ALBUTEROL/IPRATROPIUM (NEB) 3 ML AMP HHN ×3 (08:24→20:47)
[2018-01-13] MEDS: METOPROLOL 25 MG TAB PO ×2 (09:00→22:12)
[2018-01-13] MEDS: FERROUS SULFATE 60 MG/ML 5ML CUP PO ×2 (09:01→22:12)
[2018-01-13] MEDS: FUROSEMIDE 20 MG TAB PO (09:01)
[2018-01-13] MEDS: ESCITALOPRAM 10 MG TAB PO (09:01)
[2018-01-13] MEDS: FOLIC ACID 1 MG TAB PO (09:01)
[2018-01-13] MEDS: predniSONE 10 MG TAB PO (09:02)
[2018-01-13] MEDS: BUPROPION (XL) 150 MG TAB PO (09:02)
[2018-01-13] MEDS: MUPIROCIN 2% 22 GM OINT TOP ×2 (09:03→22:13)
[2018-01-13] MEDS: ATORVASTATIN 20 MG TAB PO (22:13)
[2018-01-14] MEDS: [UNRECOGNIZED DRUG - REMARK] XX ×3 (06:00→21:28)
[2018-01-14] MEDS: GUAIFENESIN 20 MG/ML 5ML CUP PO ×5 (06:00→23:49)
[2018-01-14] MEDS: ALBUTEROL/IPRATROPIUM (NEB) 3 ML AMP HHN ×3 (08:00→20:50)
[2018-01-14] MEDS: ESCITALOPRAM 10 MG TAB PO (08:16)
[2018-01-14] MEDS: BUPROPION (XL) 150 MG TAB PO (08:16)
[2018-01-14] MEDS: METOPROLOL 25 MG TAB PO ×2 (08:17→21:00)
[2018-01-14] MEDS: predniSONE 10 MG TAB PO (08:17)
[2018-01-14] MEDS: FUROSEMIDE 20 MG TAB PO (08:17)
[2018-01-14] MEDS: FERROUS SULFATE 60 MG/ML 5ML CUP PO ×2 (08:17→21:27)
[2018-01-14] MEDS: MUPIROCIN 2% 22 GM OINT TOP ×2 (08:18→21:27)
[2018-01-14] MEDS: FOLIC ACID 1 MG TAB PO (08:18)
[2018-01-14] MEDS: ATORVASTATIN 20 MG TAB PO (21:27)
[2018-01-14] MEDS: HEPARIN 5,000 UNIT/0.5 ML VIAL SC (21:28)
[2018-01-15] MEDS: [UNRECOGNIZED DRUG - REMARK] XX ×3 (05:41→21:03)
[2018-01-15] MEDS: GUAIFENESIN 20 MG/ML 5ML CUP PO ×4 (05:41→23:32)
[2018-01-15] MEDS: ALBUTEROL/IPRATROPIUM (NEB) 3 ML AMP HHN ×3 (08:08→20:39)
[2018-01-15] MEDS: FERROUS SULFATE 60 MG/ML 5ML CUP PO ×2 (08:36→20:54)
[2018-01-15] MEDS: BUPROPION (XL) 150 MG TAB PO (08:36)
[2018-01-15] MEDS: ESCITALOPRAM 10 MG TAB PO (08:36)
[2018-01-15] MEDS: predniSONE 10 MG TAB PO (08:36)
[2018-01-15] MEDS: FOLIC ACID 1 MG TAB PO (08:36)
[2018-01-15] MEDS: FUROSEMIDE 20 MG TAB PO (08:37)
[2018-01-15] MEDS: MUPIROCIN 2% 22 GM OINT TOP ×2 (08:40→20:55)
[2018-01-15] MEDS: METOPROLOL 25 MG TAB PO ×2 (08:40→21:03)
[2018-01-15] MEDS: HEPARIN 5,000 UNIT/0.5 ML VIAL SC ×2 (10:00→21:08)
[2018-01-15] MEDS: DEXTROSE 5%-0.45% NACL 1,000 ML IV (19:13)
[2018-01-15] MEDS: ATORVASTATIN 20 MG TAB PO (20:54)
[2018-01-16] MEDS: [UNRECOGNIZED DRUG - REMARK] XX ×3 (05:33→21:33)
[2018-01-16] MEDS: GUAIFENESIN 20 MG/ML 5ML CUP PO ×3 (05:33→18:00)
[2018-01-16 07:20] LABS: ADD MAN DIFF? NO
[2018-01-16 07:28] LABS: WHITE BLOOD COUNT 5.9 10^3/ul (4.8-10.8)
[2018-01-16 07:28] LABS: BASOPHILS % 0.3 % (0.0-2.0); EOSINOPHILS # 0.1 10^3/ul (0.0-0.5); HEMATOCRIT 43.7 % (42.0-52.0); HEMOGLOBIN 13.9 g/dl (14.0-18.0); LYMPHOCYTES # 1.2 10^3/ul (0.8-2.9); LYMPHOCYTES % 20.2 % (15.0-51.0); MEAN CORPUSCULAR HEMOGLOBIN 28.9 pg (29.0-33.0); MEAN CORPUSCULAR HGB CONC 31.8 g/dl (32.0-37.0); MEAN CORPUSCULAR VOLUME 90.9 fl (82.0-101.0); MEAN PLATELET VOLUME 11.1 fl (7.4-10.4); MONOCYTE # 1.1 10^3/ul (0.3-0.9); MONOCYTES % 18.2 % (0.0-11.0); NEUTROPHIL # 3.5 10^3/ul (1.6-7.5); NEUTROPHILS % 59.8 % (39.0-77.0); PLATELET COUNT 175 10^3/UL (140-415); RED BLOOD COUNT 4.81 10^6/ul (4.70-6.10); RED CELL DISTRIBUTION WIDTH 16.5 % (11.5-14.5)
[2018-01-16 07:49] LABS: ANION GAP 14 (8-16); CARBON DIOXIDE 24 mmol/L (21-31); CHLORIDE 104 mmol/L (97-110); POTASSIUM 4.3 mmol/L (3.5-5.1); SODIUM 138 mmol/L (135-144)
[2018-01-16 08:05] LABS: ALBUMIN 3.3 g/dl (3.3-4.9); BLOOD UREA NITROGEN 42 mg/dl (7-20); CREATININE 1.37 mg/dl (0.61-1.24); GLUCOSE 100 mg/dl (70-220); MAGNESIUM 1.6 mg/dl (1.7-2.5)
[2018-01-16] MEDS: ALBUTEROL/IPRATROPIUM (NEB) 3 ML AMP HHN ×3 (08:21→19:41)
[2018-01-16] MEDS: METOPROLOL 25 MG TAB PO ×2 (09:00→21:00)
[2018-01-16] MEDS: FERROUS SULFATE 60 MG/ML 5ML CUP PO ×2 (09:51→21:00)
[2018-01-16] MEDS: MEGESTROL (40 MG/ML) 10ML CUP PO (09:51)
[2018-01-16] MEDS: predniSONE 10 MG TAB PO (09:52)
[2018-01-16] MEDS: FOLIC ACID 1 MG TAB PO (09:52)
[2018-01-16] MEDS: FUROSEMIDE 20 MG TAB PO (09:52)
[2018-01-16] MEDS: BUPROPION (XL) 150 MG TAB PO (09:54)
[2018-01-16] MEDS: ESCITALOPRAM 10 MG TAB PO (09:54)
[2018-01-16] MEDS: MUPIROCIN 2% 22 GM OINT TOP (09:55)
[2018-01-16] MEDS: HEPARIN 5,000 UNIT/0.5 ML VIAL SC ×2 (10:08→21:39)
[2018-01-16] MEDS: MAGNESIUM SULFATE 2 GM/50 ML 50 ML IVPB (16:54)
[2018-01-16] MEDS: OLANZAPINE 2.5 MG TAB PO (18:25)
[2018-01-16] MEDS: ATORVASTATIN 20 MG TAB PO (21:00)
== END 2018-01-16 22:50 | DRG 329 ==
LOC: ICU 12-14 00:31 → TEL 12-22 17:55 → E/R 12:42 → 6WM 14:47
PROC: 0DTF0ZZ Resection of Right Large Intestine, Open Approach (ICD-10-PCS; principal; 2017-12-15 17:30)
PROC: 0D1B0Z4 Bypass Ileum to Cutaneous, Open Approach (ICD-10-PCS; 2017-12-15 17:30)
PROC: 0D1L0Z4 Bypass Transverse Colon to Cutaneous, Open Approach (ICD-10-PCS; 2017-12-15 17:30)
PROC: 0DN80ZZ Release Small Intestine, Open Approach (ICD-10-PCS; 2017-12-15 17:30)
PROC: 0DQ80ZZ Repair Small Intestine, Open Approach (ICD-10-PCS; 2017-12-15 17:30)
PROC: 02HV33Z Insertion of Infusion Device into Superior Vena Cava, Percutaneous Approach (ICD-10-PCS; 2017-12-15 17:36)
PROC: 30233N1 Transfusion of Nonautologous Red Blood Cells into Peripheral Vein, Percutaneous Approach (ICD-10-PCS; 2017-12-15 17:36)
DX: K55.049 Acute infarction of large intestine, extent unspecified (principal); I50.33 Acute on chronic diastolic (congestive) heart failure; J96.21 Acute and chronic respiratory failure with hypoxia; J96.22 Acute and chronic respiratory failure with hypercapnia; A41.9 Sepsis, unspecified organism; G92 Toxic encephalopathy; J18.9 Pneumonia, unspecified organism; G93.49 Other encephalopathy; K92.2 Gastrointestinal hemorrhage, unspecified; D62 Acute posthemorrhagic anemia; J44.1 Chronic obstructive pulmonary disease with (acute) exacerbation; I48.92 Unspecified atrial flutter; T17.890A Other foreign object in other parts of respiratory tract causing asphyxiation, initial encounter; K59.39 Other megacolon; K56.50 Intestinal adhesions [bands], unspecified as to partial versus complete obstruction; N39.0 Urinary tract infection, site not specified; B37.0 Candidal stomatitis; B37.49 Other urogenital candidiasis; G72.81 Critical illness myopathy; K91.71 Accidental puncture and laceration of a digestive system organ or structure during a digestive system procedure; J44.0 Chronic obstructive pulmonary disease with (acute) lower respiratory infection; N17.9 Acute kidney failure, unspecified; K55.9 Vascular disorder of intestine, unspecified; I48.0 Paroxysmal atrial fibrillation; I11.0 Hypertensive heart disease with heart failure; R31.9 Hematuria, unspecified; I25.10 Atherosclerotic heart disease of native coronary artery without angina pectoris; F17.200 Nicotine dependence, unspecified, uncomplicated; F41.9 Anxiety disorder, unspecified; F32.9 Major depressive disorder, single episode, unspecified; K59.00 Constipation, unspecified; E66.9 Obesity, unspecified; K66.0 Peritoneal adhesions (postprocedural) (postinfection); D69.59 Other secondary thrombocytopenia; I95.9 Hypotension, unspecified; T38.0X5A Adverse effect of glucocorticoids and synthetic analogues, initial encounter; T45.515A Adverse effect of anticoagulants, initial encounter; B96.4 Proteus (mirabilis) (morganii) as the cause of diseases classified elsewhere; B96.20 Unspecified Escherichia coli [E. coli] as the cause of diseases classified elsewhere; Y92.238 Other place in hospital as the place of occurrence of the external cause; Z68.30 Body mass index [BMI] 30.0-30.9, adult; Z98.61 Coronary angioplasty status; Z85.038 Personal history of other malignant neoplasm of large intestine; Z22.322 Carrier or suspected carrier of Methicillin resistant Staphylococcus aureus; Z85.46 Personal history of malignant neoplasm of prostate
CPT/HCPCS: 36430; 36569; 36600; 70450; 71045; 71250; 74176; 76937; 78580; 78582; 80048; 80053; 80162; 80202; 81003; 82040; 82140; 82270; 82607; 82668; 82728; 82746; 82803; 82962; 83010; 83540; 83605; 83735; 83880; 84100; 84134; 84443; 84466; 84478; 85014; 85018; 85025; 85045; 85378; 85610; 85651; 85730; 86022; 86644; 86850; 86900; 86901; 86920; 87040; 87070; 87081; 87086; 88305; 92526; 92610; 93005; 93306; 93931; 93970; 93971; 94002; 94003; 94640; 94660; 94664; 94667; 94668; 94770; 97110; 97162; 97167; 97530; 97535; 99285-25

== ENCOUNTER → 2018-01-27 | Outpatient (CLI) | payer MEDICARE, BC | END | disposition home or self-care (01) | LOC: C/S 13:35 | DX: R10.9 Unspecified abdominal pain (principal) | CPT/HCPCS: 71250; 74176 ==

== ENCOUNTER 2018-03-03 21:55 | Inpatient (IN) | payer MEDICARE, BC ==
[2018-03-03 22:17] LABS: ADD MAN DIFF? NO
[2018-03-03 22:27] LABS: WHITE BLOOD COUNT 16.2 10^3/ul (4.8-10.8)
[2018-03-03 22:27] LABS: BASOPHILS % 0.1 % (0.0-2.0); HEMATOCRIT 41.4 % (42.0-52.0); HEMOGLOBIN 12.9 g/dl (14.0-18.0); LYMPHOCYTES # 0.6 10^3/ul (0.8-2.9); LYMPHOCYTES % 3.8 % (15.0-51.0); MEAN CORPUSCULAR HEMOGLOBIN 28.3 pg (29.0-33.0); MEAN CORPUSCULAR HGB CONC 31.2 g/dl (32.0-37.0); MEAN CORPUSCULAR VOLUME 90.8 fl (82.0-101.0); MEAN PLATELET VOLUME 11.7 fl (7.4-10.4); MONOCYTE # 0.8 10^3/ul (0.3-0.9); NEUTROPHIL # 14.6 10^3/ul (1.6-7.5); PLATELET COUNT 204 10^3/UL (140-415); RED BLOOD COUNT 4.56 10^6/ul (4.70-6.10); RED CELL DISTRIBUTION WIDTH 18.6 % (11.5-14.5)
[2018-03-03 22:46] LABS: INR 0.96; PROTIME 12.9 Sec (11.9-14.9)
[2018-03-03 22:47] LABS: PARTIAL THROMBOPLASTIN TIME 33.4 Sec (23.0-35.0)
[2018-03-03 22:50] LABS: ALANINE AMINOTRANSFERASE 30 IU/L (13-69); ALBUMIN 4.2 g/dl (3.3-4.9); ALKALINE PHOSPHATASE 81 IU/L (42-121); ANION GAP 15 (5-13); ASPARTATE AMINO TRANSFERASE 23 IU/L (15-46); BILIRUBIN,INDIRECT 0.4 mg/dl (0-1.1); BILIRUBIN,TOTAL 0.4 mg/dl (0.2-1.3); CALCIUM 11.3 mg/dl (8.4-10.2); CARBON DIOXIDE 14 mmol/L (21-31); CHLORIDE 114 mmol/L (97-110); CREATININE 2.25 mg/dl (0.61-1.24); GLUCOSE 138 mg/dl (70-220); LIPASE 61 U/L (23-300); POTASSIUM 5.9 mmol/L (3.5-5.1); SODIUM 143 mmol/L (135-144); TOTAL PROTEIN 7.7 g/dl (6.1-8.1)
[2018-03-03 22:59] LABS: BLOOD UREA NITROGEN 127 mg/dl (7-20)
[2018-03-03 23:02] LABS: TROPONIN-I 0.054 ng/ml (0.000-0.120)
[2018-03-03] MEDS: SOD CHLORIDE 0.9% 1,000 ML IV (23:36)
[2018-03-03 23:43] LABS: ADD UMIC YES; UR ASCORBIC ACID 40 mg/dL (NEGATIVE); UR BACTERIA FEW /HPF (NONE SEEN); UR BILIRUBIN (Dip) NEGATIVE (NEGATIVE); UR BLOOD (Dip) NEGATIVE (NEGATIVE); UR BUDDING YEAST FEW /HPF (NONE SEEN); UR CLARITY CLOUDY (CLEAR); UR COLOR YELLOW (YELLOW); UR GLUCOSE (Dip) NEGATIVE (NEGATIVE); UR KETONES (Dip) NEGATIVE (NEGATIVE); UR LEUKOCYTE ESTERASE (Dip) 1+ Leu/ul (NEGATIVE); UR MUCUS FEW /HPF (NONE SEEN); UR NITRITE (Dip) NEGATIVE (NEGATIVE); UR RBC 2 /HPF (0-5); UR SPECIFIC GRAVITY (Dip) 1.018 (1.003-1.030); UR TOTAL PROTEIN (Dip) 2+ mg/dl (NEGATIVE); UR UROBILINOGEN (Dip) NEGATIVE (NEGATIVE); UR WBC 39 /HPF (0-5)
[2018-03-04] MEDS: CEFTRIAXONE 1 GM/50 ML (PMX) 50 ML IVPB (00:30)
[2018-03-04] MEDS ORDERED: GUAIFENESIN/DM 5ML CUP PO (01:00)
[2018-03-04 01:17] LABS: ADD MAN DIFF? NO
[2018-03-04] MEDS: SOD CHLORIDE 0.9% 1,000 ML IV (01:19)
[2018-03-04 01:20] LABS: BASOPHILS % 0.1 % (0.0-2.0); HEMATOCRIT 36.1 % (42.0-52.0); HEMOGLOBIN 11.3 g/dl (14.0-18.0); LYMPHOCYTES # 0.6 10^3/ul (0.8-2.9); LYMPHOCYTES % 3.9 % (15.0-51.0); MEAN CORPUSCULAR HEMOGLOBIN 28.7 pg (29.0-33.0); MEAN CORPUSCULAR HGB CONC 31.3 g/dl (32.0-37.0); MEAN CORPUSCULAR VOLUME 91.6 fl (82.0-101.0); MEAN PLATELET VOLUME 10.9 fl (7.4-10.4); MONOCYTE # 1.1 10^3/ul (0.3-0.9); MONOCYTES % 7.4 % (0.0-11.0); NEUTROPHIL # 13.3 10^3/ul (1.6-7.5); NEUTROPHILS % 87.6 % (39.0-77.0); PLATELET COUNT 176 10^3/UL (140-415); RED BLOOD COUNT 3.94 10^6/ul (4.70-6.10); RED CELL DISTRIBUTION WIDTH 18.5 % (11.5-14.5)
[2018-03-04 01:20] LABS: WHITE BLOOD COUNT 15.2 10^3/ul (4.8-10.8)
[2018-03-04] MEDS: PIPER-TAZO 3.375 GM IV (PMX) 100 ML IVPB (01:24)
[2018-03-04 01:35] LABS: LACTIC ACID 2.3 mmol/L (0.5-2.0)
[2018-03-04 01:42] LABS: ALANINE AMINOTRANSFERASE 25 IU/L (13-69); ALBUMIN 3.5 g/dl (3.3-4.9); ALBUMIN/GLOBULIN RATIO 1.16; ALKALINE PHOSPHATASE 63 IU/L (42-121); ANION GAP 13 (5-13); ASPARTATE AMINO TRANSFERASE 18 IU/L (15-46); BILIRUBIN,INDIRECT 0.2 mg/dl (0-1.1); BILIRUBIN,TOTAL 0.2 mg/dl (0.2-1.3); BLOOD UREA NITROGEN 115 mg/dl (7-20); CARBON DIOXIDE 16 mmol/L (21-31); CHLORIDE 116 mmol/L (97-110); CREATININE 2.16 mg/dl (0.61-1.24); GLUCOSE 103 mg/dl (70-220); POTASSIUM 4.9 mmol/L (3.5-5.1); SODIUM 145 mmol/L (135-144); TOTAL PROTEIN 6.5 g/dl (6.1-8.1)
[2018-03-04] MEDS: VANCOMYCIN 1 GM (PMX) 250 ML IVPB (01:50)
[2018-03-04] MEDS: SODIUM CHLORIDE 0.9% 1L BAG IV* (01:58)
[2018-03-04] MEDS: DEXTROSE 5%-0.45% NACL 1,000 ML IV ×4 (02:48→19:07)
[2018-03-04] MEDS ORDERED: PENDING SANTYL ORDER FOR WOUND CARE XX (08:30)
[2018-03-04] MEDS: ALBUTEROL/IPRATROPIUM (NEB) 3 ML AMP HHN ×3 (08:41→19:47)
[2018-03-04] MEDS: OLANZAPINE 2.5 MG TAB PO ×2 (09:00→09:53)
[2018-03-04] MEDS: ESCITALOPRAM 10 MG TAB PO ×2 (09:00→09:53)
[2018-03-04] MEDS: GUAIFENESIN LA 600 MG TABSR PO ×3 (09:00→20:42)
[2018-03-04] MEDS: predniSONE 20 MG TAB PO (09:00)
[2018-03-04] MEDS: ASCORBIC ACID 500 MG TAB PO ×3 (09:00→20:42)
[2018-03-04] MEDS: FOLIC ACID 1 MG TAB PO ×2 (09:00→09:54)
[2018-03-04] MEDS: METOPROLOL 25 MG TAB PO ×3 (09:00→20:42)
[2018-03-04] MEDS: MAGNESIUM OXIDE 400 MG TAB PO ×2 (09:00→09:53)
[2018-03-04] MEDS: CIPROFLOXACIN 400MG/D5W 200 ML IVPB (09:53)
[2018-03-04] MEDS: ACETYLCYSTEINE 20% 4 ML VIAL NEB (19:47)
[2018-03-04] MEDS: MEROPENEM 1 GM/50ML(PMX) 50 ML IVPB (20:41)
[2018-03-04] MEDS: MIRTAZAPINE 15 MG TAB PO (20:42)
[2018-03-04] MEDS: DIAZEPAM 5 MG TAB PO (20:42)
[2018-03-04] MEDS: ATORVASTATIN 20 MG TAB PO (20:42)
[2018-03-04] MEDS: DOCUSATE SODIUM 100 MG CAP PO (20:42)
[2018-03-04] MEDS: METHYLPREDNISOLONE 125 MG INJ IV (22:58)
[2018-03-05] MEDS: DEXTROSE 5%-0.45% NACL 1,000 ML IV ×6 (00:13→21:20)
[2018-03-05] MEDS: ALBUTEROL/IPRATROPIUM (NEB) 3 ML AMP HHN ×4 (01:49→19:36)
[2018-03-05] MEDS: ACETYLCYSTEINE 20% 4 ML VIAL NEB ×4 (01:49→19:36)
[2018-03-05 05:18] LABS: ADD MAN DIFF? NO
[2018-03-05 05:21] LABS: WHITE BLOOD COUNT 12.1 10^3/ul (4.8-10.8)
[2018-03-05 05:21] LABS: ABNORMAL IP MESSAGE 1; BASOPHILS % 0.1 % (0.0-2.0); HEMATOCRIT 29.9 % (42.0-52.0); HEMOGLOBIN 9.5 g/dl (14.0-18.0); LYMPHOCYTES # 0.2 10^3/ul (0.8-2.9); LYMPHOCYTES % 1.6 % (15.0-51.0); MEAN CORPUSCULAR HEMOGLOBIN 28.8 pg (29.0-33.0); MEAN CORPUSCULAR HGB CONC 31.8 g/dl (32.0-37.0); MEAN CORPUSCULAR VOLUME 90.6 fl (82.0-101.0); MEAN PLATELET VOLUME 11.6 fl (7.4-10.4); MONOCYTE # 0.1 10^3/ul (0.3-0.9); MONOCYTES % 0.8 % (0.0-11.0); NEUTROPHIL # 11.7 10^3/ul (1.6-7.5); NEUTROPHILS % 96.9 % (39.0-77.0); PLATELET COUNT 120 10^3/UL (140-415); POSITIVE DIFF @See below; RED CELL DISTRIBUTION WIDTH 18.8 % (11.5-14.5)
[2018-03-05] MEDS: METHYLPREDNISOLONE 125 MG INJ IV ×3 (05:36→20:26)
[2018-03-05 05:54] LABS: ANION GAP 9 (5-13); BLOOD UREA NITROGEN 79 mg/dl (7-20); CALCIUM 9.1 mg/dl (8.4-10.2); CARBON DIOXIDE 15 mmol/L (21-31); CHLORIDE 121 mmol/L (97-110); GLUCOSE 178 mg/dl (70-220); POTASSIUM 4.2 mmol/L (3.5-5.1); SODIUM 145 mmol/L (135-144)
[2018-03-05 07:46] LABS: ERYTHROCYTE SEDIMENTATION RATE 49 mm/Hr (0-20)
[2018-03-05] MEDS: MEROPENEM 1 GM/50ML(PMX) 50 ML IVPB ×2 (08:59→20:26)
[2018-03-05] MEDS: GUAIFENESIN LA 600 MG TABSR PO ×2 (09:00→20:32)
[2018-03-05] MEDS: MAGNESIUM OXIDE 400 MG TAB PO (09:00)
[2018-03-05] MEDS: ESCITALOPRAM 10 MG TAB PO (09:00)
[2018-03-05] MEDS: ASCORBIC ACID 500 MG TAB PO ×2 (09:00→20:33)
[2018-03-05] MEDS: FOLIC ACID 1 MG TAB PO (09:00)
[2018-03-05] MEDS: OLANZAPINE 2.5 MG TAB PO (09:00)
[2018-03-05] MEDS: METOPROLOL 25 MG TAB PO ×2 (09:00→20:32)
[2018-03-05] MEDS: DOCUSATE SODIUM 100 MG CAP PO (20:32)
[2018-03-05] MEDS: MIRTAZAPINE 15 MG TAB PO (20:32)
[2018-03-05] MEDS: ATORVASTATIN 20 MG TAB PO (20:32)
[2018-03-05] MEDS: DIAZEPAM 5 MG TAB PO (20:33)
[2018-03-06] MEDS: ACETYLCYSTEINE 20% 4 ML VIAL NEB ×4 (01:54→20:45)
[2018-03-06] MEDS: ALBUTEROL/IPRATROPIUM (NEB) 3 ML AMP HHN ×4 (01:54→20:37)
[2018-03-06] MEDS: DEXTROSE 5%-0.45% NACL 1,000 ML IV ×3 (04:43→19:41)
[2018-03-06 06:21] LABS: ADD MAN DIFF? NO
[2018-03-06 06:27] LABS: ABNORMAL IP MESSAGE 1; BASOPHILS % 0.1 % (0.0-2.0); HEMATOCRIT 28.2 % (42.0-52.0); HEMOGLOBIN 8.8 g/dl (14.0-18.0); LYMPHOCYTES # 0.3 10^3/ul (0.8-2.9); LYMPHOCYTES % 2.7 % (15.0-51.0); MEAN CORPUSCULAR HEMOGLOBIN 28.8 pg (29.0-33.0); MEAN CORPUSCULAR HGB CONC 31.2 g/dl (32.0-37.0); MEAN CORPUSCULAR VOLUME 92.2 fl (82.0-101.0); MEAN PLATELET VOLUME 11.1 fl (7.4-10.4); MONOCYTE # 0.2 10^3/ul (0.3-0.9); MONOCYTES % 2.4 % (0.0-11.0); NEUTROPHIL # 9.1 10^3/ul (1.6-7.5); NEUTROPHILS % 94.4 % (39.0-77.0); PLATELET COUNT 132 10^3/UL (140-415); POSITIVE DIFF @See below; RED BLOOD COUNT 3.06 10^6/ul (4.70-6.10); RED CELL DISTRIBUTION WIDTH 18.6 % (11.5-14.5)
[2018-03-06 06:27] LABS: WHITE BLOOD COUNT 9.7 10^3/ul (4.8-10.8)
[2018-03-06 06:41] LABS: LACTIC ACID 1.1 mmol/L (0.5-2.0)
[2018-03-06 06:47] LABS: ANION GAP 7 (5-13); BLOOD UREA NITROGEN 58 mg/dl (7-20); CALCIUM 9.2 mg/dl (8.4-10.2); CARBON DIOXIDE 18 mmol/L (21-31); CHLORIDE 119 mmol/L (97-110); CREATININE 1.13 mg/dl (0.61-1.24); GLUCOSE 142 mg/dl (70-220); POTASSIUM 3.9 mmol/L (3.5-5.1); SODIUM 144 mmol/L (135-144)
[2018-03-06] MEDS: METHYLPREDNISOLONE 40 MG INJ IV ×2 (08:55→20:51)
[2018-03-06] MEDS: ASCORBIC ACID 500 MG TAB PO ×3 (09:00→20:51)
[2018-03-06] MEDS: OLANZAPINE 2.5 MG TAB PO ×2 (09:00→10:34)
[2018-03-06] MEDS: MAGNESIUM OXIDE 400 MG TAB PO ×2 (09:00→10:34)
[2018-03-06] MEDS: METOPROLOL 25 MG TAB PO ×3 (09:00→20:52)
[2018-03-06] MEDS: GUAIFENESIN LA 600 MG TABSR PO ×3 (09:00→20:51)
[2018-03-06] MEDS: ESCITALOPRAM 10 MG TAB PO ×2 (09:00→10:34)
[2018-03-06] MEDS: FOLIC ACID 1 MG TAB PO ×2 (09:00→10:34)
[2018-03-06] MEDS: MEROPENEM 1 GM/50ML(PMX) 50 ML IVPB (09:12)
[2018-03-06] MEDS: CEFEPIME 1GM/50 ML (PMX) 50 ML IVPB ×2 (11:38→20:51)
[2018-03-06] MEDS: DIAZEPAM 5 MG TAB PO (20:51)
[2018-03-06] MEDS: MIRTAZAPINE 15 MG TAB PO (20:51)
[2018-03-06] MEDS: DOCUSATE SODIUM 100 MG CAP PO (20:52)
[2018-03-06] MEDS: ATORVASTATIN 20 MG TAB PO (20:52)
[2018-03-07] MEDS: ALBUTEROL/IPRATROPIUM (NEB) 3 ML AMP HHN ×4 (01:22→19:28)
[2018-03-07] MEDS: ACETYLCYSTEINE 20% 4 ML VIAL NEB ×4 (01:30→19:28)
[2018-03-07 05:37] LABS: ADD MAN DIFF? NO
[2018-03-07 05:38] LABS: ABNORMAL IP MESSAGE 1; BASOPHILS % 0.1 % (0.0-2.0); HEMATOCRIT 30.3 % (42.0-52.0); HEMOGLOBIN 9.6 g/dl (14.0-18.0); LYMPHOCYTES # 0.3 10^3/ul (0.8-2.9); LYMPHOCYTES % 2.1 % (15.0-51.0); MEAN CORPUSCULAR HEMOGLOBIN 28.9 pg (29.0-33.0); MEAN CORPUSCULAR HGB CONC 31.7 g/dl (32.0-37.0); MEAN CORPUSCULAR VOLUME 91.3 fl (82.0-101.0); MEAN PLATELET VOLUME 11.2 fl (7.4-10.4); MONOCYTE # 0.3 10^3/ul (0.3-0.9); MONOCYTES % 2.5 % (0.0-11.0); NEUTROPHIL # 11.2 10^3/ul (1.6-7.5); NEUTROPHILS % 94.5 % (39.0-77.0); NUCLEATED RED BLOOD CELLS% 0.2 /100WBC (0.0-0.0); PLATELET COUNT 125 10^3/UL (140-415); POSITIVE DIFF @See below; RED BLOOD COUNT 3.32 10^6/ul (4.70-6.10); RED CELL DISTRIBUTION WIDTH 18.6 % (11.5-14.5)
[2018-03-07 05:38] LABS: WHITE BLOOD COUNT 11.9 10^3/ul (4.8-10.8)
[2018-03-07 06:04] LABS: ANION GAP 6 (5-13); BLOOD UREA NITROGEN 50 mg/dl (7-20); CALCIUM 9.1 mg/dl (8.4-10.2); CARBON DIOXIDE 18 mmol/L (21-31); CHLORIDE 118 mmol/L (97-110); CREATININE 1.06 mg/dl (0.61-1.24); GLUCOSE 132 mg/dl (70-220); POTASSIUM 4.1 mmol/L (3.5-5.1); SODIUM 142 mmol/L (135-144)
[2018-03-07 06:08] LABS: B-TYPE NATRIURETIC PEPTIDE 5340 PG/ML (0-450)
[2018-03-07 06:58] LABS: ERYTHROCYTE SEDIMENTATION RATE 40 mm/Hr (0-20)
[2018-03-07] MEDS: GUAIFENESIN LA 600 MG TABSR PO ×2 (08:43→21:51)
[2018-03-07] MEDS: ASCORBIC ACID 500 MG TAB PO ×2 (08:43→21:51)
[2018-03-07] MEDS: FOLIC ACID 1 MG TAB PO (08:44)
[2018-03-07] MEDS: OLANZAPINE 2.5 MG TAB PO (08:44)
[2018-03-07] MEDS: METHYLPREDNISOLONE 40 MG INJ IV ×2 (08:44→21:51)
[2018-03-07] MEDS: CEFEPIME 1GM/50 ML (PMX) 50 ML IVPB ×2 (08:44→21:51)
[2018-03-07] MEDS: MAGNESIUM OXIDE 400 MG TAB PO (08:44)
[2018-03-07] MEDS: ESCITALOPRAM 10 MG TAB PO (08:44)
[2018-03-07] MEDS: METOPROLOL 25 MG TAB PO ×2 (08:50→21:52)
[2018-03-07] MEDS ORDERED: COLLAGENASE 5 GM (UD JAR) TOP (18:30)
[2018-03-07] MEDS: DIAZEPAM 5 MG TAB PO (21:51)
[2018-03-07] MEDS: MIRTAZAPINE 15 MG TAB PO (21:51)
[2018-03-07] MEDS: DOCUSATE SODIUM 100 MG CAP PO (21:51)
[2018-03-07] MEDS: ATORVASTATIN 20 MG TAB PO (21:52)
[2018-03-08] MEDS: ACETYLCYSTEINE 20% 4 ML VIAL NEB ×4 (01:03→21:05)
[2018-03-08] MEDS: ALBUTEROL/IPRATROPIUM (NEB) 3 ML AMP HHN ×4 (01:03→21:05)
[2018-03-08 03:17] LABS: PROTEIN, TOTAL 5.6 g/dL (6.1-8.1)
[2018-03-08 06:26] LABS: ADD MAN DIFF? NO
[2018-03-08 06:39] LABS: WHITE BLOOD COUNT 11.9 10^3/ul (4.8-10.8)
[2018-03-08 06:39] LABS: ABNORMAL IP MESSAGE 1; HEMATOCRIT 30.5 % (42.0-52.0); HEMOGLOBIN 9.8 g/dl (14.0-18.0); LYMPHOCYTES # 0.2 10^3/ul (0.8-2.9); LYMPHOCYTES % 1.9 % (15.0-51.0); MEAN CORPUSCULAR HEMOGLOBIN 29.3 pg (29.0-33.0); MEAN CORPUSCULAR HGB CONC 32.1 g/dl (32.0-37.0); MEAN PLATELET VOLUME 11.6 fl (7.4-10.4); MONOCYTE # 0.5 10^3/ul (0.3-0.9); MONOCYTES % 3.8 % (0.0-11.0); NEUTROPHIL # 11.1 10^3/ul (1.6-7.5); NEUTROPHILS % 93.4 % (39.0-77.0); PLATELET COUNT 113 10^3/UL (140-415); POSITIVE DIFF @See below; RED BLOOD COUNT 3.35 10^6/ul (4.70-6.10); RED CELL DISTRIBUTION WIDTH 18.4 % (11.5-14.5)
[2018-03-08 07:14] LABS: ANION GAP 6 (5-13); BLOOD UREA NITROGEN 50 mg/dl (7-20); CALCIUM 9.2 mg/dl (8.4-10.2); CARBON DIOXIDE 20 mmol/L (21-31); CHLORIDE 118 mmol/L (97-110); CREATININE 0.95 mg/dl (0.61-1.24); GLUCOSE 137 mg/dl (70-220); POTASSIUM 4.2 mmol/L (3.5-5.1); SODIUM 144 mmol/L (135-144)
[2018-03-08] MEDS: CEFEPIME 1GM/50 ML (PMX) 50 ML IVPB ×2 (08:07→20:19)
[2018-03-08] MEDS: predniSONE 20 MG TAB PO (08:07)
[2018-03-08] MEDS: METOPROLOL 25 MG TAB PO ×2 (08:08→20:21)
[2018-03-08] MEDS: GUAIFENESIN LA 600 MG TABSR PO ×2 (08:10→20:21)
[2018-03-08] MEDS: FOLIC ACID 1 MG TAB PO (08:10)
[2018-03-08] MEDS: ESCITALOPRAM 10 MG TAB PO (08:10)
[2018-03-08] MEDS: MAGNESIUM OXIDE 400 MG TAB PO (08:10)
[2018-03-08] MEDS: ASCORBIC ACID 500 MG TAB PO ×2 (08:10→20:20)
[2018-03-08] MEDS: OLANZAPINE 2.5 MG TAB PO (08:10)
[2018-03-08] MEDS: COLLAGENASE 5 GM (UD JAR) TOP (08:11)
[2018-03-08] MEDS ORDERED: PENDING SANTYL ORDER FOR WOUND CARE XX (09:00)
[2018-03-08 17:02] LABS: ALBUMIN 2.8 g/dL (3.8-4.8); ALPHA-1-GLOBULINS 0.4 g/dL (0.2-0.3); ALPHA-2-GLOBULINS 0.7 g/dL (0.5-0.9); BETA 2 GLOBULINS 0.5 g/dL (0.2-0.5); BETA GLOBULINS 0.4 g/dL (0.4-0.6); GAMMA GLOBULINS 0.9 g/dL (0.8-1.7)
[2018-03-08] MEDS: DOCUSATE SODIUM 100 MG CAP PO (20:20)
[2018-03-08] MEDS: DIAZEPAM 5 MG TAB PO (20:20)
[2018-03-08] MEDS: ATORVASTATIN 20 MG TAB PO (20:20)
[2018-03-08] MEDS: MIRTAZAPINE 15 MG TAB PO (20:21)
[2018-03-09] MEDS: ALBUTEROL/IPRATROPIUM (NEB) 3 ML AMP HHN ×4 (01:28→20:38)
[2018-03-09] MEDS: ACETYLCYSTEINE 20% 4 ML VIAL NEB ×4 (01:29→20:38)
[2018-03-09] MEDS: ASCORBIC ACID 500 MG TAB PO ×2 (08:24→20:22)
[2018-03-09] MEDS: FOLIC ACID 1 MG TAB PO (08:24)
[2018-03-09] MEDS: GUAIFENESIN LA 600 MG TABSR PO ×2 (08:24→20:23)
[2018-03-09] MEDS: predniSONE 20 MG TAB PO (08:24)
[2018-03-09] MEDS: ESCITALOPRAM 10 MG TAB PO (08:24)
[2018-03-09] MEDS: MAGNESIUM OXIDE 400 MG TAB PO (08:24)
[2018-03-09] MEDS: COLLAGENASE 5 GM (UD JAR) TOP (08:24)
[2018-03-09] MEDS: CEFEPIME 1GM/50 ML (PMX) 50 ML IVPB ×2 (08:24→20:21)
[2018-03-09] MEDS: OLANZAPINE 2.5 MG TAB PO (08:24)
[2018-03-09] MEDS: METOPROLOL 25 MG TAB PO ×2 (08:25→20:22)
[2018-03-09] MEDS: MAGNESIUM HYDROXIDE 30ML CUP PO (13:41)
[2018-03-09] MEDS: DIAZEPAM 5 MG TAB PO (20:22)
[2018-03-09] MEDS: ATORVASTATIN 20 MG TAB PO (20:22)
[2018-03-09] MEDS: MIRTAZAPINE 15 MG TAB PO (20:23)
[2018-03-09] MEDS: DOCUSATE SODIUM 100 MG CAP PO (20:27)
[2018-03-10] MEDS: ACETYLCYSTEINE 20% 4 ML VIAL NEB ×5 (01:09→21:31)
[2018-03-10] MEDS: ALBUTEROL/IPRATROPIUM (NEB) 3 ML AMP HHN ×4 (01:09→21:31)
[2018-03-10 07:16] LABS: ADD MAN DIFF? NO
[2018-03-10 07:27] LABS: BASOPHILS % 0.1 % (0.0-2.0); EOSINOPHILS % 0.1 % (0.0-7.0); HEMATOCRIT 32.1 % (42.0-52.0); HEMOGLOBIN 10.3 g/dl (14.0-18.0); LYMPHOCYTES % 6.9 % (15.0-51.0); MEAN CORPUSCULAR HEMOGLOBIN 29.3 pg (29.0-33.0); MEAN CORPUSCULAR HGB CONC 32.1 g/dl (32.0-37.0); MEAN CORPUSCULAR VOLUME 91.2 fl (82.0-101.0); MEAN PLATELET VOLUME 11.7 fl (7.4-10.4); MONOCYTES % 7.5 % (0.0-11.0); NEUTROPHIL # 11.7 10^3/ul (1.6-7.5); NEUTROPHILS % 84.4 % (39.0-77.0); PLATELET COUNT 110 10^3/UL (140-415); RED BLOOD COUNT 3.52 10^6/ul (4.70-6.10); RED CELL DISTRIBUTION WIDTH 18.3 % (11.5-14.5)
[2018-03-10 07:27] LABS: WHITE BLOOD COUNT 13.9 10^3/ul (4.8-10.8)
[2018-03-10 07:54] LABS: ANION GAP 6 (5-13); BLOOD UREA NITROGEN 52 mg/dl (7-20); CALCIUM 8.8 mg/dl (8.4-10.2); CARBON DIOXIDE 23 mmol/L (21-31); CHLORIDE 112 mmol/L (97-110); CREATININE 1.09 mg/dl (0.61-1.24); GLUCOSE 83 mg/dl (70-220); POTASSIUM 4.1 mmol/L (3.5-5.1); SODIUM 141 mmol/L (135-144)
[2018-03-10] MEDS: COLLAGENASE 5 GM (UD JAR) TOP (09:16)
[2018-03-10] MEDS: CEFEPIME 1GM/50 ML (PMX) 50 ML IVPB ×2 (09:16→21:44)
[2018-03-10] MEDS: ESCITALOPRAM 10 MG TAB PO (09:17)
[2018-03-10] MEDS: OLANZAPINE 2.5 MG TAB PO (09:17)
[2018-03-10] MEDS: METOPROLOL 25 MG TAB PO ×2 (09:17→20:59)
[2018-03-10] MEDS: MAGNESIUM OXIDE 400 MG TAB PO (09:17)
[2018-03-10] MEDS: FOLIC ACID 1 MG TAB PO (09:17)
[2018-03-10] MEDS: GUAIFENESIN LA 600 MG TABSR PO ×2 (09:17→20:59)
[2018-03-10] MEDS: ASCORBIC ACID 500 MG TAB PO ×2 (09:18→20:59)
[2018-03-10] MEDS: predniSONE 20 MG TAB PO (09:18)
[2018-03-10] MEDS: DIAZEPAM 5 MG TAB PO (20:58)
[2018-03-10] MEDS: DOCUSATE SODIUM 100 MG CAP PO (20:58)
[2018-03-10] MEDS: ATORVASTATIN 20 MG TAB PO (20:59)
[2018-03-10] MEDS: MIRTAZAPINE 15 MG TAB PO (20:59)
[2018-03-11] MEDS: ACETAMINOPHEN 325 MG TAB PO (02:08)
[2018-03-11] MEDS: ALBUTEROL/IPRATROPIUM (NEB) 3 ML AMP HHN ×4 (02:12→21:48)
[2018-03-11] MEDS: ACETYLCYSTEINE 20% 4 ML VIAL NEB ×4 (02:19→21:48)
[2018-03-11] MEDS: CEFEPIME 1GM/50 ML (PMX) 50 ML IVPB ×2 (09:19→21:30)
[2018-03-11] MEDS: OLANZAPINE 2.5 MG TAB PO (09:20)
[2018-03-11] MEDS: ESCITALOPRAM 10 MG TAB PO (09:20)
[2018-03-11] MEDS: predniSONE 20 MG TAB PO (09:20)
[2018-03-11] MEDS: ASCORBIC ACID 500 MG TAB PO ×2 (09:20→21:30)
[2018-03-11] MEDS: GUAIFENESIN LA 600 MG TABSR PO ×2 (09:20→21:30)
[2018-03-11] MEDS: MAGNESIUM OXIDE 400 MG TAB PO (09:20)
[2018-03-11] MEDS: FOLIC ACID 1 MG TAB PO (09:20)
[2018-03-11] MEDS: COLLAGENASE 5 GM (UD JAR) TOP (09:21)
[2018-03-11] MEDS: METOPROLOL 25 MG TAB PO ×2 (09:27→21:34)
[2018-03-11] MEDS: ATORVASTATIN 20 MG TAB PO (21:30)
[2018-03-11] MEDS: MIRTAZAPINE 15 MG TAB PO (21:30)
[2018-03-11] MEDS: DOCUSATE SODIUM 100 MG CAP PO (21:30)
[2018-03-11] MEDS: DIAZEPAM 5 MG TAB PO (21:40)
[2018-03-12] MEDS: ALBUTEROL/IPRATROPIUM (NEB) 3 ML AMP HHN ×4 (02:15→20:31)
[2018-03-12] MEDS: ACETYLCYSTEINE 20% 4 ML VIAL NEB ×4 (02:15→20:31)
[2018-03-12 06:58] LABS: ADD MAN DIFF? NO
[2018-03-12 07:06] LABS: BASOPHILS % 0.1 % (0.0-2.0); HEMATOCRIT 32.8 % (42.0-52.0); HEMOGLOBIN 10.1 g/dl (14.0-18.0); LYMPHOCYTES # 0.9 10^3/ul (0.8-2.9); LYMPHOCYTES % 5.3 % (15.0-51.0); MEAN CORPUSCULAR HEMOGLOBIN 28.8 pg (29.0-33.0); MEAN CORPUSCULAR HGB CONC 30.8 g/dl (32.0-37.0); MEAN CORPUSCULAR VOLUME 93.4 fl (82.0-101.0); MEAN PLATELET VOLUME 11.7 fl (7.4-10.4); MONOCYTES % 5.6 % (0.0-11.0); NEUTROPHIL # 14.9 10^3/ul (1.6-7.5); NEUTROPHILS % 87.9 % (39.0-77.0); PLATELET COUNT 110 10^3/UL (140-415); RED BLOOD COUNT 3.51 10^6/ul (4.70-6.10); RED CELL DISTRIBUTION WIDTH 18.4 % (11.5-14.5)
[2018-03-12 07:52] LABS: ANION GAP 6 (5-13); BLOOD UREA NITROGEN 47 mg/dl (7-20); CALCIUM 8.3 mg/dl (8.4-10.2); CARBON DIOXIDE 25 mmol/L (21-31); CHLORIDE 112 mmol/L (97-110); CREATININE 1.04 mg/dl (0.61-1.24); GLUCOSE 99 mg/dl (70-220); POTASSIUM 4.4 mmol/L (3.5-5.1); SODIUM 143 mmol/L (135-144)
[2018-03-12] MEDS: COLLAGENASE 5 GM (UD JAR) TOP (09:22)
[2018-03-12] MEDS: MAGNESIUM OXIDE 400 MG TAB PO (09:22)
[2018-03-12] MEDS: predniSONE 20 MG TAB PO (09:22)
[2018-03-12] MEDS: CEFEPIME 1GM/50 ML (PMX) 50 ML IVPB ×2 (09:22→20:15)
[2018-03-12] MEDS: ESCITALOPRAM 10 MG TAB PO (09:23)
[2018-03-12] MEDS: ASCORBIC ACID 500 MG TAB PO ×2 (09:23→20:17)
[2018-03-12] MEDS: FOLIC ACID 1 MG TAB PO (09:23)
[2018-03-12] MEDS: METOPROLOL 25 MG TAB PO ×2 (09:23→20:17)
[2018-03-12] MEDS: GUAIFENESIN LA 600 MG TABSR PO ×2 (09:23→20:17)
[2018-03-12] MEDS: OLANZAPINE 2.5 MG TAB PO (09:23)
[2018-03-12] MEDS: MIRTAZAPINE 15 MG TAB PO (20:16)
[2018-03-12] MEDS: DOCUSATE SODIUM 100 MG CAP PO (20:17)
[2018-03-12] MEDS: DIAZEPAM 5 MG TAB PO (20:17)
[2018-03-12] MEDS: ATORVASTATIN 20 MG TAB PO (20:17)
[2018-03-13] MEDS: ACETYLCYSTEINE 20% 4 ML VIAL NEB ×4 (02:31→19:33)
[2018-03-13] MEDS: ALBUTEROL/IPRATROPIUM (NEB) 3 ML AMP HHN ×4 (02:31→19:32)
[2018-03-13 06:47] LABS: ADD MAN DIFF? NO
[2018-03-13 06:50] LABS: ABNORMAL IP MESSAGE 1; BASOPHILS % 0.1 % (0.0-2.0); EOSINOPHILS % 0.1 % (0.0-7.0); HEMATOCRIT 31.3 % (42.0-52.0); HEMOGLOBIN 9.7 g/dl (14.0-18.0); LYMPHOCYTES # 1.2 10^3/ul (0.8-2.9); LYMPHOCYTES % 7.6 % (15.0-51.0); MEAN CORPUSCULAR VOLUME 93.4 fl (82.0-101.0); MEAN PLATELET VOLUME 11.9 fl (7.4-10.4); MONOCYTE # 1.1 10^3/ul (0.3-0.9); NEUTROPHIL # 12.7 10^3/ul (1.6-7.5); NEUTROPHILS % 84.1 % (39.0-77.0); PLATELET COUNT 91 10^3/UL (140-415); POSITIVE DIFF @See below; RED BLOOD COUNT 3.35 10^6/ul (4.70-6.10); RED CELL DISTRIBUTION WIDTH 18.5 % (11.5-14.5)
[2018-03-13 06:50] LABS: WHITE BLOOD COUNT 15.1 10^3/ul (4.8-10.8)
[2018-03-13 07:10] LABS: ANION GAP 3 (5-13); BLOOD UREA NITROGEN 46 mg/dl (7-20); CALCIUM 8.3 mg/dl (8.4-10.2); CARBON DIOXIDE 26 mmol/L (21-31); CHLORIDE 113 mmol/L (97-110); CREATININE 1.05 mg/dl (0.61-1.24); GLUCOSE 90 mg/dl (70-220); POTASSIUM 4.5 mmol/L (3.5-5.1); SODIUM 142 mmol/L (135-144)
[2018-03-13 08:00] LABS: ERYTHROCYTE SEDIMENTATION RATE 12 mm/Hr (0-20)
[2018-03-13] MEDS: MAGNESIUM OXIDE 400 MG TAB PO (08:44)
[2018-03-13] MEDS: predniSONE 20 MG TAB PO (08:44)
[2018-03-13] MEDS: ESCITALOPRAM 10 MG TAB PO (08:44)
[2018-03-13] MEDS: ASCORBIC ACID 500 MG TAB PO ×2 (08:44→20:16)
[2018-03-13] MEDS: METOPROLOL 25 MG TAB PO ×2 (08:44→20:17)
[2018-03-13] MEDS: OLANZAPINE 2.5 MG TAB PO (08:44)
[2018-03-13] MEDS: GUAIFENESIN LA 600 MG TABSR PO ×2 (08:45→20:16)
[2018-03-13] MEDS: CEFEPIME 1GM/50 ML (PMX) 50 ML IVPB (08:45)
[2018-03-13] MEDS: FOLIC ACID 1 MG TAB PO (08:45)
[2018-03-13] MEDS: COLLAGENASE 5 GM (UD JAR) TOP (08:45)
[2018-03-13] MEDS: DIAZEPAM 5 MG TAB PO (20:16)
[2018-03-13] MEDS: DOCUSATE SODIUM 100 MG CAP PO (20:16)
[2018-03-13] MEDS: ATORVASTATIN 20 MG TAB PO (20:17)
[2018-03-13] MEDS: MIRTAZAPINE 15 MG PO (23:17)
[2018-03-14] MEDS: ALBUTEROL/IPRATROPIUM (NEB) 3 ML AMP HHN ×4 (02:24→19:35)
[2018-03-14] MEDS: ACETYLCYSTEINE 20% 4 ML VIAL NEB ×4 (02:25→19:35)
[2018-03-14 07:09] LABS: ADD MAN DIFF? NO
[2018-03-14 07:21] LABS: WHITE BLOOD COUNT 14.6 10^3/ul (4.8-10.8)
[2018-03-14 07:22] LABS: ABNORMAL IP MESSAGE 1; BASOPHILS % 0.1 % (0.0-2.0); EOSINOPHILS % 0.2 % (0.0-7.0); HEMATOCRIT 33.5 % (42.0-52.0); HEMOGLOBIN 10.3 g/dl (14.0-18.0); LYMPHOCYTES # 1.1 10^3/ul (0.8-2.9); LYMPHOCYTES % 7.8 % (15.0-51.0); MEAN CORPUSCULAR HEMOGLOBIN 28.9 pg (29.0-33.0); MEAN CORPUSCULAR HGB CONC 30.7 g/dl (32.0-37.0); MEAN CORPUSCULAR VOLUME 94.1 fl (82.0-101.0); MONOCYTE # 1.2 10^3/ul (0.3-0.9); MONOCYTES % 8.2 % (0.0-11.0); NEUTROPHILS % 82.1 % (39.0-77.0); POSITIVE DIFF @See below; RED BLOOD COUNT 3.56 10^6/ul (4.70-6.10); RED CELL DISTRIBUTION WIDTH 18.4 % (11.5-14.5)
[2018-03-14 08:54] LABS: ERYTHROCYTE SEDIMENTATION RATE 13 mm/Hr (0-20)
[2018-03-14] MEDS ORDERED: predniSONE 10 MG TAB PO (09:00)
[2018-03-14 09:24] LABS: ANISOCYTOSIS 1+ (0-0); BAND NEUTROPHILS #M 0.2 10^3/ul (0.0-0.6); BAND NEUTROPHILS % (M) 2 % (0-4); LYMPHOCYTES #M 1.4 10^3/ul (0.8-2.9); LYMPHOCYTES % (M) 10 % (15-51); MICROCYTOSIS 1+ (0-0); MONOCYTE #M 1.6 10^3/ul (0.3-0.9); MONOCYTES % (M) 11 % (0-11); MYELOCYTES #M 0.1 10^3/ul (0.0-0.0); MYELOCYTES % (M) 1 % (0-0); PLATELET ESTIMATE SIG DECREASED; POIKILOCYTOSIS 1+ (0-0); POLYCHROMASIA 1+ (0-0); PROMYELOCYTES #M 0.1 10^3/ul (0-0); PROMYELOCYTES % (M) 1 % (0-0); REACTIVE LYMPHOCYTES #M 0.5 10^3/ul (0.0-0.0); REACTIVE LYMPHOCYTES% (M) 4 % (0-0); SEG NEUT #M 10.4 10^3/ul (1.6-7.5); SEGMENTED NEUTROPHILS (M) % 71 % (39-77); SMUDGE%M 8 % (0-0)
[2018-03-14 09:25] LABS: PLATELET COUNT 56 10^3/UL (140-415)
[2018-03-14] MEDS: METOPROLOL 25 MG TAB PO ×2 (09:30→20:52)
[2018-03-14] MEDS: OLANZAPINE 2.5 MG TAB PO (09:30)
[2018-03-14] MEDS: ESCITALOPRAM 10 MG TAB PO (09:30)
[2018-03-14] MEDS: ASCORBIC ACID 500 MG TAB PO ×2 (09:31→20:51)
[2018-03-14] MEDS: FOLIC ACID 1 MG TAB PO (09:31)
[2018-03-14] MEDS: GUAIFENESIN LA 600 MG TABSR PO ×2 (09:31→20:51)
[2018-03-14] MEDS: MAGNESIUM OXIDE 400 MG TAB PO (09:31)
[2018-03-14] MEDS: COLLAGENASE 5 GM (UD JAR) TOP (09:31)
[2018-03-14] MEDS: predniSONE 10 MG TAB PO (13:31)
[2018-03-14] MEDS: MIRTAZAPINE 15 MG PO (20:50)
[2018-03-14] MEDS: DOCUSATE SODIUM 100 MG CAP PO (20:51)
[2018-03-14] MEDS: DIAZEPAM 5 MG TAB PO (20:51)
[2018-03-14] MEDS: DOXYCYCLINE 100 MG TAB PO (20:51)
[2018-03-14] MEDS: ATORVASTATIN 20 MG TAB PO (20:51)
[2018-03-14 23:19] LABS: ADD UMIC YES; UR ASCORBIC ACID 40 mg/dL (NEGATIVE); UR BACTERIA FEW /HPF (NONE SEEN); UR BILIRUBIN (Dip) NEGATIVE (NEGATIVE); UR BLOOD (Dip) NEGATIVE (NEGATIVE); UR BUDDING YEAST MANY /HPF (NONE SEEN); UR CLARITY SLIGHTLY CLOUDY (CLEAR); UR COLOR YELLOW (YELLOW); UR GLUCOSE (Dip) 1+ mg/dL (NEGATIVE); UR KETONES (Dip) NEGATIVE (NEGATIVE); UR LEUKOCYTE ESTERASE (Dip) NEGATIVE Leu/ul (NEGATIVE); UR MUCUS FEW /HPF (NONE SEEN); UR NITRITE (Dip) NEGATIVE (NEGATIVE); UR RBC 2 /HPF (0-5); UR SPECIFIC GRAVITY (Dip) 1.019 (1.003-1.030); UR TOTAL PROTEIN (Dip) 2+ mg/dl (NEGATIVE); UR UROBILINOGEN (Dip) NEGATIVE (NEGATIVE); UR WBC 9 /HPF (0-5)
[2018-03-15] MEDS: ALBUTEROL/IPRATROPIUM (NEB) 3 ML AMP HHN ×4 (01:59→21:26)
[2018-03-15] MEDS: ACETYLCYSTEINE 20% 4 ML VIAL NEB ×4 (02:00→20:00)
[2018-03-15] MEDS: LEVOFLOXACIN 500 MG TAB GTB (05:23)
[2018-03-15] MEDS: ESCITALOPRAM 10 MG TAB PO ×2 (09:00→11:20)
[2018-03-15] MEDS: predniSONE 10 MG TAB PO ×2 (09:00→11:22)
[2018-03-15] MEDS: GUAIFENESIN LA 600 MG TABSR PO ×3 (09:00→21:46)
[2018-03-15] MEDS: MAGNESIUM OXIDE 400 MG TAB PO ×2 (09:00→11:22)
[2018-03-15] MEDS: FOLIC ACID 1 MG TAB PO ×2 (09:00→11:22)
[2018-03-15] MEDS: DOXYCYCLINE 100 MG TAB PO ×3 (09:00→21:54)
[2018-03-15] MEDS: ASCORBIC ACID 500 MG TAB PO ×3 (09:00→21:46)
[2018-03-15] MEDS: OLANZAPINE 2.5 MG TAB PO (09:14)
[2018-03-15] MEDS: METOPROLOL 25 MG TAB PO ×2 (09:14→21:46)
[2018-03-15] MEDS: COLLAGENASE 5 GM (UD JAR) TOP (09:15)
[2018-03-15] MEDS: BARIUM SULFATE 135 ML (E-Z HD) PO (09:32)
[2018-03-15] MEDS: IOHEXOL 14.3 MG(I)/ML (ADULT) BTL PO (11:26)
[2018-03-15 14:29] LABS: ADD MAN DIFF? NO
[2018-03-15 14:34] LABS: WHITE BLOOD COUNT 14.6 10^3/ul (4.8-10.8)
[2018-03-15 14:34] LABS: ABNORMAL IP MESSAGE 1; BASOPHILS % 0.1 % (0.0-2.0); EOSINOPHILS % 0.1 % (0.0-7.0); HEMOGLOBIN 10.1 g/dl (14.0-18.0); LYMPHOCYTES # 0.6 10^3/ul (0.8-2.9); LYMPHOCYTES % 3.9 % (15.0-51.0); MEAN CORPUSCULAR HGB CONC 30.6 g/dl (32.0-37.0); MEAN CORPUSCULAR VOLUME 97.9 fl (82.0-101.0); MONOCYTE # 0.7 10^3/ul (0.3-0.9); MONOCYTES % 4.9 % (0.0-11.0); NEUTROPHIL # 13.1 10^3/ul (1.6-7.5); NUCLEATED RED BLOOD CELLS% 0.2 /100WBC (0.0-0.0); PLATELET COUNT 35 10^3/UL (140-415); POSITIVE DIFF @See below; RED BLOOD COUNT 3.37 10^6/ul (4.70-6.10); RED CELL DISTRIBUTION WIDTH 18.6 % (11.5-14.5)
[2018-03-15] MEDS: ATORVASTATIN 20 MG TAB PO (21:46)
[2018-03-15] MEDS: DIAZEPAM 5 MG TAB PO (21:46)
[2018-03-15] MEDS: DOCUSATE SODIUM 100 MG CAP PO (21:46)
[2018-03-16] MEDS: ALBUTEROL/IPRATROPIUM (NEB) 3 ML AMP HHN ×4 (01:48→20:42)
[2018-03-16] MEDS: ACETYLCYSTEINE 20% 4 ML VIAL NEB ×4 (01:53→20:00)
[2018-03-16 05:21] LABS: ADD MAN DIFF? NO
[2018-03-16 05:26] LABS: ABNORMAL IP MESSAGE 1; BASOPHILS % 0.1 % (0.0-2.0); EOSINOPHILS % 0.1 % (0.0-7.0); HEMATOCRIT 28.9 % (42.0-52.0); LYMPHOCYTES % 7.1 % (15.0-51.0); MEAN CORPUSCULAR HEMOGLOBIN 29.2 pg (29.0-33.0); MEAN CORPUSCULAR HGB CONC 31.1 g/dl (32.0-37.0); MEAN CORPUSCULAR VOLUME 93.8 fl (82.0-101.0); MONOCYTE # 0.9 10^3/ul (0.3-0.9); MONOCYTES % 6.7 % (0.0-11.0); NEUTROPHIL # 11.6 10^3/ul (1.6-7.5); NEUTROPHILS % 84.6 % (39.0-77.0); PLATELET COUNT 69 10^3/UL (140-415); POSITIVE DIFF @See below; RED BLOOD COUNT 3.08 10^6/ul (4.70-6.10); RED CELL DISTRIBUTION WIDTH 18.3 % (11.5-14.5)
[2018-03-16 05:26] LABS: WHITE BLOOD COUNT 13.7 10^3/ul (4.8-10.8)
[2018-03-16 05:42] LABS: INR 0.93; PARTIAL THROMBOPLASTIN TIME 22.1 Sec (23.0-35.0); PROTIME 12.5 Sec (11.9-14.9)
[2018-03-16] MEDS: LEVOFLOXACIN 500 MG TAB GTB (06:16)
[2018-03-16] MEDS: GUAIFENESIN LA 600 MG TABSR PO ×2 (08:49→21:11)
[2018-03-16] MEDS: METOPROLOL 25 MG TAB PO ×2 (08:49→21:11)
[2018-03-16] MEDS: ASCORBIC ACID 500 MG TAB PO ×2 (08:49→21:11)
[2018-03-16] MEDS: OLANZAPINE 2.5 MG TAB PO (08:49)
[2018-03-16] MEDS: DOXYCYCLINE 100 MG TAB PO ×2 (08:50→21:11)
[2018-03-16] MEDS: predniSONE 10 MG TAB PO (08:50)
[2018-03-16] MEDS: FOLIC ACID 1 MG TAB PO (08:50)
[2018-03-16] MEDS: ESCITALOPRAM 10 MG TAB PO (08:50)
[2018-03-16] MEDS: COLLAGENASE 5 GM (UD JAR) TOP (08:50)
[2018-03-16] MEDS: MAGNESIUM OXIDE 400 MG TAB PO (08:50)
[2018-03-16] MEDS: DIAZEPAM 5 MG TAB PO (21:11)
[2018-03-16] MEDS: ATORVASTATIN 20 MG TAB PO (21:11)
[2018-03-16] MEDS: DOCUSATE SODIUM 100 MG CAP PO (21:11)
[2018-03-17] MEDS: ALBUTEROL/IPRATROPIUM (NEB) 3 ML AMP HHN ×4 (00:57→20:12)
[2018-03-17] MEDS: ACETYLCYSTEINE 20% 4 ML VIAL NEB ×5 (02:00→20:12)
[2018-03-17] MEDS: LEVOFLOXACIN 500 MG TAB GTB (06:20)
[2018-03-17 07:34] LABS: ADD MAN DIFF? NO
[2018-03-17 07:45] LABS: WHITE BLOOD COUNT 13.9 10^3/ul (4.8-10.8)
[2018-03-17 07:45] LABS: ABNORMAL IP MESSAGE 1; BASOPHILS % 0.1 % (0.0-2.0); HEMATOCRIT 31.2 % (42.0-52.0); HEMOGLOBIN 9.7 g/dl (14.0-18.0); LYMPHOCYTES # 1.1 10^3/ul (0.8-2.9); LYMPHOCYTES % 8.1 % (15.0-51.0); MEAN CORPUSCULAR HGB CONC 31.1 g/dl (32.0-37.0); MEAN CORPUSCULAR VOLUME 93.1 fl (82.0-101.0); MEAN PLATELET VOLUME 12.3 fl (7.4-10.4); MONOCYTES % 7.1 % (0.0-11.0); NEUTROPHIL # 11.6 10^3/ul (1.6-7.5); NEUTROPHILS % 83.3 % (39.0-77.0); POSITIVE DIFF @See below; RED BLOOD COUNT 3.35 10^6/ul (4.70-6.10); RED CELL DISTRIBUTION WIDTH 18.7 % (11.5-14.5)
[2018-03-17 07:51] LABS: PLATELET COUNT 48 10^3/UL (140-415)
[2018-03-17 08:06] LABS: INR 0.96; PROTIME 12.9 Sec (11.9-14.9)
[2018-03-17 08:07] LABS: PARTIAL THROMBOPLASTIN TIME 21.9 Sec (23.0-35.0)
[2018-03-17 08:18] LABS: ANION GAP 4 (5-13); BLOOD UREA NITROGEN 45 mg/dl (7-20); CALCIUM 8.3 mg/dl (8.4-10.2); CARBON DIOXIDE 25 mmol/L (21-31); CHLORIDE 112 mmol/L (97-110); CREATININE 0.87 mg/dl (0.61-1.24); GLUCOSE 85 mg/dl (70-220); POTASSIUM 4.5 mmol/L (3.5-5.1); SODIUM 141 mmol/L (135-144)
[2018-03-17] MEDS: ESCITALOPRAM 10 MG TAB PO (08:43)
[2018-03-17] MEDS: MAGNESIUM OXIDE 400 MG TAB PO (08:43)
[2018-03-17] MEDS: COLLAGENASE 5 GM (UD JAR) TOP (08:43)
[2018-03-17] MEDS: OLANZAPINE 2.5 MG TAB PO (08:43)
[2018-03-17] MEDS: FOLIC ACID 1 MG TAB PO (08:43)
[2018-03-17] MEDS: METOPROLOL 25 MG TAB PO ×2 (08:44→20:27)
[2018-03-17] MEDS: GUAIFENESIN LA 600 MG TABSR PO ×2 (08:44→20:27)
[2018-03-17] MEDS: ASCORBIC ACID 500 MG TAB PO ×2 (08:44→20:28)
[2018-03-17] MEDS: DOXYCYCLINE 100 MG TAB PO ×2 (08:44→20:28)
[2018-03-17] MEDS: predniSONE 10 MG TAB PO (08:45)
[2018-03-17] MEDS: FLUCONAZOLE 100 MG TAB PO (12:15)
[2018-03-17] MEDS: DOCUSATE SODIUM 100 MG CAP PO (20:27)
[2018-03-17] MEDS: ATORVASTATIN 20 MG TAB PO (20:27)
[2018-03-17] MEDS: DIAZEPAM 5 MG TAB PO (20:28)
[2018-03-17] MEDS: VORICONAZOLE 200 MG TAB PO ×2 (20:30→22:20)
[2018-03-17] MEDS ORDERED: VORICONAZOLE 200 MG TAB PO (21:00)
[2018-03-18] MEDS: ALBUTEROL/IPRATROPIUM (NEB) 3 ML AMP HHN ×4 (01:06→19:47)
[2018-03-18] MEDS: ACETYLCYSTEINE 20% 4 ML VIAL NEB ×4 (01:06→19:47)
[2018-03-18] MEDS: LEVOFLOXACIN 500 MG TAB GTB (05:46)
[2018-03-18] MEDS: VORICONAZOLE 200 MG TAB PO ×2 (10:12→21:53)
[2018-03-18] MEDS: ASCORBIC ACID 500 MG TAB PO ×2 (10:12→21:54)
[2018-03-18] MEDS: MAGNESIUM OXIDE 400 MG TAB PO (10:12)
[2018-03-18] MEDS: DOXYCYCLINE 100 MG TAB PO ×2 (10:15→21:54)
[2018-03-18] MEDS: predniSONE 10 MG TAB PO (10:15)
[2018-03-18] MEDS: GUAIFENESIN LA 600 MG TABSR PO ×2 (10:16→21:53)
[2018-03-18] MEDS: FOLIC ACID 1 MG TAB PO (10:16)
[2018-03-18] MEDS: ESCITALOPRAM 10 MG TAB PO (10:16)
[2018-03-18] MEDS: OLANZAPINE 2.5 MG TAB PO (10:16)
[2018-03-18] MEDS: METOPROLOL 25 MG TAB PO ×2 (10:18→21:55)
[2018-03-18] MEDS: ATORVASTATIN 20 MG TAB PO (21:53)
[2018-03-18] MEDS: DIAZEPAM 5 MG TAB PO (21:53)
[2018-03-18] MEDS: DOCUSATE SODIUM 100 MG CAP PO (21:54)
[2018-03-19] MEDS: ACETYLCYSTEINE 20% 4 ML VIAL NEB ×4 (01:24→19:53)
[2018-03-19] MEDS: ALBUTEROL/IPRATROPIUM (NEB) 3 ML AMP HHN ×4 (01:24→19:53)
[2018-03-19] MEDS: LEVOFLOXACIN 500 MG TAB GTB (05:40)
[2018-03-19 06:11] LABS: ADD MAN DIFF? NO
[2018-03-19 06:15] LABS: ABNORMAL IP MESSAGE 1; EOSINOPHILS % 0.1 % (0.0-7.0); HEMATOCRIT 30.7 % (42.0-52.0); HEMOGLOBIN 9.4 g/dl (14.0-18.0); LYMPHOCYTES # 1.1 10^3/ul (0.8-2.9); MEAN CORPUSCULAR HEMOGLOBIN 28.8 pg (29.0-33.0); MEAN CORPUSCULAR HGB CONC 30.6 g/dl (32.0-37.0); MEAN CORPUSCULAR VOLUME 94.2 fl (82.0-101.0); MEAN PLATELET VOLUME 11.6 fl (7.4-10.4); MONOCYTES % 6.9 % (0.0-11.0); NEUTROPHIL # 11.7 10^3/ul (1.6-7.5); NEUTROPHILS % 83.4 % (39.0-77.0); PLATELET COUNT 46 10^3/UL (140-415); POSITIVE DIFF @See below; RED BLOOD COUNT 3.26 10^6/ul (4.70-6.10); RED CELL DISTRIBUTION WIDTH 18.9 % (11.5-14.5)
[2018-03-19 06:15] LABS: WHITE BLOOD COUNT 14.1 10^3/ul (4.8-10.8)
[2018-03-19 06:47] LABS: ANION GAP 7 (5-13); BLOOD UREA NITROGEN 49 mg/dl (7-20); CALCIUM 8.1 mg/dl (8.4-10.2); CARBON DIOXIDE 24 mmol/L (21-31); CHLORIDE 110 mmol/L (97-110); CREATININE 0.87 mg/dl (0.61-1.24); GLUCOSE 74 mg/dl (70-220); POTASSIUM 4.3 mmol/L (3.5-5.1); SODIUM 141 mmol/L (135-144)
[2018-03-19] MEDS: VORICONAZOLE 200 MG TAB PO ×2 (09:39→20:27)
[2018-03-19] MEDS: COLLAGENASE 5 GM (UD JAR) TOP (09:39)
[2018-03-19] MEDS: ESCITALOPRAM 10 MG TAB PO (09:39)
[2018-03-19] MEDS: DOXYCYCLINE 100 MG TAB PO ×2 (09:39→20:27)
[2018-03-19] MEDS: predniSONE 10 MG TAB PO (09:39)
[2018-03-19] MEDS: FOLIC ACID 1 MG TAB PO (09:40)
[2018-03-19] MEDS: METOPROLOL 25 MG TAB PO ×2 (09:40→20:28)
[2018-03-19] MEDS: MAGNESIUM OXIDE 400 MG TAB PO (09:40)
[2018-03-19] MEDS: ASCORBIC ACID 500 MG TAB PO ×2 (09:40→20:27)
[2018-03-19] MEDS: OLANZAPINE 2.5 MG TAB PO (09:40)
[2018-03-19] MEDS: GUAIFENESIN LA 600 MG TABSR PO ×2 (09:40→20:28)
[2018-03-19] MEDS: DIAZEPAM 5 MG TAB PO (20:27)
[2018-03-19] MEDS: DOCUSATE SODIUM 100 MG CAP PO (20:27)
[2018-03-19] MEDS: ATORVASTATIN 20 MG TAB PO (20:27)
[2018-03-20] MEDS: ACETYLCYSTEINE 20% 4 ML VIAL NEB ×4 (02:00→21:04)
[2018-03-20] MEDS: ALBUTEROL/IPRATROPIUM (NEB) 3 ML AMP HHN ×4 (02:00→21:04)
[2018-03-20] MEDS: LEVOFLOXACIN 500 MG TAB GTB (05:27)
[2018-03-20 07:39] LABS: ADD MAN DIFF? NO
[2018-03-20 07:45] LABS: WHITE BLOOD COUNT 19.2 10^3/ul (4.8-10.8)
[2018-03-20 07:45] LABS: ABNORMAL IP MESSAGE 1; BASOPHILS % 0.1 % (0.0-2.0); EOSINOPHILS % 0.2 % (0.0-7.0); HEMATOCRIT 36.1 % (42.0-52.0); HEMOGLOBIN 11.1 g/dl (14.0-18.0); LYMPHOCYTES # 0.7 10^3/ul (0.8-2.9); LYMPHOCYTES % 3.4 % (15.0-51.0); MEAN CORPUSCULAR HEMOGLOBIN 29.3 pg (29.0-33.0); MEAN CORPUSCULAR HGB CONC 30.7 g/dl (32.0-37.0); MEAN CORPUSCULAR VOLUME 95.3 fl (82.0-101.0); MONOCYTES % 5.2 % (0.0-11.0); NEUTROPHIL # 17.3 10^3/ul (1.6-7.5); NEUTROPHILS % 89.8 % (39.0-77.0); PLATELET COUNT 76 10^3/UL (140-415); POSITIVE DIFF @See below; RED BLOOD COUNT 3.79 10^6/ul (4.70-6.10); RED CELL DISTRIBUTION WIDTH 19.3 % (11.5-14.5)
[2018-03-20 08:03] LABS: ANION GAP 5 (5-13); BLOOD UREA NITROGEN 43 mg/dl (7-20); CALCIUM 8.9 mg/dl (8.4-10.2); CARBON DIOXIDE 25 mmol/L (21-31); CHLORIDE 113 mmol/L (97-110); CREATININE 0.92 mg/dl (0.61-1.24); GLUCOSE 77 mg/dl (70-220); POTASSIUM 4.4 mmol/L (3.5-5.1); SODIUM 143 mmol/L (135-144)
[2018-03-20] MEDS: METOPROLOL 25 MG TAB PO ×2 (09:17→21:00)
[2018-03-20] MEDS: VORICONAZOLE 200 MG TAB PO ×2 (10:00→20:48)
[2018-03-20] MEDS: predniSONE 10 MG TAB PO (10:00)
[2018-03-20] MEDS: ESCITALOPRAM 10 MG TAB PO (10:00)
[2018-03-20] MEDS: GUAIFENESIN LA 600 MG TABSR PO ×2 (10:00→20:48)
[2018-03-20] MEDS: MAGNESIUM OXIDE 400 MG TAB PO (10:00)
[2018-03-20] MEDS: DOXYCYCLINE 100 MG TAB PO ×2 (10:00→20:48)
[2018-03-20] MEDS: ASCORBIC ACID 500 MG TAB PO ×2 (10:00→20:48)
[2018-03-20] MEDS: FOLIC ACID 1 MG TAB PO (10:00)
[2018-03-20] MEDS: OLANZAPINE 2.5 MG TAB PO (10:00)
[2018-03-20] MEDS: ONDANSETRON 4 MG INJ IV (12:37)
[2018-03-20] MEDS: PANTOPRAZOLE 40 MG INJ IV ×2 (12:45→18:26)
[2018-03-20] MEDS: metroNIDAZOLE 500 MG/NS (PMX) 100 ML IVPB ×2 (16:43→21:06)
[2018-03-20] MEDS: COLLAGENASE 5 GM (UD JAR) TOP (17:19)
[2018-03-20 19:31] LABS: AMYLASE 167 U/L (11-123)
[2018-03-20 19:31] LABS: LIPASE 44 U/L (23-300)
[2018-03-20] MEDS: IOHEXOL 14.3 MG(I)/ML (ADULT) BTL PO (19:32)
[2018-03-20] MEDS: ATORVASTATIN 20 MG TAB PO (20:48)
[2018-03-20] MEDS: DIAZEPAM 5 MG TAB PO (20:48)
[2018-03-20] MEDS: DOCUSATE SODIUM 100 MG CAP PO (21:00)
[2018-03-21] MEDS: ACETYLCYSTEINE 20% 4 ML VIAL NEB ×4 (01:04→19:40)
[2018-03-21] MEDS: ALBUTEROL/IPRATROPIUM (NEB) 3 ML AMP HHN ×4 (01:04→19:40)
[2018-03-21] MEDS: PANTOPRAZOLE 40 MG INJ IV ×2 (05:37→17:10)
[2018-03-21] MEDS: metroNIDAZOLE 500 MG/NS (PMX) 100 ML IVPB ×3 (05:37→22:17)
[2018-03-21 06:03] LABS: ADD MAN DIFF? NO
[2018-03-21 06:16] LABS: ABNORMAL IP MESSAGE 1; BASOPHILS % 0.1 % (0.0-2.0); HEMOGLOBIN 11.6 g/dl (14.0-18.0); LYMPHOCYTES # 0.3 10^3/ul (0.8-2.9); MEAN CORPUSCULAR HEMOGLOBIN 28.9 pg (29.0-33.0); MEAN CORPUSCULAR HGB CONC 30.5 g/dl (32.0-37.0); MEAN CORPUSCULAR VOLUME 94.8 fl (82.0-101.0); MEAN PLATELET VOLUME 10.1 fl (7.4-10.4); MONOCYTE # 0.9 10^3/ul (0.3-0.9); MONOCYTES % 6.3 % (0.0-11.0); NEUTROPHIL # 12.7 10^3/ul (1.6-7.5); NEUTROPHILS % 90.7 % (39.0-77.0); PLATELET COUNT 73 10^3/UL (140-415); POSITIVE DIFF @See below; RED BLOOD COUNT 4.01 10^6/ul (4.70-6.10); RED CELL DISTRIBUTION WIDTH 19.3 % (11.5-14.5)
[2018-03-21 06:32] LABS: AMYLASE 170 U/L (11-123)
[2018-03-21 06:53] LABS: ANION GAP 10 (5-13); BLOOD UREA NITROGEN 57 mg/dl (7-20); CALCIUM 9.1 mg/dl (8.4-10.2); CARBON DIOXIDE 19 mmol/L (21-31); CHLORIDE 110 mmol/L (97-110); CREATININE 1.77 mg/dl (0.61-1.24); GLUCOSE 105 mg/dl (70-220); POTASSIUM 5.3 mmol/L (3.5-5.1); SODIUM 139 mmol/L (135-144)
[2018-03-21] MEDS ORDERED: predniSONE 10 MG TAB PO (09:00)
[2018-03-21] MEDS: LEVOFLOXACIN 500 MG TAB GTB (10:29)
[2018-03-21] MEDS: FOLIC ACID 1 MG TAB PO (10:30)
[2018-03-21] MEDS: ESCITALOPRAM 10 MG TAB PO (10:31)
[2018-03-21] MEDS: METOPROLOL 25 MG TAB PO ×2 (10:32→20:05)
[2018-03-21] MEDS: predniSONE 20 MG TAB PO (10:33)
[2018-03-21] MEDS: VORICONAZOLE 200 MG TAB PO ×2 (10:33→20:05)
[2018-03-21] MEDS: GUAIFENESIN LA 600 MG TABSR PO ×2 (10:33→20:05)
[2018-03-21] MEDS: COLLAGENASE 5 GM (UD JAR) TOP (10:34)
[2018-03-21] MEDS: DOXYCYCLINE 100 MG TAB PO (10:34)
[2018-03-21] MEDS: OLANZAPINE 2.5 MG TAB PO (10:34)
[2018-03-21] MEDS: ASCORBIC ACID 500 MG TAB PO ×2 (10:34→20:05)
[2018-03-21] MEDS: MAGNESIUM OXIDE 400 MG TAB PO (13:21)
[2018-03-21] MEDS: ATORVASTATIN 20 MG TAB PO (20:05)
[2018-03-21] MEDS: DIAZEPAM 5 MG TAB PO (20:05)
[2018-03-21] MEDS: DOCUSATE SODIUM 100 MG CAP PO (20:08)
[2018-03-22] MEDS: SOD CHLORIDE 0.45% 1,000 ML IV ×5 (01:21→20:00)
[2018-03-22] MEDS: ALBUTEROL/IPRATROPIUM (NEB) 3 ML AMP HHN ×4 (01:48→19:37)
[2018-03-22] MEDS: ACETYLCYSTEINE 20% 4 ML VIAL NEB ×4 (01:48→19:38)
[2018-03-22] MEDS: metroNIDAZOLE 500 MG/NS (PMX) 100 ML IVPB ×3 (05:37→21:33)
[2018-03-22] MEDS: PANTOPRAZOLE 40 MG INJ IV ×2 (05:37→18:00)
[2018-03-22 06:41] LABS: ADD MAN DIFF? NO
[2018-03-22 06:49] LABS: ABNORMAL IP MESSAGE 1; BASOPHILS % 0.1 % (0.0-2.0); HEMATOCRIT 33.6 % (42.0-52.0); HEMOGLOBIN 10.8 g/dl (14.0-18.0); LYMPHOCYTES # 0.4 10^3/ul (0.8-2.9); LYMPHOCYTES % 2.8 % (15.0-51.0); MEAN CORPUSCULAR HEMOGLOBIN 29.3 pg (29.0-33.0); MEAN CORPUSCULAR HGB CONC 32.1 g/dl (32.0-37.0); MEAN CORPUSCULAR VOLUME 91.3 fl (82.0-101.0); MEAN PLATELET VOLUME 10.8 fl (7.4-10.4); MONOCYTE # 0.8 10^3/ul (0.3-0.9); NEUTROPHIL # 13.8 10^3/ul (1.6-7.5); NEUTROPHILS % 91.3 % (39.0-77.0); PLATELET COUNT 71 10^3/UL (140-415); POSITIVE DIFF @See below; RED BLOOD COUNT 3.68 10^6/ul (4.70-6.10)
[2018-03-22 06:49] LABS: WHITE BLOOD COUNT 15.1 10^3/ul (4.8-10.8)
[2018-03-22 07:20] LABS: ANION GAP 15 (5-13); BLOOD UREA NITROGEN 70 mg/dl (7-20); CALCIUM 8.3 mg/dl (8.4-10.2); CARBON DIOXIDE 18 mmol/L (21-31); CHLORIDE 103 mmol/L (97-110); CREATININE 2.13 mg/dl (0.61-1.24); GLUCOSE 113 mg/dl (70-220); POTASSIUM 5.1 mmol/L (3.5-5.1); SODIUM 136 mmol/L (135-144)
[2018-03-22] MEDS: FOLIC ACID 1 MG TAB PO (08:26)
[2018-03-22] MEDS: ESCITALOPRAM 10 MG TAB PO (08:26)
[2018-03-22] MEDS: GUAIFENESIN LA 600 MG TABSR PO ×2 (08:28→21:00)
[2018-03-22] MEDS: MAGNESIUM OXIDE 400 MG TAB PO (08:28)
[2018-03-22] MEDS: METOPROLOL 25 MG TAB PO ×2 (08:28→20:59)
[2018-03-22] MEDS: ASCORBIC ACID 500 MG TAB PO ×2 (08:29→20:59)
[2018-03-22] MEDS: VORICONAZOLE 200 MG TAB PO (08:29)
[2018-03-22] MEDS: predniSONE 20 MG TAB PO (08:29)
[2018-03-22] MEDS: COLLAGENASE 5 GM (UD JAR) TOP (08:30)
[2018-03-22] MEDS: OLANZAPINE 2.5 MG TAB PO (08:30)
[2018-03-22] MEDS ORDERED: METOCLOPRAMIDE 5 MG TAB PO (18:00)
[2018-03-22] MEDS: DOCUSATE SODIUM 100 MG CAP PO (20:59)
[2018-03-22] MEDS: ATORVASTATIN 20 MG TAB PO (20:59)
[2018-03-22] MEDS: DIAZEPAM 5 MG TAB PO (20:59)
[2018-03-23] MEDS: SOD CHLORIDE 0.45% 1,000 ML IV ×5 (00:39→17:40)
[2018-03-23] MEDS: ACETYLCYSTEINE 20% 4 ML VIAL NEB ×5 (01:16→20:27)
[2018-03-23] MEDS: ALBUTEROL/IPRATROPIUM (NEB) 3 ML AMP HHN ×4 (01:16→20:26)
[2018-03-23] MEDS: metroNIDAZOLE 500 MG/NS (PMX) 100 ML IVPB ×2 (05:21→13:37)
[2018-03-23] MEDS: PANTOPRAZOLE 40 MG INJ IV ×2 (05:21→17:16)
[2018-03-23] MEDS: GUAIFENESIN LA 600 MG TABSR PO ×2 (09:26→20:38)
[2018-03-23] MEDS: COLLAGENASE 5 GM (UD JAR) TOP (09:26)
[2018-03-23] MEDS: MAGNESIUM OXIDE 400 MG TAB PO (09:27)
[2018-03-23] MEDS: FOLIC ACID 1 MG TAB PO (09:27)
[2018-03-23] MEDS: OLANZAPINE 2.5 MG TAB PO (09:27)
[2018-03-23] MEDS: predniSONE 20 MG TAB PO (09:27)
[2018-03-23] MEDS: ESCITALOPRAM 10 MG TAB PO (09:27)
[2018-03-23] MEDS: METOPROLOL 25 MG TAB PO ×2 (09:27→20:38)
[2018-03-23] MEDS: ASCORBIC ACID 500 MG TAB PO ×2 (09:27→20:38)
[2018-03-23] MEDS: CALCIUM CARBONATE 500 MG CHEW TAB PO (10:54)
[2018-03-23 12:49] LABS: ANION GAP 9 (5-13); BLOOD UREA NITROGEN 60 mg/dl (7-20); CALCIUM 8.5 mg/dl (8.4-10.2); CARBON DIOXIDE 17 mmol/L (21-31); CHLORIDE 110 mmol/L (97-110); CREATININE 1.57 mg/dl (0.61-1.24); GLUCOSE 88 mg/dl (70-220); POTASSIUM 4.2 mmol/L (3.5-5.1); SODIUM 136 mmol/L (135-144)
[2018-03-23] MEDS: ATORVASTATIN 20 MG TAB PO (20:37)
[2018-03-23] MEDS: DOCUSATE SODIUM 100 MG CAP PO (20:37)
[2018-03-23] MEDS: DIAZEPAM 5 MG TAB PO (20:38)
[2018-03-23 21:16] LABS: PLATELET ANTIBODY - IGA POSITIVE (NEGATIVE); PLATELET ANTIBODY - IGG NEGATIVE (NEGATIVE); PLATELET ANTIBODY - IGM NEGATIVE (NEGATIVE)
[2018-03-24] MEDS: ALBUTEROL/IPRATROPIUM (NEB) 3 ML AMP HHN ×4 (01:48→20:02)
[2018-03-24] MEDS: ACETYLCYSTEINE 20% 4 ML VIAL NEB ×4 (01:48→20:02)
[2018-03-24] MEDS: SOD CHLORIDE 0.45% 1,000 ML IV ×4 (05:11→18:21)
[2018-03-24] MEDS: PANTOPRAZOLE 40 MG INJ IV ×2 (05:11→17:20)
[2018-03-24 05:39] LABS: ADD MAN DIFF? NO
[2018-03-24 05:44] LABS: ABNORMAL IP MESSAGE 1; HEMATOCRIT 28.4 % (42.0-52.0); HEMOGLOBIN 9.2 g/dl (14.0-18.0); LYMPHOCYTES # 0.9 10^3/ul (0.8-2.9); LYMPHOCYTES % 9.2 % (15.0-51.0); MEAN CORPUSCULAR HEMOGLOBIN 29.6 pg (29.0-33.0); MEAN CORPUSCULAR HGB CONC 32.4 g/dl (32.0-37.0); MEAN CORPUSCULAR VOLUME 91.3 fl (82.0-101.0); MEAN PLATELET VOLUME 12.1 fl (7.4-10.4); MONOCYTE # 0.8 10^3/ul (0.3-0.9); MONOCYTES % 8.3 % (0.0-11.0); NEUTROPHIL # 7.7 10^3/ul (1.6-7.5); NEUTROPHILS % 81.9 % (39.0-77.0); PLATELET COUNT 57 10^3/UL (140-415); POSITIVE DIFF @See below; RED BLOOD COUNT 3.11 10^6/ul (4.70-6.10); RED CELL DISTRIBUTION WIDTH 19.5 % (11.5-14.5)
[2018-03-24 05:44] LABS: WHITE BLOOD COUNT 9.4 10^3/ul (4.8-10.8)
[2018-03-24 06:14] LABS: ANION GAP 16 (5-13); BLOOD UREA NITROGEN 50 mg/dl (7-20); CALCIUM 8.2 mg/dl (8.4-10.2); CARBON DIOXIDE 17 mmol/L (21-31); CHLORIDE 111 mmol/L (97-110); CREATININE 1.25 mg/dl (0.61-1.24); GLUCOSE 71 mg/dl (70-220); POTASSIUM 4.2 mmol/L (3.5-5.1); SODIUM 144 mmol/L (135-144)
[2018-03-24] MEDS: ASCORBIC ACID 500 MG TAB PO ×3 (08:48→21:00)
[2018-03-24] MEDS: GUAIFENESIN LA 600 MG TABSR PO ×3 (08:48→21:00)
[2018-03-24] MEDS: ESCITALOPRAM 10 MG TAB PO ×2 (08:48→11:50)
[2018-03-24] MEDS: MAGNESIUM OXIDE 400 MG TAB PO ×2 (08:48→11:50)
[2018-03-24] MEDS: OLANZAPINE 2.5 MG TAB PO ×2 (08:48→11:51)
[2018-03-24] MEDS: predniSONE 20 MG TAB PO ×2 (08:48→11:50)
[2018-03-24] MEDS: FOLIC ACID 1 MG TAB PO ×2 (08:48→11:49)
[2018-03-24] MEDS: METOPROLOL 25 MG TAB PO ×3 (08:49→21:00)
[2018-03-24] MEDS: COLLAGENASE 5 GM (UD JAR) TOP (08:50)
[2018-03-24 13:26] LABS: B-TYPE NATRIURETIC PEPTIDE 4960 PG/ML (0-450)
[2018-03-24] MEDS: FUROSEMIDE 20 MG INJ IV (14:33)
[2018-03-24] MEDS: ATORVASTATIN 20 MG TAB PO (21:00)
[2018-03-24] MEDS: DOCUSATE SODIUM 100 MG CAP PO (21:00)
[2018-03-25] MEDS: ACETYLCYSTEINE 20% 4 ML VIAL NEB ×4 (02:48→19:33)
[2018-03-25] MEDS: ALBUTEROL/IPRATROPIUM (NEB) 3 ML AMP HHN ×4 (02:48→19:24)
[2018-03-25] MEDS: PANTOPRAZOLE 40 MG INJ IV ×2 (05:42→17:33)
[2018-03-25 06:58] LABS: ADD MAN DIFF? NO
[2018-03-25 07:06] LABS: ABNORMAL IP MESSAGE 1; BASOPHILS % 0.1 % (0.0-2.0); EOSINOPHILS % 0.3 % (0.0-7.0); HEMATOCRIT 29.8 % (42.0-52.0); HEMOGLOBIN 9.4 g/dl (14.0-18.0); LYMPHOCYTES % 10.7 % (15.0-51.0); MEAN CORPUSCULAR HEMOGLOBIN 29.4 pg (29.0-33.0); MEAN CORPUSCULAR HGB CONC 31.5 g/dl (32.0-37.0); MEAN CORPUSCULAR VOLUME 93.1 fl (82.0-101.0); MEAN PLATELET VOLUME 12.5 fl (7.4-10.4); MONOCYTE # 0.8 10^3/ul (0.3-0.9); MONOCYTES % 8.9 % (0.0-11.0); NEUTROPHIL # 7.5 10^3/ul (1.6-7.5); NEUTROPHILS % 79.7 % (39.0-77.0); PLATELET COUNT 70 10^3/UL (140-415); POSITIVE DIFF @See below; RED CELL DISTRIBUTION WIDTH 19.1 % (11.5-14.5)
[2018-03-25 07:06] LABS: WHITE BLOOD COUNT 9.4 10^3/ul (4.8-10.8)
[2018-03-25] MEDS: SOD CHLORIDE 0.45% 1,000 ML IV ×2 (07:13→23:12)
[2018-03-25 07:34] LABS: B-TYPE NATRIURETIC PEPTIDE 2800 PG/ML (0-450)
[2018-03-25 07:50] LABS: ALANINE AMINOTRANSFERASE 28 IU/L (13-69); ALBUMIN 2.4 g/dl (3.3-4.9); ALBUMIN/GLOBULIN RATIO 0.96; ALKALINE PHOSPHATASE 45 IU/L (42-121); ANION GAP 10 (5-13); ASPARTATE AMINO TRANSFERASE 19 IU/L (15-46); BILIRUBIN,INDIRECT 0.4 mg/dl (0-1.1); BILIRUBIN,TOTAL 0.4 mg/dl (0.2-1.3); BLOOD UREA NITROGEN 36 mg/dl (7-20); CARBON DIOXIDE 18 mmol/L (21-31); CHLORIDE 112 mmol/L (97-110); CREATININE 1.09 mg/dl (0.61-1.24); GLUCOSE 86 mg/dl (70-220); LIPASE 103 U/L (23-300); POTASSIUM 3.3 mmol/L (3.5-5.1); SODIUM 140 mmol/L (135-144); TOTAL PROTEIN 4.9 g/dl (6.1-8.1)
[2018-03-25] MEDS: METOPROLOL 25 MG TAB PO ×2 (09:00→21:47)
[2018-03-25] MEDS: ASCORBIC ACID 500 MG TAB PO ×2 (09:36→21:48)
[2018-03-25] MEDS: GUAIFENESIN LA 600 MG TABSR PO ×2 (09:36→21:43)
[2018-03-25] MEDS: OLANZAPINE 2.5 MG TAB PO ×2 (09:36→20:07)
[2018-03-25] MEDS: ESCITALOPRAM 10 MG TAB PO (09:36)
[2018-03-25] MEDS: COLLAGENASE 5 GM (UD JAR) TOP (09:36)
[2018-03-25] MEDS: FOLIC ACID 1 MG TAB PO (09:36)
[2018-03-25] MEDS: MAGNESIUM OXIDE 400 MG TAB PO (09:36)
[2018-03-25] MEDS: predniSONE 20 MG TAB PO (09:37)
[2018-03-25] MEDS: POTASSIUM CHLORIDE (SR) 20 MEQ TAB PO (10:56)
[2018-03-25] MEDS: DOCUSATE SODIUM 100 MG CAP PO (21:43)
[2018-03-25] MEDS: ATORVASTATIN 20 MG TAB PO (21:43)
[2018-03-26] MEDS: ALBUTEROL/IPRATROPIUM (NEB) 3 ML AMP HHN ×4 (00:56→19:46)
[2018-03-26] MEDS: ACETYLCYSTEINE 20% 4 ML VIAL NEB ×4 (00:56→19:54)
[2018-03-26 06:02] LABS: ADD MAN DIFF? NO
[2018-03-26 06:08] LABS: WHITE BLOOD COUNT 12.4 10^3/ul (4.8-10.8)
[2018-03-26 06:08] LABS: ABNORMAL IP MESSAGE 1; BASOPHILS % 0.1 % (0.0-2.0); EOSINOPHILS % 0.1 % (0.0-7.0); HEMATOCRIT 30.7 % (42.0-52.0); HEMOGLOBIN 9.8 g/dl (14.0-18.0); LYMPHOCYTES # 0.5 10^3/ul (0.8-2.9); LYMPHOCYTES % 4.3 % (15.0-51.0); MEAN CORPUSCULAR HEMOGLOBIN 29.3 pg (29.0-33.0); MEAN CORPUSCULAR HGB CONC 31.9 g/dl (32.0-37.0); MEAN CORPUSCULAR VOLUME 91.9 fl (82.0-101.0); MEAN PLATELET VOLUME 11.2 fl (7.4-10.4); MONOCYTE # 0.7 10^3/ul (0.3-0.9); MONOCYTES % 5.9 % (0.0-11.0); NEUTROPHILS % 89.1 % (39.0-77.0); PLATELET COUNT 88 10^3/UL (140-415); POSITIVE DIFF @See below; RED BLOOD COUNT 3.34 10^6/ul (4.70-6.10); RED CELL DISTRIBUTION WIDTH 19.3 % (11.5-14.5)
[2018-03-26] MEDS: PANTOPRAZOLE 40 MG INJ IV ×2 (06:23→17:26)
[2018-03-26 06:53] LABS: ANION GAP 9 (5-13); BLOOD UREA NITROGEN 34 mg/dl (7-20); CALCIUM 8.4 mg/dl (8.4-10.2); CARBON DIOXIDE 19 mmol/L (21-31); CHLORIDE 114 mmol/L (97-110); GLUCOSE 138 mg/dl (70-220); POTASSIUM 4.8 mmol/L (3.5-5.1); SODIUM 142 mmol/L (135-144)
[2018-03-26 06:55] LABS: B-TYPE NATRIURETIC PEPTIDE 6730 PG/ML (0-450)
[2018-03-26] MEDS: METOPROLOL 25 MG TAB PO ×5 (08:52→23:20)
[2018-03-26] MEDS: FUROSEMIDE 20 MG INJ IV (09:00)
[2018-03-26] MEDS: FOLIC ACID 1 MG TAB PO (09:00)
[2018-03-26] MEDS: COLLAGENASE 5 GM (UD JAR) TOP (09:00)
[2018-03-26] MEDS: GUAIFENESIN LA 600 MG TABSR PO ×2 (09:00→20:08)
[2018-03-26] MEDS: ASCORBIC ACID 500 MG TAB PO ×2 (09:00→20:09)
[2018-03-26] MEDS: ESCITALOPRAM 10 MG TAB PO (09:00)
[2018-03-26] MEDS: MAGNESIUM OXIDE 400 MG TAB PO (09:00)
[2018-03-26] MEDS: predniSONE 20 MG TAB PO (09:00)
[2018-03-26] MEDS: MAGNESIUM SULFATE 2 GM/50 ML 50 ML IVPB (09:51)
[2018-03-26] MEDS: ATORVASTATIN 20 MG TAB PO (20:08)
[2018-03-26] MEDS: DOCUSATE SODIUM 100 MG CAP PO (20:09)
[2018-03-26] MEDS: OLANZAPINE 2.5 MG TAB PO (20:09)
[2018-03-26] MEDS: SOD CHLORIDE 0.45% 1,000 ML IV (20:16)
[2018-03-27] MEDS: ALBUTEROL/IPRATROPIUM (NEB) 3 ML AMP HHN ×4 (01:45→20:00)
[2018-03-27] MEDS: ACETYLCYSTEINE 20% 4 ML VIAL NEB ×4 (01:46→20:00)
[2018-03-27] MEDS: SOD CHLORIDE 0.45% 1,000 ML IV (03:06)
[2018-03-27 05:33] LABS: ADD MAN DIFF? NO
[2018-03-27] MEDS: PANTOPRAZOLE 40 MG INJ IV ×2 (05:49→17:03)
[2018-03-27 05:58] LABS: WHITE BLOOD COUNT 13.5 10^3/ul (4.8-10.8)
[2018-03-27 05:58] LABS: BASOPHILS % 0.1 % (0.0-2.0); EOSINOPHILS % 0.1 % (0.0-7.0); HEMATOCRIT 34.2 % (42.0-52.0); HEMOGLOBIN 10.7 g/dl (14.0-18.0); LYMPHOCYTES # 0.6 10^3/ul (0.8-2.9); LYMPHOCYTES % 4.5 % (15.0-51.0); MEAN CORPUSCULAR HEMOGLOBIN 29.5 pg (29.0-33.0); MEAN CORPUSCULAR HGB CONC 31.3 g/dl (32.0-37.0); MEAN CORPUSCULAR VOLUME 94.2 fl (82.0-101.0); MEAN PLATELET VOLUME 10.6 fl (7.4-10.4); MONOCYTE # 0.7 10^3/ul (0.3-0.9); MONOCYTES % 5.3 % (0.0-11.0); NEUTROPHIL # 12.1 10^3/ul (1.6-7.5); NEUTROPHILS % 89.3 % (39.0-77.0); PLATELET COUNT 121 10^3/UL (140-415); RED BLOOD COUNT 3.63 10^6/ul (4.70-6.10); RED CELL DISTRIBUTION WIDTH 19.2 % (11.5-14.5)
[2018-03-27 06:23] LABS: ALANINE AMINOTRANSFERASE 29 IU/L (13-69); ALBUMIN 3.2 g/dl (3.3-4.9); ALBUMIN/GLOBULIN RATIO 1.23; ALKALINE PHOSPHATASE 77 IU/L (42-121); ANION GAP 8 (5-13); ASPARTATE AMINO TRANSFERASE 15 IU/L (15-46); BLOOD UREA NITROGEN 37 mg/dl (7-20); CALCIUM 8.5 mg/dl (8.4-10.2); CARBON DIOXIDE 19 mmol/L (21-31); CHLORIDE 111 mmol/L (97-110); CREATININE 1.24 mg/dl (0.61-1.24); GLUCOSE 121 mg/dl (70-220); POTASSIUM 5.2 mmol/L (3.5-5.1); SODIUM 138 mmol/L (135-144); TOTAL PROTEIN 5.8 g/dl (6.1-8.1)
[2018-03-27] MEDS: PROPOFOL 20 ML (07:25)
[2018-03-27] MEDS: PHENYLephrine (100 MCG/ML) 5ML SYG (07:25)
[2018-03-27] MEDS: ESCITALOPRAM 10 MG TAB PO (08:20)
[2018-03-27] MEDS: MAGNESIUM OXIDE 400 MG TAB PO (08:20)
[2018-03-27] MEDS: ASCORBIC ACID 500 MG TAB PO ×2 (08:20→21:08)
[2018-03-27] MEDS: FOLIC ACID 1 MG TAB PO (08:20)
[2018-03-27] MEDS: predniSONE 20 MG TAB PO (08:21)
[2018-03-27] MEDS: GUAIFENESIN LA 600 MG TABSR PO ×2 (08:21→21:08)
[2018-03-27] MEDS: METOPROLOL 25 MG TAB PO ×2 (08:21→22:19)
[2018-03-27] MEDS: COLLAGENASE 5 GM (UD JAR) TOP (08:21)
[2018-03-27] MEDS: DILTIAZEM 25 MG INJ IV (16:12)
[2018-03-27] MEDS: ACETAMINOPHEN 325 MG TAB PO (17:03)
[2018-03-27] MEDS: OLANZAPINE 2.5 MG TAB PO (21:08)
[2018-03-27] MEDS: ATORVASTATIN 20 MG TAB PO (21:08)
[2018-03-27] MEDS: DOCUSATE SODIUM 100 MG CAP PO (21:08)
[2018-03-27] MEDS: DIGOXIN 500 MCG INJ IV (21:08)
[2018-03-28] MEDS: DILTIAZEM-D5W 125MG/125ML DRIP 125 ML IV (00:27)
[2018-03-28] MEDS: ACETYLCYSTEINE 20% 4 ML VIAL NEB ×4 (01:40→20:00)
[2018-03-28] MEDS: ALBUTEROL/IPRATROPIUM (NEB) 3 ML AMP HHN ×4 (01:40→20:00)
[2018-03-28 05:42] LABS: ADD MAN DIFF? NO; BASOPHILS % 0.1 % (0.0-2.0); EOSINOPHILS % 0.2 % (0.0-7.0); HEMATOCRIT 33.3 % (42.0-52.0); HEMOGLOBIN 10.4 g/dl (14.0-18.0); LYMPHOCYTES # 0.9 10^3/ul (0.8-2.9); LYMPHOCYTES % 5.1 % (15.0-51.0); MEAN CORPUSCULAR HEMOGLOBIN 29.6 pg (29.0-33.0); MEAN CORPUSCULAR HGB CONC 31.2 g/dl (32.0-37.0); MEAN CORPUSCULAR VOLUME 94.9 fl (82.0-101.0); MEAN PLATELET VOLUME 11.2 fl (7.4-10.4); MONOCYTE # 1.2 10^3/ul (0.3-0.9); MONOCYTES % 7.2 % (0.0-11.0); NEUTROPHIL # 14.6 10^3/ul (1.6-7.5); NEUTROPHILS % 86.1 % (39.0-77.0); NUCLEATED RED BLOOD CELLS% 0.1 /100WBC (0.0-0.0); PLATELET COUNT 175 10^3/UL (140-415); RED BLOOD COUNT 3.51 10^6/ul (4.70-6.10); RED CELL DISTRIBUTION WIDTH 19.7 % (11.5-14.5)
[2018-03-28] MEDS: PANTOPRAZOLE 40 MG INJ IV ×2 (05:57→17:53)
[2018-03-28] MEDS: METOPROLOL 25 MG TAB PO ×3 (06:08→21:53)
[2018-03-28 06:09] LABS: ANION GAP 9 (5-13); BLOOD UREA NITROGEN 51 mg/dl (7-20); CALCIUM 8.5 mg/dl (8.4-10.2); CARBON DIOXIDE 18 mmol/L (21-31); CHLORIDE 113 mmol/L (97-110); CREATININE 1.27 mg/dl (0.61-1.24); GLUCOSE 112 mg/dl (70-220); POTASSIUM 5.5 mmol/L (3.5-5.1); SODIUM 140 mmol/L (135-144)
[2018-03-28 06:25] LABS: MAGNESIUM 1.7 mg/dl (1.7-2.5)
[2018-03-28 06:45] LABS: THYROID STIMULATING HORMONE 0.467 MIU/L (0.465-4.680)
[2018-03-28] MEDS: ASCORBIC ACID 500 MG TAB PO ×2 (08:57→21:53)
[2018-03-28] MEDS: FOLIC ACID 1 MG TAB PO (08:57)
[2018-03-28] MEDS: ESCITALOPRAM 10 MG TAB PO (08:57)
[2018-03-28] MEDS: MAGNESIUM OXIDE 400 MG TAB PO (08:57)
[2018-03-28] MEDS: GUAIFENESIN LA 600 MG TABSR PO ×2 (08:57→21:53)
[2018-03-28] MEDS: COLLAGENASE 5 GM (UD JAR) TOP (08:57)
[2018-03-28] MEDS: predniSONE 20 MG TAB PO (08:57)
[2018-03-28] MEDS: DILTIAZEM 60 MG TAB PO ×2 (13:33→17:53)
[2018-03-28] MEDS: MAGNESIUM SULFATE 2 GM/50 ML 50 ML IVPB (16:38)
[2018-03-28] MEDS: NA POLYST SULFON 15 GM/60 ML BTL PO (17:52)
[2018-03-28] MEDS: ATORVASTATIN 20 MG TAB PO (21:52)
[2018-03-28] MEDS: OLANZAPINE 2.5 MG TAB PO (21:52)
[2018-03-28] MEDS: CEFAZOLIN 1 GM/50 ML (PMX) 50 ML IVPB (21:52)
[2018-03-28] MEDS: DOCUSATE SODIUM 100 MG CAP PO (21:53)
[2018-03-28] MEDS: SOD CHLORIDE 0.45% 1,000 ML IV (23:20)
[2018-03-29] MEDS: DILTIAZEM 60 MG TAB PO ×3 (00:04→11:07)
[2018-03-29] MEDS: ACETYLCYSTEINE 20% 4 ML VIAL NEB ×4 (02:10→19:57)
[2018-03-29] MEDS: ALBUTEROL/IPRATROPIUM (NEB) 3 ML AMP HHN ×4 (02:10→19:57)
[2018-03-29] MEDS: CEFAZOLIN 1 GM/50 ML (PMX) 50 ML IVPB ×3 (05:37→23:37)
[2018-03-29] MEDS: PANTOPRAZOLE 40 MG INJ IV ×2 (05:39→17:22)
[2018-03-29] MEDS: METOPROLOL 25 MG TAB PO ×3 (05:47→23:41)
[2018-03-29 06:12] LABS: ADD MAN DIFF? NO
[2018-03-29 06:15] LABS: BASOPHILS % 0.1 % (0.0-2.0); EOSINOPHILS % 0.3 % (0.0-7.0); HEMATOCRIT 32.6 % (42.0-52.0); HEMOGLOBIN 10.1 g/dl (14.0-18.0); LYMPHOCYTES # 0.9 10^3/ul (0.8-2.9); MEAN CORPUSCULAR HEMOGLOBIN 29.4 pg (29.0-33.0); MEAN CORPUSCULAR VOLUME 94.8 fl (82.0-101.0); MEAN PLATELET VOLUME 10.2 fl (7.4-10.4); MONOCYTE # 1.1 10^3/ul (0.3-0.9); MONOCYTES % 8.9 % (0.0-11.0); NEUTROPHIL # 10.5 10^3/ul (1.6-7.5); NEUTROPHILS % 82.1 % (39.0-77.0); NUCLEATED RED BLOOD CELLS% 0.2 /100WBC (0.0-0.0); PLATELET COUNT 173 10^3/UL (140-415); RED BLOOD COUNT 3.44 10^6/ul (4.70-6.10); RED CELL DISTRIBUTION WIDTH 19.7 % (11.5-14.5)
[2018-03-29 06:15] LABS: WHITE BLOOD COUNT 12.8 10^3/ul (4.8-10.8)
[2018-03-29 06:35] LABS: MAGNESIUM 2.1 mg/dl (1.7-2.5)
[2018-03-29 06:38] LABS: ANION GAP 12 (5-13); BLOOD UREA NITROGEN 55 mg/dl (7-20); CALCIUM 8.7 mg/dl (8.4-10.2); CARBON DIOXIDE 18 mmol/L (21-31); CHLORIDE 111 mmol/L (97-110); CREATININE 1.22 mg/dl (0.61-1.24); GLUCOSE 97 mg/dl (70-220); POTASSIUM 4.9 mmol/L (3.5-5.1); SODIUM 141 mmol/L (135-144)
[2018-03-29] MEDS: COLLAGENASE 5 GM (UD JAR) TOP (08:32)
[2018-03-29] MEDS: ASCORBIC ACID 500 MG TAB PO ×2 (08:34→20:54)
[2018-03-29] MEDS: MAGNESIUM OXIDE 400 MG TAB PO (08:34)
[2018-03-29] MEDS: ESCITALOPRAM 10 MG TAB PO (08:34)
[2018-03-29] MEDS: predniSONE 20 MG TAB PO (08:34)
[2018-03-29] MEDS: FOLIC ACID 1 MG TAB PO (08:34)
[2018-03-29] MEDS: GUAIFENESIN LA 600 MG TABSR PO ×2 (08:35→20:54)
[2018-03-29] MEDS: LORAZEPAM 2 MG INJ IV (11:07)
[2018-03-29] MEDS ORDERED: DILTIAZEM 30 MG TAB (11:33)
[2018-03-29] MEDS: DILTIAZEM 25 MG INJ IV (11:35)
[2018-03-29] MEDS: DILTIAZEM 30 MG TAB PO (11:36)
[2018-03-29] MEDS ORDERED: DILTIAZEM 60 MG TAB PO (12:00)
[2018-03-29] MEDS: DIGOXIN 500 MCG INJ IV ×2 (13:42→20:53)
[2018-03-29] MEDS: DILTIAZEM 90 MG TAB PO (17:22)
[2018-03-29] MEDS: DOCUSATE SODIUM 100 MG CAP PO (20:53)
[2018-03-29] MEDS: OLANZAPINE 2.5 MG TAB PO (20:54)
[2018-03-29] MEDS: ATORVASTATIN 20 MG TAB PO (20:54)
[2018-03-29] MEDS: SOD CHLORIDE 0.45% 1,000 ML IV (23:12)
[2018-03-30] MEDS: DILTIAZEM 90 MG TAB PO ×3 (01:35→12:22)
[2018-03-30] MEDS: ACETYLCYSTEINE 20% 4 ML VIAL NEB ×4 (01:47→20:54)
[2018-03-30] MEDS: ALBUTEROL/IPRATROPIUM (NEB) 3 ML AMP HHN ×4 (01:47→20:54)
[2018-03-30] MEDS: CEFAZOLIN 1 GM/50 ML (PMX) 50 ML IVPB ×3 (05:49→21:35)
[2018-03-30] MEDS: METOPROLOL 25 MG TAB PO ×2 (05:50→21:35)
[2018-03-30] MEDS: PANTOPRAZOLE 40 MG INJ IV ×2 (05:50→18:10)
[2018-03-30 06:15] LABS: ADD MAN DIFF? NO
[2018-03-30 06:23] LABS: BASOPHILS % 0.1 % (0.0-2.0); EOSINOPHILS # 0.1 10^3/ul (0.0-0.5); EOSINOPHILS % 0.8 % (0.0-7.0); HEMATOCRIT 31.1 % (42.0-52.0); HEMOGLOBIN 9.3 g/dl (14.0-18.0); LYMPHOCYTES # 1.1 10^3/ul (0.8-2.9); LYMPHOCYTES % 9.1 % (15.0-51.0); MEAN CORPUSCULAR HEMOGLOBIN 29.1 pg (29.0-33.0); MEAN CORPUSCULAR HGB CONC 29.9 g/dl (32.0-37.0); MEAN CORPUSCULAR VOLUME 97.2 fl (82.0-101.0); MEAN PLATELET VOLUME 10.2 fl (7.4-10.4); MONOCYTE # 1.3 10^3/ul (0.3-0.9); MONOCYTES % 10.9 % (0.0-11.0); NEUTROPHIL # 8.9 10^3/ul (1.6-7.5); NEUTROPHILS % 76.9 % (39.0-77.0); NUCLEATED RED BLOOD CELLS% 0.2 /100WBC (0.0-0.0); PLATELET COUNT 166 10^3/UL (140-415); RED CELL DISTRIBUTION WIDTH 19.6 % (11.5-14.5)
[2018-03-30 06:23] LABS: WHITE BLOOD COUNT 11.6 10^3/ul (4.8-10.8)
[2018-03-30 06:42] LABS: ANION GAP 8 (5-13); BLOOD UREA NITROGEN 54 mg/dl (7-20); CALCIUM 8.3 mg/dl (8.4-10.2); CARBON DIOXIDE 23 mmol/L (21-31); CHLORIDE 110 mmol/L (97-110); CREATININE 1.03 mg/dl (0.61-1.24); GLUCOSE 84 mg/dl (70-220); POTASSIUM 4.8 mmol/L (3.5-5.1); SODIUM 141 mmol/L (135-144)
[2018-03-30] MEDS: ASCORBIC ACID 500 MG TAB PO ×2 (08:54→21:35)
[2018-03-30] MEDS: predniSONE 20 MG TAB PO (08:54)
[2018-03-30] MEDS: GUAIFENESIN LA 600 MG TABSR PO ×2 (08:54→21:35)
[2018-03-30] MEDS: ARIPIPRAZOLE 5 MG TAB PO (08:54)
[2018-03-30] MEDS: CALCIUM CARBONATE 500 MG CHEW TAB PO (08:54)
[2018-03-30] MEDS: ESCITALOPRAM 10 MG TAB PO (08:54)
[2018-03-30] MEDS: FOLIC ACID 1 MG TAB PO (08:54)
[2018-03-30] MEDS: MAGNESIUM OXIDE 400 MG TAB PO (08:54)
[2018-03-30] MEDS: COLLAGENASE 5 GM (UD JAR) TOP (08:55)
[2018-03-30] MEDS: CASPOFUNGIN 70 MG in SOD CHLORIDE 0.9% 250 ML IVPB (18:09)
[2018-03-30] MEDS: DILTIAZEM 60 MG TAB PO (18:10)
[2018-03-30] MEDS: ATORVASTATIN 20 MG TAB PO (21:30)
[2018-03-30] MEDS: DOCUSATE SODIUM 100 MG CAP PO (21:30)
[2018-03-31] MEDS: SOD CHLORIDE 0.45% 1,000 ML IV ×2 (00:11→23:12)
[2018-03-31] MEDS: DILTIAZEM 60 MG TAB PO ×4 (00:20→17:11)
[2018-03-31] MEDS: ACETYLCYSTEINE 20% 4 ML VIAL NEB ×4 (01:49→19:29)
[2018-03-31] MEDS: LEVALBUTEROL (NEB) 1.25 MG/0.5 ML AMP HHN ×4 (01:49→19:30)
[2018-03-31] MEDS: PANTOPRAZOLE 40 MG INJ IV ×2 (06:06→17:10)
[2018-03-31] MEDS: CEFAZOLIN 1 GM/50 ML (PMX) 50 ML IVPB ×3 (06:06→21:47)
[2018-03-31 06:28] LABS: WHITE BLOOD COUNT 9.4 10^3/ul (4.8-10.8)
[2018-03-31 06:28] LABS: ADD MAN DIFF? NO; BASOPHILS % 0.1 % (0.0-2.0); EOSINOPHILS # 0.1 10^3/ul (0.0-0.5); EOSINOPHILS % 1.1 % (0.0-7.0); HEMATOCRIT 30.4 % (42.0-52.0); HEMOGLOBIN 9.4 g/dl (14.0-18.0); LYMPHOCYTES # 0.7 10^3/ul (0.8-2.9); LYMPHOCYTES % 7.6 % (15.0-51.0); MEAN CORPUSCULAR HEMOGLOBIN 29.7 pg (29.0-33.0); MEAN CORPUSCULAR HGB CONC 30.9 g/dl (32.0-37.0); MEAN CORPUSCULAR VOLUME 95.9 fl (82.0-101.0); MEAN PLATELET VOLUME 10.6 fl (7.4-10.4); MONOCYTES % 11.1 % (0.0-11.0); NEUTROPHIL # 7.3 10^3/ul (1.6-7.5); NEUTROPHILS % 77.7 % (39.0-77.0); NUCLEATED RED BLOOD CELLS% 0.2 /100WBC (0.0-0.0); PLATELET COUNT 141 10^3/UL (140-415); RED BLOOD COUNT 3.17 10^6/ul (4.70-6.10); RED CELL DISTRIBUTION WIDTH 19.7 % (11.5-14.5)
[2018-03-31] MEDS: TIOTROPIUM 18 MCG CAPSULE INHA DEV INH (08:59)
[2018-03-31] MEDS: FLUTICASONE/VILANTEROL 200-25 INH DEVICE INH (08:59)
[2018-03-31] MEDS: ESCITALOPRAM 10 MG TAB PO (09:00)
[2018-03-31] MEDS: GUAIFENESIN LA 600 MG TABSR PO ×2 (09:00→21:47)
[2018-03-31] MEDS: FOLIC ACID 1 MG TAB PO (09:00)
[2018-03-31] MEDS: predniSONE 20 MG TAB PO (09:00)
[2018-03-31] MEDS: ASCORBIC ACID 500 MG TAB PO ×2 (09:00→21:47)
[2018-03-31] MEDS: COLLAGENASE 5 GM (UD JAR) TOP (09:00)
[2018-03-31] MEDS: ARIPIPRAZOLE 5 MG TAB PO (09:00)
[2018-03-31] MEDS: MAGNESIUM OXIDE 400 MG TAB PO (09:00)
[2018-03-31] MEDS: METOPROLOL 25 MG TAB PO ×2 (09:01→21:47)
[2018-03-31] MEDS: CASPOFUNGIN 50 MG in SOD CHLORIDE 0.9% 250 ML IVPB (17:10)
[2018-03-31] MEDS: ATORVASTATIN 20 MG TAB PO (21:47)
[2018-03-31] MEDS: DOCUSATE SODIUM 100 MG CAP PO (21:47)
[2018-04-01] MEDS: DILTIAZEM 60 MG TAB PO ×4 (00:17→18:21)
[2018-04-01] MEDS: LEVALBUTEROL (NEB) 1.25 MG/0.5 ML AMP HHN ×4 (01:18→19:40)
[2018-04-01] MEDS: ACETYLCYSTEINE 20% 4 ML VIAL NEB ×4 (01:18→19:41)
[2018-04-01] MEDS: PANTOPRAZOLE 40 MG INJ IV ×2 (05:03→18:21)
[2018-04-01] MEDS: CEFAZOLIN 1 GM/50 ML (PMX) 50 ML IVPB (05:09)
[2018-04-01] MEDS: FLUTICASONE/VILANTEROL 200-25 INH DEVICE INH (09:37)
[2018-04-01] MEDS: ARIPIPRAZOLE 5 MG TAB PO (09:37)
[2018-04-01] MEDS: TIOTROPIUM 18 MCG CAPSULE INHA DEV INH (09:37)
[2018-04-01] MEDS: ESCITALOPRAM 10 MG TAB PO (09:37)
[2018-04-01] MEDS: predniSONE 20 MG TAB PO (09:38)
[2018-04-01] MEDS: MAGNESIUM OXIDE 400 MG TAB PO (09:38)
[2018-04-01] MEDS: COLLAGENASE 5 GM (UD JAR) TOP (09:38)
[2018-04-01] MEDS: FOLIC ACID 1 MG TAB PO (09:38)
[2018-04-01] MEDS: GUAIFENESIN LA 600 MG TABSR PO ×2 (09:38→21:41)
[2018-04-01] MEDS: METOPROLOL 25 MG TAB PO ×2 (09:38→21:44)
[2018-04-01] MEDS: ASCORBIC ACID 500 MG TAB PO ×2 (09:38→21:42)
[2018-04-01] MEDS: DOXYCYCLINE 100 MG TAB PO ×2 (12:30→21:41)
[2018-04-01] MEDS: CASPOFUNGIN 50 MG in SOD CHLORIDE 0.9% 250 ML IVPB (17:48)
[2018-04-01] MEDS: DOCUSATE SODIUM 100 MG CAP PO (21:43)
[2018-04-01] MEDS: ATORVASTATIN 20 MG TAB PO (21:43)
[2018-04-01] MEDS: SOD CHLORIDE 0.45% 1,000 ML IV (23:37)
[2018-04-02] MEDS: DILTIAZEM 60 MG TAB PO ×3 (00:42→11:50)
[2018-04-02] MEDS: LEVALBUTEROL (NEB) 1.25 MG/0.5 ML AMP HHN ×4 (02:00→21:14)
[2018-04-02] MEDS: ACETYLCYSTEINE 20% 4 ML VIAL NEB ×4 (02:00→21:15)
[2018-04-02] MEDS: PANTOPRAZOLE 40 MG INJ IV ×2 (06:10→18:16)
[2018-04-02] MEDS: ESCITALOPRAM 10 MG TAB PO (08:23)
[2018-04-02] MEDS: MAGNESIUM OXIDE 400 MG TAB PO (08:23)
[2018-04-02] MEDS: ARIPIPRAZOLE 5 MG TAB PO (08:23)
[2018-04-02] MEDS: FOLIC ACID 1 MG TAB PO (08:23)
[2018-04-02] MEDS: predniSONE 20 MG TAB PO (08:23)
[2018-04-02] MEDS: ASCORBIC ACID 500 MG TAB PO ×2 (08:23→20:46)
[2018-04-02] MEDS: METOPROLOL 25 MG TAB PO ×2 (08:23→20:50)
[2018-04-02] MEDS: GUAIFENESIN LA 600 MG TABSR PO ×2 (08:23→20:46)
[2018-04-02] MEDS: COLLAGENASE 5 GM (UD JAR) TOP (08:24)
[2018-04-02] MEDS: FLUTICASONE/VILANTEROL 200-25 INH DEVICE INH (10:16)
[2018-04-02] MEDS: DOXYCYCLINE 100 MG TAB PO (10:16)
[2018-04-02] MEDS ORDERED: VANCOMYCIN IV PER PHARMACY XX (11:00)
[2018-04-02] MEDS: TIOTROPIUM 18 MCG CAPSULE INHA DEV INH (11:46)
[2018-04-02] MEDS: VANCOMYCIN 1.5 GM in SOD CHLORIDE 0.9% 250 ML IVPB (14:13)
[2018-04-02] MEDS ORDERED: DILTIAZEM (CD) 120 MG CAP PO (14:30)
[2018-04-02] MEDS ORDERED: DILTIAZEM 60 MG TAB PO (15:00)
[2018-04-02] MEDS: DILTIAZEM (CD) 120 MG CAP PO ×2 (15:23→20:48)
[2018-04-02] MEDS: CASPOFUNGIN 50 MG in SOD CHLORIDE 0.9% 250 ML IVPB (17:45)
[2018-04-02] MEDS: SOD CHLORIDE 0.45% 1,000 ML IV (19:00)
[2018-04-02] MEDS: ATORVASTATIN 20 MG TAB PO (20:45)
[2018-04-02] MEDS: DOCUSATE SODIUM 100 MG CAP PO (20:46)
[2018-04-02] MEDS ORDERED: VANCOMYCIN 1 GM 250 ML IVPB (23:00)
[2018-04-03] MEDS: LEVALBUTEROL (NEB) 1.25 MG/0.5 ML AMP HHN ×4 (03:37→21:02)
[2018-04-03] MEDS: ACETYLCYSTEINE 20% 4 ML VIAL NEB ×4 (03:37→21:01)
[2018-04-03] MEDS: PANTOPRAZOLE 40 MG INJ IV ×2 (05:40→18:24)
[2018-04-03 05:50] LABS: ADD MAN DIFF? NO
[2018-04-03 06:00] LABS: BASOPHILS % 0.1 % (0.0-2.0); EOSINOPHILS # 0.1 10^3/ul (0.0-0.5); EOSINOPHILS % 1.2 % (0.0-7.0); HEMATOCRIT 29.2 % (42.0-52.0); HEMOGLOBIN 9.3 g/dl (14.0-18.0); LYMPHOCYTES # 0.8 10^3/ul (0.8-2.9); LYMPHOCYTES % 9.1 % (15.0-51.0); MEAN CORPUSCULAR HEMOGLOBIN 30.1 pg (29.0-33.0); MEAN CORPUSCULAR HGB CONC 31.8 g/dl (32.0-37.0); MEAN CORPUSCULAR VOLUME 94.5 fl (82.0-101.0); MEAN PLATELET VOLUME 10.5 fl (7.4-10.4); MONOCYTE # 0.8 10^3/ul (0.3-0.9); MONOCYTES % 9.6 % (0.0-11.0); NEUTROPHIL # 6.7 10^3/ul (1.6-7.5); NEUTROPHILS % 77.7 % (39.0-77.0); PLATELET COUNT 115 10^3/UL (140-415); RED BLOOD COUNT 3.09 10^6/ul (4.70-6.10); RED CELL DISTRIBUTION WIDTH 19.2 % (11.5-14.5)
[2018-04-03 06:00] LABS: WHITE BLOOD COUNT 8.7 10^3/ul (4.8-10.8)
[2018-04-03 06:17] LABS: MAGNESIUM 1.2 mg/dl (1.7-2.5)
[2018-04-03 06:27] LABS: ANION GAP 8 (5-13); BLOOD UREA NITROGEN 20 mg/dl (7-20); CALCIUM 8.4 mg/dl (8.4-10.2); CARBON DIOXIDE 24 mmol/L (21-31); CHLORIDE 110 mmol/L (97-110); CREATININE 0.73 mg/dl (0.61-1.24); GLUCOSE 84 mg/dl (70-220); POTASSIUM 3.9 mmol/L (3.5-5.1); SODIUM 142 mmol/L (135-144)
[2018-04-03] MEDS: predniSONE 20 MG TAB PO (08:39)
[2018-04-03] MEDS: METOPROLOL 25 MG TAB PO ×2 (08:39→20:40)
[2018-04-03] MEDS: FOLIC ACID 1 MG TAB PO (08:40)
[2018-04-03] MEDS: ASCORBIC ACID 500 MG TAB PO ×2 (08:40→20:39)
[2018-04-03] MEDS: MAGNESIUM OXIDE 400 MG TAB PO (08:40)
[2018-04-03] MEDS: GUAIFENESIN LA 600 MG TABSR PO ×2 (08:40→20:40)
[2018-04-03] MEDS: COLLAGENASE 5 GM (UD JAR) TOP (08:40)
[2018-04-03] MEDS: ARIPIPRAZOLE 5 MG TAB PO (08:40)
[2018-04-03] MEDS: DILTIAZEM (CD) 120 MG CAP PO ×2 (08:40→20:40)
[2018-04-03] MEDS: ESCITALOPRAM 10 MG TAB PO (08:40)
[2018-04-03] MEDS: TIOTROPIUM 18 MCG CAPSULE INHA DEV INH (08:41)
[2018-04-03] MEDS: FLUTICASONE/VILANTEROL 200-25 INH DEVICE INH (08:41)
[2018-04-03] MEDS: VANCOMYCIN 1.25 GM in SOD CHLORIDE 0.9% 250 ML IVPB (15:26)
[2018-04-03] MEDS: MAGNESIUM SULFATE 4 GM/100 ML 100 ML IVPB (16:49)
[2018-04-03] MEDS: [UNRECOGNIZED DRUG - REMARK] XX (20:15)
[2018-04-03] MEDS: CASPOFUNGIN 50 MG in SOD CHLORIDE 0.9% 250 ML IVPB (20:30)
[2018-04-03] MEDS: ATORVASTATIN 20 MG TAB PO (20:39)
[2018-04-03] MEDS: DOCUSATE SODIUM 100 MG CAP PO (20:40)
[2018-04-03] MEDS: SOD CHLORIDE 0.45% 1,000 ML IV (23:21)
[2018-04-04] MEDS: ACETYLCYSTEINE 20% 4 ML VIAL NEB ×4 (02:10→19:37)
[2018-04-04] MEDS: LEVALBUTEROL (NEB) 1.25 MG/0.5 ML AMP HHN ×4 (02:10→19:37)
[2018-04-04] MEDS: [UNRECOGNIZED DRUG - REMARK] XX ×3 (02:14→20:30)
[2018-04-04] MEDS: PANTOPRAZOLE 40 MG INJ IV ×2 (05:47→17:53)
[2018-04-04 06:13] LABS: ANION GAP 8 (5-13); BLOOD UREA NITROGEN 21 mg/dl (7-20); CALCIUM 8.2 mg/dl (8.4-10.2); CARBON DIOXIDE 23 mmol/L (21-31); CHLORIDE 110 mmol/L (97-110); CREATININE 0.87 mg/dl (0.61-1.24); GLUCOSE 101 mg/dl (70-220); POTASSIUM 4.2 mmol/L (3.5-5.1); SODIUM 141 mmol/L (135-144)
[2018-04-04 06:44] LABS: MAGNESIUM 2.6 mg/dl (1.7-2.5)
[2018-04-04] MEDS: DIAZEPAM 5 MG TAB PO (06:48)
[2018-04-04] MEDS: MAGNESIUM OXIDE 400 MG TAB PO (08:32)
[2018-04-04] MEDS: ASCORBIC ACID 500 MG TAB PO ×2 (09:45→21:12)
[2018-04-04] MEDS: ARIPIPRAZOLE 5 MG TAB PO (09:45)
[2018-04-04] MEDS: predniSONE 20 MG TAB PO (09:46)
[2018-04-04] MEDS: FOLIC ACID 1 MG TAB PO (09:46)
[2018-04-04] MEDS: GUAIFENESIN LA 600 MG TABSR PO ×2 (09:47→21:12)
[2018-04-04] MEDS: METOPROLOL 25 MG TAB PO ×2 (09:47→21:13)
[2018-04-04] MEDS: DILTIAZEM (CD) 120 MG CAP PO ×2 (09:47→21:12)
[2018-04-04] MEDS: ESCITALOPRAM 10 MG TAB PO (09:47)
[2018-04-04] MEDS: TIOTROPIUM 18 MCG CAPSULE INHA DEV INH (09:47)
[2018-04-04] MEDS: FLUTICASONE/VILANTEROL 200-25 INH DEVICE INH (09:48)
[2018-04-04] MEDS: VANCOMYCIN 1.25 GM in SOD CHLORIDE 0.9% 250 ML IVPB (13:19)
[2018-04-04] MEDS: COLLAGENASE 5 GM (UD JAR) TOP (14:00)
[2018-04-04] MEDS: DOCUSATE SODIUM 100 MG CAP PO (21:11)
[2018-04-04] MEDS: ATORVASTATIN 20 MG TAB PO (21:12)
[2018-04-04] MEDS: VORICONAZOLE 200 MG TAB PO (21:12)
[2018-04-04] MEDS: SOD CHLORIDE 0.45% 1,000 ML IV (23:42)
[2018-04-05] MEDS ORDERED: DIAZEPAM 5 MG TAB PO
[2018-04-05] MEDS: ACETYLCYSTEINE 20% 4 ML VIAL NEB ×4 (01:27→20:01)
[2018-04-05] MEDS: LEVALBUTEROL (NEB) 1.25 MG/0.5 ML AMP HHN ×4 (01:27→20:01)
[2018-04-05] MEDS: [UNRECOGNIZED DRUG - REMARK] XX ×3 (04:30→20:26)
[2018-04-05] MEDS: PANTOPRAZOLE 40 MG INJ IV ×2 (06:14→17:42)
[2018-04-05] MEDS: predniSONE INTENSOL (5 MG/ML PO SYG) PO (09:00)
[2018-04-05] MEDS: GUAIFENESIN LA 600 MG TABSR PO ×2 (09:36→21:20)
[2018-04-05] MEDS: ARIPIPRAZOLE 5 MG TAB PO (09:36)
[2018-04-05] MEDS: ASCORBIC ACID 500 MG TAB PO ×2 (09:36→21:20)
[2018-04-05] MEDS: VORICONAZOLE 200 MG TAB PO ×2 (09:36→21:20)
[2018-04-05] MEDS: ESCITALOPRAM 10 MG TAB PO (09:36)
[2018-04-05] MEDS: DILTIAZEM (CD) 120 MG CAP PO ×2 (09:37→21:20)
[2018-04-05] MEDS: TIOTROPIUM 18 MCG CAPSULE INHA DEV INH (09:37)
[2018-04-05] MEDS: FOLIC ACID 1 MG TAB PO (09:37)
[2018-04-05] MEDS: MAGNESIUM OXIDE 400 MG TAB PO (09:38)
[2018-04-05] MEDS: METOPROLOL 25 MG TAB PO ×2 (09:38→21:20)
[2018-04-05] MEDS: FLUTICASONE/VILANTEROL 200-25 INH DEVICE INH (09:39)
[2018-04-05] MEDS: COLLAGENASE 5 GM (UD JAR) TOP (09:40)
[2018-04-05] MEDS: VANCOMYCIN 1.25 GM in SOD CHLORIDE 0.9% 250 ML IVPB (14:00)
[2018-04-05 14:26] LABS: VANCOMYCIN,TROUGH 14.2 ug/ml (10.0-20.0)
[2018-04-05] MEDS: ATORVASTATIN 20 MG TAB PO (21:20)
[2018-04-05] MEDS: DOCUSATE SODIUM 100 MG CAP PO (21:20)
[2018-04-05] MEDS: SOD CHLORIDE 0.45% 1,000 ML IV (23:23)
[2018-04-06] MEDS: LEVALBUTEROL (NEB) 1.25 MG/0.5 ML AMP HHN ×3 (01:24→14:00)
[2018-04-06] MEDS: ACETYLCYSTEINE 20% 4 ML VIAL NEB ×3 (01:24→14:00)
[2018-04-06] MEDS: [UNRECOGNIZED DRUG - REMARK] XX ×2 (04:30→12:30)
[2018-04-06] MEDS: PANTOPRAZOLE (EC) 40 MG TAB PO (06:37)
[2018-04-06] MEDS: FOLIC ACID 1 MG TAB PO (08:37)
[2018-04-06] MEDS: TIOTROPIUM 18 MCG CAPSULE INHA DEV INH (08:37)
[2018-04-06] MEDS: DILTIAZEM (CD) 120 MG CAP PO (08:37)
[2018-04-06] MEDS: FLUTICASONE/VILANTEROL 200-25 INH DEVICE INH (08:37)
[2018-04-06] MEDS: ASCORBIC ACID 500 MG TAB PO (08:37)
[2018-04-06] MEDS: GUAIFENESIN LA 600 MG TABSR PO (08:38)
[2018-04-06] MEDS: ESCITALOPRAM 10 MG TAB PO (08:38)
[2018-04-06] MEDS: VORICONAZOLE 200 MG TAB PO (08:38)
[2018-04-06] MEDS: MAGNESIUM OXIDE 400 MG TAB PO (08:38)
[2018-04-06] MEDS: COLLAGENASE 5 GM (UD JAR) TOP (08:38)
[2018-04-06] MEDS: METOPROLOL 25 MG TAB PO (08:38)
[2018-04-06] MEDS: ARIPIPRAZOLE 5 MG TAB PO (08:38)
[2018-04-06] MEDS: predniSONE INTENSOL (5 MG/ML PO SYG) PO (08:41)
[2018-04-06] MEDS: VANCOMYCIN 1.25 GM in SOD CHLORIDE 0.9% 250 ML IVPB (14:47)
== END 2018-04-06 17:50 | DRG 871 ==
LOC: 6WM 03-26 23:25 → 2NE 03-04 01:07 → E/R 21:55 → 2NE 03-04 02:46
PROC: 0DB58ZX Excision of Esophagus, Via Natural or Artificial Opening Endoscopic, Diagnostic (ICD-10-PCS; principal; 2018-03-22 17:00)
PROC: 0DB68ZX Excision of Stomach, Via Natural or Artificial Opening Endoscopic, Diagnostic (ICD-10-PCS; 2018-03-22 17:00)
DX: A41.9 Sepsis, unspecified organism (principal); L89.153 Pressure ulcer of sacral region, stage 3; J69.0 Pneumonitis due to inhalation of food and vomit; G92 Toxic encephalopathy; J18.9 Pneumonia, unspecified organism; N39.0 Urinary tract infection, site not specified; N17.9 Acute kidney failure, unspecified; J44.0 Chronic obstructive pulmonary disease with (acute) lower respiratory infection; I42.9 Cardiomyopathy, unspecified; K66.8 Other specified disorders of peritoneum; E87.5 Hyperkalemia; E86.0 Dehydration; I50.9 Heart failure, unspecified; I10 Essential (primary) hypertension; F32.9 Major depressive disorder, single episode, unspecified; Y95 Nosocomial condition; Z85.038 Personal history of other malignant neoplasm of large intestine; Z85.46 Personal history of malignant neoplasm of prostate; D64.9 Anemia, unspecified; R65.20 Severe sepsis without septic shock; I25.10 Atherosclerotic heart disease of native coronary artery without angina pectoris; I48.0 Paroxysmal atrial fibrillation; D69.6 Thrombocytopenia, unspecified; F41.8 Other specified anxiety disorders; G72.89 Other specified myopathies; F03.90 Unspecified dementia, unspecified severity, without behavioral disturbance, psychotic disturbance, mood disturbance, and anxiety; B96.4 Proteus (mirabilis) (morganii) as the cause of diseases classified elsewhere; K21.0 Gastro-esophageal reflux disease with esophagitis; K29.00 Acute gastritis without bleeding; R19.7 Diarrhea, unspecified; B96.7 Clostridium perfringens [C. perfringens] as the cause of diseases classified elsewhere
CPT/HCPCS: 36415; 71045; 71250; 74019; 74176; 74240; 80048; 80053; 80202; 81001; 82040; 82150; 83605; 83690; 83735; 83880; 84155; 84165; 84443; 84484; 85025; 85384; 85610; 85651; 85730; 86022; 86850; 86900; 86901; 87040; 87070; 87075; 87081; 87086; 88305; 92526; 92610; 93005; 94640; 94664; 94667; 94668; 96374; 97110; 97163; 97530; 99285-25

== ENCOUNTER 2018-05-22 19:38 | Inpatient (IN) | payer MEDICARE, BC ==
[2018-05-22 21:38] LABS: ADD MAN DIFF? NO
[2018-05-22 21:40] LABS: WHITE BLOOD COUNT 11.2 10^3/ul (4.8-10.8)
[2018-05-22 21:40] LABS: BASOPHILS % 0.4 % (0.0-2.0); EOSINOPHILS # 0.1 10^3/ul (0.0-0.5); HEMATOCRIT 36.5 % (42.0-52.0); HEMOGLOBIN 11.4 g/dl (14.0-18.0); LYMPHOCYTES # 1.1 10^3/ul (0.8-2.9); LYMPHOCYTES % 9.7 % (15.0-51.0); MEAN CORPUSCULAR HEMOGLOBIN 29.3 pg (29.0-33.0); MEAN CORPUSCULAR HGB CONC 31.2 g/dl (32.0-37.0); MEAN CORPUSCULAR VOLUME 93.8 fl (82.0-101.0); MEAN PLATELET VOLUME 9.8 fl (7.4-10.4); MONOCYTE # 1.3 10^3/ul (0.3-0.9); MONOCYTES % 11.4 % (0.0-11.0); NEUTROPHIL # 8.6 10^3/ul (1.6-7.5); NEUTROPHILS % 76.8 % (39.0-77.0); PLATELET COUNT 225 10^3/UL (140-415); RED BLOOD COUNT 3.89 10^6/ul (4.70-6.10); RED CELL DISTRIBUTION WIDTH 15.9 % (11.5-14.5)
[2018-05-22 21:48] LABS: INR 0.93; PROTIME 12.6 Sec (11.9-14.9)
[2018-05-22 22:00] LABS: ALANINE AMINOTRANSFERASE 17 IU/L (13-69); ALBUMIN 4.1 g/dl (3.3-4.9); ALBUMIN/GLOBULIN RATIO 1.13; ALKALINE PHOSPHATASE 96 IU/L (42-121); ANION GAP 12 (5-13); ASPARTATE AMINO TRANSFERASE 19 IU/L (15-46); BILIRUBIN,INDIRECT 0.1 mg/dl (0-1.1); BILIRUBIN,TOTAL 0.1 mg/dl (0.2-1.3); BLOOD UREA NITROGEN 39 mg/dl (7-20); CALCIUM 11.1 mg/dl (8.4-10.2); CARBON DIOXIDE 23 mmol/L (21-31); CHLORIDE 104 mmol/L (97-110); CREATININE 1.77 mg/dl (0.61-1.24); GLUCOSE 115 mg/dl (70-220); POTASSIUM 4.7 mmol/L (3.5-5.1); SODIUM 139 mmol/L (135-144); TOTAL PROTEIN 7.7 g/dl (6.1-8.1)
[2018-05-22 22:01] LABS: AMMONIA < 9 umol/l (9-30)
[2018-05-22 23:53] LABS: ADD UMIC YES; UR ASCORBIC ACID 40 mg/dL (NEGATIVE); UR BACTERIA FEW /HPF (NONE SEEN); UR BILIRUBIN (Dip) NEGATIVE (NEGATIVE); UR BLOOD (Dip) NEGATIVE (NEGATIVE); UR BUDDING YEAST FEW /HPF (NONE SEEN); UR CLARITY CLOUDY (CLEAR); UR COLOR YELLOW (YELLOW); UR GLUCOSE (Dip) NEGATIVE (NEGATIVE); UR KETONES (Dip) NEGATIVE (NEGATIVE); UR LEUKOCYTE ESTERASE (Dip) 2+ Leu/ul (NEGATIVE); UR MUCUS FEW /HPF (NONE SEEN); UR NITRITE (Dip) NEGATIVE (NEGATIVE); UR NONSQUAMOUS EPITHELIAL CELL 1 /HPF (NONE SEEN); UR RBC 7 /HPF (0-5); UR SPECIFIC GRAVITY (Dip) 1.019 (1.003-1.030); UR SQUAMOUS EPITHELIAL CELL FEW /HPF (FEW); UR TOTAL PROTEIN (Dip) 1+ mg/dl (NEGATIVE); UR UROBILINOGEN (Dip) NEGATIVE (NEGATIVE); UR WBC 86 /HPF (0-5)
[2018-05-22] MEDS: CEFEPIME 1GM/50 ML (PMX) 50 ML IVPB (23:53)
[2018-05-23] MEDS: VANCOMYCIN 1 GM (PMX) 250 ML IVPB (00:16)
[2018-05-23 01:29] LABS: TROPONIN-I 0.164 ng/ml (0.000-0.120)
[2018-05-23 02:46] LABS: LACTIC ACID 0.8 mmol/L (0.5-2.0)
[2018-05-23 05:37] LABS: ADD MAN DIFF? NO
[2018-05-23 05:39] LABS: WHITE BLOOD COUNT 10.1 10^3/ul (4.8-10.8)
[2018-05-23 05:39] LABS: BASOPHIL # 0.1 10^3/ul (0.0-0.1); BASOPHILS % 0.5 % (0.0-2.0); EOSINOPHILS # 0.1 10^3/ul (0.0-0.5); EOSINOPHILS % 1.4 % (0.0-7.0); HEMOGLOBIN 10.2 g/dl (14.0-18.0); LYMPHOCYTES # 1.1 10^3/ul (0.8-2.9); LYMPHOCYTES % 10.7 % (15.0-51.0); MEAN CORPUSCULAR HEMOGLOBIN 29.3 pg (29.0-33.0); MEAN CORPUSCULAR HGB CONC 30.9 g/dl (32.0-37.0); MEAN CORPUSCULAR VOLUME 94.8 fl (82.0-101.0); MEAN PLATELET VOLUME 10.5 fl (7.4-10.4); MONOCYTE # 1.2 10^3/ul (0.3-0.9); MONOCYTES % 11.7 % (0.0-11.0); NEUTROPHIL # 7.6 10^3/ul (1.6-7.5); NEUTROPHILS % 75.2 % (39.0-77.0); PLATELET COUNT 221 10^3/UL (140-415); RED BLOOD COUNT 3.48 10^6/ul (4.70-6.10)
[2018-05-23 06:01] LABS: ALBUMIN/GLOBULIN RATIO 0.97; ANION GAP 10 (5-13)
[2018-05-23 06:03] LABS: LACTIC ACID 0.8 mmol/L (0.5-2.0)
[2018-05-23 06:24] LABS: ALANINE AMINOTRANSFERASE 19 IU/L (13-69); ALBUMIN 3.3 g/dl (3.3-4.9); ALKALINE PHOSPHATASE 69 IU/L (42-121); ASPARTATE AMINO TRANSFERASE 17 IU/L (15-46); BILIRUBIN,INDIRECT 0.1 mg/dl (0-1.1); BILIRUBIN,TOTAL 0.1 mg/dl (0.2-1.3); BLOOD UREA NITROGEN 39 mg/dl (7-20); CALCIUM 10.5 mg/dl (8.4-10.2); CARBON DIOXIDE 22 mmol/L (21-31); CHLORIDE 107 mmol/L (97-110); CREATININE 1.68 mg/dl (0.61-1.24); GLUCOSE 98 mg/dl (70-220); POTASSIUM 4.8 mmol/L (3.5-5.1); SODIUM 139 mmol/L (135-144); TOTAL PROTEIN 6.7 g/dl (6.1-8.1)
[2018-05-23 06:56] LABS: ERYTHROCYTE SEDIMENTATION RATE 105 mm/Hr (0-20)
[2018-05-23] MEDS ORDERED: COLLAGENASE 30 GM TUBE TOP (09:00)
[2018-05-23] MEDS ORDERED: COLLAGENASE 5 GM (UD JAR) TOP (12:00)
[2018-05-23] MEDS: ARIPIPRAZOLE 5 MG TAB PO (12:41)
[2018-05-23] MEDS: ASCORBIC ACID 500 MG TAB PO ×2 (12:42→21:04)
[2018-05-23] MEDS: FOLIC ACID 1 MG TAB PO (12:42)
[2018-05-23] MEDS: METOPROLOL 50 MG TAB PO ×2 (12:43→21:04)
[2018-05-23] MEDS: DILTIAZEM (CD) 120 MG CAP PO ×2 (12:43→21:00)
[2018-05-23] MEDS: FLUTICASONE/VILANTEROL 200-25 INH DEVICE INH (12:43)
[2018-05-23] MEDS: ACETYLCYSTEINE 20% 4 ML VIAL NEB ×2 (15:13→19:50)
[2018-05-23] MEDS: ALBUTEROL/IPRATROPIUM (NEB) 3 ML AMP INH ×2 (15:13→19:50)
[2018-05-23] MEDS: predniSONE 10 MG TAB PO (16:53)
[2018-05-23] MEDS: BALSAM PERU/CASTOR OIL 60 GM TUBE TOP (16:54)
[2018-05-23] MEDS: PANTOPRAZOLE (EC) 40 MG TAB PO (16:55)
[2018-05-23] MEDS: GUAIFENESIN LA 600 MG TABSR PO (21:00)
[2018-05-23] MEDS: DOCUSATE SODIUM 100 MG CAP PO (21:03)
[2018-05-23] MEDS: ATORVASTATIN 20 MG TAB PO (21:03)
[2018-05-23] MEDS: MIRTAZAPINE 15 MG TAB PO (21:04)
[2018-05-24] MEDS: CLINDAMYCIN 600 MG/D5W (PMX) 50 ML IVPB ×5 (01:11→23:27)
[2018-05-24] MEDS: ALBUTEROL/IPRATROPIUM (NEB) 3 ML AMP INH ×4 (01:28→20:39)
[2018-05-24] MEDS: ACETYLCYSTEINE 20% 4 ML VIAL NEB ×4 (01:28→20:39)
[2018-05-24] MEDS: CEFAZOLIN 1 GM/50 ML (PMX) 50 ML IVPB ×4 (02:16→20:07)
[2018-05-24 06:05] LABS: ADD MAN DIFF? NO
[2018-05-24 06:11] LABS: BASOPHILS % 0.2 % (0.0-2.0); EOSINOPHILS % 0.1 % (0.0-7.0); HEMATOCRIT 32.1 % (42.0-52.0); HEMOGLOBIN 9.7 g/dl (14.0-18.0); LYMPHOCYTES # 0.9 10^3/ul (0.8-2.9); LYMPHOCYTES % 7.5 % (15.0-51.0); MEAN CORPUSCULAR HEMOGLOBIN 29.4 pg (29.0-33.0); MEAN CORPUSCULAR HGB CONC 30.2 g/dl (32.0-37.0); MEAN CORPUSCULAR VOLUME 97.3 fl (82.0-101.0); MEAN PLATELET VOLUME 10.6 fl (7.4-10.4); MONOCYTE # 0.7 10^3/ul (0.3-0.9); MONOCYTES % 5.7 % (0.0-11.0); NEUTROPHIL # 9.8 10^3/ul (1.6-7.5); NEUTROPHILS % 86.1 % (39.0-77.0); PLATELET COUNT 242 10^3/UL (140-415)
[2018-05-24 06:11] LABS: WHITE BLOOD COUNT 11.4 10^3/ul (4.8-10.8)
[2018-05-24] MEDS: PANTOPRAZOLE (EC) 40 MG TAB PO (06:14)
[2018-05-24 06:55] LABS: ANION GAP 17 (5-13); BLOOD UREA NITROGEN 42 mg/dl (7-20); CALCIUM 10.5 mg/dl (8.4-10.2); CARBON DIOXIDE 21 mmol/L (21-31); CHLORIDE 108 mmol/L (97-110); CREATININE 1.84 mg/dl (0.61-1.24); GLUCOSE 102 mg/dl (70-220); SODIUM 146 mmol/L (135-144)
[2018-05-24 07:23] LABS: POTASSIUM 5.2 mmol/L (3.5-5.1)
[2018-05-24] MEDS ORDERED: COLLAGENASE 5 GM (UD JAR) TOP (09:00)
[2018-05-24] MEDS: ARIPIPRAZOLE 5 MG TAB PO (09:09)
[2018-05-24] MEDS: DILTIAZEM (CD) 120 MG CAP PO ×2 (09:10→20:09)
[2018-05-24] MEDS: FOLIC ACID 1 MG TAB PO (09:10)
[2018-05-24] MEDS: ASCORBIC ACID 500 MG TAB PO ×2 (09:11→20:08)
[2018-05-24] MEDS: METOPROLOL 50 MG TAB PO ×2 (09:11→20:08)
[2018-05-24] MEDS: GUAIFENESIN LA 600 MG TABSR PO ×2 (09:11→20:09)
[2018-05-24] MEDS: METHYLPREDNISOLONE 40 MG INJ IV ×2 (09:12→20:07)
[2018-05-24] MEDS: FLUTICASONE/VILANTEROL 200-25 INH DEVICE INH (09:12)
[2018-05-24] MEDS: BALSAM PERU/CASTOR OIL 60 GM TUBE TOP (09:12)
[2018-05-24] MEDS: DOCUSATE SODIUM 100 MG CAP PO (20:08)
[2018-05-24] MEDS: ACETAMINOPHEN 325 MG TAB PO (20:08)
[2018-05-24] MEDS: ATORVASTATIN 20 MG TAB PO (20:08)
[2018-05-24] MEDS: MIRTAZAPINE 15 MG TAB PO (20:09)
[2018-05-25] MEDS: SOD CHLORIDE 0.45% 1,000 ML IV ×4 (01:40→23:49)
[2018-05-25] MEDS: ACETYLCYSTEINE 20% 4 ML VIAL NEB ×4 (02:27→19:30)
[2018-05-25] MEDS: ALBUTEROL/IPRATROPIUM (NEB) 3 ML AMP INH ×4 (02:27→19:30)
[2018-05-25] MEDS: CEFAZOLIN 1 GM/50 ML (PMX) 50 ML IVPB ×3 (06:06→21:34)
[2018-05-25] MEDS: PANTOPRAZOLE (EC) 40 MG TAB PO (06:06)
[2018-05-25] MEDS: CLINDAMYCIN 600 MG/D5W (PMX) 50 ML IVPB ×4 (06:41→23:46)
[2018-05-25] MEDS: METOPROLOL 50 MG TAB PO ×2 (08:07→21:35)
[2018-05-25] MEDS: ASCORBIC ACID 500 MG TAB PO ×2 (08:07→21:35)
[2018-05-25] MEDS: ARIPIPRAZOLE 5 MG TAB PO (08:07)
[2018-05-25] MEDS: METHYLPREDNISOLONE 40 MG INJ IV (08:07)
[2018-05-25] MEDS: GUAIFENESIN LA 600 MG TABSR PO ×2 (08:07→21:35)
[2018-05-25] MEDS: FOLIC ACID 1 MG TAB PO (08:07)
[2018-05-25] MEDS: BALSAM PERU/CASTOR OIL 60 GM TUBE TOP (08:08)
[2018-05-25] MEDS: FLUTICASONE/VILANTEROL 200-25 INH DEVICE INH (08:08)
[2018-05-25] MEDS: DILTIAZEM (CD) 120 MG CAP PO (09:51)
[2018-05-25] MEDS: ATORVASTATIN 20 MG TAB PO (21:35)
[2018-05-25] MEDS: DOCUSATE SODIUM 100 MG CAP PO (21:35)
[2018-05-25] MEDS: MIRTAZAPINE 15 MG TAB PO (21:35)
[2018-05-25] MEDS: ACETAMINOPHEN 325 MG TAB PO (21:35)
[2018-05-26] MEDS: ACETYLCYSTEINE 20% 4 ML VIAL NEB ×4 (01:19→19:47)
[2018-05-26] MEDS: ALBUTEROL/IPRATROPIUM (NEB) 3 ML AMP INH ×4 (01:19→19:47)
[2018-05-26] MEDS: CLINDAMYCIN 600 MG/D5W (PMX) 50 ML IVPB ×3 (04:48→17:14)
[2018-05-26] MEDS: PANTOPRAZOLE (EC) 40 MG TAB PO (05:22)
[2018-05-26] MEDS: CEFAZOLIN 1 GM/50 ML (PMX) 50 ML IVPB ×3 (05:22→21:12)
[2018-05-26 06:10] LABS: ADD MAN DIFF? NO
[2018-05-26 06:19] LABS: BASOPHILS % 0.1 % (0.0-2.0); HEMATOCRIT 29.1 % (42.0-52.0); HEMOGLOBIN 8.8 g/dl (14.0-18.0); LYMPHOCYTES # 0.8 10^3/ul (0.8-2.9); LYMPHOCYTES % 5.6 % (15.0-51.0); MEAN CORPUSCULAR HEMOGLOBIN 29.4 pg (29.0-33.0); MEAN CORPUSCULAR HGB CONC 30.2 g/dl (32.0-37.0); MEAN CORPUSCULAR VOLUME 97.3 fl (82.0-101.0); MEAN PLATELET VOLUME 10.6 fl (7.4-10.4); MONOCYTES % 7.1 % (0.0-11.0); NEUTROPHIL # 12.1 10^3/ul (1.6-7.5); NEUTROPHILS % 86.7 % (39.0-77.0); PLATELET COUNT 196 10^3/UL (140-415); RED BLOOD COUNT 2.99 10^6/ul (4.70-6.10); RED CELL DISTRIBUTION WIDTH 15.7 % (11.5-14.5)
[2018-05-26 06:36] LABS: ANION GAP 15 (5-13); BLOOD UREA NITROGEN 53 mg/dl (7-20); CALCIUM 9.5 mg/dl (8.4-10.2); CARBON DIOXIDE 18 mmol/L (21-31); CHLORIDE 104 mmol/L (97-110); CREATININE 1.41 mg/dl (0.61-1.24); GLUCOSE 86 mg/dl (70-220); POTASSIUM 5.5 mmol/L (3.5-5.1); SODIUM 137 mmol/L (135-144)
[2018-05-26] MEDS: BALSAM PERU/CASTOR OIL 60 GM TUBE TOP (08:32)
[2018-05-26] MEDS: METHYLPREDNISOLONE 40 MG INJ IV (08:32)
[2018-05-26] MEDS: METOPROLOL 50 MG TAB PO ×2 (08:32→21:12)
[2018-05-26] MEDS: ASCORBIC ACID 500 MG TAB PO ×2 (08:32→21:12)
[2018-05-26] MEDS: FLUTICASONE/VILANTEROL 200-25 INH DEVICE INH (08:32)
[2018-05-26] MEDS: GUAIFENESIN LA 600 MG TABSR PO ×2 (08:32→21:12)
[2018-05-26] MEDS: FOLIC ACID 1 MG TAB PO (08:33)
[2018-05-26] MEDS: ARIPIPRAZOLE 5 MG TAB PO (08:38)
[2018-05-26] MEDS: DILTIAZEM (CD) 120 MG CAP PO (11:10)
[2018-05-26 14:46] LABS: INR 0.97
[2018-05-26 14:47] LABS: PARTIAL THROMBOPLASTIN TIME 25.7 Sec (23.0-35.0)
[2018-05-26 14:50] LABS: D-DIMER 3820.63 ng/ml (<460)
[2018-05-26] MEDS: NA POLYST SULFON 15 GM/60 ML BTL PO (16:15)
[2018-05-26] MEDS: ATORVASTATIN 20 MG TAB PO (21:11)
[2018-05-26] MEDS: DOCUSATE SODIUM 100 MG CAP PO (21:11)
[2018-05-26] MEDS: MIRTAZAPINE 15 MG TAB PO (21:12)
[2018-05-26] MEDS: GUAIFENESIN/DM 5ML CUP PO (22:48)
[2018-05-27] MEDS: CLINDAMYCIN 600 MG/D5W (PMX) 50 ML IVPB ×6 (00:06→21:52)
[2018-05-27] MEDS: ALBUTEROL/IPRATROPIUM (NEB) 3 ML AMP INH ×4 (01:42→19:21)
[2018-05-27] MEDS: ACETYLCYSTEINE 20% 4 ML VIAL NEB ×4 (01:52→19:21)
[2018-05-27] MEDS: CEFAZOLIN 1 GM/50 ML (PMX) 50 ML IVPB ×3 (05:25→22:00)
[2018-05-27 05:27] LABS: ADD MAN DIFF? NO
[2018-05-27 05:36] LABS: HEMATOCRIT 29.1 % (42.0-52.0); HEMOGLOBIN 8.8 g/dl (14.0-18.0); LYMPHOCYTES # 1.1 10^3/ul (0.8-2.9); LYMPHOCYTES % 10.6 % (15.0-51.0); MEAN CORPUSCULAR HEMOGLOBIN 29.3 pg (29.0-33.0); MEAN CORPUSCULAR HGB CONC 30.2 g/dl (32.0-37.0); MONOCYTE # 1.2 10^3/ul (0.3-0.9); MONOCYTES % 11.9 % (0.0-11.0); NEUTROPHIL # 7.8 10^3/ul (1.6-7.5); NEUTROPHILS % 76.6 % (39.0-77.0); PLATELET COUNT 167 10^3/UL (140-415); POSITIVE DIFF @See below
[2018-05-27 05:36] LABS: WHITE BLOOD COUNT 10.2 10^3/ul (4.8-10.8)
[2018-05-27 06:03] LABS: ANION GAP 15 (5-13); BLOOD UREA NITROGEN 53 mg/dl (7-20); CALCIUM 9.7 mg/dl (8.4-10.2); CARBON DIOXIDE 19 mmol/L (21-31); CHLORIDE 110 mmol/L (97-110); CREATININE 1.21 mg/dl (0.61-1.24); GLUCOSE 86 mg/dl (70-220); POTASSIUM 4.2 mmol/L (3.5-5.1); SODIUM 144 mmol/L (135-144)
[2018-05-27] MEDS: PANTOPRAZOLE (EC) 40 MG TAB PO (06:27)
[2018-05-27] MEDS: ASCORBIC ACID 500 MG TAB PO ×2 (08:18→21:50)
[2018-05-27] MEDS: DILTIAZEM (CD) 120 MG CAP PO (08:18)
[2018-05-27] MEDS: ARIPIPRAZOLE 5 MG TAB PO (08:18)
[2018-05-27] MEDS: predniSONE 10 MG TAB PO (08:18)
[2018-05-27] MEDS: FOLIC ACID 1 MG TAB PO (08:18)
[2018-05-27] MEDS: METOPROLOL 50 MG TAB PO ×2 (08:19→21:51)
[2018-05-27] MEDS: GUAIFENESIN LA 600 MG TABSR PO ×2 (08:19→21:50)
[2018-05-27] MEDS: FLUTICASONE/VILANTEROL 200-25 INH DEVICE INH (08:20)
[2018-05-27] MEDS: BALSAM PERU/CASTOR OIL 60 GM TUBE TOP (08:20)
[2018-05-27 14:12] LABS: HAPTOGLOBIN 160 mg/dL (43-212)
[2018-05-27] MEDS: DOCUSATE SODIUM 100 MG CAP PO (21:50)
[2018-05-27] MEDS: MIRTAZAPINE 15 MG TAB PO (21:50)
[2018-05-27] MEDS: APIXABAN 5 MG TABLET PO (21:50)
[2018-05-27] MEDS: ATORVASTATIN 20 MG TAB PO (21:50)
[2018-05-28] MEDS: ACETYLCYSTEINE 20% 4 ML VIAL NEB ×4 (01:41→19:31)
[2018-05-28] MEDS: ALBUTEROL/IPRATROPIUM (NEB) 3 ML AMP INH ×4 (01:41→19:31)
[2018-05-28] MEDS: CEFAZOLIN 1 GM/50 ML (PMX) 50 ML IVPB ×2 (05:24→15:14)
[2018-05-28] MEDS: CLINDAMYCIN 600 MG/D5W (PMX) 50 ML IVPB ×3 (06:18→13:11)
[2018-05-28 06:25] LABS: IRON 44 ug/dl (35-150)
[2018-05-28 06:35] LABS: % IRON SATURATION 17 % SAT (22-52); TOTAL IRON BINDING CAPACITY 258 ug/dl (241-421)
[2018-05-28] MEDS: PANTOPRAZOLE (EC) 40 MG TAB PO (06:52)
[2018-05-28] MEDS: FLUTICASONE/VILANTEROL 200-25 INH DEVICE INH (08:17)
[2018-05-28] MEDS: ARIPIPRAZOLE 5 MG TAB PO (08:17)
[2018-05-28] MEDS: DILTIAZEM (CD) 120 MG CAP PO (08:18)
[2018-05-28] MEDS: APIXABAN 5 MG TABLET PO ×2 (08:18→20:30)
[2018-05-28] MEDS: METOPROLOL 50 MG TAB PO ×2 (08:19→20:31)
[2018-05-28] MEDS: GUAIFENESIN LA 600 MG TABSR PO ×2 (08:19→20:31)
[2018-05-28] MEDS: predniSONE 10 MG TAB PO (08:19)
[2018-05-28] MEDS: ASCORBIC ACID 500 MG TAB PO ×2 (08:19→20:31)
[2018-05-28] MEDS: FOLIC ACID 1 MG TAB PO (08:19)
[2018-05-28] MEDS: BALSAM PERU/CASTOR OIL 60 GM TUBE TOP (08:20)
[2018-05-28] MEDS: AMOXICILLIN/CLAV 500 MG TAB PO (20:30)
[2018-05-28] MEDS: ATORVASTATIN 20 MG TAB PO (20:30)
[2018-05-28] MEDS: DOCUSATE SODIUM 100 MG CAP PO (20:30)
[2018-05-28] MEDS: MIRTAZAPINE 15 MG TAB PO (20:31)
[2018-05-28] MEDS: DIAZEPAM 5 MG TAB PO (23:49)
[2018-05-29] MEDS: ALBUTEROL/IPRATROPIUM (NEB) 3 ML AMP INH ×4 (01:19→19:46)
[2018-05-29] MEDS: ACETYLCYSTEINE 20% 4 ML VIAL NEB ×4 (01:19→19:46)
[2018-05-29] MEDS: PANTOPRAZOLE (EC) 40 MG TAB PO (06:04)
[2018-05-29 06:06] LABS: ADD MAN DIFF? NO
[2018-05-29 06:15] LABS: BASOPHILS % 0.1 % (0.0-2.0); EOSINOPHILS # 0.1 10^3/ul (0.0-0.5); EOSINOPHILS % 0.4 % (0.0-7.0); HEMATOCRIT 29.5 % (42.0-52.0); HEMOGLOBIN 9.1 g/dl (14.0-18.0); LYMPHOCYTES # 1.1 10^3/ul (0.8-2.9); MEAN CORPUSCULAR HEMOGLOBIN 29.3 pg (29.0-33.0); MEAN CORPUSCULAR HGB CONC 30.8 g/dl (32.0-37.0); MEAN CORPUSCULAR VOLUME 94.9 fl (82.0-101.0); MEAN PLATELET VOLUME 10.8 fl (7.4-10.4); MONOCYTES % 8.5 % (0.0-11.0); NEUTROPHIL # 9.1 10^3/ul (1.6-7.5); NEUTROPHILS % 80.4 % (39.0-77.0); PLATELET COUNT 196 10^3/UL (140-415); RED BLOOD COUNT 3.11 10^6/ul (4.70-6.10); RED CELL DISTRIBUTION WIDTH 16.2 % (11.5-14.5)
[2018-05-29 06:15] LABS: WHITE BLOOD COUNT 11.3 10^3/ul (4.8-10.8)
[2018-05-29 07:03] LABS: ANION GAP 11 (5-13); BLOOD UREA NITROGEN 40 mg/dl (7-20); CALCIUM 9.6 mg/dl (8.4-10.2); CARBON DIOXIDE 26 mmol/L (21-31); CHLORIDE 109 mmol/L (97-110); CREATININE 1.03 mg/dl (0.61-1.24); GLUCOSE 75 mg/dl (70-220); POTASSIUM 3.7 mmol/L (3.5-5.1); SODIUM 146 mmol/L (135-144)
[2018-05-29] MEDS: APIXABAN 5 MG TABLET PO ×2 (08:26→20:33)
[2018-05-29] MEDS: FLUTICASONE/VILANTEROL 200-25 INH DEVICE INH (08:26)
[2018-05-29] MEDS: AMOXICILLIN/CLAV 500 MG TAB PO ×3 (08:26→20:37)
[2018-05-29] MEDS: ASCORBIC ACID 500 MG TAB PO ×2 (08:27→20:32)
[2018-05-29] MEDS: FOLIC ACID 1 MG TAB PO (08:27)
[2018-05-29] MEDS: GUAIFENESIN LA 600 MG TABSR PO ×2 (08:27→20:32)
[2018-05-29] MEDS: predniSONE 20 MG TAB PO (08:27)
[2018-05-29] MEDS: ARIPIPRAZOLE 5 MG TAB PO (08:27)
[2018-05-29] MEDS: DILTIAZEM (CD) 120 MG CAP PO (08:28)
[2018-05-29] MEDS: METOPROLOL 50 MG TAB PO ×2 (08:28→20:33)
[2018-05-29] MEDS: BALSAM PERU/CASTOR OIL 60 GM TUBE TOP (08:40)
[2018-05-29] MEDS: DOCUSATE SODIUM 100 MG CAP PO (20:32)
[2018-05-29] MEDS: MIRTAZAPINE 15 MG TAB PO (20:32)
[2018-05-29] MEDS: ATORVASTATIN 20 MG TAB PO (20:32)
[2018-05-29] MEDS: DIAZEPAM 5 MG TAB PO (23:00)
[2018-05-30] MEDS: ACETYLCYSTEINE 20% 4 ML VIAL NEB ×4 (03:09→19:54)
[2018-05-30] MEDS: ALBUTEROL/IPRATROPIUM (NEB) 3 ML AMP INH ×4 (03:10→19:54)
[2018-05-30] MEDS: PANTOPRAZOLE (EC) 40 MG TAB PO (04:38)
[2018-05-30 05:41] LABS: ADD MAN DIFF? NO
[2018-05-30 05:51] LABS: WHITE BLOOD COUNT 11.6 10^3/ul (4.8-10.8)
[2018-05-30 05:51] LABS: ABNORMAL IP MESSAGE 1; BASOPHILS % 0.1 % (0.0-2.0); EOSINOPHILS % 0.1 % (0.0-7.0); HEMATOCRIT 35.5 % (42.0-52.0); HEMOGLOBIN 10.7 g/dl (14.0-18.0); LYMPHOCYTES # 0.6 10^3/ul (0.8-2.9); LYMPHOCYTES % 5.1 % (15.0-51.0); MEAN CORPUSCULAR HEMOGLOBIN 29.3 pg (29.0-33.0); MEAN CORPUSCULAR HGB CONC 30.1 g/dl (32.0-37.0); MEAN CORPUSCULAR VOLUME 97.3 fl (82.0-101.0); MEAN PLATELET VOLUME 10.9 fl (7.4-10.4); MONOCYTE # 0.3 10^3/ul (0.3-0.9); MONOCYTES % 2.9 % (0.0-11.0); NEUTROPHIL # 10.5 10^3/ul (1.6-7.5); NEUTROPHILS % 91.1 % (39.0-77.0); PLATELET COUNT 211 10^3/UL (140-415); POSITIVE DIFF @See below; RED BLOOD COUNT 3.65 10^6/ul (4.70-6.10); RED CELL DISTRIBUTION WIDTH 15.9 % (11.5-14.5)
[2018-05-30] MEDS: ASCORBIC ACID 500 MG TAB PO ×2 (08:45→20:16)
[2018-05-30] MEDS: FOLIC ACID 1 MG TAB PO (08:45)
[2018-05-30] MEDS: predniSONE 20 MG TAB PO (08:45)
[2018-05-30] MEDS: ARIPIPRAZOLE 5 MG TAB PO (08:45)
[2018-05-30] MEDS: GUAIFENESIN LA 600 MG TABSR PO ×2 (08:45→20:16)
[2018-05-30] MEDS: AMOXICILLIN/CLAV 500 MG TAB PO ×3 (08:45→20:21)
[2018-05-30] MEDS: APIXABAN 5 MG TABLET PO ×2 (08:45→20:16)
[2018-05-30] MEDS: DILTIAZEM (CD) 120 MG CAP PO (08:46)
[2018-05-30] MEDS: FLUTICASONE/VILANTEROL 200-25 INH DEVICE INH (08:47)
[2018-05-30] MEDS: METOPROLOL 50 MG TAB PO ×2 (08:47→20:22)
[2018-05-30] MEDS: BALSAM PERU/CASTOR OIL 60 GM TUBE TOP (08:48)
[2018-05-30] MEDS: ACETAMINOPHEN 325 MG TAB PO (18:18)
[2018-05-30] MEDS: MIRTAZAPINE 15 MG TAB PO (20:16)
[2018-05-30] MEDS: ATORVASTATIN 20 MG TAB PO (20:16)
[2018-05-30] MEDS: DOCUSATE SODIUM 100 MG CAP PO (20:21)
== END 2018-05-30 21:03 | disposition home or self-care (01) | DRG 177 ==
LOC: ICU 23:24 → E/R 19:38 → 6WM 05-23 18:58
PROVIDERS: Internal Medicine
DX: J69.0 Pneumonitis due to inhalation of food and vomit (principal); G92 Toxic encephalopathy; I82.412 Acute embolism and thrombosis of left femoral vein; J44.1 Chronic obstructive pulmonary disease with (acute) exacerbation; L89.159 Pressure ulcer of sacral region, unspecified stage; K21.0 Gastro-esophageal reflux disease with esophagitis; F41.9 Anxiety disorder, unspecified; F32.9 Major depressive disorder, single episode, unspecified; E86.0 Dehydration; E87.5 Hyperkalemia; D64.9 Anemia, unspecified
CPT/HCPCS: 36415; 70450; 71045; 71250; 80048; 80053; 81001; 82140; 82728; 82962; 83010; 83540; 83605; 84484; 85025; 85378; 85610; 85651; 85730; 87040; 87045; 87081; 87086; 90686; 93005; 93970; 94640; 94664; 94667; 94668; 94669; 97110; 97116; 97161; 97530; 99285-25

== ENCOUNTER 2018-06-20 13:22 | Emergency (ER) | payer MEDICARE, BC ==
[2018-06-20] MEDS: ACETAMINOPHEN 500 MG TAB PO (14:55)
== END 2018-06-20 17:25 | disposition home or self-care (01) ==
LOC: E/R 13:22
DX: S32.010A Wedge compression fracture of first lumbar vertebra, initial encounter for closed fracture (principal); I10 Essential (primary) hypertension; W01.0XXA Fall on same level from slipping, tripping and stumbling without subsequent striking against object, initial encounter; Y92.9 Unspecified place or not applicable
CPT/HCPCS: 72131; 72170; 99284-25

== ENCOUNTER 2018-07-13 16:10 | Inpatient (IN) | payer MEDICARE, BC ==
[2018-07-13 16:50] LABS: ADD MAN DIFF? NO
[2018-07-13 17:14] LABS: INR 0.92; PARTIAL THROMBOPLASTIN TIME 24.1 Sec (23.0-35.0); PROTIME 12.5 Sec (11.9-14.9)
[2018-07-13 19:03] LABS: BASOPHILS % 0.2 % (0.0-2.0); EOSINOPHILS # 0.2 10^3/ul (0.0-0.5); EOSINOPHILS % 1.2 % (0.0-7.0); HEMATOCRIT 37.5 % (42.0-52.0); HEMOGLOBIN 11.3 g/dl (14.0-18.0); LYMPHOCYTES # 0.8 10^3/ul (0.8-2.9); LYMPHOCYTES % 6.3 % (15.0-51.0); MEAN CORPUSCULAR HEMOGLOBIN 28.3 pg (29.0-33.0); MEAN CORPUSCULAR HGB CONC 30.1 g/dl (32.0-37.0); MEAN CORPUSCULAR VOLUME 93.8 fl (82.0-101.0); MEAN PLATELET VOLUME 10.6 fl (7.4-10.4); NEUTROPHIL # 10.8 10^3/ul (1.6-7.5); NEUTROPHILS % 83.7 % (39.0-77.0); PLATELET COUNT 187 10^3/UL (140-415); RED CELL DISTRIBUTION WIDTH 16.6 % (11.5-14.5)
[2018-07-13 19:20] LABS: ALANINE AMINOTRANSFERASE 17 IU/L (13-69); ALBUMIN 3.7 g/dl (3.3-4.9); ALBUMIN/GLOBULIN RATIO 1.05; ALKALINE PHOSPHATASE 148 IU/L (42-121); ANION GAP 8 (5-13); ASPARTATE AMINO TRANSFERASE 19 IU/L (15-46); BILIRUBIN,INDIRECT 0.3 mg/dl (0-1.1); BILIRUBIN,TOTAL 0.3 mg/dl (0.2-1.3); BLOOD UREA NITROGEN 25 mg/dl (7-20); CALCIUM 10.2 mg/dl (8.4-10.2); CARBON DIOXIDE 26 mmol/L (21-31); CHLORIDE 106 mmol/L (97-110); CREATININE 1.16 mg/dl (0.61-1.24); GLUCOSE 106 mg/dl (70-220); POTASSIUM 4.5 mmol/L (3.5-5.1); SODIUM 140 mmol/L (135-144); TOTAL PROTEIN 7.2 g/dl (6.1-8.1)
[2018-07-13 19:31] LABS: TROPONIN-I 0.053 ng/ml (0.000-0.120)
[2018-07-13 19:41] LABS: ADD UMIC YES; UR ASCORBIC ACID NEGATIVE (NEGATIVE); UR BACTERIA FEW /HPF (NONE SEEN); UR BILIRUBIN (Dip) NEGATIVE (NEGATIVE); UR BLOOD (Dip) NEGATIVE (NEGATIVE); UR BUDDING YEAST FEW /HPF (NONE SEEN); UR CLARITY SLIGHTLY CLOUDY (CLEAR); UR COLOR YELLOW (YELLOW); UR GLUCOSE (Dip) NEGATIVE (NEGATIVE); UR HYALINE CAST FEW /HPF (NONE SEEN); UR KETONES (Dip) NEGATIVE (NEGATIVE); UR LEUKOCYTE ESTERASE (Dip) 2+ Leu/ul (NEGATIVE); UR NITRITE (Dip) NEGATIVE (NEGATIVE); UR RBC 3 /HPF (0-5); UR SPECIFIC GRAVITY (Dip) 1.018 (1.003-1.030); UR SQUAMOUS EPITHELIAL CELL MODERATE /HPF (FEW); UR TOTAL PROTEIN (Dip) 1+ mg/dl (NEGATIVE); UR UROBILINOGEN (Dip) NEGATIVE (NEGATIVE); UR WBC 16 /HPF (0-5)
[2018-07-13] MEDS ORDERED: ONDANSETRON 4 MG INJ IV ×2 (21:00→21:30)
[2018-07-13] MEDS ORDERED: ACETAMINOPHEN 325 MG TAB PO (21:00)
[2018-07-13] MEDS: CEFTRIAXONE 1 GM/50 ML (PMX) 50 ML IVPB (21:18)
[2018-07-13] MEDS ORDERED: NACL 0.9% 3 ML SYG IV (21:30)
[2018-07-13] MEDS: DEXTROSE 5%-0.45% NACL 1,000 ML IV (22:10)
[2018-07-13] MEDS: NEOMYC/POLYMYX/DEXAMETH OPH 5 ML BOTH EYES (22:29)
[2018-07-14 06:28] LABS: ADD MAN DIFF? NO
[2018-07-14 06:37] LABS: BASOPHILS % 0.3 % (0.0-2.0); EOSINOPHILS # 0.2 10^3/ul (0.0-0.5); EOSINOPHILS % 1.5 % (0.0-7.0); HEMATOCRIT 34.3 % (42.0-52.0); HEMOGLOBIN 10.2 g/dl (14.0-18.0); LYMPHOCYTES # 0.8 10^3/ul (0.8-2.9); LYMPHOCYTES % 7.2 % (15.0-51.0); MEAN CORPUSCULAR HEMOGLOBIN 28.6 pg (29.0-33.0); MEAN CORPUSCULAR HGB CONC 29.7 g/dl (32.0-37.0); MEAN CORPUSCULAR VOLUME 96.1 fl (82.0-101.0); MEAN PLATELET VOLUME 11.8 fl (7.4-10.4); MONOCYTE # 1.2 10^3/ul (0.3-0.9); MONOCYTES % 10.7 % (0.0-11.0); NEUTROPHIL # 8.8 10^3/ul (1.6-7.5); NEUTROPHILS % 79.8 % (39.0-77.0); POSITIVE DIFF @See below; RED BLOOD COUNT 3.57 10^6/ul (4.70-6.10); RED CELL DISTRIBUTION WIDTH 16.9 % (11.5-14.5)
[2018-07-14 06:42] LABS: PLATELET COUNT 117 10^3/UL (140-415)
[2018-07-14 06:48] LABS: ALANINE AMINOTRANSFERASE 22 IU/L (13-69); ALBUMIN 3.2 g/dl (3.3-4.9); ALBUMIN/GLOBULIN RATIO 1.03; ALKALINE PHOSPHATASE 116 IU/L (42-121); ANION GAP 5 (5-13); ASPARTATE AMINO TRANSFERASE 17 IU/L (15-46); BILIRUBIN,INDIRECT 0.3 mg/dl (0-1.1); BILIRUBIN,TOTAL 0.3 mg/dl (0.2-1.3); BLOOD UREA NITROGEN 23 mg/dl (7-20); CALCIUM 9.4 mg/dl (8.4-10.2); CARBON DIOXIDE 24 mmol/L (21-31); CHLORIDE 109 mmol/L (97-110); CREATININE 0.96 mg/dl (0.61-1.24); GLUCOSE 106 mg/dl (70-220); POTASSIUM 3.7 mmol/L (3.5-5.1); SODIUM 138 mmol/L (135-144); TOTAL PROTEIN 6.3 g/dl (6.1-8.1)
[2018-07-14] MEDS: PANTOPRAZOLE (EC) 40 MG TAB PO (06:48)
[2018-07-14 07:15] LABS: HEMOGLOBIN A1C 5.7 % (0-5.9)
[2018-07-14] MEDS ORDERED: PENDING SANTYL ORDER FOR WOUND CARE XX (07:30)
[2018-07-14 07:37] LABS: ANISOCYTOSIS 1+ (0-0); BAND NEUTROPHILS #M 0.2 10^3/ul (0.0-0.6); BAND NEUTROPHILS % (M) 2 % (0-4); EOSINOPHILS % (M) 5 % (0-7); LYMPHOCYTES #M 1.2 10^3/ul (0.8-2.9); LYMPHOCYTES % (M) 11 % (15-51); MICROCYTOSIS 1+ (0-0); MONOCYTE #M 0.4 10^3/ul (0.3-0.9); MONOCYTES % (M) 4 % (0-11); PLATELET ESTIMATE DECREASED; POIKILOCYTOSIS 1+ (0-0); POLYCHROMASIA 1+ (0-0); SEG NEUT #M 8.6 10^3/ul (1.6-7.5); SEGMENTED NEUTROPHILS (M) % 78 % (39-77); SMUDGE%M 11 % (0-0); SPHEROCYTES 1+ (0-0)
[2018-07-14] MEDS ORDERED: DILTIAZEM HCL 120 MG PO (09:00)
[2018-07-14] MEDS: DILTIAZEM (CD) 120 MG CAP PO (09:45)
[2018-07-14] MEDS: APIXABAN 5 MG TABLET PO ×2 (09:45→21:29)
[2018-07-14] MEDS: predniSONE 5 MG TAB PO (09:45)
[2018-07-14] MEDS: METOPROLOL 50 MG TAB PO ×2 (09:46→21:29)
[2018-07-14] MEDS: CEFTRIAXONE 1 GM/50 ML (PMX) 50 ML IVPB (09:51)
[2018-07-14] MEDS: DEXTROSE 5%-0.45% NACL 1,000 ML IV (10:10)
[2018-07-14] MEDS: NEOMYC/POLYMYX/DEXAMETH OPH 5 ML BOTH EYES ×4 (13:00→21:29)
[2018-07-14] MEDS: LEVALBUTEROL (NEB) 0.63 MG/3 ML AMP HHN ×2 (13:23→20:19)
[2018-07-14] MEDS: ARIPIPRAZOLE 5 MG TAB PO (15:35)
[2018-07-14] MEDS ORDERED: VANCOMYCIN IV PER PHARMACY XX (18:00)
[2018-07-14] MEDS: MIRTAZAPINE 15 MG TAB PO (21:29)
[2018-07-14] MEDS: VANCOMYCIN HCL 1.5 GM in SOD CHLORIDE 0.9% 250 ML IVPB (22:03)
[2018-07-15] MEDS: LEVALBUTEROL (NEB) 0.63 MG/3 ML AMP HHN ×4 (01:43→19:49)
[2018-07-15] MEDS: DEXTROSE 5%-0.45% NACL 1,000 ML IV ×2 (03:56→18:26)
[2018-07-15] MEDS: PANTOPRAZOLE (EC) 40 MG TAB PO (06:16)
[2018-07-15 06:35] LABS: ADD MAN DIFF? NO
[2018-07-15 06:40] LABS: BASOPHILS % 0.2 % (0.0-2.0); EOSINOPHILS # 0.2 10^3/ul (0.0-0.5); EOSINOPHILS % 1.8 % (0.0-7.0); HEMATOCRIT 29.9 % (42.0-52.0); LYMPHOCYTES # 1.1 10^3/ul (0.8-2.9); LYMPHOCYTES % 11.4 % (15.0-51.0); MEAN CORPUSCULAR HEMOGLOBIN 28.1 pg (29.0-33.0); MEAN CORPUSCULAR HGB CONC 30.1 g/dl (32.0-37.0); MEAN CORPUSCULAR VOLUME 93.4 fl (82.0-101.0); MEAN PLATELET VOLUME 10.3 fl (7.4-10.4); MONOCYTE # 1.1 10^3/ul (0.3-0.9); MONOCYTES % 11.1 % (0.0-11.0); NEUTROPHIL # 7.2 10^3/ul (1.6-7.5); NEUTROPHILS % 75.2 % (39.0-77.0); PLATELET COUNT 148 10^3/UL (140-415); RED CELL DISTRIBUTION WIDTH 16.9 % (11.5-14.5)
[2018-07-15 06:40] LABS: WHITE BLOOD COUNT 9.6 10^3/ul (4.8-10.8)
[2018-07-15 07:20] LABS: ALANINE AMINOTRANSFERASE 19 IU/L (13-69); ALBUMIN 2.9 g/dl (3.3-4.9); ALKALINE PHOSPHATASE 95 IU/L (42-121); ANION GAP 6 (5-13); BILIRUBIN,INDIRECT 0.2 mg/dl (0-1.1); BILIRUBIN,TOTAL 0.2 mg/dl (0.2-1.3); BLOOD UREA NITROGEN 23 mg/dl (7-20); CALCIUM 9.1 mg/dl (8.4-10.2); CARBON DIOXIDE 26 mmol/L (21-31); CHLORIDE 109 mmol/L (97-110); CREATININE 1.02 mg/dl (0.61-1.24); GLUCOSE 99 mg/dl (70-220); POTASSIUM 3.8 mmol/L (3.5-5.1); SODIUM 141 mmol/L (135-144); TOTAL PROTEIN 5.8 g/dl (6.1-8.1)
[2018-07-15 07:39] LABS: ASPARTATE AMINO TRANSFERASE 14 IU/L (15-46)
[2018-07-15] MEDS: FLUTICASONE/VILANTEROL 200-25 INH DEVICE INH (09:00)
[2018-07-15] MEDS: TIOTROPIUM 18 MCG CAPSULE INHA DEV INH (09:12)
[2018-07-15] MEDS: ARIPIPRAZOLE 5 MG TAB PO (09:13)
[2018-07-15] MEDS: predniSONE 5 MG TAB PO (09:13)
[2018-07-15] MEDS: CEFTRIAXONE 1 GM/50 ML (PMX) 50 ML IVPB (09:13)
[2018-07-15] MEDS: predniSONE 1 MG TAB PO (09:13)
[2018-07-15] MEDS: APIXABAN 5 MG TABLET PO ×2 (09:13→21:51)
[2018-07-15] MEDS: DILTIAZEM (CD) 120 MG CAP PO (09:14)
[2018-07-15] MEDS: NEOMYC/POLYMYX/DEXAMETH OPH 5 ML BOTH EYES ×4 (09:14→21:45)
[2018-07-15] MEDS: METOPROLOL 50 MG TAB PO ×2 (09:14→21:51)
[2018-07-15] MEDS: BALSAM PERU/CASTOR OIL 60 GM TUBE TOP (12:51)
[2018-07-15] MEDS: VANCOMYCIN HCL 1.25 GM in SOD CHLORIDE 0.9% 250 ML IVPB (21:41)
[2018-07-15] MEDS: MIRTAZAPINE 15 MG TAB PO (21:51)
[2018-07-15] MEDS: CEPHALEXIN 500 MG CAP PO (22:00)
[2018-07-16] MEDS ORDERED: CEPHALEXIN 500 MG CAP PO
[2018-07-16] MEDS: LORAZEPAM 2 MG INJ IV (00:44)
[2018-07-16] MEDS: CEPHALEXIN 500 MG CAP PO ×3 (00:49→12:26)
[2018-07-16] MEDS: ACETYLCYSTEINE 20% 4 ML VIAL NEB ×5 (01:03→19:41)
[2018-07-16] MEDS: LEVALBUTEROL (NEB) 0.63 MG/3 ML AMP HHN ×4 (01:03→19:40)
[2018-07-16] MEDS: DEXTROSE 5%-0.45% NACL 1,000 ML IV ×2 (02:46→12:26)
[2018-07-16] MEDS: APIXABAN 5 MG TABLET PO ×3 (08:37→21:00)
[2018-07-16] MEDS: METOPROLOL 50 MG TAB PO ×3 (08:38→21:00)
[2018-07-16] MEDS: PANTOPRAZOLE (EC) 40 MG TAB PO (08:38)
[2018-07-16] MEDS: GUAIFENESIN LA 600 MG TABSR PO ×3 (08:38→21:00)
[2018-07-16] MEDS: ARIPIPRAZOLE 5 MG TAB PO (08:38)
[2018-07-16] MEDS: predniSONE 5 MG TAB PO (08:38)
[2018-07-16] MEDS: predniSONE 1 MG TAB PO (08:38)
[2018-07-16] MEDS: BALSAM PERU/CASTOR OIL 60 GM TUBE TOP (08:39)
[2018-07-16] MEDS: TIOTROPIUM 18 MCG CAPSULE INHA DEV INH (08:39)
[2018-07-16] MEDS: NEOMYC/POLYMYX/DEXAMETH OPH 5 ML BOTH EYES ×3 (08:39→16:50)
[2018-07-16] MEDS: DILTIAZEM (CD) 120 MG CAP PO (08:39)
[2018-07-16] MEDS: FLUTICASONE/VILANTEROL 200-25 INH DEVICE INH (08:47)
[2018-07-16] MEDS ORDERED: LORAZEPAM 2 MG INJ IV (16:00)
[2018-07-16] MEDS: MEROPENEM 1 GM/50ML(PMX) 50 ML IVPB (17:16)
[2018-07-16] MEDS: MOXIFLOXACIN 0.5% 3 ML OPH BOTH EYES (20:19)
[2018-07-16] MEDS: MIRTAZAPINE 15 MG TAB PO ×2 (20:19→21:00)
[2018-07-16] MEDS: DIAZEPAM 2 MG TAB PO ×2 (20:20→21:00)
[2018-07-16] MEDS: VANCOMYCIN HCL 1.25 GM in SOD CHLORIDE 0.9% 250 ML IVPB (21:48)
[2018-07-17] MEDS: LEVALBUTEROL (NEB) 0.63 MG/3 ML AMP HHN ×4 (01:40→20:44)
[2018-07-17] MEDS: ACETYLCYSTEINE 20% 4 ML VIAL NEB ×4 (01:51→20:45)
[2018-07-17] MEDS: DEXTROSE 5%-0.45% NACL 1,000 ML IV ×2 (05:26→18:51)
[2018-07-17 06:22] LABS: ADD MAN DIFF? NO
[2018-07-17 06:26] LABS: WHITE BLOOD COUNT 7.7 10^3/ul (4.8-10.8)
[2018-07-17 06:26] LABS: BASOPHILS % 0.4 % (0.0-2.0); EOSINOPHILS # 0.2 10^3/ul (0.0-0.5); EOSINOPHILS % 2.1 % (0.0-7.0); HEMATOCRIT 29.5 % (42.0-52.0); LYMPHOCYTES # 0.9 10^3/ul (0.8-2.9); LYMPHOCYTES % 11.8 % (15.0-51.0); MEAN CORPUSCULAR HGB CONC 30.5 g/dl (32.0-37.0); MEAN CORPUSCULAR VOLUME 91.9 fl (82.0-101.0); MEAN PLATELET VOLUME 10.5 fl (7.4-10.4); MONOCYTE # 0.9 10^3/ul (0.3-0.9); MONOCYTES % 11.9 % (0.0-11.0); NEUTROPHIL # 5.6 10^3/ul (1.6-7.5); NEUTROPHILS % 73.4 % (39.0-77.0); PLATELET COUNT 138 10^3/UL (140-415); POSITIVE DIFF @See below; RED BLOOD COUNT 3.21 10^6/ul (4.70-6.10); RED CELL DISTRIBUTION WIDTH 16.4 % (11.5-14.5)
[2018-07-17 07:06] LABS: ALANINE AMINOTRANSFERASE 10 IU/L (13-69); ALBUMIN 2.9 g/dl (3.3-4.9); ALBUMIN/GLOBULIN RATIO 0.96; ALKALINE PHOSPHATASE 83 IU/L (42-121); ANION GAP 7 (5-13); ASPARTATE AMINO TRANSFERASE 12 IU/L (15-46); BILIRUBIN,INDIRECT 0.1 mg/dl (0-1.1); BILIRUBIN,TOTAL 0.1 mg/dl (0.2-1.3); BLOOD UREA NITROGEN 13 mg/dl (7-20); CARBON DIOXIDE 24 mmol/L (21-31); CHLORIDE 112 mmol/L (97-110); CREATININE 0.94 mg/dl (0.61-1.24); GLUCOSE 95 mg/dl (70-220); POTASSIUM 3.5 mmol/L (3.5-5.1); SODIUM 143 mmol/L (135-144); TOTAL PROTEIN 5.9 g/dl (6.1-8.1)
[2018-07-17] MEDS: PANTOPRAZOLE (EC) 40 MG TAB PO (07:25)
[2018-07-17] MEDS: MEROPENEM 1 GM/50ML(PMX) 50 ML IVPB ×2 (08:37→21:00)
[2018-07-17] MEDS: TIOTROPIUM 18 MCG CAPSULE INHA DEV INH (09:00)
[2018-07-17] MEDS: DILTIAZEM (CD) 120 MG CAP PO (09:00)
[2018-07-17] MEDS: FLUTICASONE/VILANTEROL 200-25 INH DEVICE INH (09:00)
[2018-07-17] MEDS: GUAIFENESIN LA 600 MG TABSR PO ×2 (09:00→21:50)
[2018-07-17] MEDS: METOPROLOL 50 MG TAB PO ×2 (09:59→21:51)
[2018-07-17] MEDS: predniSONE 1 MG TAB PO (10:00)
[2018-07-17] MEDS: ARIPIPRAZOLE 5 MG TAB PO (10:00)
[2018-07-17] MEDS: predniSONE 5 MG TAB PO (10:00)
[2018-07-17] MEDS: APIXABAN 5 MG TABLET PO ×2 (10:01→21:50)
[2018-07-17] MEDS: BALSAM PERU/CASTOR OIL 60 GM TUBE TOP (10:03)
[2018-07-17] MEDS: MOXIFLOXACIN 0.5% 3 ML OPH BOTH EYES ×3 (10:04→21:54)
[2018-07-17] MEDS: DIAZEPAM 2 MG TAB PO (21:50)
[2018-07-17] MEDS: MIRTAZAPINE 15 MG TAB PO (21:51)
[2018-07-17 21:52] LABS: VANCOMYCIN,TROUGH 16.9 ug/ml (10.0-20.0)
[2018-07-18] MEDS: VANCOMYCIN HCL 1.25 GM in SOD CHLORIDE 0.9% 250 ML IVPB (00:05)
[2018-07-18] MEDS: ACETYLCYSTEINE 20% 4 ML VIAL NEB ×4 (02:45→20:04)
[2018-07-18] MEDS: LEVALBUTEROL (NEB) 0.63 MG/3 ML AMP HHN ×5 (03:45→20:04)
[2018-07-18] MEDS: PANTOPRAZOLE (EC) 40 MG TAB PO (07:25)
[2018-07-18 08:51] LABS: ADD MAN DIFF? NO
[2018-07-18 08:53] LABS: WHITE BLOOD COUNT 8.4 10^3/ul (4.8-10.8)
[2018-07-18 08:53] LABS: BASOPHILS % 0.4 % (0.0-2.0); EOSINOPHILS # 0.2 10^3/ul (0.0-0.5); EOSINOPHILS % 2.8 % (0.0-7.0); HEMATOCRIT 31.1 % (42.0-52.0); HEMOGLOBIN 9.6 g/dl (14.0-18.0); LYMPHOCYTES # 0.8 10^3/ul (0.8-2.9); MEAN CORPUSCULAR HEMOGLOBIN 28.7 pg (29.0-33.0); MEAN CORPUSCULAR HGB CONC 30.9 g/dl (32.0-37.0); MEAN CORPUSCULAR VOLUME 92.8 fl (82.0-101.0); MEAN PLATELET VOLUME 10.9 fl (7.4-10.4); MONOCYTE # 0.9 10^3/ul (0.3-0.9); MONOCYTES % 11.1 % (0.0-11.0); NEUTROPHIL # 6.4 10^3/ul (1.6-7.5); NEUTROPHILS % 75.2 % (39.0-77.0); PLATELET COUNT 141 10^3/UL (140-415); RED BLOOD COUNT 3.35 10^6/ul (4.70-6.10); RED CELL DISTRIBUTION WIDTH 16.5 % (11.5-14.5)
[2018-07-18 09:12] LABS: ANION GAP 8 (5-13); BLOOD UREA NITROGEN 11 mg/dl (7-20); CARBON DIOXIDE 25 mmol/L (21-31); CHLORIDE 109 mmol/L (97-110); CREATININE 0.83 mg/dl (0.61-1.24); GLUCOSE 76 mg/dl (70-220); POTASSIUM 4.1 mmol/L (3.5-5.1); SODIUM 142 mmol/L (135-144)
[2018-07-18] MEDS: MEROPENEM 1 GM/50ML(PMX) 50 ML IVPB ×2 (09:14→21:28)
[2018-07-18] MEDS: MOXIFLOXACIN 0.5% 3 ML OPH BOTH EYES ×3 (09:15→21:30)
[2018-07-18] MEDS: TIOTROPIUM 18 MCG CAPSULE INHA DEV INH (09:15)
[2018-07-18 09:16] LABS: AMMONIA 12 umol/l (9-30)
[2018-07-18] MEDS: ARIPIPRAZOLE 5 MG TAB PO (09:16)
[2018-07-18] MEDS: GUAIFENESIN LA 600 MG TABSR PO ×2 (09:17→21:29)
[2018-07-18] MEDS: predniSONE 1 MG TAB PO (09:17)
[2018-07-18] MEDS: DILTIAZEM (CD) 120 MG CAP PO (09:17)
[2018-07-18] MEDS: BALSAM PERU/CASTOR OIL 60 GM TUBE TOP (09:17)
[2018-07-18] MEDS: METOPROLOL 50 MG TAB PO ×2 (09:17→21:28)
[2018-07-18] MEDS: predniSONE 5 MG TAB PO (09:17)
[2018-07-18] MEDS: APIXABAN 5 MG TABLET PO ×2 (09:17→21:30)
[2018-07-18] MEDS: FLUTICASONE/VILANTEROL 200-25 INH DEVICE INH (14:02)
[2018-07-18 16:10] LABS: RHEUMATOID FACTOR NEGATIVE (NEGATIVE)
[2018-07-18] MEDS: DIAZEPAM 2 MG TAB PO (21:29)
[2018-07-18] MEDS: MIRTAZAPINE 15 MG TAB PO (21:29)
[2018-07-18] MEDS: VANCOMYCIN 1 GM 250 ML IVPB (23:10)
[2018-07-19] MEDS: LEVALBUTEROL (NEB) 0.63 MG/3 ML AMP HHN ×4 (01:32→19:48)
[2018-07-19] MEDS: ACETYLCYSTEINE 20% 4 ML VIAL NEB ×4 (01:32→19:48)
[2018-07-19 07:17] LABS: ABNORMAL IP MESSAGE 1; HEMOGLOBIN 9.7 g/dl (14.0-18.0); MEAN CORPUSCULAR HEMOGLOBIN 28.5 pg (29.0-33.0); MEAN CORPUSCULAR HGB CONC 31.3 g/dl (32.0-37.0); MEAN CORPUSCULAR VOLUME 91.2 fl (82.0-101.0); MEAN PLATELET VOLUME 12.6 fl (7.4-10.4); POSITIVE DIFF @See below; RED CELL DISTRIBUTION WIDTH 16.6 % (11.5-14.5)
[2018-07-19 07:17] LABS: WHITE BLOOD COUNT 10.8 10^3/ul (4.8-10.8)
[2018-07-19 07:21] LABS: ADD MAN DIFF? YES; PLATELET COUNT 92 10^3/UL (140-415)
[2018-07-19 07:31] LABS: ANION GAP 8 (5-13); BLOOD UREA NITROGEN 15 mg/dl (7-20); CALCIUM 9.5 mg/dl (8.4-10.2); CARBON DIOXIDE 24 mmol/L (21-31); CHLORIDE 110 mmol/L (97-110); GLUCOSE 101 mg/dl (70-220); POTASSIUM 4.7 mmol/L (3.5-5.1); SODIUM 142 mmol/L (135-144)
[2018-07-19] MEDS: PANTOPRAZOLE (EC) 40 MG TAB PO (07:40)
[2018-07-19] MEDS: GUAIFENESIN LA 600 MG TABSR PO ×2 (08:25→22:14)
[2018-07-19] MEDS: ARIPIPRAZOLE 5 MG TAB PO (08:25)
[2018-07-19] MEDS: TIOTROPIUM 18 MCG CAPSULE INHA DEV INH (08:25)
[2018-07-19] MEDS: predniSONE 5 MG TAB PO (08:26)
[2018-07-19] MEDS: predniSONE 1 MG TAB PO (08:26)
[2018-07-19] MEDS: APIXABAN 5 MG TABLET PO ×2 (08:26→22:12)
[2018-07-19] MEDS: BALSAM PERU/CASTOR OIL 60 GM TUBE TOP (08:27)
[2018-07-19] MEDS: MOXIFLOXACIN 0.5% 3 ML OPH BOTH EYES ×3 (08:27→21:00)
[2018-07-19] MEDS: METOPROLOL 50 MG TAB PO ×2 (08:27→22:14)
[2018-07-19] MEDS: FLUTICASONE/VILANTEROL 200-25 INH DEVICE INH (08:27)
[2018-07-19] MEDS: MEROPENEM 1 GM/50ML(PMX) 50 ML IVPB ×2 (08:31→22:11)
[2018-07-19] MEDS: DILTIAZEM (CD) 120 MG CAP PO (08:37)
[2018-07-19 21:47] LABS: VANCOMYCIN,TROUGH 22.4 ug/ml (10.0-20.0)
[2018-07-19] MEDS: MIRTAZAPINE 15 MG TAB PO (22:13)
[2018-07-20] MEDS: ACETYLCYSTEINE 20% 4 ML VIAL NEB ×4 (02:04→19:42)
[2018-07-20] MEDS: LEVALBUTEROL (NEB) 0.63 MG/3 ML AMP HHN ×4 (02:04→19:42)
[2018-07-20] MEDS: VANCOMYCIN 750 MG (PMX) 250 ML IVPB (02:43)
[2018-07-20 06:52] LABS: ADD MAN DIFF? NO
[2018-07-20] MEDS: PANTOPRAZOLE (EC) 40 MG TAB PO (06:54)
[2018-07-20 07:00] LABS: WHITE BLOOD COUNT 9.9 10^3/ul (4.8-10.8)
[2018-07-20 07:00] LABS: BASOPHILS % 0.3 % (0.0-2.0); EOSINOPHILS # 0.2 10^3/ul (0.0-0.5); EOSINOPHILS % 1.8 % (0.0-7.0); HEMATOCRIT 31.1 % (42.0-52.0); HEMOGLOBIN 9.4 g/dl (14.0-18.0); LYMPHOCYTES # 1.1 10^3/ul (0.8-2.9); LYMPHOCYTES % 10.9 % (15.0-51.0); MEAN CORPUSCULAR HEMOGLOBIN 28.1 pg (29.0-33.0); MEAN CORPUSCULAR HGB CONC 30.2 g/dl (32.0-37.0); MEAN CORPUSCULAR VOLUME 93.1 fl (82.0-101.0); MEAN PLATELET VOLUME 10.8 fl (7.4-10.4); MONOCYTE # 0.9 10^3/ul (0.3-0.9); MONOCYTES % 8.6 % (0.0-11.0); NEUTROPHIL # 7.7 10^3/ul (1.6-7.5); NEUTROPHILS % 78.1 % (39.0-77.0); PLATELET COUNT 141 10^3/UL (140-415); RED BLOOD COUNT 3.34 10^6/ul (4.70-6.10); RED CELL DISTRIBUTION WIDTH 16.5 % (11.5-14.5)
[2018-07-20 07:18] LABS: ANION GAP 9 (5-13); BLOOD UREA NITROGEN 19 mg/dl (7-20); CALCIUM 9.7 mg/dl (8.4-10.2); CARBON DIOXIDE 24 mmol/L (21-31); CHLORIDE 110 mmol/L (97-110); CREATININE 1.17 mg/dl (0.61-1.24); GLUCOSE 100 mg/dl (70-220); POTASSIUM 4.1 mmol/L (3.5-5.1); SODIUM 143 mmol/L (135-144)
[2018-07-20] MEDS: MOXIFLOXACIN 0.5% 3 ML OPH BOTH EYES ×3 (09:00→21:19)
[2018-07-20] MEDS: BALSAM PERU/CASTOR OIL 60 GM TUBE TOP (09:00)
[2018-07-20] MEDS: SOD CHLORIDE 0.9% 100 ML (09:03)
[2018-07-20] MEDS: IODIXANOL LOCM 100 ML BTL (09:04)
[2018-07-20] MEDS: GUAIFENESIN LA 600 MG TABSR PO ×2 (09:30→21:19)
[2018-07-20] MEDS: METOPROLOL 50 MG TAB PO ×2 (09:31→21:19)
[2018-07-20] MEDS: ARIPIPRAZOLE 5 MG TAB PO (09:31)
[2018-07-20] MEDS: DILTIAZEM (CD) 120 MG CAP PO (09:31)
[2018-07-20] MEDS: predniSONE 5 MG TAB PO (09:32)
[2018-07-20] MEDS: predniSONE 1 MG TAB PO (09:32)
[2018-07-20] MEDS: APIXABAN 5 MG TABLET PO ×2 (09:32→21:19)
[2018-07-20] MEDS: FLUTICASONE/VILANTEROL 200-25 INH DEVICE INH (09:34)
[2018-07-20] MEDS: MEROPENEM 1 GM/50ML(PMX) 50 ML IVPB ×2 (09:36→21:18)
[2018-07-20] MEDS: TIOTROPIUM 18 MCG CAPSULE INHA DEV INH (09:37)
[2018-07-20] MEDS: MUPIROCIN 2% 22 GM OINT TOP ×2 (13:01→21:19)
[2018-07-20] MEDS: BUPROPION (SR) 100 MG TAB PO ×2 (13:03→21:19)
[2018-07-20] MEDS: MIRTAZAPINE 15 MG TAB PO (21:19)
[2018-07-21] MEDS: LEVALBUTEROL (NEB) 0.63 MG/3 ML AMP HHN ×4 (01:04→19:37)
[2018-07-21] MEDS: ACETYLCYSTEINE 20% 4 ML VIAL NEB ×4 (01:04→19:37)
[2018-07-21] MEDS: PANTOPRAZOLE (EC) 40 MG TAB PO (06:09)
[2018-07-21 07:32] LABS: BLOOD UREA NITROGEN 23 mg/dl (7-20)
[2018-07-21] MEDS: TIOTROPIUM 18 MCG CAPSULE INHA DEV INH (09:00)
[2018-07-21] MEDS: BALSAM PERU/CASTOR OIL 60 GM TUBE TOP (09:00)
[2018-07-21] MEDS: ESCITALOPRAM 10 MG TAB PO (09:56)
[2018-07-21] MEDS: APIXABAN 5 MG TABLET PO ×2 (09:57→21:12)
[2018-07-21] MEDS: DILTIAZEM (CD) 120 MG CAP PO (09:58)
[2018-07-21] MEDS: BUPROPION (SR) 100 MG TAB PO ×2 (09:58→21:12)
[2018-07-21] MEDS: METOPROLOL 50 MG TAB PO ×2 (09:59→21:12)
[2018-07-21] MEDS: GUAIFENESIN LA 600 MG TABSR PO ×2 (09:59→21:12)
[2018-07-21] MEDS: ARIPIPRAZOLE 5 MG TAB PO (09:59)
[2018-07-21] MEDS: predniSONE 1 MG TAB PO (09:59)
[2018-07-21] MEDS: predniSONE 5 MG TAB PO (09:59)
[2018-07-21] MEDS: MUPIROCIN 2% 22 GM OINT TOP ×2 (10:02→21:13)
[2018-07-21] MEDS: FLUTICASONE/VILANTEROL 200-25 INH DEVICE INH (10:04)
[2018-07-21] MEDS: MOXIFLOXACIN 0.5% 3 ML OPH BOTH EYES ×3 (10:04→21:13)
[2018-07-21] MEDS: MEROPENEM 1 GM/50ML(PMX) 50 ML IVPB ×2 (10:05→21:12)
[2018-07-21] MEDS: VANCOMYCIN 750 MG (PMX) 250 ML IVPB (14:55)
[2018-07-22] MEDS: LEVALBUTEROL (NEB) 0.63 MG/3 ML AMP HHN ×4 (01:55→20:20)
[2018-07-22] MEDS: ACETYLCYSTEINE 20% 4 ML VIAL NEB ×4 (01:55→20:20)
[2018-07-22] MEDS: PANTOPRAZOLE (EC) 40 MG TAB PO (06:27)
[2018-07-22 08:35] LABS: ADD MAN DIFF? NO
[2018-07-22 08:40] LABS: WHITE BLOOD COUNT 9.7 10^3/ul (4.8-10.8)
[2018-07-22 08:40] LABS: BASOPHILS % 0.2 % (0.0-2.0); EOSINOPHILS # 0.2 10^3/ul (0.0-0.5); EOSINOPHILS % 2.4 % (0.0-7.0); HEMATOCRIT 26.9 % (42.0-52.0); HEMOGLOBIN 8.1 g/dl (14.0-18.0); LYMPHOCYTES # 1.1 10^3/ul (0.8-2.9); LYMPHOCYTES % 11.8 % (15.0-51.0); MEAN CORPUSCULAR HEMOGLOBIN 28.5 pg (29.0-33.0); MEAN CORPUSCULAR HGB CONC 30.1 g/dl (32.0-37.0); MEAN CORPUSCULAR VOLUME 94.7 fl (82.0-101.0); MEAN PLATELET VOLUME 11.3 fl (7.4-10.4); MONOCYTE # 0.9 10^3/ul (0.3-0.9); MONOCYTES % 9.1 % (0.0-11.0); NEUTROPHIL # 7.4 10^3/ul (1.6-7.5); NEUTROPHILS % 76.1 % (39.0-77.0); PLATELET COUNT 146 10^3/UL (140-415); RED BLOOD COUNT 2.84 10^6/ul (4.70-6.10); RED CELL DISTRIBUTION WIDTH 16.7 % (11.5-14.5)
[2018-07-22 09:07] LABS: ANION GAP 4 (5-13); BLOOD UREA NITROGEN 31 mg/dl (7-20); CALCIUM 9.5 mg/dl (8.4-10.2); CARBON DIOXIDE 29 mmol/L (21-31); CHLORIDE 110 mmol/L (97-110); CREATININE 1.44 mg/dl (0.61-1.24); GLUCOSE 83 mg/dl (70-220); POTASSIUM 4.4 mmol/L (3.5-5.1); SODIUM 143 mmol/L (135-144)
[2018-07-22 09:14] LABS: PREALBUMIN 21.7 mg/dl (17.6-36.0)
[2018-07-22] MEDS: MEROPENEM 1 GM/50ML(PMX) 50 ML IVPB ×2 (09:30→21:11)
[2018-07-22] MEDS: APIXABAN 5 MG TABLET PO ×2 (09:31→21:11)
[2018-07-22] MEDS: GUAIFENESIN LA 600 MG TABSR PO ×2 (09:31→21:11)
[2018-07-22] MEDS: TIOTROPIUM 18 MCG CAPSULE INHA DEV INH (09:31)
[2018-07-22] MEDS: ARIPIPRAZOLE 5 MG TAB PO (09:31)
[2018-07-22] MEDS: BUPROPION (SR) 100 MG TAB PO ×2 (09:31→21:11)
[2018-07-22] MEDS: predniSONE 5 MG TAB PO (09:31)
[2018-07-22] MEDS: FLUTICASONE/VILANTEROL 200-25 INH DEVICE INH (09:31)
[2018-07-22] MEDS: ESCITALOPRAM 10 MG TAB PO (09:32)
[2018-07-22] MEDS: DILTIAZEM (CD) 120 MG CAP PO (09:32)
[2018-07-22] MEDS: BALSAM PERU/CASTOR OIL 60 GM TUBE TOP (09:33)
[2018-07-22] MEDS: METOPROLOL 50 MG TAB PO ×2 (09:33→21:12)
[2018-07-22] MEDS: MUPIROCIN 2% 22 GM OINT TOP ×2 (09:34→21:12)
[2018-07-22 12:08] LABS: IRON 28 ug/dl (35-150)
[2018-07-22 12:17] LABS: % IRON SATURATION 12 % SAT (22-52); TOTAL IRON BINDING CAPACITY 225 ug/dl (241-421)
[2018-07-22 16:45] LABS: OCCULT BLOOD STOOL NEGATIVE (NEGATIVE)
[2018-07-23] MEDS: LEVALBUTEROL (NEB) 0.63 MG/3 ML AMP HHN ×4 (01:56→20:40)
[2018-07-23] MEDS: ACETYLCYSTEINE 20% 4 ML VIAL NEB ×4 (01:57→20:39)
[2018-07-23] MEDS: VANCOMYCIN 750 MG (PMX) 250 ML IVPB (03:54)
[2018-07-23 06:27] LABS: ADD MAN DIFF? NO
[2018-07-23 06:29] LABS: BASOPHILS % 0.3 % (0.0-2.0); EOSINOPHILS # 0.3 10^3/ul (0.0-0.5); EOSINOPHILS % 2.9 % (0.0-7.0); HEMATOCRIT 27.7 % (42.0-52.0); HEMOGLOBIN 8.2 g/dl (14.0-18.0); LYMPHOCYTES # 1.3 10^3/ul (0.8-2.9); LYMPHOCYTES % 11.9 % (15.0-51.0); MEAN CORPUSCULAR HEMOGLOBIN 28.3 pg (29.0-33.0); MEAN CORPUSCULAR HGB CONC 29.6 g/dl (32.0-37.0); MEAN CORPUSCULAR VOLUME 95.5 fl (82.0-101.0); MEAN PLATELET VOLUME 11.4 fl (7.4-10.4); MONOCYTES % 9.2 % (0.0-11.0); NEUTROPHILS % 75.4 % (39.0-77.0); PLATELET COUNT 158 10^3/UL (140-415); RED CELL DISTRIBUTION WIDTH 16.5 % (11.5-14.5); RETICULOCYTE COUNT # 0.056 X10^6 (0.020-0.110); RETICULOCYTE COUNT % 1.9 % (0.5-1.5)
[2018-07-23 06:29] LABS: WHITE BLOOD COUNT 10.6 10^3/ul (4.8-10.8)
[2018-07-23 07:06] LABS: B-TYPE NATRIURETIC PEPTIDE 1880 PG/ML (0-450)
[2018-07-23 07:08] LABS: ANION GAP 12 (5-13); BLOOD UREA NITROGEN 40 mg/dl (7-20); CALCIUM 9.4 mg/dl (8.4-10.2); CARBON DIOXIDE 28 mmol/L (21-31); CHLORIDE 106 mmol/L (97-110); CREATININE 1.22 mg/dl (0.61-1.24); GLUCOSE 87 mg/dl (70-220); MAGNESIUM 1.2 mg/dl (1.7-2.5); POTASSIUM 4.5 mmol/L (3.5-5.1); SODIUM 146 mmol/L (135-144)
[2018-07-23] MEDS: PANTOPRAZOLE (EC) 40 MG TAB PO (07:53)
[2018-07-23] MEDS: APIXABAN 5 MG TABLET PO ×2 (08:20→21:07)
[2018-07-23] MEDS: GUAIFENESIN LA 600 MG TABSR PO ×2 (08:20→21:07)
[2018-07-23] MEDS: BUPROPION (SR) 100 MG TAB PO ×2 (08:20→21:07)
[2018-07-23] MEDS: predniSONE 5 MG TAB PO (08:20)
[2018-07-23] MEDS: BALSAM PERU/CASTOR OIL 60 GM TUBE TOP (08:20)
[2018-07-23] MEDS: MUPIROCIN 2% 22 GM OINT TOP ×2 (08:20→21:06)
[2018-07-23] MEDS: ARIPIPRAZOLE 5 MG TAB PO (08:20)
[2018-07-23] MEDS: ESCITALOPRAM 10 MG TAB PO (08:21)
[2018-07-23] MEDS: FLUTICASONE/VILANTEROL 200-25 INH DEVICE INH (08:22)
[2018-07-23] MEDS: METOPROLOL 50 MG TAB PO ×2 (08:22→21:07)
[2018-07-23] MEDS: TIOTROPIUM 18 MCG CAPSULE INHA DEV INH (08:22)
[2018-07-23] MEDS: DILTIAZEM (CD) 120 MG CAP PO (08:24)
[2018-07-23] MEDS: SOD CHLORIDE 0.9% 100 ML (08:40)
[2018-07-23] MEDS: IOHEXOL 300MG/ML 150 ML BTL (09:47)
[2018-07-23] MEDS: MAGNESIUM SULFATE 3 GM in DEXTROSE 5% 100 ML IVPB (10:29)
[2018-07-24] MEDS: ACETYLCYSTEINE 20% 4 ML VIAL NEB ×4 (02:36→20:56)
[2018-07-24] MEDS: LEVALBUTEROL (NEB) 0.63 MG/3 ML AMP HHN ×4 (02:36→20:56)
[2018-07-24 07:03] LABS: ADD MAN DIFF? NO
[2018-07-24 07:06] LABS: ABNORMAL IP MESSAGE 1; BASOPHILS % 0.3 % (0.0-2.0); EOSINOPHILS # 0.2 10^3/ul (0.0-0.5); EOSINOPHILS % 2.2 % (0.0-7.0); HEMATOCRIT 28.4 % (42.0-52.0); HEMOGLOBIN 8.2 g/dl (14.0-18.0); LYMPHOCYTES # 1.3 10^3/ul (0.8-2.9); LYMPHOCYTES % 14.4 % (15.0-51.0); MEAN CORPUSCULAR HEMOGLOBIN 28.1 pg (29.0-33.0); MEAN CORPUSCULAR HGB CONC 28.9 g/dl (32.0-37.0); MEAN CORPUSCULAR VOLUME 97.3 fl (82.0-101.0); MEAN PLATELET VOLUME 12.1 fl (7.4-10.4); MONOCYTES % 10.7 % (0.0-11.0); NEUTROPHIL # 6.5 10^3/ul (1.6-7.5); NUCLEATED RED BLOOD CELLS% 0.2 /100WBC (0.0-0.0); PLATELET COUNT 112 10^3/UL (140-415); POSITIVE DIFF @See below; RED BLOOD COUNT 2.92 10^6/ul (4.70-6.10); RED CELL DISTRIBUTION WIDTH 16.7 % (11.5-14.5)
[2018-07-24 07:34] LABS: ANION GAP 10 (5-13); BLOOD UREA NITROGEN 38 mg/dl (7-20); CALCIUM 9.4 mg/dl (8.4-10.2); CARBON DIOXIDE 22 mmol/L (21-31); CHLORIDE 111 mmol/L (97-110); CREATININE 1.02 mg/dl (0.61-1.24); GLUCOSE 79 mg/dl (70-220); MAGNESIUM 2.1 mg/dl (1.7-2.5); POTASSIUM 4.7 mmol/L (3.5-5.1); SODIUM 143 mmol/L (135-144)
[2018-07-24 07:38] LABS: B-TYPE NATRIURETIC PEPTIDE 1840 PG/ML (0-450)
[2018-07-24] MEDS: TIOTROPIUM 18 MCG CAPSULE INHA DEV INH (08:22)
[2018-07-24] MEDS: PANTOPRAZOLE (EC) 40 MG TAB PO (08:55)
[2018-07-24] MEDS: FLUTICASONE/VILANTEROL 200-25 INH DEVICE INH (08:55)
[2018-07-24] MEDS: MUPIROCIN 2% 22 GM OINT TOP ×2 (08:55→21:19)
[2018-07-24] MEDS: APIXABAN 5 MG TABLET PO ×2 (08:55→21:18)
[2018-07-24] MEDS: predniSONE 5 MG TAB PO (08:57)
[2018-07-24] MEDS: METOPROLOL 50 MG TAB PO ×2 (08:57→21:23)
[2018-07-24] MEDS: ARIPIPRAZOLE 5 MG TAB PO (08:57)
[2018-07-24] MEDS: GUAIFENESIN LA 600 MG TABSR PO ×2 (08:58→21:18)
[2018-07-24] MEDS: ESCITALOPRAM 10 MG TAB PO (08:58)
[2018-07-24] MEDS: DILTIAZEM (CD) 120 MG CAP PO (08:58)
[2018-07-24] MEDS: BUPROPION (SR) 100 MG TAB PO ×2 (08:58→21:18)
[2018-07-24] MEDS: BALSAM PERU/CASTOR OIL 60 GM TUBE TOP (08:59)
[2018-07-24 15:33] LABS: VANCOMYCIN,TROUGH 12.6 ug/ml (10.0-20.0)
[2018-07-24] MEDS: VANCOMYCIN 750 MG (PMX) 250 ML IVPB (16:13)
[2018-07-25] MEDS: LEVALBUTEROL (NEB) 0.63 MG/3 ML AMP HHN ×4 (01:51→20:27)
[2018-07-25] MEDS: ACETYLCYSTEINE 20% 4 ML VIAL NEB ×5 (01:51→20:27)
[2018-07-25] MEDS: PANTOPRAZOLE (EC) 40 MG TAB PO (06:52)
[2018-07-25] MEDS: TIOTROPIUM 18 MCG CAPSULE INHA DEV INH (09:00)
[2018-07-25] MEDS: ARIPIPRAZOLE 5 MG TAB PO (09:42)
[2018-07-25] MEDS: BUPROPION (SR) 100 MG TAB PO ×2 (09:42→21:27)
[2018-07-25] MEDS: ESCITALOPRAM 10 MG TAB PO (09:42)
[2018-07-25] MEDS: predniSONE 5 MG TAB PO (09:42)
[2018-07-25] MEDS: DILTIAZEM (CD) 120 MG CAP PO (09:43)
[2018-07-25] MEDS: METOPROLOL 50 MG TAB PO ×2 (09:44→21:14)
[2018-07-25] MEDS: APIXABAN 5 MG TABLET PO ×2 (09:44→21:14)
[2018-07-25] MEDS: GUAIFENESIN LA 600 MG TABSR PO ×2 (09:44→21:14)
[2018-07-25] MEDS: FLUTICASONE/VILANTEROL 200-25 INH DEVICE INH (09:45)
[2018-07-25] MEDS: BALSAM PERU/CASTOR OIL 60 GM TUBE TOP (09:45)
[2018-07-25] MEDS: MUPIROCIN 2% 22 GM OINT TOP ×2 (09:45→21:15)
[2018-07-26] MEDS: LEVALBUTEROL (NEB) 0.63 MG/3 ML AMP HHN ×4 (02:00→20:18)
[2018-07-26] MEDS: ACETYLCYSTEINE 20% 4 ML VIAL NEB ×5 (02:00→20:18)
[2018-07-26] MEDS: VANCOMYCIN 750 MG (PMX) 250 ML IVPB (03:25)
[2018-07-26] MEDS: IOHEXOL 0 ML (08:29)
[2018-07-26] MEDS: IOHEXOL 14.3 MG(I)/ML (ADULT) BTL PO (08:29)
[2018-07-26] MEDS: PANTOPRAZOLE (EC) 40 MG TAB PO (09:06)
[2018-07-26] MEDS: GUAIFENESIN LA 600 MG TABSR PO ×2 (09:06→21:01)
[2018-07-26] MEDS: APIXABAN 5 MG TABLET PO ×2 (09:06→21:01)
[2018-07-26] MEDS: ARIPIPRAZOLE 5 MG TAB PO (09:06)
[2018-07-26] MEDS: ESCITALOPRAM 10 MG TAB PO (09:06)
[2018-07-26] MEDS: METOPROLOL 50 MG TAB PO ×2 (09:08→21:00)
[2018-07-26] MEDS: BALSAM PERU/CASTOR OIL 60 GM TUBE TOP (09:13)
[2018-07-26] MEDS: FLUTICASONE/VILANTEROL 200-25 INH DEVICE INH (09:13)
[2018-07-26] MEDS: MUPIROCIN 2% 22 GM OINT TOP ×2 (09:13→21:04)
[2018-07-26] MEDS: DILTIAZEM (CD) 120 MG CAP PO (13:36)
[2018-07-26] MEDS: TIOTROPIUM 18 MCG CAPSULE INHA DEV INH (13:36)
[2018-07-26] MEDS: BUPROPION (SR) 100 MG TAB PO ×2 (13:42→21:25)
[2018-07-26] MEDS: predniSONE 5 MG TAB PO (15:29)
[2018-07-26] MEDS: SOD CHLORIDE 0.9% 500 ML IV (22:30)
[2018-07-27] MEDS: LEVALBUTEROL (NEB) 0.63 MG/3 ML AMP HHN ×5 (01:35→19:58)
[2018-07-27] MEDS: ACETYLCYSTEINE 20% 4 ML VIAL NEB ×4 (01:42→19:58)
[2018-07-27 06:55] LABS: ADD MAN DIFF? NO
[2018-07-27 06:56] LABS: WHITE BLOOD COUNT 9.7 10^3/ul (4.8-10.8)
[2018-07-27 06:56] LABS: BASOPHILS % 0.3 % (0.0-2.0); EOSINOPHILS # 0.2 10^3/ul (0.0-0.5); EOSINOPHILS % 1.7 % (0.0-7.0); HEMATOCRIT 29.4 % (42.0-52.0); HEMOGLOBIN 8.6 g/dl (14.0-18.0); LYMPHOCYTES # 1.2 10^3/ul (0.8-2.9); LYMPHOCYTES % 12.3 % (15.0-51.0); MEAN CORPUSCULAR HEMOGLOBIN 28.2 pg (29.0-33.0); MEAN CORPUSCULAR HGB CONC 29.3 g/dl (32.0-37.0); MEAN CORPUSCULAR VOLUME 96.4 fl (82.0-101.0); MEAN PLATELET VOLUME 11.3 fl (7.4-10.4); MONOCYTES % 9.8 % (0.0-11.0); NEUTROPHIL # 7.3 10^3/ul (1.6-7.5); NEUTROPHILS % 75.5 % (39.0-77.0); PLATELET COUNT 165 10^3/UL (140-415); RED BLOOD COUNT 3.05 10^6/ul (4.70-6.10); RED CELL DISTRIBUTION WIDTH 16.2 % (11.5-14.5)
[2018-07-27 07:21] LABS: ANION GAP 9 (5-13); BLOOD UREA NITROGEN 34 mg/dl (7-20); CALCIUM 9.8 mg/dl (8.4-10.2); CARBON DIOXIDE 25 mmol/L (21-31); CHLORIDE 115 mmol/L (97-110); CREATININE 1.17 mg/dl (0.61-1.24); GLUCOSE 104 mg/dl (70-220); MAGNESIUM 1.8 mg/dl (1.7-2.5); POTASSIUM 4.3 mmol/L (3.5-5.1); SODIUM 149 mmol/L (135-144)
[2018-07-27] MEDS: GUAIFENESIN LA 600 MG TABSR PO ×2 (08:46→21:27)
[2018-07-27] MEDS: METOPROLOL 25 MG TAB PO ×2 (08:47→21:28)
[2018-07-27] MEDS: DILTIAZEM (CD) 120 MG CAP PO (08:48)
[2018-07-27] MEDS: ARIPIPRAZOLE 5 MG TAB PO (08:48)
[2018-07-27] MEDS: APIXABAN 5 MG TABLET PO ×2 (08:48→21:28)
[2018-07-27] MEDS: BUPROPION (SR) 100 MG TAB PO ×2 (08:48→21:27)
[2018-07-27] MEDS: ESCITALOPRAM 10 MG TAB PO (08:49)
[2018-07-27] MEDS: PANTOPRAZOLE (EC) 40 MG TAB PO (08:49)
[2018-07-27] MEDS: TIOTROPIUM 18 MCG CAPSULE INHA DEV INH (08:49)
[2018-07-27] MEDS: FLUTICASONE/VILANTEROL 200-25 INH DEVICE INH (08:50)
[2018-07-27] MEDS: MUPIROCIN 2% 22 GM OINT TOP ×2 (08:51→21:33)
[2018-07-27] MEDS: BALSAM PERU/CASTOR OIL 60 GM TUBE TOP (08:51)
[2018-07-27] MEDS: predniSONE 5 MG TAB PO (11:39)
[2018-07-27] MEDS: MEGESTROL (40 MG/ML) 10ML CUP PO (15:43)
[2018-07-27] MEDS: EPOETIN 10000 UNITS/ML (NON ESRD/NON ONCOLOGY) SC (15:45)
[2018-07-28] MEDS: LEVALBUTEROL (NEB) 0.63 MG/3 ML AMP HHN ×4 (02:00→21:31)
[2018-07-28] MEDS: ACETYLCYSTEINE 20% 4 ML VIAL NEB ×4 (02:00→21:31)
[2018-07-28 07:56] LABS: ADD MAN DIFF? NO
[2018-07-28 08:00] LABS: WHITE BLOOD COUNT 9.3 10^3/ul (4.8-10.8)
[2018-07-28 08:00] LABS: BASOPHILS % 0.3 % (0.0-2.0); EOSINOPHILS # 0.2 10^3/ul (0.0-0.5); EOSINOPHILS % 2.2 % (0.0-7.0); HEMATOCRIT 24.9 % (42.0-52.0); HEMOGLOBIN 7.4 g/dl (14.0-18.0); LYMPHOCYTES # 1.4 10^3/ul (0.8-2.9); LYMPHOCYTES % 14.9 % (15.0-51.0); MEAN CORPUSCULAR HEMOGLOBIN 28.1 pg (29.0-33.0); MEAN CORPUSCULAR HGB CONC 29.7 g/dl (32.0-37.0); MEAN CORPUSCULAR VOLUME 94.7 fl (82.0-101.0); MEAN PLATELET VOLUME 11.6 fl (7.4-10.4); MONOCYTES % 11.1 % (0.0-11.0); NEUTROPHIL # 6.6 10^3/ul (1.6-7.5); POSITIVE DIFF @See below; RED BLOOD COUNT 2.63 10^6/ul (4.70-6.10); RED CELL DISTRIBUTION WIDTH 16.6 % (11.5-14.5)
[2018-07-28 08:04] LABS: PLATELET COUNT 107 10^3/UL (140-415)
[2018-07-28 08:19] LABS: ANION GAP 8 (5-13); BLOOD UREA NITROGEN 38 mg/dl (7-20); CALCIUM 9.3 mg/dl (8.4-10.2); CARBON DIOXIDE 28 mmol/L (21-31); CHLORIDE 111 mmol/L (97-110); GLUCOSE 81 mg/dl (70-220); POTASSIUM 4.4 mmol/L (3.5-5.1); SODIUM 147 mmol/L (135-144)
[2018-07-28] MEDS: DILTIAZEM (CD) 120 MG CAP PO (08:32)
[2018-07-28] MEDS: BUPROPION (SR) 100 MG TAB PO ×2 (08:32→20:33)
[2018-07-28] MEDS: PANTOPRAZOLE (EC) 40 MG TAB PO (08:32)
[2018-07-28] MEDS: GUAIFENESIN LA 600 MG TABSR PO ×2 (08:33→20:33)
[2018-07-28] MEDS: ARIPIPRAZOLE 5 MG TAB PO (08:33)
[2018-07-28] MEDS: APIXABAN 5 MG TABLET PO ×2 (08:33→20:33)
[2018-07-28] MEDS: ESCITALOPRAM 10 MG TAB PO (08:33)
[2018-07-28] MEDS: METOPROLOL 25 MG TAB PO ×2 (08:34→20:34)
[2018-07-28] MEDS: predniSONE 5 MG TAB PO (08:34)
[2018-07-28] MEDS: MEGESTROL (40 MG/ML) 10ML CUP PO (08:34)
[2018-07-28] MEDS: FLUTICASONE/VILANTEROL 200-25 INH DEVICE INH (09:00)
[2018-07-28] MEDS: BALSAM PERU/CASTOR OIL 60 GM TUBE TOP (09:00)
[2018-07-28] MEDS: MUPIROCIN 2% 22 GM OINT TOP ×2 (09:00→20:35)
[2018-07-28 10:44] LABS: ANISOCYTOSIS 2+ (0-0); BAND NEUTROPHILS #M 0.1 10^3/ul (0.0-0.6); BAND NEUTROPHILS % (M) 2 % (0-4); BURR CELLS 2+ (0-0); EOSINOPHILS % (M) 4 % (0-7); LYMPHOCYTES #M 1.3 10^3/ul (0.8-2.9); LYMPHOCYTES % (M) 15 % (15-51); MICROCYTOSIS 2+ (0-0); MONOCYTE #M 0.7 10^3/ul (0.3-0.9); MONOCYTES % (M) 8 % (0-11); OVALOCYTES 1+ (0-0); PLATELET ESTIMATE DECREASED; POIKILOCYTOSIS 3+ (0-0); POLYCHROMASIA 2+ (0-0); REACTIVE LYMPHOCYTES% (M) 1 % (0-0); SEG NEUT #M 6.5 10^3/ul (1.6-7.5); SEGMENTED NEUTROPHILS (M) % 70 % (39-77); SMUDGE%M 3 % (0-0)
[2018-07-28] MEDS: TIOTROPIUM 18 MCG CAPSULE INHA DEV INH (13:40)
[2018-07-28] MEDS ORDERED: FUROSEMIDE 20 MG INJ IV (14:00)
[2018-07-28] MEDS: DIPHENHYDRAMINE 50 MG CAP PO (14:30)
[2018-07-28] MEDS: ACETAMINOPHEN 325 MG TAB PO (14:30)
[2018-07-28] MEDS: FUROSEMIDE 20 MG INJ IV (20:29)
[2018-07-28 22:25] LABS: IMMEDIATE SPIN CROSSMATCH 1 2
[2018-07-29] MEDS: LEVALBUTEROL (NEB) 0.63 MG/3 ML AMP HHN ×4 (01:38→19:35)
[2018-07-29] MEDS: ACETYLCYSTEINE 20% 4 ML VIAL NEB ×4 (01:38→19:35)
[2018-07-29 03:42] LABS: ADD MAN DIFF? NO
[2018-07-29 04:05] LABS: ANION GAP 6 (5-13); BLOOD UREA NITROGEN 36 mg/dl (7-20); CALCIUM 9.3 mg/dl (8.4-10.2); CARBON DIOXIDE 28 mmol/L (21-31); CHLORIDE 108 mmol/L (97-110); CREATININE 1.41 mg/dl (0.61-1.24); GLUCOSE 101 mg/dl (70-220); POTASSIUM 4.1 mmol/L (3.5-5.1); SODIUM 142 mmol/L (135-144)
[2018-07-29 04:08] LABS: WHITE BLOOD COUNT 11.5 10^3/ul (4.8-10.8)
[2018-07-29 04:08] LABS: BASOPHILS % 0.3 % (0.0-2.0); EOSINOPHILS # 0.2 10^3/ul (0.0-0.5); EOSINOPHILS % 1.3 % (0.0-7.0); HEMATOCRIT 30.7 % (42.0-52.0); HEMOGLOBIN 9.9 g/dl (14.0-18.0); LYMPHOCYTES # 1.4 10^3/ul (0.8-2.9); MEAN CORPUSCULAR HEMOGLOBIN 28.5 pg (29.0-33.0); MEAN CORPUSCULAR HGB CONC 32.2 g/dl (32.0-37.0); MEAN CORPUSCULAR VOLUME 88.5 fl (82.0-101.0); MEAN PLATELET VOLUME 12.1 fl (7.4-10.4); MONOCYTE # 1.1 10^3/ul (0.3-0.9); MONOCYTES % 9.7 % (0.0-11.0); NEUTROPHIL # 8.7 10^3/ul (1.6-7.5); PLATELET COUNT 184 10^3/UL (140-415); RED BLOOD COUNT 3.47 10^6/ul (4.70-6.10); RED CELL DISTRIBUTION WIDTH 16.5 % (11.5-14.5)
[2018-07-29] MEDS: MEGESTROL (40 MG/ML) 10ML CUP PO (09:15)
[2018-07-29] MEDS: DILTIAZEM (CD) 120 MG CAP PO (09:16)
[2018-07-29] MEDS: TIOTROPIUM 18 MCG CAPSULE INHA DEV INH (09:16)
[2018-07-29] MEDS: APIXABAN 5 MG TABLET PO ×2 (09:16→20:06)
[2018-07-29] MEDS: ESCITALOPRAM 10 MG TAB PO (09:17)
[2018-07-29] MEDS: ARIPIPRAZOLE 5 MG TAB PO (09:17)
[2018-07-29] MEDS: BUPROPION (SR) 100 MG TAB PO ×2 (09:17→20:06)
[2018-07-29] MEDS: predniSONE 5 MG TAB PO (09:17)
[2018-07-29] MEDS: GUAIFENESIN LA 600 MG TABSR PO ×2 (09:17→20:06)
[2018-07-29] MEDS: METOPROLOL 25 MG TAB PO ×2 (09:17→20:13)
[2018-07-29] MEDS: PANTOPRAZOLE (EC) 40 MG TAB PO (09:18)
[2018-07-29] MEDS: BALSAM PERU/CASTOR OIL 60 GM TUBE TOP (09:23)
[2018-07-29] MEDS: MUPIROCIN 2% 22 GM OINT TOP ×2 (09:23→20:07)
[2018-07-29] MEDS: FLUTICASONE/VILANTEROL 200-25 INH DEVICE INH (10:03)
[2018-07-30] MEDS: ACETYLCYSTEINE 20% 4 ML VIAL NEB ×4 (02:46→14:39)
[2018-07-30] MEDS: LEVALBUTEROL (NEB) 0.63 MG/3 ML AMP HHN ×4 (02:46→19:29)
[2018-07-30] MEDS: PANTOPRAZOLE (EC) 40 MG TAB PO ×2 (07:25→09:01)
[2018-07-30] MEDS: TIOTROPIUM 18 MCG CAPSULE INHA DEV INH (09:00)
[2018-07-30] MEDS: GUAIFENESIN LA 600 MG TABSR PO ×2 (09:00→21:36)
[2018-07-30] MEDS: predniSONE 5 MG TAB PO (09:00)
[2018-07-30] MEDS: BUPROPION (SR) 100 MG TAB PO ×2 (09:01→21:36)
[2018-07-30] MEDS: FLUTICASONE/VILANTEROL 200-25 INH DEVICE INH (09:01)
[2018-07-30] MEDS: APIXABAN 5 MG TABLET PO ×2 (09:01→21:36)
[2018-07-30] MEDS: ESCITALOPRAM 10 MG TAB PO (09:01)
[2018-07-30] MEDS: METOPROLOL 25 MG TAB PO ×2 (09:01→21:37)
[2018-07-30] MEDS: DILTIAZEM (CD) 120 MG CAP PO (09:01)
[2018-07-30] MEDS: MEGESTROL (40 MG/ML) 10ML CUP PO (09:02)
[2018-07-30] MEDS: BALSAM PERU/CASTOR OIL 60 GM TUBE TOP (09:13)
[2018-07-30] MEDS: MUPIROCIN 2% 22 GM OINT TOP ×2 (09:14→21:37)
[2018-07-30] MEDS: ARIPIPRAZOLE 5 MG TAB PO (10:31)
[2018-07-30] MEDS: NYSTATIN 30 GM POWDER BTL TOP (21:36)
[2018-07-31] MEDS: LEVALBUTEROL (NEB) 0.63 MG/3 ML AMP HHN ×4 (02:46→19:24)
[2018-07-31] MEDS: ACETYLCYSTEINE 20% 4 ML VIAL NEB ×4 (02:47→19:25)
[2018-07-31] MEDS: TIOTROPIUM 18 MCG CAPSULE INHA DEV INH ×2 (08:41→09:00)
[2018-07-31] MEDS: GUAIFENESIN LA 600 MG TABSR PO ×2 (08:41→21:00)
[2018-07-31] MEDS: MEGESTROL (40 MG/ML) 10ML CUP PO (08:41)
[2018-07-31] MEDS: FLUTICASONE/VILANTEROL 200-25 INH DEVICE INH ×2 (08:41→09:00)
[2018-07-31] MEDS: BUPROPION (SR) 100 MG TAB PO ×2 (08:41→21:00)
[2018-07-31] MEDS: ARIPIPRAZOLE 5 MG TAB PO (08:42)
[2018-07-31] MEDS: APIXABAN 5 MG TABLET PO ×2 (08:43→21:00)
[2018-07-31] MEDS: DILTIAZEM (CD) 120 MG CAP PO (08:43)
[2018-07-31] MEDS: METOPROLOL 25 MG TAB PO ×2 (08:43→21:00)
[2018-07-31] MEDS: ESCITALOPRAM 10 MG TAB PO (08:43)
[2018-07-31] MEDS: predniSONE 5 MG TAB PO (08:43)
[2018-07-31] MEDS: MUPIROCIN 2% 22 GM OINT TOP ×2 (08:45→22:05)
[2018-07-31] MEDS: NYSTATIN 30 GM POWDER BTL TOP ×2 (08:45→22:05)
[2018-07-31] MEDS: BALSAM PERU/CASTOR OIL 60 GM TUBE TOP (08:46)
[2018-07-31 13:29] LABS: ADD MAN DIFF? NO
[2018-07-31 13:30] LABS: WHITE BLOOD COUNT 11.8 10^3/ul (4.8-10.8)
[2018-07-31 13:30] LABS: BASOPHIL # 0.1 10^3/ul (0.0-0.1); BASOPHILS % 0.5 % (0.0-2.0); EOSINOPHILS # 0.1 10^3/ul (0.0-0.5); EOSINOPHILS % 0.8 % (0.0-7.0); HEMATOCRIT 36.4 % (42.0-52.0); LYMPHOCYTES % 8.3 % (15.0-51.0); MEAN CORPUSCULAR HEMOGLOBIN 28.1 pg (29.0-33.0); MEAN CORPUSCULAR HGB CONC 30.2 g/dl (32.0-37.0); MEAN CORPUSCULAR VOLUME 93.1 fl (82.0-101.0); MEAN PLATELET VOLUME 11.3 fl (7.4-10.4); MONOCYTE # 0.9 10^3/ul (0.3-0.9); NEUTROPHIL # 9.7 10^3/ul (1.6-7.5); NEUTROPHILS % 81.9 % (39.0-77.0); PLATELET COUNT 216 10^3/UL (140-415); RED BLOOD COUNT 3.91 10^6/ul (4.70-6.10); RED CELL DISTRIBUTION WIDTH 16.8 % (11.5-14.5)
[2018-07-31 13:48] LABS: ANION GAP 6 (5-13); BLOOD UREA NITROGEN 34 mg/dl (7-20); CALCIUM 9.9 mg/dl (8.4-10.2); CARBON DIOXIDE 28 mmol/L (21-31); CHLORIDE 111 mmol/L (97-110); CREATININE 1.58 mg/dl (0.61-1.24); GLUCOSE 141 mg/dl (70-220); POTASSIUM 4.8 mmol/L (3.5-5.1); SODIUM 145 mmol/L (135-144)
[2018-07-31] MEDS: D5W-0.45 NACL + KCL 20 MEQ 1,000 ML IV (23:43)
[2018-08-01] MEDS: ACETYLCYSTEINE 20% 4 ML VIAL NEB ×5 (02:00→20:07)
[2018-08-01] MEDS: LEVALBUTEROL (NEB) 0.63 MG/3 ML AMP HHN ×4 (02:42→20:07)
[2018-08-01 06:29] LABS: ADD MAN DIFF? NO
[2018-08-01 06:33] LABS: BASOPHIL # 0.1 10^3/ul (0.0-0.1); BASOPHILS % 0.5 % (0.0-2.0); EOSINOPHILS # 0.2 10^3/ul (0.0-0.5); EOSINOPHILS % 1.3 % (0.0-7.0); HEMATOCRIT 38.2 % (42.0-52.0); HEMOGLOBIN 11.4 g/dl (14.0-18.0); LYMPHOCYTES # 1.3 10^3/ul (0.8-2.9); LYMPHOCYTES % 10.6 % (15.0-51.0); MEAN CORPUSCULAR HEMOGLOBIN 27.5 pg (29.0-33.0); MEAN CORPUSCULAR HGB CONC 29.8 g/dl (32.0-37.0); MEAN CORPUSCULAR VOLUME 92.3 fl (82.0-101.0); MEAN PLATELET VOLUME 12.7 fl (7.4-10.4); MONOCYTE # 1.3 10^3/ul (0.3-0.9); MONOCYTES % 10.5 % (0.0-11.0); NEUTROPHIL # 9.4 10^3/ul (1.6-7.5); NEUTROPHILS % 76.5 % (39.0-77.0); PLATELET COUNT 173 10^3/UL (140-415); RED BLOOD COUNT 4.14 10^6/ul (4.70-6.10)
[2018-08-01 06:33] LABS: WHITE BLOOD COUNT 12.2 10^3/ul (4.8-10.8)
[2018-08-01 07:15] LABS: ALANINE AMINOTRANSFERASE 45 IU/L (13-69); ALBUMIN 3.5 g/dl (3.3-4.9); ALBUMIN/GLOBULIN RATIO 0.94; ALKALINE PHOSPHATASE 112 IU/L (42-121); ANION GAP 10 (5-13); ASPARTATE AMINO TRANSFERASE 30 IU/L (15-46); BILIRUBIN,INDIRECT 0.2 mg/dl (0-1.1); BILIRUBIN,TOTAL 0.2 mg/dl (0.2-1.3); BLOOD UREA NITROGEN 41 mg/dl (7-20); CALCIUM 9.6 mg/dl (8.4-10.2); CARBON DIOXIDE 27 mmol/L (21-31); CHLORIDE 109 mmol/L (97-110); CREATININE 1.65 mg/dl (0.61-1.24); GLUCOSE 108 mg/dl (70-220); POTASSIUM 4.6 mmol/L (3.5-5.1); SODIUM 146 mmol/L (135-144); TOTAL PROTEIN 7.2 g/dl (6.1-8.1)
[2018-08-01] MEDS: ESCITALOPRAM 10 MG TAB PO (08:57)
[2018-08-01] MEDS: PANTOPRAZOLE (EC) 40 MG TAB PO (08:57)
[2018-08-01] MEDS: APIXABAN 5 MG TABLET PO ×2 (08:57→20:14)
[2018-08-01] MEDS: BUPROPION (XL) 150 MG TAB PO (08:57)
[2018-08-01] MEDS: DILTIAZEM (CD) 120 MG CAP PO (08:58)
[2018-08-01] MEDS: predniSONE 2.5 MG TAB PO (08:58)
[2018-08-01] MEDS: MEGESTROL (40 MG/ML) 10ML CUP PO (08:58)
[2018-08-01] MEDS: METOPROLOL (XL) 25 MG TAB PO (08:58)
[2018-08-01] MEDS: GUAIFENESIN LA 600 MG TABSR PO ×2 (08:58→20:14)
[2018-08-01] MEDS: FLUTICASONE/VILANTEROL 200-25 INH DEVICE INH (08:59)
[2018-08-01] MEDS: BALSAM PERU/CASTOR OIL 60 GM TUBE TOP (09:00)
[2018-08-01] MEDS: NYSTATIN 30 GM POWDER BTL TOP ×2 (09:00→20:24)
[2018-08-01 09:14] LABS: ERYTHROCYTE SEDIMENTATION RATE 55 mm/Hr (0-20)
[2018-08-01] MEDS: D5W-0.45 NACL + KCL 20 MEQ 1,000 ML IV ×2 (11:06→20:14)
[2018-08-01] MEDS: TIOTROPIUM 18 MCG CAPSULE INHA DEV INH (11:30)
[2018-08-02 00:44] LABS: ADD UMIC YES; UR ASCORBIC ACID 20 mg/dL (NEGATIVE); UR BILIRUBIN (Dip) NEGATIVE (NEGATIVE); UR BLOOD (Dip) NEGATIVE (NEGATIVE); UR BUDDING YEAST FEW /HPF (NONE SEEN); UR CLARITY CLOUDY (CLEAR); UR COLOR YELLOW (YELLOW); UR GLUCOSE (Dip) NEGATIVE (NEGATIVE); UR KETONES (Dip) NEGATIVE (NEGATIVE); UR LEUKOCYTE ESTERASE (Dip) 3+ Leu/ul (NEGATIVE); UR NITRITE (Dip) NEGATIVE (NEGATIVE); UR RBC 4 /HPF (0-5); UR SPECIFIC GRAVITY (Dip) 1.018 (1.003-1.030); UR TOTAL PROTEIN (Dip) 1+ mg/dl (NEGATIVE); UR UROBILINOGEN (Dip) NEGATIVE (NEGATIVE); UR WBC 177 /HPF (0-5)
[2018-08-02] MEDS: LEVALBUTEROL (NEB) 0.63 MG/3 ML AMP HHN ×4 (02:00→20:24)
[2018-08-02] MEDS: ACETYLCYSTEINE 20% 4 ML VIAL NEB ×4 (02:00→20:25)
[2018-08-02] MEDS: D5W-0.45 NACL + KCL 20 MEQ 1,000 ML IV ×2 (05:19→16:37)
[2018-08-02] MEDS: PANTOPRAZOLE (EC) 40 MG TAB PO (07:58)
[2018-08-02] MEDS: FLUTICASONE/VILANTEROL 200-25 INH DEVICE INH (08:02)
[2018-08-02] MEDS: ESCITALOPRAM 10 MG TAB PO (08:02)
[2018-08-02] MEDS: BUPROPION (XL) 150 MG TAB PO (08:03)
[2018-08-02] MEDS: DILTIAZEM (CD) 120 MG CAP PO (08:07)
[2018-08-02] MEDS: METOPROLOL (XL) 25 MG TAB PO (08:08)
[2018-08-02] MEDS: APIXABAN 5 MG TABLET PO ×2 (08:08→21:48)
[2018-08-02] MEDS: MEGESTROL (40 MG/ML) 10ML CUP PO (08:10)
[2018-08-02] MEDS: predniSONE 2.5 MG TAB PO (08:11)
[2018-08-02] MEDS: GUAIFENESIN LA 600 MG TABSR PO ×2 (08:14→21:48)
[2018-08-02] MEDS: NYSTATIN 30 GM POWDER BTL TOP ×2 (08:15→21:49)
[2018-08-02] MEDS: BALSAM PERU/CASTOR OIL 60 GM TUBE TOP (08:15)
[2018-08-02] MEDS: TIOTROPIUM 18 MCG CAPSULE INHA DEV INH (08:18)
[2018-08-02 15:29] LABS: ADD MAN DIFF? NO; BASOPHILS % 0.1 % (0.0-2.0); EOSINOPHILS # 0.1 10^3/ul (0.0-0.5); EOSINOPHILS % 0.9 % (0.0-7.0); HEMATOCRIT 35.4 % (42.0-52.0); HEMOGLOBIN 10.8 g/dl (14.0-18.0); LYMPHOCYTES # 1.2 10^3/ul (0.8-2.9); LYMPHOCYTES % 8.6 % (15.0-51.0); MEAN CORPUSCULAR HEMOGLOBIN 28.1 pg (29.0-33.0); MEAN CORPUSCULAR HGB CONC 30.5 g/dl (32.0-37.0); MEAN CORPUSCULAR VOLUME 92.2 fl (82.0-101.0); MEAN PLATELET VOLUME 11.9 fl (7.4-10.4); MONOCYTE # 1.3 10^3/ul (0.3-0.9); MONOCYTES % 9.3 % (0.0-11.0); NEUTROPHILS % 80.7 % (39.0-77.0); PLATELET COUNT 186 10^3/UL (140-415); RED BLOOD COUNT 3.84 10^6/ul (4.70-6.10); RED CELL DISTRIBUTION WIDTH 16.9 % (11.5-14.5)
[2018-08-02 15:29] LABS: WHITE BLOOD COUNT 13.7 10^3/ul (4.8-10.8)
[2018-08-02 15:55] LABS: ANION GAP 8 (5-13); BLOOD UREA NITROGEN 31 mg/dl (7-20); CALCIUM 9.4 mg/dl (8.4-10.2); CARBON DIOXIDE 23 mmol/L (21-31); CHLORIDE 109 mmol/L (97-110); CREATININE 1.38 mg/dl (0.61-1.24); GLUCOSE 105 mg/dl (70-220); POTASSIUM 5.6 mmol/L (3.5-5.1); SODIUM 140 mmol/L (135-144)
[2018-08-02 18:44] LABS: POTASSIUM 5.4 mmol/L (3.5-5.1)
[2018-08-02] MEDS: MEROPENEM 1 GM/50ML(PMX) 50 ML IVPB (21:48)
[2018-08-03] MEDS: ACETYLCYSTEINE 20% 4 ML VIAL NEB ×5 (02:11→20:14)
[2018-08-03] MEDS: LEVALBUTEROL (NEB) 0.63 MG/3 ML AMP HHN ×5 (02:11→20:20)
[2018-08-03] MEDS: MEROPENEM 1 GM/50ML(PMX) 50 ML IVPB ×2 (09:00→20:56)
[2018-08-03] MEDS: MEGESTROL (40 MG/ML) 10ML CUP PO (09:01)
[2018-08-03] MEDS: PANTOPRAZOLE (EC) 40 MG TAB PO (09:01)
[2018-08-03] MEDS: METOPROLOL (XL) 25 MG TAB PO (09:01)
[2018-08-03] MEDS: predniSONE 2.5 MG TAB PO (09:01)
[2018-08-03] MEDS: GUAIFENESIN LA 600 MG TABSR PO ×3 (09:01→22:59)
[2018-08-03] MEDS: BUPROPION (XL) 150 MG TAB PO (09:01)
[2018-08-03] MEDS: APIXABAN 5 MG TABLET PO ×3 (09:01→22:59)
[2018-08-03] MEDS: TIOTROPIUM 18 MCG CAPSULE INHA DEV INH (09:02)
[2018-08-03] MEDS: ESCITALOPRAM 10 MG TAB PO (09:02)
[2018-08-03] MEDS: DILTIAZEM (CD) 120 MG CAP PO (09:02)
[2018-08-03] MEDS: FLUTICASONE/VILANTEROL 200-25 INH DEVICE INH (09:03)
[2018-08-03] MEDS: BALSAM PERU/CASTOR OIL 60 GM TUBE TOP (09:04)
[2018-08-03] MEDS: NYSTATIN 30 GM POWDER BTL TOP ×2 (09:05→20:56)
[2018-08-03 11:28] LABS: ADD MAN DIFF? NO
[2018-08-03 11:31] LABS: BASOPHILS % 0.3 % (0.0-2.0); EOSINOPHILS # 0.1 10^3/ul (0.0-0.5); EOSINOPHILS % 1.2 % (0.0-7.0); HEMATOCRIT 32.6 % (42.0-52.0); HEMOGLOBIN 9.9 g/dl (14.0-18.0); LYMPHOCYTES # 0.9 10^3/ul (0.8-2.9); LYMPHOCYTES % 9.1 % (15.0-51.0); MEAN CORPUSCULAR HGB CONC 30.4 g/dl (32.0-37.0); MEAN CORPUSCULAR VOLUME 92.4 fl (82.0-101.0); MEAN PLATELET VOLUME 11.5 fl (7.4-10.4); MONOCYTE # 1.2 10^3/ul (0.3-0.9); MONOCYTES % 11.6 % (0.0-11.0); NEUTROPHIL # 7.7 10^3/ul (1.6-7.5); NEUTROPHILS % 77.3 % (39.0-77.0); PLATELET COUNT 192 10^3/UL (140-415); RED BLOOD COUNT 3.53 10^6/ul (4.70-6.10); RED CELL DISTRIBUTION WIDTH 16.7 % (11.5-14.5)
[2018-08-03 11:31] LABS: WHITE BLOOD COUNT 9.9 10^3/ul (4.8-10.8)
[2018-08-03 11:48] LABS: ANION GAP 5 (5-13); BLOOD UREA NITROGEN 26 mg/dl (7-20); CALCIUM 9.4 mg/dl (8.4-10.2); CARBON DIOXIDE 25 mmol/L (21-31); CHLORIDE 110 mmol/L (97-110); CREATININE 1.35 mg/dl (0.61-1.24); GLUCOSE 91 mg/dl (70-220); POTASSIUM 4.7 mmol/L (3.5-5.1); SODIUM 140 mmol/L (135-144)
[2018-08-04] MEDS: ACETYLCYSTEINE 20% 4 ML VIAL NEB ×4 (02:11→20:00)
[2018-08-04] MEDS: LEVALBUTEROL (NEB) 0.63 MG/3 ML AMP HHN ×4 (02:11→20:00)
[2018-08-04 07:40] LABS: ADD MAN DIFF? NO
[2018-08-04 07:43] LABS: WHITE BLOOD COUNT 10.8 10^3/ul (4.8-10.8)
[2018-08-04 07:43] LABS: BASOPHILS % 0.3 % (0.0-2.0); EOSINOPHILS # 0.2 10^3/ul (0.0-0.5); EOSINOPHILS % 1.6 % (0.0-7.0); HEMATOCRIT 35.3 % (42.0-52.0); HEMOGLOBIN 10.5 g/dl (14.0-18.0); LYMPHOCYTES # 1.1 10^3/ul (0.8-2.9); LYMPHOCYTES % 10.3 % (15.0-51.0); MEAN CORPUSCULAR HEMOGLOBIN 27.6 pg (29.0-33.0); MEAN CORPUSCULAR HGB CONC 29.7 g/dl (32.0-37.0); MEAN CORPUSCULAR VOLUME 92.9 fl (82.0-101.0); MEAN PLATELET VOLUME 12.9 fl (7.4-10.4); MONOCYTE # 1.4 10^3/ul (0.3-0.9); MONOCYTES % 12.5 % (0.0-11.0); NEUTROPHIL # 8.1 10^3/ul (1.6-7.5); NEUTROPHILS % 74.9 % (39.0-77.0); PLATELET COUNT 201 10^3/UL (140-415); POSITIVE DIFF @See below
[2018-08-04] MEDS: MEROPENEM 1 GM/50ML(PMX) 50 ML IVPB (09:32)
[2018-08-04] MEDS: TIOTROPIUM 18 MCG CAPSULE INHA DEV INH (09:32)
[2018-08-04] MEDS: FLUTICASONE/VILANTEROL 200-25 INH DEVICE INH (09:33)
[2018-08-04] MEDS: MEGESTROL (40 MG/ML) 10ML CUP PO (09:34)
[2018-08-04] MEDS: METOPROLOL (XL) 25 MG TAB PO (09:34)
[2018-08-04] MEDS: GUAIFENESIN LA 600 MG TABSR PO (09:34)
[2018-08-04] MEDS: ESCITALOPRAM 10 MG TAB PO (09:35)
[2018-08-04] MEDS: DILTIAZEM (CD) 120 MG CAP PO (09:35)
[2018-08-04] MEDS: APIXABAN 5 MG TABLET PO (09:35)
[2018-08-04] MEDS: predniSONE 2.5 MG TAB PO (09:35)
[2018-08-04] MEDS: NYSTATIN 30 GM POWDER BTL TOP (09:36)
[2018-08-04] MEDS: BALSAM PERU/CASTOR OIL 60 GM TUBE TOP (09:36)
[2018-08-04] MEDS: PANTOPRAZOLE (EC) 40 MG TAB PO (09:38)
[2018-08-04] MEDS: BUPROPION (XL) 150 MG TAB PO (09:48)
== END 2018-08-04 19:40 | disposition home or self-care (01) | DRG 871 ==
LOC: TEL 20:43 → PP2 07-25 22:47 → E/R 16:10
PROVIDERS: Internal Medicine
PROC: 30233N1 Transfusion of Nonautologous Red Blood Cells into Peripheral Vein, Percutaneous Approach (ICD-10-PCS; principal; 2018-07-28)
DX: A41.9 Sepsis, unspecified organism (principal); L89.153 Pressure ulcer of sacral region, stage 3; G93.41 Metabolic encephalopathy; N39.0 Urinary tract infection, site not specified; G72.0 Drug-induced myopathy; I82.412 Acute embolism and thrombosis of left femoral vein; I13.0 Hypertensive heart and chronic kidney disease with heart failure and stage 1 through stage 4 chronic kidney disease, or unspecified chronic kidney disease; B96.20 Unspecified Escherichia coli [E. coli] as the cause of diseases classified elsewhere; B96.5 Pseudomonas (aeruginosa) (mallei) (pseudomallei) as the cause of diseases classified elsewhere; Z16.12 Extended spectrum beta lactamase (ESBL) resistance; D69.6 Thrombocytopenia, unspecified; D63.8 Anemia in other chronic diseases classified elsewhere; E86.0 Dehydration; E87.5 Hyperkalemia; F41.9 Anxiety disorder, unspecified; F32.9 Major depressive disorder, single episode, unspecified; I50.9 Heart failure, unspecified; I25.10 Atherosclerotic heart disease of native coronary artery without angina pectoris; I80.8 Phlebitis and thrombophlebitis of other sites; I48.0 Paroxysmal atrial fibrillation; J44.9 Chronic obstructive pulmonary disease, unspecified; K21.9 Gastro-esophageal reflux disease without esophagitis; K44.9 Diaphragmatic hernia without obstruction or gangrene; N18.2 Chronic kidney disease, stage 2 (mild); H10.33 Unspecified acute conjunctivitis, bilateral; R53.83 Other fatigue; T38.0X5A Adverse effect of glucocorticoids and synthetic analogues, initial encounter; Z93.3 Colostomy status; Z93.2 Ileostomy status; Z98.61 Coronary angioplasty status; Z87.891 Personal history of nicotine dependence; Z86.73 Personal history of transient ischemic attack (TIA), and cerebral infarction without residual deficits; Z85.038 Personal history of other malignant neoplasm of large intestine; Z79.01 Long term (current) use of anticoagulants
CPT/HCPCS: 36415; 36430; 70450; 70486; 71045; 74170; 74177; 78806; 80048; 80053; 80202; 81001; 82140; 82270; 82565; 82962; 83036; 83540; 83605; 83735; 83880; 84132; 84134; 84484; 84520; 85025; 85045; 85610; 85651; 85730; 86430; 86850; 86900; 86901; 86920; 87040-91; 87070; 87081; 87086; 93005; 93306; 93971; 94640; 94664; 97110; 97116; 97161; 97530; 99285-25; G0378

== ENCOUNTER 2018-08-09 16:37 | Inpatient (IN) | payer MEDICARE, BC ==
[2018-08-09] MEDS: KETOROLAC 15 MG INJ IV (17:38)
[2018-08-09] MEDS: SOD CHLORIDE 0.9% 1,000 ML IV ×2 (17:38→23:58)
[2018-08-09 17:42] LABS: ADD MAN DIFF? NO
[2018-08-09 17:48] LABS: ABNORMAL IP MESSAGE 1; BASOPHIL # 0.1 10^3/ul (0.0-0.1); BASOPHILS % 0.4 % (0.0-2.0); EOSINOPHILS # 0.1 10^3/ul (0.0-0.5); EOSINOPHILS % 0.6 % (0.0-7.0); HEMATOCRIT 37.4 % (42.0-52.0); HEMOGLOBIN 11.4 g/dl (14.0-18.0); LYMPHOCYTES # 1.1 10^3/ul (0.8-2.9); LYMPHOCYTES % 7.6 % (15.0-51.0); MEAN CORPUSCULAR HEMOGLOBIN 28.1 pg (29.0-33.0); MEAN CORPUSCULAR HGB CONC 30.5 g/dl (32.0-37.0); MEAN CORPUSCULAR VOLUME 92.1 fl (82.0-101.0); MEAN PLATELET VOLUME 11.7 fl (7.4-10.4); MONOCYTES % 13.6 % (0.0-11.0); NEUTROPHIL # 11.4 10^3/ul (1.6-7.5); NEUTROPHILS % 77.1 % (39.0-77.0); PLATELET COUNT 220 10^3/UL (140-415); POSITIVE DIFF @See below; RED BLOOD COUNT 4.06 10^6/ul (4.70-6.10); RED CELL DISTRIBUTION WIDTH 16.3 % (11.5-14.5)
[2018-08-09 17:48] LABS: WHITE BLOOD COUNT 14.8 10^3/ul (4.8-10.8)
[2018-08-09 18:06] LABS: ALANINE AMINOTRANSFERASE 13 IU/L (13-69); ALBUMIN 3.9 g/dl (3.3-4.9); ALBUMIN/GLOBULIN RATIO 0.92; ALKALINE PHOSPHATASE 92 IU/L (42-121); ANION GAP 11 (5-13); ASPARTATE AMINO TRANSFERASE 17 IU/L (15-46); BILIRUBIN,INDIRECT 0.3 mg/dl (0-1.1); BILIRUBIN,TOTAL 0.3 mg/dl (0.2-1.3); BLOOD UREA NITROGEN 35 mg/dl (7-20); CARBON DIOXIDE 23 mmol/L (21-31); CHLORIDE 112 mmol/L (97-110); CREATININE 1.59 mg/dl (0.61-1.24); GLUCOSE 141 mg/dl (70-220); LIPASE 31 U/L (23-300); POTASSIUM 5.2 mmol/L (3.5-5.1); SODIUM 146 mmol/L (135-144); TOTAL PROTEIN 8.1 g/dl (6.1-8.1)
[2018-08-09 19:54] LABS: ADD UMIC YES; UR ASCORBIC ACID NEGATIVE (NEGATIVE); UR BACTERIA FEW /HPF (NONE SEEN); UR BILIRUBIN (Dip) NEGATIVE (NEGATIVE); UR BLOOD (Dip) 2+ mg/dL (NEGATIVE); UR BUDDING YEAST MODERATE /HPF (NONE SEEN); UR CLARITY CLOUDY (CLEAR); UR COLOR AMBER (YELLOW); UR GLUCOSE (Dip) NEGATIVE (NEGATIVE); UR KETONES (Dip) NEGATIVE (NEGATIVE); UR LEUKOCYTE ESTERASE (Dip) 3+ Leu/ul (NEGATIVE); UR MUCUS MODERATE /HPF (NONE SEEN); UR NITRITE (Dip) NEGATIVE (NEGATIVE); UR RBC 47 /HPF (0-5); UR SPECIFIC GRAVITY (Dip) 1.018 (1.003-1.030); UR TOTAL PROTEIN (Dip) 2+ mg/dl (NEGATIVE); UR UROBILINOGEN (Dip) NEGATIVE (NEGATIVE); UR WBC > 182 /HPF (0-5)
[2018-08-09] MEDS: CEFEPIME 1GM/50 ML (PMX) 50 ML IVPB (20:07)
[2018-08-10] MEDS ORDERED: HYDROCODONE/APAP (5/325) TAB PO
[2018-08-10] MEDS ORDERED: morphine 2 MG INJ IV
[2018-08-10] MEDS ORDERED: NA PHOSPHATE/BIPHOS 133 ML ENEMA PR
[2018-08-10] MEDS ORDERED: MAGNESIUM HYDROXIDE 30ML CUP PO
[2018-08-10] MEDS ORDERED: ONDANSETRON 4 MG INJ IV
[2018-08-10] MEDS: NACL 0.9% 3 ML SYG IV (00:04)
[2018-08-10] MEDS: ACETYLCYSTEINE 20% 4 ML VIAL NEB ×4 (02:00→19:45)
[2018-08-10 05:19] LABS: ADD MAN DIFF? NO
[2018-08-10 05:23] LABS: ABNORMAL IP MESSAGE 1; BASOPHILS % 0.2 % (0.0-2.0); EOSINOPHILS # 0.1 10^3/ul (0.0-0.5); EOSINOPHILS % 0.5 % (0.0-7.0); HEMATOCRIT 34.1 % (42.0-52.0); HEMOGLOBIN 10.2 g/dl (14.0-18.0); LYMPHOCYTES # 1.2 10^3/ul (0.8-2.9); LYMPHOCYTES % 9.6 % (15.0-51.0); MEAN CORPUSCULAR HEMOGLOBIN 27.6 pg (29.0-33.0); MEAN CORPUSCULAR HGB CONC 29.9 g/dl (32.0-37.0); MEAN CORPUSCULAR VOLUME 92.2 fl (82.0-101.0); MEAN PLATELET VOLUME 11.9 fl (7.4-10.4); MONOCYTE # 1.8 10^3/ul (0.3-0.9); MONOCYTES % 14.7 % (0.0-11.0); NEUTROPHILS % 74.7 % (39.0-77.0); PLATELET COUNT 191 10^3/UL (140-415); POSITIVE DIFF @See below; RED CELL DISTRIBUTION WIDTH 16.7 % (11.5-14.5)
[2018-08-10 05:23] LABS: WHITE BLOOD COUNT 12.1 10^3/ul (4.8-10.8)
[2018-08-10 05:45] LABS: ALANINE AMINOTRANSFERASE 14 IU/L (13-69); ALBUMIN 3.5 g/dl (3.3-4.9); ALBUMIN/GLOBULIN RATIO 0.92; ALKALINE PHOSPHATASE 75 IU/L (42-121); ANION GAP 9 (5-13); ASPARTATE AMINO TRANSFERASE 16 IU/L (15-46); BILIRUBIN,INDIRECT 0.4 mg/dl (0-1.1); BILIRUBIN,TOTAL 0.4 mg/dl (0.2-1.3); BLOOD UREA NITROGEN 35 mg/dl (7-20); CALCIUM 9.5 mg/dl (8.4-10.2); CARBON DIOXIDE 20 mmol/L (21-31); CHLORIDE 116 mmol/L (97-110); CREATININE 1.54 mg/dl (0.61-1.24); GLUCOSE 106 mg/dl (70-220); POTASSIUM 4.8 mmol/L (3.5-5.1); SODIUM 145 mmol/L (135-144); TOTAL PROTEIN 7.3 g/dl (6.1-8.1)
[2018-08-10 06:50] LABS: MAGNESIUM 1.5 mg/dl (1.7-2.5)
[2018-08-10] MEDS: PANTOPRAZOLE (EC) 40 MG TAB PO (07:20)
[2018-08-10] MEDS ORDERED: PENDING SANTYL ORDER FOR WOUND CARE XX (08:00)
[2018-08-10] MEDS: ALBUTEROL/IPRATROPIUM (NEB) 3 ML AMP HHN ×3 (08:12→19:45)
[2018-08-10 08:25] LABS: HEMOGLOBIN A1C 5.3 % (0-5.9)
[2018-08-10] MEDS ORDERED: CEFEPIME 1GM/50 ML (PMX) 50 ML IVPB (09:00)
[2018-08-10] MEDS: CEFEPIME 1GM/50 ML (PMX) 50 ML IVPB ×2 (09:03→21:18)
[2018-08-10] MEDS: METOPROLOL 50 MG TAB PO ×2 (09:28→21:00)
[2018-08-10] MEDS: BUPROPION (XL) 150 MG TAB PO (09:28)
[2018-08-10] MEDS: APIXABAN 5 MG TABLET PO ×2 (09:29→21:00)
[2018-08-10] MEDS: GUAIFENESIN LA 600 MG TABSR PO ×2 (09:29→21:00)
[2018-08-10] MEDS: FLUTICASONE/VILANTEROL 200-25 INH DEVICE INH (09:30)
[2018-08-10] MEDS: SOD CHLORIDE 0.9% 1,000 ML IV (12:29)
[2018-08-10] MEDS: ATORVASTATIN 20 MG TAB PO (21:00)
[2018-08-10] MEDS: MIRTAZAPINE 15 MG TAB PO (21:00)
[2018-08-10] MEDS: DIAZEPAM 2 MG TAB PO (21:00)
[2018-08-10] MEDS: DOCUSATE SODIUM 100 MG CAP PO (21:00)
[2018-08-10] MEDS: BALSAM PERU/CASTOR OIL 60 GM TUBE TOP (21:19)
[2018-08-11] MEDS: SOD CHLORIDE 0.9% 1,000 ML IV ×3 (00:37→14:03)
[2018-08-11] MEDS: ATORVASTATIN 20 MG TAB PO ×2 (01:00→21:52)
[2018-08-11] MEDS: GUAIFENESIN LA 600 MG TABSR PO ×3 (01:01→21:52)
[2018-08-11] MEDS: APIXABAN 5 MG TABLET PO ×3 (01:01→21:52)
[2018-08-11] MEDS: METOPROLOL 50 MG TAB PO ×3 (01:02→21:52)
[2018-08-11] MEDS: ALBUTEROL/IPRATROPIUM (NEB) 3 ML AMP HHN ×4 (01:41→20:39)
[2018-08-11] MEDS: ACETYLCYSTEINE 20% 4 ML VIAL NEB ×4 (01:41→20:39)
[2018-08-11] MEDS ORDERED: DIAZEPAM 2 MG TAB PO (02:30)
[2018-08-11 05:37] LABS: ADD MAN DIFF? NO
[2018-08-11 05:41] LABS: WHITE BLOOD COUNT 10.3 10^3/ul (4.8-10.8)
[2018-08-11 05:41] LABS: BASOPHILS % 0.3 % (0.0-2.0); EOSINOPHILS # 0.1 10^3/ul (0.0-0.5); EOSINOPHILS % 1.4 % (0.0-7.0); HEMATOCRIT 30.5 % (42.0-52.0); HEMOGLOBIN 9.3 g/dl (14.0-18.0); LYMPHOCYTES # 1.2 10^3/ul (0.8-2.9); MEAN CORPUSCULAR HEMOGLOBIN 28.4 pg (29.0-33.0); MEAN CORPUSCULAR HGB CONC 30.5 g/dl (32.0-37.0); MEAN CORPUSCULAR VOLUME 93.3 fl (82.0-101.0); MEAN PLATELET VOLUME 12.2 fl (7.4-10.4); MONOCYTE # 1.3 10^3/ul (0.3-0.9); MONOCYTES % 12.5 % (0.0-11.0); NEUTROPHIL # 7.6 10^3/ul (1.6-7.5); NEUTROPHILS % 73.4 % (39.0-77.0); PLATELET COUNT 168 10^3/UL (140-415); RED BLOOD COUNT 3.27 10^6/ul (4.70-6.10); RED CELL DISTRIBUTION WIDTH 16.5 % (11.5-14.5)
[2018-08-11] MEDS: PANTOPRAZOLE (EC) 40 MG TAB PO (06:12)
[2018-08-11 06:15] LABS: ALANINE AMINOTRANSFERASE 7 IU/L (13-69); ALBUMIN 3.1 g/dl (3.3-4.9); ALBUMIN/GLOBULIN RATIO 0.88; ALKALINE PHOSPHATASE 80 IU/L (42-121); ANION GAP 9 (5-13); ASPARTATE AMINO TRANSFERASE 15 IU/L (15-46); BILIRUBIN,INDIRECT 0.3 mg/dl (0-1.1); BILIRUBIN,TOTAL 0.3 mg/dl (0.2-1.3); BLOOD UREA NITROGEN 32 mg/dl (7-20); CALCIUM 9.2 mg/dl (8.4-10.2); CARBON DIOXIDE 19 mmol/L (21-31); CHLORIDE 118 mmol/L (97-110); CREATININE 1.35 mg/dl (0.61-1.24); GLUCOSE 87 mg/dl (70-220); SODIUM 146 mmol/L (135-144); TOTAL PROTEIN 6.6 g/dl (6.1-8.1)
[2018-08-11] MEDS: BALSAM PERU/CASTOR OIL 60 GM TUBE TOP ×2 (09:44→20:32)
[2018-08-11] MEDS: CEFEPIME 1GM/50 ML (PMX) 50 ML IVPB ×2 (09:44→20:32)
[2018-08-11] MEDS: BUPROPION (XL) 150 MG TAB PO (09:46)
[2018-08-11] MEDS: FLUTICASONE/VILANTEROL 200-25 INH DEVICE INH (09:51)
[2018-08-11] MEDS: MIRTAZAPINE 15 MG TAB PO (21:52)
[2018-08-11] MEDS: DOCUSATE SODIUM 100 MG CAP PO (21:52)
[2018-08-12] MEDS: ACETYLCYSTEINE 20% 4 ML VIAL NEB ×4 (01:58→19:44)
[2018-08-12] MEDS: ALBUTEROL/IPRATROPIUM (NEB) 3 ML AMP HHN ×4 (01:58→19:44)
[2018-08-12] MEDS: SOD CHLORIDE 0.9% 1,000 ML IV ×2 (02:40→19:04)
[2018-08-12] MEDS: PANTOPRAZOLE (EC) 40 MG TAB PO (06:08)
[2018-08-12 06:10] LABS: ANION GAP 7 (5-13); BLOOD UREA NITROGEN 25 mg/dl (7-20); CARBON DIOXIDE 16 mmol/L (21-31); CHLORIDE 118 mmol/L (97-110); GLUCOSE 94 mg/dl (70-220); POTASSIUM 4.4 mmol/L (3.5-5.1); SODIUM 141 mmol/L (135-144)
[2018-08-12] MEDS: APIXABAN 5 MG TABLET PO ×2 (09:34→21:16)
[2018-08-12] MEDS: BUPROPION (XL) 150 MG TAB PO (09:34)
[2018-08-12] MEDS: GUAIFENESIN LA 600 MG TABSR PO ×2 (09:34→21:15)
[2018-08-12] MEDS: METOPROLOL 50 MG TAB PO ×2 (09:40→21:16)
[2018-08-12] MEDS: CEFEPIME 1GM/50 ML (PMX) 50 ML IVPB ×2 (09:41→21:15)
[2018-08-12] MEDS: BALSAM PERU/CASTOR OIL 60 GM TUBE TOP ×2 (09:41→21:19)
[2018-08-12] MEDS: FLUTICASONE/VILANTEROL 200-25 INH DEVICE INH (09:41)
[2018-08-12] MEDS: ATORVASTATIN 20 MG TAB PO (21:15)
[2018-08-12] MEDS: MIRTAZAPINE 15 MG TAB PO (21:15)
[2018-08-12] MEDS: DOCUSATE SODIUM 100 MG CAP PO (21:16)
[2018-08-13] MEDS: ALBUTEROL/IPRATROPIUM (NEB) 3 ML AMP HHN ×4 (02:25→19:49)
[2018-08-13] MEDS: ACETYLCYSTEINE 20% 4 ML VIAL NEB ×4 (02:25→19:50)
[2018-08-13 05:15] LABS: ADD MAN DIFF? NO
[2018-08-13 05:28] LABS: WHITE BLOOD COUNT 9.2 10^3/ul (4.8-10.8)
[2018-08-13 05:28] LABS: BASOPHILS % 0.3 % (0.0-2.0); EOSINOPHILS # 0.2 10^3/ul (0.0-0.5); EOSINOPHILS % 2.2 % (0.0-7.0); HEMATOCRIT 31.1 % (42.0-52.0); HEMOGLOBIN 9.5 g/dl (14.0-18.0); LYMPHOCYTES # 1.1 10^3/ul (0.8-2.9); LYMPHOCYTES % 12.3 % (15.0-51.0); MEAN CORPUSCULAR HEMOGLOBIN 27.9 pg (29.0-33.0); MEAN CORPUSCULAR HGB CONC 30.5 g/dl (32.0-37.0); MEAN CORPUSCULAR VOLUME 91.5 fl (82.0-101.0); MEAN PLATELET VOLUME 11.5 fl (7.4-10.4); MONOCYTE # 1.1 10^3/ul (0.3-0.9); MONOCYTES % 12.3 % (0.0-11.0); NEUTROPHIL # 6.6 10^3/ul (1.6-7.5); NEUTROPHILS % 72.4 % (39.0-77.0); PLATELET COUNT 188 10^3/UL (140-415); RED CELL DISTRIBUTION WIDTH 16.2 % (11.5-14.5)
[2018-08-13 05:53] LABS: AMMONIA < 9 umol/l (9-30)
[2018-08-13 05:55] LABS: ALBUMIN 3.3 g/dl (3.3-4.9); ANION GAP 10 (5-13); BLOOD UREA NITROGEN 22 mg/dl (7-20); CALCIUM 9.6 mg/dl (8.4-10.2); CARBON DIOXIDE 19 mmol/L (21-31); CHLORIDE 115 mmol/L (97-110); CREATININE 1.18 mg/dl (0.61-1.24); GLUCOSE 84 mg/dl (70-220); MAGNESIUM 1.3 mg/dl (1.7-2.5); POTASSIUM 4.4 mmol/L (3.5-5.1); SODIUM 144 mmol/L (135-144)
[2018-08-13] MEDS: PANTOPRAZOLE (EC) 40 MG TAB PO (06:28)
[2018-08-13] MEDS: BUPROPION (XL) 150 MG TAB PO (08:24)
[2018-08-13] MEDS: GUAIFENESIN LA 600 MG TABSR PO ×2 (08:24→21:14)
[2018-08-13] MEDS: METOPROLOL 50 MG TAB PO (08:25)
[2018-08-13] MEDS: APIXABAN 5 MG TABLET PO ×2 (08:25→21:15)
[2018-08-13] MEDS: FLUTICASONE/VILANTEROL 200-25 INH DEVICE INH (08:28)
[2018-08-13] MEDS: CEFEPIME 1GM/50 ML (PMX) 50 ML IVPB ×2 (08:28→21:14)
[2018-08-13] MEDS: BALSAM PERU/CASTOR OIL 60 GM TUBE TOP ×2 (08:29→21:16)
[2018-08-13] MEDS: MAGNESIUM SULFATE 2 GM/50 ML 50 ML IVPB (15:46)
[2018-08-13] MEDS: ATORVASTATIN 20 MG TAB PO (21:14)
[2018-08-13] MEDS: DOCUSATE SODIUM 100 MG CAP PO (21:15)
[2018-08-13] MEDS: METOPROLOL 25 MG TAB PO (21:15)
[2018-08-13] MEDS: MIRTAZAPINE 15 MG TAB PO (21:16)
[2018-08-14] MEDS: ALBUTEROL/IPRATROPIUM (NEB) 3 ML AMP HHN ×4 (01:46→19:50)
[2018-08-14] MEDS: ACETYLCYSTEINE 20% 4 ML VIAL NEB ×4 (01:46→19:50)
[2018-08-14] MEDS: SOD CHLORIDE 0.9% 1,000 ML IV (02:49)
[2018-08-14 05:45] LABS: ANION GAP 7 (5-13); BLOOD UREA NITROGEN 21 mg/dl (7-20); CALCIUM 10.1 mg/dl (8.4-10.2); CARBON DIOXIDE 20 mmol/L (21-31); CHLORIDE 117 mmol/L (97-110); CREATININE 1.15 mg/dl (0.61-1.24); GLUCOSE 87 mg/dl (70-220); POTASSIUM 4.2 mmol/L (3.5-5.1); SODIUM 144 mmol/L (135-144)
[2018-08-14] MEDS: CEFEPIME 1GM/50 ML (PMX) 50 ML IVPB (08:23)
[2018-08-14] MEDS: BUPROPION (XL) 150 MG TAB PO (08:24)
[2018-08-14] MEDS: BALSAM PERU/CASTOR OIL 60 GM TUBE TOP ×2 (08:24→21:11)
[2018-08-14] MEDS: PANTOPRAZOLE (EC) 40 MG TAB PO (08:24)
[2018-08-14] MEDS: FLUTICASONE/VILANTEROL 200-25 INH DEVICE INH (08:24)
[2018-08-14] MEDS: GUAIFENESIN LA 600 MG TABSR PO ×2 (08:24→21:10)
[2018-08-14] MEDS: METOPROLOL 25 MG TAB PO ×2 (08:25→21:11)
[2018-08-14] MEDS: APIXABAN 5 MG TABLET PO ×2 (08:25→21:11)
[2018-08-14] MEDS: MIRTAZAPINE 15 MG TAB PO (21:10)
[2018-08-14] MEDS: DOCUSATE SODIUM 100 MG CAP PO (21:10)
[2018-08-14] MEDS: ATORVASTATIN 20 MG TAB PO (21:10)
[2018-08-15] MEDS: ALBUTEROL/IPRATROPIUM (NEB) 3 ML AMP HHN ×4 (02:12→19:24)
[2018-08-15] MEDS: ACETYLCYSTEINE 20% 4 ML VIAL NEB ×4 (02:12→19:24)
[2018-08-15] MEDS: BUPROPION (XL) 150 MG TAB PO (08:32)
[2018-08-15] MEDS: PANTOPRAZOLE (EC) 40 MG TAB PO (08:32)
[2018-08-15] MEDS: GUAIFENESIN LA 600 MG TABSR PO ×2 (08:32→21:52)
[2018-08-15] MEDS: METOPROLOL 25 MG TAB PO ×2 (08:33→21:52)
[2018-08-15] MEDS: APIXABAN 5 MG TABLET PO ×2 (08:33→21:52)
[2018-08-15] MEDS: BALSAM PERU/CASTOR OIL 60 GM TUBE TOP ×2 (08:34→21:53)
[2018-08-15] MEDS: FLUTICASONE/VILANTEROL 200-25 INH DEVICE INH (09:19)
[2018-08-15 11:08] LABS: UR BACTERIA FEW /HPF (NONE SEEN); UR BUDDING YEAST FEW /HPF (NONE SEEN); UR MUCUS FEW /HPF (NONE SEEN); UR RBC 149 /HPF (0-5); UR WBC > 182 /HPF (0-5)
[2018-08-15 11:16] LABS: ADD UMIC YES; UR ASCORBIC ACID NEGATIVE (NEGATIVE); UR BILIRUBIN (Dip) NEGATIVE (NEGATIVE); UR BLOOD (Dip) 3+ mg/dL (NEGATIVE); UR CLARITY TURBID (CLEAR); UR COLOR AMBER (YELLOW); UR GLUCOSE (Dip) NEGATIVE (NEGATIVE); UR KETONES (Dip) NEGATIVE (NEGATIVE); UR LEUKOCYTE ESTERASE (Dip) 3+ Leu/ul (NEGATIVE); UR NITRITE (Dip) NEGATIVE (NEGATIVE); UR NONSQUAMOUS EPITHELIAL CELL 6 /HPF (NONE SEEN); UR SPECIFIC GRAVITY (Dip) 1.018 (1.003-1.030); UR SQUAMOUS EPITHELIAL CELL FEW /HPF (FEW); UR TOTAL PROTEIN (Dip) 2+ mg/dl (NEGATIVE); UR UROBILINOGEN (Dip) NEGATIVE (NEGATIVE)
[2018-08-15] MEDS: ATORVASTATIN 20 MG TAB PO (21:52)
[2018-08-15] MEDS: DOCUSATE SODIUM 100 MG CAP PO (21:52)
[2018-08-15] MEDS: MIRTAZAPINE 15 MG TAB PO (21:52)
[2018-08-16] MEDS: ACETAMINOPHEN 325 MG TAB PO (01:20)
[2018-08-16] MEDS: ALBUTEROL/IPRATROPIUM (NEB) 3 ML AMP HHN ×4 (02:23→20:32)
[2018-08-16] MEDS: ACETYLCYSTEINE 20% 4 ML VIAL NEB ×4 (02:24→20:32)
[2018-08-16] MEDS: BUPROPION (XL) 150 MG TAB PO (10:02)
[2018-08-16] MEDS: GUAIFENESIN LA 600 MG TABSR PO ×2 (10:02→22:43)
[2018-08-16] MEDS: APIXABAN 5 MG TABLET PO ×2 (10:02→22:44)
[2018-08-16] MEDS: METOPROLOL 25 MG TAB PO ×2 (10:03→22:50)
[2018-08-16] MEDS: PANTOPRAZOLE (EC) 40 MG TAB PO (10:03)
[2018-08-16] MEDS: BALSAM PERU/CASTOR OIL 60 GM TUBE TOP ×2 (10:14→22:48)
[2018-08-16] MEDS: FLUTICASONE/VILANTEROL 200-25 INH DEVICE INH (11:43)
[2018-08-16] MEDS: MIRTAZAPINE 15 MG TAB PO (22:43)
[2018-08-16] MEDS: DOXYCYCLINE 100 MG TAB PO (22:43)
[2018-08-16] MEDS: DOCUSATE SODIUM 100 MG CAP PO (22:43)
[2018-08-16] MEDS: ATORVASTATIN 20 MG TAB PO (22:43)
[2018-08-17] MEDS: ALBUTEROL/IPRATROPIUM (NEB) 3 ML AMP HHN ×5 (02:07→20:22)
[2018-08-17] MEDS: ACETYLCYSTEINE 20% 4 ML VIAL NEB ×5 (02:07→20:22)
[2018-08-17 05:32] LABS: ADD MAN DIFF? NO
[2018-08-17 05:35] LABS: WHITE BLOOD COUNT 9.7 10^3/ul (4.8-10.8)
[2018-08-17 05:35] LABS: BASOPHIL # 0.1 10^3/ul (0.0-0.1); BASOPHILS % 0.5 % (0.0-2.0); EOSINOPHILS # 0.3 10^3/ul (0.0-0.5); EOSINOPHILS % 3.5 % (0.0-7.0); HEMOGLOBIN 10.1 g/dl (14.0-18.0); LYMPHOCYTES # 1.3 10^3/ul (0.8-2.9); LYMPHOCYTES % 13.5 % (15.0-51.0); MEAN CORPUSCULAR HEMOGLOBIN 27.5 pg (29.0-33.0); MEAN CORPUSCULAR HGB CONC 30.6 g/dl (32.0-37.0); MEAN CORPUSCULAR VOLUME 89.9 fl (82.0-101.0); MEAN PLATELET VOLUME 11.7 fl (7.4-10.4); MONOCYTE # 1.1 10^3/ul (0.3-0.9); MONOCYTES % 10.8 % (0.0-11.0); NEUTROPHIL # 6.9 10^3/ul (1.6-7.5); NEUTROPHILS % 71.4 % (39.0-77.0); PLATELET COUNT 198 10^3/UL (140-415); RED BLOOD COUNT 3.67 10^6/ul (4.70-6.10); RED CELL DISTRIBUTION WIDTH 16.1 % (11.5-14.5)
[2018-08-17 06:00] LABS: ALBUMIN 3.5 g/dl (3.3-4.9); ALBUMIN/GLOBULIN RATIO 0.89; ALKALINE PHOSPHATASE 86 IU/L (42-121); ANION GAP 9 (5-13); ASPARTATE AMINO TRANSFERASE 13 IU/L (15-46); BILIRUBIN,INDIRECT 0.1 mg/dl (0-1.1); BILIRUBIN,TOTAL 0.1 mg/dl (0.2-1.3); BLOOD UREA NITROGEN 30 mg/dl (7-20); CALCIUM 10.6 mg/dl (8.4-10.2); CARBON DIOXIDE 23 mmol/L (21-31); CHLORIDE 112 mmol/L (97-110); CREATININE 1.37 mg/dl (0.61-1.24); GLUCOSE 113 mg/dl (70-220); POTASSIUM 4.8 mmol/L (3.5-5.1); SODIUM 144 mmol/L (135-144); TOTAL PROTEIN 7.4 g/dl (6.1-8.1)
[2018-08-17 06:08] LABS: ALANINE AMINOTRANSFERASE < 6 IU/L (13-69)
[2018-08-17] MEDS: PANTOPRAZOLE (EC) 40 MG TAB PO (06:27)
[2018-08-17] MEDS: APIXABAN 5 MG TABLET PO ×2 (09:17→21:28)
[2018-08-17] MEDS: GUAIFENESIN LA 600 MG TABSR PO ×2 (09:17→21:26)
[2018-08-17] MEDS: DOXYCYCLINE 100 MG TAB PO ×2 (09:18→21:26)
[2018-08-17] MEDS: METOPROLOL 25 MG TAB PO ×2 (09:18→21:28)
[2018-08-17] MEDS: BUPROPION (XL) 150 MG TAB PO (09:18)
[2018-08-17] MEDS: FLUTICASONE/VILANTEROL 200-25 INH DEVICE INH (09:19)
[2018-08-17] MEDS: BALSAM PERU/CASTOR OIL 60 GM TUBE TOP ×2 (09:19→21:29)
[2018-08-17] MEDS: DOCUSATE SODIUM 100 MG CAP PO (21:00)
[2018-08-17] MEDS: MIRTAZAPINE 15 MG TAB PO (21:28)
[2018-08-17] MEDS: ATORVASTATIN 20 MG TAB PO (21:28)
[2018-08-18] MEDS: ALBUTEROL/IPRATROPIUM (NEB) 3 ML AMP HHN ×4 (01:28→21:30)
[2018-08-18] MEDS: ACETYLCYSTEINE 20% 4 ML VIAL NEB ×4 (01:28→21:30)
[2018-08-18] MEDS: PANTOPRAZOLE (EC) 40 MG TAB PO (06:26)
[2018-08-18] MEDS: BALSAM PERU/CASTOR OIL 60 GM TUBE TOP ×2 (09:00→21:17)
[2018-08-18] MEDS: METOPROLOL 25 MG TAB PO ×2 (09:33→21:19)
[2018-08-18] MEDS: GUAIFENESIN LA 600 MG TABSR PO ×2 (09:33→21:15)
[2018-08-18] MEDS: FLUTICASONE/VILANTEROL 200-25 INH DEVICE INH (09:33)
[2018-08-18] MEDS: APIXABAN 5 MG TABLET PO ×2 (09:34→21:14)
[2018-08-18] MEDS: DOXYCYCLINE 100 MG TAB PO ×2 (09:38→21:16)
[2018-08-18] MEDS: BUPROPION (XL) 150 MG TAB PO (10:05)
[2018-08-18] MEDS: ATORVASTATIN 20 MG TAB PO (21:15)
[2018-08-18] MEDS: DOCUSATE SODIUM 100 MG CAP PO (21:16)
[2018-08-18] MEDS: MIRTAZAPINE 15 MG TAB PO (21:16)
[2018-08-19] MEDS: ACETYLCYSTEINE 20% 4 ML VIAL NEB ×4 (02:05→21:52)
[2018-08-19] MEDS: ALBUTEROL/IPRATROPIUM (NEB) 3 ML AMP HHN ×4 (02:05→21:42)
[2018-08-19] MEDS: PANTOPRAZOLE (EC) 40 MG TAB PO (07:57)
[2018-08-19] MEDS: DOXYCYCLINE 100 MG TAB PO ×2 (08:57→20:24)
[2018-08-19] MEDS: BUPROPION (XL) 150 MG TAB PO (08:57)
[2018-08-19] MEDS: APIXABAN 5 MG TABLET PO ×2 (08:58→20:21)
[2018-08-19] MEDS: FLUTICASONE/VILANTEROL 200-25 INH DEVICE INH (08:58)
[2018-08-19] MEDS: GUAIFENESIN LA 600 MG TABSR PO ×2 (08:58→20:24)
[2018-08-19] MEDS: METOPROLOL 25 MG TAB PO ×2 (09:02→20:23)
[2018-08-19] MEDS: BALSAM PERU/CASTOR OIL 60 GM TUBE TOP ×2 (13:23→20:24)
[2018-08-19] MEDS: ATORVASTATIN 20 MG TAB PO (20:22)
[2018-08-19] MEDS: DOCUSATE SODIUM 100 MG CAP PO (20:23)
[2018-08-19] MEDS: MIRTAZAPINE 15 MG TAB PO (20:23)
[2018-08-20] MEDS: HALOPERIDOL 5 MG INJ IM (00:43)
[2018-08-20] MEDS: ACETYLCYSTEINE 20% 4 ML VIAL NEB ×4 (02:00→20:25)
[2018-08-20] MEDS: ALBUTEROL/IPRATROPIUM (NEB) 3 ML AMP HHN ×5 (02:53→20:25)
[2018-08-20 06:06] LABS: ADD MAN DIFF? NO
[2018-08-20 06:37] LABS: WHITE BLOOD COUNT 16.3 10^3/ul (4.8-10.8)
[2018-08-20 06:37] LABS: ABNORMAL IP MESSAGE 1; BASOPHIL # 0.1 10^3/ul (0.0-0.1); BASOPHILS % 0.6 % (0.0-2.0); EOSINOPHILS # 0.4 10^3/ul (0.0-0.5); EOSINOPHILS % 2.7 % (0.0-7.0); HEMOGLOBIN 11.4 g/dl (14.0-18.0); LYMPHOCYTES # 1.8 10^3/ul (0.8-2.9); LYMPHOCYTES % 11.2 % (15.0-51.0); MEAN CORPUSCULAR HEMOGLOBIN 27.5 pg (29.0-33.0); MEAN CORPUSCULAR VOLUME 91.8 fl (82.0-101.0); MEAN PLATELET VOLUME 11.9 fl (7.4-10.4); MONOCYTE # 1.6 10^3/ul (0.3-0.9); MONOCYTES % 9.9 % (0.0-11.0); NEUTROPHIL # 12.2 10^3/ul (1.6-7.5); PLATELET COUNT 171 10^3/UL (140-415); POSITIVE DIFF @See below; RED BLOOD COUNT 4.14 10^6/ul (4.70-6.10); RED CELL DISTRIBUTION WIDTH 15.9 % (11.5-14.5)
[2018-08-20 07:16] LABS: ANION GAP 13 (5-13); BLOOD UREA NITROGEN 54 mg/dl (7-20); CALCIUM 11.2 mg/dl (8.4-10.2); CARBON DIOXIDE 20 mmol/L (21-31); CHLORIDE 110 mmol/L (97-110); CREATININE 1.48 mg/dl (0.61-1.24); GLUCOSE 93 mg/dl (70-220); MAGNESIUM 1.1 mg/dl (1.7-2.5); POTASSIUM 5.7 mmol/L (3.5-5.1); SODIUM 143 mmol/L (135-144)
[2018-08-20] MEDS: DOXYCYCLINE 100 MG TAB PO ×2 (08:47→20:16)
[2018-08-20] MEDS: PANTOPRAZOLE (EC) 40 MG TAB PO (08:47)
[2018-08-20] MEDS: METOPROLOL 25 MG TAB PO ×2 (08:48→20:17)
[2018-08-20] MEDS: GUAIFENESIN LA 600 MG TABSR PO ×2 (08:48→20:16)
[2018-08-20] MEDS: FLUTICASONE/VILANTEROL 200-25 INH DEVICE INH (09:00)
[2018-08-20] MEDS: APIXABAN 5 MG TABLET PO ×2 (11:57→20:16)
[2018-08-20] MEDS: BUPROPION (XL) 150 MG TAB PO (11:58)
[2018-08-20] MEDS: SOD CHLORIDE 0.9% 1,000 ML IV (11:59)
[2018-08-20] MEDS: BALSAM PERU/CASTOR OIL 60 GM TUBE TOP ×2 (12:00→20:17)
[2018-08-20] MEDS: MAGNESIUM SULFATE 3 GM in DEXTROSE 5% 100 ML IVPB (13:33)
[2018-08-20 18:30] LABS: ANION GAP 7 (5-13); BLOOD UREA NITROGEN 45 mg/dl (7-20); CALCIUM 9.1 mg/dl (8.4-10.2); CARBON DIOXIDE 19 mmol/L (21-31); CHLORIDE 118 mmol/L (97-110); CREATININE 1.21 mg/dl (0.61-1.24); GLUCOSE 88 mg/dl (70-220); POTASSIUM 4.6 mmol/L (3.5-5.1); SODIUM 144 mmol/L (135-144)
[2018-08-20] MEDS: DOCUSATE SODIUM 100 MG CAP PO (20:16)
[2018-08-20] MEDS: ATORVASTATIN 20 MG TAB PO (20:17)
[2018-08-20] MEDS: MIRTAZAPINE 15 MG TAB PO (20:17)
[2018-08-21] MEDS: ACETYLCYSTEINE 20% 4 ML VIAL NEB ×4 (02:35→20:00)
[2018-08-21] MEDS: ALBUTEROL/IPRATROPIUM (NEB) 3 ML AMP HHN ×4 (02:35→20:43)
[2018-08-21 05:55] LABS: ADD MAN DIFF? NO
[2018-08-21 06:00] LABS: ABNORMAL IP MESSAGE 1; BASOPHIL # 0.1 10^3/ul (0.0-0.1); BASOPHILS % 0.5 % (0.0-2.0); EOSINOPHILS # 0.4 10^3/ul (0.0-0.5); EOSINOPHILS % 2.1 % (0.0-7.0); HEMATOCRIT 34.9 % (42.0-52.0); HEMOGLOBIN 10.7 g/dl (14.0-18.0); LYMPHOCYTES # 2.1 10^3/ul (0.8-2.9); LYMPHOCYTES % 10.7 % (15.0-51.0); MEAN CORPUSCULAR HEMOGLOBIN 27.7 pg (29.0-33.0); MEAN CORPUSCULAR HGB CONC 30.7 g/dl (32.0-37.0); MEAN CORPUSCULAR VOLUME 90.4 fl (82.0-101.0); MEAN PLATELET VOLUME 11.9 fl (7.4-10.4); MONOCYTE # 1.9 10^3/ul (0.3-0.9); MONOCYTES % 9.7 % (0.0-11.0); NEUTROPHIL # 14.7 10^3/ul (1.6-7.5); NEUTROPHILS % 76.5 % (39.0-77.0); PLATELET COUNT 193 10^3/UL (140-415); POSITIVE DIFF @See below; RED BLOOD COUNT 3.86 10^6/ul (4.70-6.10); RED CELL DISTRIBUTION WIDTH 16.2 % (11.5-14.5)
[2018-08-21 06:00] LABS: WHITE BLOOD COUNT 19.3 10^3/ul (4.8-10.8)
[2018-08-21 06:22] LABS: ALANINE AMINOTRANSFERASE 16 IU/L (13-69); ALBUMIN 3.5 g/dl (3.3-4.9); ALBUMIN/GLOBULIN RATIO 0.89; ALKALINE PHOSPHATASE 87 IU/L (42-121); ANION GAP 11 (5-13); ASPARTATE AMINO TRANSFERASE 23 IU/L (15-46); BILIRUBIN,INDIRECT 0.1 mg/dl (0-1.1); BILIRUBIN,TOTAL 0.1 mg/dl (0.2-1.3); BLOOD UREA NITROGEN 58 mg/dl (7-20); CALCIUM 11.1 mg/dl (8.4-10.2); CARBON DIOXIDE 20 mmol/L (21-31); CHLORIDE 114 mmol/L (97-110); CREATININE 1.54 mg/dl (0.61-1.24); GLUCOSE 93 mg/dl (70-220); MAGNESIUM 1.9 mg/dl (1.7-2.5); POTASSIUM 5.7 mmol/L (3.5-5.1); SODIUM 145 mmol/L (135-144); TOTAL PROTEIN 7.4 g/dl (6.1-8.1)
[2018-08-21] MEDS: FLUTICASONE/VILANTEROL 200-25 INH DEVICE INH (08:27)
[2018-08-21] MEDS: METOPROLOL 25 MG TAB PO ×2 (08:28→21:32)
[2018-08-21] MEDS: GUAIFENESIN LA 600 MG TABSR PO ×2 (08:29→21:31)
[2018-08-21] MEDS: APIXABAN 5 MG TABLET PO ×2 (08:29→21:31)
[2018-08-21] MEDS: DOXYCYCLINE 100 MG TAB PO ×2 (08:29→21:31)
[2018-08-21] MEDS: BUPROPION (XL) 150 MG TAB PO (08:29)
[2018-08-21] MEDS: PANTOPRAZOLE (EC) 40 MG TAB PO (08:30)
[2018-08-21] MEDS: BALSAM PERU/CASTOR OIL 60 GM TUBE TOP ×2 (08:31→21:32)
[2018-08-21 10:38] LABS: ADD UMIC YES; UR ASCORBIC ACID 20 mg/dL (NEGATIVE); UR BACTERIA FEW /HPF (NONE SEEN); UR BILIRUBIN (Dip) NEGATIVE (NEGATIVE); UR BLOOD (Dip) NEGATIVE (NEGATIVE); UR CLARITY CLOUDY (CLEAR); UR COLOR YELLOW (YELLOW); UR GLUCOSE (Dip) NEGATIVE (NEGATIVE); UR KETONES (Dip) NEGATIVE (NEGATIVE); UR LEUKOCYTE ESTERASE (Dip) 3+ Leu/ul (NEGATIVE); UR NITRITE (Dip) NEGATIVE (NEGATIVE); UR RBC 9 /HPF (0-5); UR SPECIFIC GRAVITY (Dip) 1.017 (1.003-1.030); UR SQUAMOUS EPITHELIAL CELL FEW /HPF (FEW); UR TOTAL PROTEIN (Dip) 1+ mg/dl (NEGATIVE); UR UROBILINOGEN (Dip) NEGATIVE (NEGATIVE); UR WBC > 182 /HPF (0-5)
[2018-08-21] MEDS: IOHEXOL 14.3 MG(I)/ML (ADULT) BTL PO (19:30)
[2018-08-21] MEDS: MIRTAZAPINE 15 MG TAB PO (21:31)
[2018-08-21] MEDS: ATORVASTATIN 20 MG TAB PO (21:31)
[2018-08-21] MEDS: DOCUSATE SODIUM 100 MG CAP PO (21:31)
[2018-08-22] MEDS: ALBUTEROL/IPRATROPIUM (NEB) 3 ML AMP HHN ×4 (01:53→20:23)
[2018-08-22] MEDS: ACETYLCYSTEINE 20% 4 ML VIAL NEB ×4 (02:00→20:23)
[2018-08-22 05:12] LABS: ADD MAN DIFF? NO
[2018-08-22 05:21] LABS: WHITE BLOOD COUNT 16.7 10^3/ul (4.8-10.8)
[2018-08-22 05:21] LABS: ABNORMAL IP MESSAGE 1; BASOPHIL # 0.1 10^3/ul (0.0-0.1); BASOPHILS % 0.5 % (0.0-2.0); EOSINOPHILS # 0.4 10^3/ul (0.0-0.5); EOSINOPHILS % 2.4 % (0.0-7.0); HEMATOCRIT 36.1 % (42.0-52.0); HEMOGLOBIN 11.1 g/dl (14.0-18.0); LYMPHOCYTES # 1.8 10^3/ul (0.8-2.9); LYMPHOCYTES % 10.7 % (15.0-51.0); MEAN CORPUSCULAR HEMOGLOBIN 27.7 pg (29.0-33.0); MEAN CORPUSCULAR HGB CONC 30.7 g/dl (32.0-37.0); MEAN PLATELET VOLUME 12.2 fl (7.4-10.4); MONOCYTE # 1.8 10^3/ul (0.3-0.9); MONOCYTES % 10.6 % (0.0-11.0); NEUTROPHIL # 12.6 10^3/ul (1.6-7.5); NEUTROPHILS % 75.2 % (39.0-77.0); PLATELET COUNT 207 10^3/UL (140-415); POSITIVE DIFF @See below; RED BLOOD COUNT 4.01 10^6/ul (4.70-6.10); RED CELL DISTRIBUTION WIDTH 16.2 % (11.5-14.5)
[2018-08-22 06:10] LABS: AMMONIA 15 umol/l (9-30)
[2018-08-22 07:57] LABS: ALBUMIN 3.9 g/dl (3.3-4.9); ALBUMIN/GLOBULIN RATIO 0.86; ALKALINE PHOSPHATASE 99 IU/L (42-121); ANION GAP 12 (5-13); ASPARTATE AMINO TRANSFERASE 16 IU/L (15-46); BILIRUBIN,INDIRECT 0.1 mg/dl (0-1.1); BILIRUBIN,TOTAL 0.1 mg/dl (0.2-1.3); BLOOD UREA NITROGEN 67 mg/dl (7-20); CALCIUM 11.4 mg/dl (8.4-10.2); CARBON DIOXIDE 21 mmol/L (21-31); CHLORIDE 117 mmol/L (97-110); CREATININE 1.85 mg/dl (0.61-1.24); GLUCOSE 115 mg/dl (70-220); POTASSIUM 5.1 mmol/L (3.5-5.1); SODIUM 150 mmol/L (135-144); TOTAL PROTEIN 8.4 g/dl (6.1-8.1)
[2018-08-22 07:59] LABS: ALANINE AMINOTRANSFERASE < 6 IU/L (13-69)
[2018-08-22] MEDS: PANTOPRAZOLE (EC) 40 MG TAB PO (09:30)
[2018-08-22] MEDS: GUAIFENESIN LA 600 MG TABSR PO (09:30)
[2018-08-22] MEDS: BUPROPION (XL) 150 MG TAB PO (09:31)
[2018-08-22] MEDS: DOXYCYCLINE 100 MG TAB PO ×2 (09:31→21:18)
[2018-08-22] MEDS: METOPROLOL 25 MG TAB PO ×2 (09:31→21:19)
[2018-08-22] MEDS: FLUTICASONE/VILANTEROL 200-25 INH DEVICE INH (09:44)
[2018-08-22] MEDS: APIXABAN 5 MG TABLET PO ×2 (09:44→21:19)
[2018-08-22] MEDS: BALSAM PERU/CASTOR OIL 60 GM TUBE TOP ×2 (09:44→22:06)
[2018-08-22] MEDS ORDERED: GUAIFENESIN 20 MG/ML 5ML CUP PO (18:00)
[2018-08-22] MEDS: SOD CHLORIDE 0.45% 1,000 ML IV (18:28)
[2018-08-22 18:57] LABS: ADD UMIC YES; UR ASCORBIC ACID 40 mg/dL (NEGATIVE); UR BACTERIA MODERATE /HPF (NONE SEEN); UR BILIRUBIN (Dip) NEGATIVE (NEGATIVE); UR BLOOD (Dip) 2+ mg/dL (NEGATIVE); UR BUDDING YEAST MANY /HPF (NONE SEEN); UR CLARITY TURBID (CLEAR); UR COLOR YELLOW (YELLOW); UR GLUCOSE (Dip) NEGATIVE (NEGATIVE); UR KETONES (Dip) NEGATIVE (NEGATIVE); UR LEUKOCYTE ESTERASE (Dip) 2+ Leu/ul (NEGATIVE); UR MUCUS MODERATE /HPF (NONE SEEN); UR NITRITE (Dip) NEGATIVE (NEGATIVE); UR NONSQUAMOUS EPITHELIAL CELL 4 /HPF (NONE SEEN); UR RBC 114 /HPF (0-5); UR SPECIFIC GRAVITY (Dip) 1.017 (1.003-1.030); UR SQUAMOUS EPITHELIAL CELL FEW /HPF (FEW); UR TOTAL PROTEIN (Dip) 2+ mg/dl (NEGATIVE); UR UROBILINOGEN (Dip) NEGATIVE (NEGATIVE); UR WBC > 182 /HPF (0-5)
[2018-08-22] MEDS: DOCUSATE SODIUM 100 MG CAP PO (21:18)
[2018-08-22] MEDS: MIRTAZAPINE 15 MG TAB PO (21:18)
[2018-08-22] MEDS: ATORVASTATIN 20 MG TAB PO (21:19)
[2018-08-22] MEDS: AMPHOTERICIN B IRR (22:04)
[2018-08-23] MEDS: ALBUTEROL/IPRATROPIUM (NEB) 3 ML AMP HHN ×4 (01:23→20:58)
[2018-08-23] MEDS: ACETYLCYSTEINE 20% 4 ML VIAL NEB ×4 (01:23→20:58)
[2018-08-23 05:26] LABS: ADD MAN DIFF? NO
[2018-08-23 05:31] LABS: ABNORMAL IP MESSAGE 1; BASOPHIL # 0.1 10^3/ul (0.0-0.1); BASOPHILS % 0.6 % (0.0-2.0); EOSINOPHILS # 0.3 10^3/ul (0.0-0.5); EOSINOPHILS % 2.2 % (0.0-7.0); HEMOGLOBIN 10.4 g/dl (14.0-18.0); LYMPHOCYTES # 1.7 10^3/ul (0.8-2.9); LYMPHOCYTES % 11.6 % (15.0-51.0); MEAN CORPUSCULAR HEMOGLOBIN 27.7 pg (29.0-33.0); MEAN CORPUSCULAR HGB CONC 30.6 g/dl (32.0-37.0); MEAN CORPUSCULAR VOLUME 90.4 fl (82.0-101.0); MEAN PLATELET VOLUME 12.4 fl (7.4-10.4); MONOCYTE # 1.8 10^3/ul (0.3-0.9); MONOCYTES % 12.3 % (0.0-11.0); NEUTROPHIL # 10.8 10^3/ul (1.6-7.5); NEUTROPHILS % 72.8 % (39.0-77.0); PLATELET COUNT 197 10^3/UL (140-415); POSITIVE DIFF @See below; RED BLOOD COUNT 3.76 10^6/ul (4.70-6.10); RED CELL DISTRIBUTION WIDTH 16.3 % (11.5-14.5)
[2018-08-23 05:31] LABS: WHITE BLOOD COUNT 14.8 10^3/ul (4.8-10.8)
[2018-08-23] MEDS: SOD CHLORIDE 0.45% 1,000 ML IV (05:40)
[2018-08-23 05:43] LABS: ANION GAP 11 (5-13); BLOOD UREA NITROGEN 68 mg/dl (7-20); CALCIUM 10.7 mg/dl (8.4-10.2); CARBON DIOXIDE 21 mmol/L (21-31); CHLORIDE 118 mmol/L (97-110); CREATININE 2.03 mg/dl (0.61-1.24); GLUCOSE 98 mg/dl (70-220); POTASSIUM 4.7 mmol/L (3.5-5.1); SODIUM 150 mmol/L (135-144)
[2018-08-23] MEDS: BUPROPION (XL) 150 MG TAB PO (09:13)
[2018-08-23] MEDS: DOXYCYCLINE 100 MG TAB PO ×2 (09:13→20:14)
[2018-08-23] MEDS: PANTOPRAZOLE (EC) 40 MG TAB PO (09:14)
[2018-08-23] MEDS: METOPROLOL 25 MG TAB PO ×2 (09:16→21:34)
[2018-08-23] MEDS: APIXABAN 5 MG TABLET PO ×2 (09:17→20:14)
[2018-08-23] MEDS: BALSAM PERU/CASTOR OIL 60 GM TUBE TOP ×2 (09:52→20:14)
[2018-08-23] MEDS: FLUTICASONE/VILANTEROL 200-25 INH DEVICE INH (09:52)
[2018-08-23] MEDS: AMPHOTERICIN B IRR (15:40)
[2018-08-23] MEDS: DEXTROSE 5% 1,000 ML IV (18:04)
[2018-08-23] MEDS: CEFEPIME 1GM/50 ML (PMX) 50 ML IVPB (20:14)
[2018-08-23] MEDS: ATORVASTATIN 20 MG TAB PO (20:14)
[2018-08-23] MEDS: DOCUSATE SODIUM 100 MG CAP PO (20:14)
[2018-08-23] MEDS: MIRTAZAPINE 15 MG TAB PO (20:15)
[2018-08-24] MEDS: ALBUTEROL/IPRATROPIUM (NEB) 3 ML AMP HHN ×4 (01:51→20:49)
[2018-08-24] MEDS: ACETYLCYSTEINE 20% 4 ML VIAL NEB ×4 (01:52→20:49)
[2018-08-24] MEDS: DEXTROSE 5% 1,000 ML IV ×3 (04:04→23:07)
[2018-08-24 05:39] LABS: ADD MAN DIFF? NO
[2018-08-24 05:44] LABS: ABNORMAL IP MESSAGE 1; BASOPHIL # 0.1 10^3/ul (0.0-0.1); BASOPHILS % 0.4 % (0.0-2.0); EOSINOPHILS # 0.4 10^3/ul (0.0-0.5); EOSINOPHILS % 2.4 % (0.0-7.0); HEMATOCRIT 32.3 % (42.0-52.0); HEMOGLOBIN 9.7 g/dl (14.0-18.0); LYMPHOCYTES # 1.9 10^3/ul (0.8-2.9); LYMPHOCYTES % 11.3 % (15.0-51.0); MEAN CORPUSCULAR HEMOGLOBIN 26.8 pg (29.0-33.0); MEAN CORPUSCULAR VOLUME 89.2 fl (82.0-101.0); MEAN PLATELET VOLUME 12.4 fl (7.4-10.4); MONOCYTE # 1.9 10^3/ul (0.3-0.9); MONOCYTES % 11.4 % (0.0-11.0); NEUTROPHIL # 12.5 10^3/ul (1.6-7.5); PLATELET COUNT 196 10^3/UL (140-415); POSITIVE DIFF @See below; RED BLOOD COUNT 3.62 10^6/ul (4.70-6.10); RED CELL DISTRIBUTION WIDTH 16.2 % (11.5-14.5)
[2018-08-24 05:44] LABS: WHITE BLOOD COUNT 16.9 10^3/ul (4.8-10.8)
[2018-08-24 06:29] LABS: ANION GAP 9 (5-13); BLOOD UREA NITROGEN 63 mg/dl (7-20); CALCIUM 10.7 mg/dl (8.4-10.2); CARBON DIOXIDE 20 mmol/L (21-31); CHLORIDE 115 mmol/L (97-110); CREATININE 1.66 mg/dl (0.61-1.24); GLUCOSE 113 mg/dl (70-220); POTASSIUM 4.4 mmol/L (3.5-5.1); SODIUM 144 mmol/L (135-144)
[2018-08-24] MEDS: PANTOPRAZOLE (EC) 40 MG TAB PO (06:56)
[2018-08-24] MEDS: FLUTICASONE/VILANTEROL 200-25 INH DEVICE INH (09:00)
[2018-08-24] MEDS: APIXABAN 5 MG TABLET PO ×2 (10:28→20:45)
[2018-08-24] MEDS: DOXYCYCLINE 100 MG TAB PO ×2 (10:29→20:45)
[2018-08-24] MEDS: BUPROPION (XL) 150 MG TAB PO (10:29)
[2018-08-24] MEDS: BALSAM PERU/CASTOR OIL 60 GM TUBE TOP ×2 (10:29→20:47)
[2018-08-24] MEDS: METOPROLOL 25 MG TAB PO ×2 (10:29→20:47)
[2018-08-24] MEDS: AMPHOTERICIN B IRR (13:47)
[2018-08-24] MEDS: VANCOMYCIN 1 GM (PMX) 250 ML IVPB (20:01)
[2018-08-24] MEDS: CEFEPIME 1GM/50 ML (PMX) 50 ML IVPB (20:45)
[2018-08-24] MEDS: DOCUSATE SODIUM 100 MG CAP PO (20:45)
[2018-08-24] MEDS: ATORVASTATIN 20 MG TAB PO (20:46)
[2018-08-24] MEDS: MIRTAZAPINE 15 MG TAB PO (20:46)
[2018-08-25] MEDS: ALBUTEROL/IPRATROPIUM (NEB) 3 ML AMP HHN ×4 (02:13→19:47)
[2018-08-25] MEDS: ACETYLCYSTEINE 20% 4 ML VIAL NEB ×4 (02:13→19:47)
[2018-08-25 05:24] LABS: ADD MAN DIFF? NO
[2018-08-25 05:34] LABS: WHITE BLOOD COUNT 14.3 10^3/ul (4.8-10.8)
[2018-08-25 05:35] LABS: ABNORMAL IP MESSAGE 1; BASOPHIL # 0.1 10^3/ul (0.0-0.1); BASOPHILS % 0.4 % (0.0-2.0); EOSINOPHILS # 0.5 10^3/ul (0.0-0.5); EOSINOPHILS % 3.4 % (0.0-7.0); HEMATOCRIT 30.8 % (42.0-52.0); HEMOGLOBIN 9.5 g/dl (14.0-18.0); LYMPHOCYTES # 1.8 10^3/ul (0.8-2.9); LYMPHOCYTES % 12.9 % (15.0-51.0); MEAN CORPUSCULAR HEMOGLOBIN 27.6 pg (29.0-33.0); MEAN CORPUSCULAR HGB CONC 30.8 g/dl (32.0-37.0); MEAN CORPUSCULAR VOLUME 89.5 fl (82.0-101.0); MEAN PLATELET VOLUME 11.9 fl (7.4-10.4); MONOCYTE # 1.9 10^3/ul (0.3-0.9); NEUTROPHIL # 9.9 10^3/ul (1.6-7.5); NEUTROPHILS % 69.7 % (39.0-77.0); PLATELET COUNT 173 10^3/UL (140-415); POSITIVE DIFF @See below; RED BLOOD COUNT 3.44 10^6/ul (4.70-6.10); RED CELL DISTRIBUTION WIDTH 15.8 % (11.5-14.5)
[2018-08-25 05:59] LABS: ALANINE AMINOTRANSFERASE 10 IU/L (13-69); ALBUMIN 3.3 g/dl (3.3-4.9); ALBUMIN/GLOBULIN RATIO 0.86; ALKALINE PHOSPHATASE 80 IU/L (42-121); ANION GAP 9 (5-13); ASPARTATE AMINO TRANSFERASE 18 IU/L (15-46); BLOOD UREA NITROGEN 62 mg/dl (7-20); CALCIUM 10.5 mg/dl (8.4-10.2); CARBON DIOXIDE 22 mmol/L (21-31); CHLORIDE 113 mmol/L (97-110); CREATININE 1.53 mg/dl (0.61-1.24); GLUCOSE 97 mg/dl (70-220); POTASSIUM 4.6 mmol/L (3.5-5.1); SODIUM 144 mmol/L (135-144); TOTAL PROTEIN 7.1 g/dl (6.1-8.1)
[2018-08-25] MEDS: PANTOPRAZOLE (EC) 40 MG TAB PO (06:19)
[2018-08-25] MEDS: FLUTICASONE/VILANTEROL 200-25 INH DEVICE INH (09:00)
[2018-08-25] MEDS: DOXYCYCLINE 100 MG TAB PO ×2 (09:55→21:46)
[2018-08-25] MEDS: APIXABAN 5 MG TABLET PO ×2 (09:55→21:43)
[2018-08-25] MEDS: BALSAM PERU/CASTOR OIL 60 GM TUBE TOP (09:55)
[2018-08-25] MEDS: BUPROPION (XL) 150 MG TAB PO (09:55)
[2018-08-25] MEDS: METOPROLOL 25 MG TAB PO ×2 (09:58→21:42)
[2018-08-25] MEDS: DEXTROSE 5% 1,000 ML IV ×2 (11:08→20:00)
[2018-08-25] MEDS: AMPHOTERICIN B IRR (20:12)
[2018-08-25] MEDS: CEFEPIME 1GM/50 ML (PMX) 50 ML IVPB (21:00)
[2018-08-25] MEDS: ATORVASTATIN 20 MG TAB PO (21:42)
[2018-08-25] MEDS: MIRTAZAPINE 15 MG TAB PO (21:42)
[2018-08-25] MEDS: DOCUSATE SODIUM 100 MG CAP PO (21:46)
[2018-08-26] MEDS: BALSAM PERU/CASTOR OIL 60 GM TUBE TOP ×3 (00:24→21:01)
[2018-08-26] MEDS: ALBUTEROL/IPRATROPIUM (NEB) 3 ML AMP HHN ×4 (01:07→19:35)
[2018-08-26] MEDS: ACETYLCYSTEINE 20% 4 ML VIAL NEB ×4 (01:07→19:36)
[2018-08-26] MEDS: ACETAMINOPHEN 325 MG TAB PO ×2 (01:46→20:55)
[2018-08-26 05:49] LABS: ADD MAN DIFF? NO
[2018-08-26 06:00] LABS: ABNORMAL IP MESSAGE 1; BASOPHIL # 0.1 10^3/ul (0.0-0.1); BASOPHILS % 0.6 % (0.0-2.0); EOSINOPHILS # 0.6 10^3/ul (0.0-0.5); EOSINOPHILS % 3.4 % (0.0-7.0); HEMATOCRIT 33.7 % (42.0-52.0); HEMOGLOBIN 10.5 g/dl (14.0-18.0); LYMPHOCYTES # 1.9 10^3/ul (0.8-2.9); LYMPHOCYTES % 12.1 % (15.0-51.0); MEAN CORPUSCULAR HEMOGLOBIN 27.5 pg (29.0-33.0); MEAN CORPUSCULAR HGB CONC 31.2 g/dl (32.0-37.0); MEAN CORPUSCULAR VOLUME 88.2 fl (82.0-101.0); MEAN PLATELET VOLUME 12.1 fl (7.4-10.4); MONOCYTE # 1.9 10^3/ul (0.3-0.9); NEUTROPHIL # 11.4 10^3/ul (1.6-7.5); NEUTROPHILS % 71.3 % (39.0-77.0); PLATELET COUNT 215 10^3/UL (140-415); POSITIVE DIFF @See below; RED BLOOD COUNT 3.82 10^6/ul (4.70-6.10); RED CELL DISTRIBUTION WIDTH 15.9 % (11.5-14.5)
[2018-08-26] MEDS: DEXTROSE 5% 1,000 ML IV ×2 (06:00→14:56)
[2018-08-26 06:35] LABS: ANION GAP 11 (5-13); BLOOD UREA NITROGEN 58 mg/dl (7-20); CALCIUM 10.9 mg/dl (8.4-10.2); CARBON DIOXIDE 22 mmol/L (21-31); CHLORIDE 110 mmol/L (97-110); CREATININE 1.65 mg/dl (0.61-1.24); GLUCOSE 101 mg/dl (70-220); POTASSIUM 4.8 mmol/L (3.5-5.1); SODIUM 143 mmol/L (135-144)
[2018-08-26] MEDS: PANTOPRAZOLE (EC) 40 MG TAB PO (06:54)
[2018-08-26 09:01] LABS: PROCALCITONIN 0.32 ng/mL (<0.10)
[2018-08-26] MEDS: DOXYCYCLINE 100 MG TAB PO ×2 (09:53→20:45)
[2018-08-26] MEDS: APIXABAN 5 MG TABLET PO ×2 (09:53→20:45)
[2018-08-26] MEDS: ESCITALOPRAM 10 MG TAB PO (09:53)
[2018-08-26] MEDS: METOPROLOL 25 MG TAB PO ×2 (09:54→20:54)
[2018-08-26] MEDS: FLUTICASONE/VILANTEROL 200-25 INH DEVICE INH (09:55)
[2018-08-26] MEDS: BUPROPION (XL) 150 MG TAB PO (10:29)
[2018-08-26] MEDS: AMPHOTERICIN B IRR (19:58)
[2018-08-26] MEDS: CEFEPIME 1GM/50 ML (PMX) 50 ML IVPB (20:43)
[2018-08-26] MEDS: MIRTAZAPINE 15 MG TAB PO (20:43)
[2018-08-26] MEDS: DOCUSATE SODIUM 100 MG CAP PO (20:43)
[2018-08-26] MEDS: ATORVASTATIN 20 MG TAB PO (20:55)
[2018-08-27] MEDS: ACETYLCYSTEINE 20% 4 ML VIAL NEB ×4 (02:08→21:19)
[2018-08-27] MEDS: ALBUTEROL/IPRATROPIUM (NEB) 3 ML AMP HHN ×4 (02:08→21:19)
[2018-08-27] MEDS: DEXTROSE 5% 1,000 ML IV ×4 (02:41→23:46)
[2018-08-27] MEDS: PANTOPRAZOLE (EC) 40 MG TAB PO (05:54)
[2018-08-27] MEDS: ESCITALOPRAM 10 MG TAB PO (08:25)
[2018-08-27] MEDS: BUPROPION (XL) 150 MG TAB PO (08:25)
[2018-08-27] MEDS: DOXYCYCLINE 100 MG TAB PO ×2 (08:26→21:26)
[2018-08-27] MEDS: METOPROLOL 25 MG TAB PO ×2 (08:27→21:27)
[2018-08-27] MEDS: APIXABAN 5 MG TABLET PO ×2 (08:27→21:27)
[2018-08-27] MEDS: FLUTICASONE/VILANTEROL 200-25 INH DEVICE INH (08:32)
[2018-08-27] MEDS: BALSAM PERU/CASTOR OIL 60 GM TUBE TOP ×2 (08:32→21:28)
[2018-08-27] MEDS: CEFEPIME 1GM/50 ML (PMX) 50 ML IVPB (21:26)
[2018-08-27] MEDS: ATORVASTATIN 20 MG TAB PO (21:26)
[2018-08-27] MEDS: DOCUSATE SODIUM 100 MG CAP PO (21:26)
[2018-08-27] MEDS: MIRTAZAPINE 15 MG TAB PO (21:27)
[2018-08-28] MEDS: ALBUTEROL/IPRATROPIUM (NEB) 3 ML AMP HHN ×4 (02:03→19:59)
[2018-08-28] MEDS: ACETYLCYSTEINE 20% 4 ML VIAL NEB ×4 (02:03→19:59)
[2018-08-28 05:14] LABS: ADD MAN DIFF? NO
[2018-08-28 05:56] LABS: ANION GAP 8 (5-13); BLOOD UREA NITROGEN 42 mg/dl (7-20); CALCIUM 10.2 mg/dl (8.4-10.2); CARBON DIOXIDE 21 mmol/L (21-31); CHLORIDE 106 mmol/L (97-110); CREATININE 1.27 mg/dl (0.61-1.24); GLUCOSE 91 mg/dl (70-220); POTASSIUM 4.2 mmol/L (3.5-5.1); SODIUM 135 mmol/L (135-144)
[2018-08-28 06:58] LABS: ABNORMAL IP MESSAGE 1; BASOPHIL # 0.1 10^3/ul (0.0-0.1); BASOPHILS % 0.4 % (0.0-2.0); EOSINOPHILS # 0.5 10^3/ul (0.0-0.5); EOSINOPHILS % 3.5 % (0.0-7.0); HEMATOCRIT 29.5 % (42.0-52.0); HEMOGLOBIN 9.2 g/dl (14.0-18.0); LYMPHOCYTES # 1.9 10^3/ul (0.8-2.9); LYMPHOCYTES % 13.1 % (15.0-51.0); MEAN CORPUSCULAR HEMOGLOBIN 27.3 pg (29.0-33.0); MEAN CORPUSCULAR HGB CONC 31.2 g/dl (32.0-37.0); MEAN CORPUSCULAR VOLUME 87.5 fl (82.0-101.0); MEAN PLATELET VOLUME 12.1 fl (7.4-10.4); MONOCYTE # 1.7 10^3/ul (0.3-0.9); MONOCYTES % 12.3 % (0.0-11.0); NEUTROPHILS % 70.1 % (39.0-77.0); PLATELET COUNT 179 10^3/UL (140-415); POSITIVE DIFF @See below; RED BLOOD COUNT 3.37 10^6/ul (4.70-6.10); RED CELL DISTRIBUTION WIDTH 15.4 % (11.5-14.5)
[2018-08-28 06:58] LABS: WHITE BLOOD COUNT 14.2 10^3/ul (4.8-10.8)
[2018-08-28] MEDS: PANTOPRAZOLE (EC) 40 MG TAB PO (09:10)
[2018-08-28] MEDS: BUPROPION (XL) 150 MG TAB PO (09:10)
[2018-08-28] MEDS: METOPROLOL 25 MG TAB PO ×2 (09:11→21:41)
[2018-08-28] MEDS: ESCITALOPRAM 10 MG TAB PO (09:11)
[2018-08-28] MEDS: DOXYCYCLINE 100 MG TAB PO ×2 (09:11→21:41)
[2018-08-28] MEDS: FLUTICASONE/VILANTEROL 200-25 INH DEVICE INH (09:11)
[2018-08-28] MEDS: APIXABAN 5 MG TABLET PO ×2 (09:11→21:41)
[2018-08-28] MEDS: BALSAM PERU/CASTOR OIL 60 GM TUBE TOP ×2 (09:12→21:42)
[2018-08-28 13:48] LABS: ADD UMIC YES; UR AMORPHOUS CRYSTAL FEW /HPF (NONE SEEN); UR ASCORBIC ACID NEGATIVE (NEGATIVE); UR BILIRUBIN (Dip) NEGATIVE (NEGATIVE); UR BLOOD (Dip) 1+ mg/dL (NEGATIVE); UR CLARITY CLOUDY (CLEAR); UR COLOR YELLOW (YELLOW); UR GLUCOSE (Dip) NEGATIVE (NEGATIVE); UR KETONES (Dip) NEGATIVE (NEGATIVE); UR LEUKOCYTE ESTERASE (Dip) 1+ Leu/ul (NEGATIVE); UR NITRITE (Dip) NEGATIVE (NEGATIVE); UR RBC 1 /HPF (0-5); UR SPECIFIC GRAVITY (Dip) 1.008 (1.003-1.030); UR TOTAL PROTEIN (Dip) NEGATIVE (NEGATIVE); UR UROBILINOGEN (Dip) NEGATIVE (NEGATIVE); UR WBC 3 /HPF (0-5)
[2018-08-28] MEDS: DEXTROSE 5% 1,000 ML IV (14:37)
[2018-08-28] MEDS: ATORVASTATIN 20 MG TAB PO (21:41)
[2018-08-28] MEDS: CEFEPIME 1GM/50 ML (PMX) 50 ML IVPB (21:41)
[2018-08-28] MEDS: MIRTAZAPINE 15 MG TAB PO (21:41)
[2018-08-28] MEDS: DOCUSATE SODIUM 100 MG CAP PO (21:41)
[2018-08-29] MEDS: DEXTROSE 5% 1,000 ML IV ×3 (01:15→20:31)
[2018-08-29] MEDS: ACETYLCYSTEINE 20% 4 ML VIAL NEB ×4 (01:41→20:12)
[2018-08-29] MEDS: ALBUTEROL/IPRATROPIUM (NEB) 3 ML AMP HHN ×4 (01:41→20:12)
[2018-08-29 05:43] LABS: ADD MAN DIFF? NO
[2018-08-29 05:56] LABS: WHITE BLOOD COUNT 14.7 10^3/ul (4.8-10.8)
[2018-08-29 05:56] LABS: ABNORMAL IP MESSAGE 1; BASOPHIL # 0.1 10^3/ul (0.0-0.1); BASOPHILS % 0.3 % (0.0-2.0); EOSINOPHILS # 0.6 10^3/ul (0.0-0.5); HEMATOCRIT 30.6 % (42.0-52.0); HEMOGLOBIN 9.8 g/dl (14.0-18.0); LYMPHOCYTES # 1.9 10^3/ul (0.8-2.9); LYMPHOCYTES % 12.9 % (15.0-51.0); MEAN CORPUSCULAR HEMOGLOBIN 27.4 pg (29.0-33.0); MEAN CORPUSCULAR VOLUME 85.5 fl (82.0-101.0); MEAN PLATELET VOLUME 12.2 fl (7.4-10.4); MONOCYTE # 1.8 10^3/ul (0.3-0.9); MONOCYTES % 12.2 % (0.0-11.0); NEUTROPHIL # 10.3 10^3/ul (1.6-7.5); NEUTROPHILS % 70.1 % (39.0-77.0); PLATELET COUNT 198 10^3/UL (140-415); POSITIVE DIFF @See below; RED BLOOD COUNT 3.58 10^6/ul (4.70-6.10); RED CELL DISTRIBUTION WIDTH 15.3 % (11.5-14.5)
[2018-08-29 06:38] LABS: ANION GAP 11 (5-13); BLOOD UREA NITROGEN 41 mg/dl (7-20); CALCIUM 10.5 mg/dl (8.4-10.2); CARBON DIOXIDE 20 mmol/L (21-31); CHLORIDE 102 mmol/L (97-110); CREATININE 1.31 mg/dl (0.61-1.24); GLUCOSE 111 mg/dl (70-220); POTASSIUM 4.1 mmol/L (3.5-5.1); SODIUM 133 mmol/L (135-144)
[2018-08-29] MEDS: PANTOPRAZOLE (EC) 40 MG TAB PO (08:34)
[2018-08-29] MEDS: BUPROPION (XL) 150 MG TAB PO (08:34)
[2018-08-29] MEDS: ESCITALOPRAM 10 MG TAB PO (08:34)
[2018-08-29] MEDS: APIXABAN 5 MG TABLET PO ×2 (08:35→20:32)
[2018-08-29] MEDS: DOXYCYCLINE 100 MG TAB PO ×2 (08:35→20:32)
[2018-08-29] MEDS: METOPROLOL 25 MG TAB PO ×2 (08:35→20:32)
[2018-08-29] MEDS: FLUTICASONE/VILANTEROL 200-25 INH DEVICE INH (08:36)
[2018-08-29] MEDS: BALSAM PERU/CASTOR OIL 60 GM TUBE TOP ×2 (18:23→20:33)
[2018-08-29] MEDS: MEGESTROL (40 MG/ML) 10ML CUP PO (19:39)
[2018-08-29] MEDS: MIRTAZAPINE 15 MG TAB PO (20:32)
[2018-08-29] MEDS: ATORVASTATIN 20 MG TAB PO (20:32)
[2018-08-29] MEDS: DOCUSATE SODIUM 100 MG CAP PO (20:32)
[2018-08-29] MEDS: CEFEPIME 1GM/50 ML (PMX) 50 ML IVPB (20:34)
[2018-08-30] MEDS: ALBUTEROL/IPRATROPIUM (NEB) 3 ML AMP HHN ×4 (01:05→20:46)
[2018-08-30] MEDS: ACETYLCYSTEINE 20% 4 ML VIAL NEB ×4 (01:10→20:46)
[2018-08-30 05:22] LABS: ADD MAN DIFF? NO
[2018-08-30 05:27] LABS: ABNORMAL IP MESSAGE 1; BASOPHIL # 0.1 10^3/ul (0.0-0.1); BASOPHILS % 0.4 % (0.0-2.0); EOSINOPHILS # 0.5 10^3/ul (0.0-0.5); EOSINOPHILS % 3.7 % (0.0-7.0); HEMATOCRIT 28.2 % (42.0-52.0); HEMOGLOBIN 9.1 g/dl (14.0-18.0); LYMPHOCYTES % 15.7 % (15.0-51.0); MEAN CORPUSCULAR HEMOGLOBIN 27.2 pg (29.0-33.0); MEAN CORPUSCULAR HGB CONC 32.3 g/dl (32.0-37.0); MEAN CORPUSCULAR VOLUME 84.2 fl (82.0-101.0); MEAN PLATELET VOLUME 12.5 fl (7.4-10.4); MONOCYTE # 1.5 10^3/ul (0.3-0.9); MONOCYTES % 11.9 % (0.0-11.0); NEUTROPHIL # 8.7 10^3/ul (1.6-7.5); NEUTROPHILS % 67.7 % (39.0-77.0); PLATELET COUNT 187 10^3/UL (140-415); POSITIVE DIFF @See below; RED BLOOD COUNT 3.35 10^6/ul (4.70-6.10); RED CELL DISTRIBUTION WIDTH 15.3 % (11.5-14.5)
[2018-08-30 05:27] LABS: WHITE BLOOD COUNT 12.9 10^3/ul (4.8-10.8)
[2018-08-30] MEDS: DEXTROSE 5% 1,000 ML IV ×3 (06:48→20:36)
[2018-08-30 09:51] LABS: PROCALCITONIN 0.14 ng/mL (0.00-0.10)
[2018-08-30] MEDS: MEGESTROL (40 MG/ML) 10ML CUP PO (09:51)
[2018-08-30] MEDS: BUPROPION (XL) 150 MG TAB PO (09:51)
[2018-08-30] MEDS: DOXYCYCLINE 100 MG TAB PO ×2 (09:51→20:40)
[2018-08-30] MEDS: METOPROLOL 25 MG TAB PO ×2 (09:52→20:50)
[2018-08-30] MEDS: BALSAM PERU/CASTOR OIL 60 GM TUBE TOP ×2 (09:52→20:52)
[2018-08-30] MEDS: ESCITALOPRAM 10 MG TAB PO (09:52)
[2018-08-30] MEDS: APIXABAN 5 MG TABLET PO ×2 (09:52→20:50)
[2018-08-30] MEDS: PANTOPRAZOLE (EC) 40 MG TAB PO (09:52)
[2018-08-30] MEDS: FLUTICASONE/VILANTEROL 200-25 INH DEVICE INH (09:53)
[2018-08-30] MEDS: CEFEPIME 1GM/50 ML (PMX) 50 ML IVPB (20:38)
[2018-08-30] MEDS: MIRTAZAPINE 15 MG TAB PO (20:40)
[2018-08-30] MEDS: ATORVASTATIN 20 MG TAB PO (20:40)
[2018-08-30] MEDS: DOCUSATE SODIUM 100 MG CAP PO (20:50)
[2018-08-31] MEDS: ACETYLCYSTEINE 20% 4 ML VIAL NEB ×4 (02:48→19:37)
[2018-08-31] MEDS: ALBUTEROL/IPRATROPIUM (NEB) 3 ML AMP HHN ×4 (02:48→19:37)
[2018-08-31] MEDS: PANTOPRAZOLE (EC) 40 MG TAB PO ×2 (07:20→09:45)
[2018-08-31] MEDS: FLUTICASONE/VILANTEROL 200-25 INH DEVICE INH ×2 (09:00→10:04)
[2018-08-31] MEDS: BALSAM PERU/CASTOR OIL 60 GM TUBE TOP ×2 (09:00→21:18)
[2018-08-31] MEDS: MEGESTROL (40 MG/ML) 10ML CUP PO ×2 (09:00→10:05)
[2018-08-31] MEDS: DEXTROSE 5% 1,000 ML IV ×2 (09:40→21:10)
[2018-08-31] MEDS: BUPROPION (XL) 150 MG TAB PO (09:44)
[2018-08-31] MEDS: DOXYCYCLINE 100 MG TAB PO ×2 (09:44→21:16)
[2018-08-31] MEDS: ESCITALOPRAM 10 MG TAB PO (09:45)
[2018-08-31] MEDS: APIXABAN 5 MG TABLET PO ×2 (09:45→21:17)
[2018-08-31] MEDS: METOPROLOL 25 MG TAB PO ×2 (09:46→21:18)
[2018-08-31 12:06] LABS: PROCALCITONIN 0.17 ng/mL (<0.10)
[2018-08-31] MEDS: ASCORBIC ACID 500 MG TAB.CHEW PO (21:00)
[2018-08-31] MEDS: CEFEPIME 1GM/50 ML (PMX) 50 ML IVPB (21:13)
[2018-08-31] MEDS: DOCUSATE SODIUM 100 MG CAP PO (21:16)
[2018-08-31] MEDS: ATORVASTATIN 20 MG TAB PO (21:18)
[2018-08-31] MEDS: MIRTAZAPINE 15 MG TAB PO (21:18)
[2018-09-01] MEDS: ALBUTEROL/IPRATROPIUM (NEB) 3 ML AMP HHN ×4 (01:17→21:02)
[2018-09-01] MEDS: ACETYLCYSTEINE 20% 4 ML VIAL NEB ×4 (01:18→21:02)
[2018-09-01 05:04] LABS: ADD MAN DIFF? NO
[2018-09-01 05:24] LABS: WHITE BLOOD COUNT 13.5 10^3/ul (4.8-10.8)
[2018-09-01 05:24] LABS: ABNORMAL IP MESSAGE 1; BASOPHILS % 0.3 % (0.0-2.0); EOSINOPHILS # 0.4 10^3/ul (0.0-0.5); HEMATOCRIT 25.6 % (42.0-52.0); HEMOGLOBIN 8.5 g/dl (14.0-18.0); LYMPHOCYTES # 1.8 10^3/ul (0.8-2.9); LYMPHOCYTES % 13.1 % (15.0-51.0); MEAN CORPUSCULAR HEMOGLOBIN 27.4 pg (29.0-33.0); MEAN CORPUSCULAR HGB CONC 33.2 g/dl (32.0-37.0); MEAN CORPUSCULAR VOLUME 82.6 fl (82.0-101.0); MEAN PLATELET VOLUME 12.2 fl (7.4-10.4); MONOCYTE # 1.6 10^3/ul (0.3-0.9); MONOCYTES % 11.5 % (0.0-11.0); NEUTROPHIL # 9.7 10^3/ul (1.6-7.5); NEUTROPHILS % 71.5 % (39.0-77.0); PLATELET COUNT 133 10^3/UL (140-415); POSITIVE DIFF @See below; RED CELL DISTRIBUTION WIDTH 15.1 % (11.5-14.5)
[2018-09-01 05:26] LABS: ANION GAP 9 (5-13); BLOOD UREA NITROGEN 30 mg/dl (7-20); CALCIUM 10.1 mg/dl (8.4-10.2); CARBON DIOXIDE 19 mmol/L (21-31); CHLORIDE 99 mmol/L (97-110); CREATININE 1.27 mg/dl (0.61-1.24); GLUCOSE 99 mg/dl (70-220); POTASSIUM 4.4 mmol/L (3.5-5.1); SODIUM 127 mmol/L (135-144)
[2018-09-01 05:33] LABS: PREALBUMIN 8.6 mg/dl (17.6-36.0)
[2018-09-01] MEDS: FLUTICASONE/VILANTEROL 200-25 INH DEVICE INH ×2 (09:00→10:02)
[2018-09-01] MEDS: MEGESTROL (40 MG/ML) 10ML CUP PO (09:56)
[2018-09-01] MEDS: DOXYCYCLINE 100 MG TAB PO ×2 (09:56→20:14)
[2018-09-01] MEDS: ZINC SULFATE 220 MG CAP PO (09:56)
[2018-09-01] MEDS: ESCITALOPRAM 10 MG TAB PO (09:56)
[2018-09-01] MEDS: BUPROPION (XL) 150 MG TAB PO (09:56)
[2018-09-01] MEDS: APIXABAN 5 MG TABLET PO ×2 (09:57→20:17)
[2018-09-01] MEDS ORDERED: LIDOCAINE 1% (MPF) 5 ML VIAL SC (10:00)
[2018-09-01] MEDS: ASCORBIC ACID 500 MG TAB PO ×2 (10:01→20:15)
[2018-09-01] MEDS: PANTOPRAZOLE (EC) 40 MG TAB PO (10:01)
[2018-09-01] MEDS: MULTIVITAMINS THERAPEUTIC TAB PO (10:01)
[2018-09-01] MEDS: METOPROLOL 25 MG TAB PO ×2 (10:01→21:00)
[2018-09-01] MEDS: BALSAM PERU/CASTOR OIL 60 GM TUBE TOP ×2 (10:02→20:16)
[2018-09-01] MEDS: SOD CHLORIDE 0.9% 1,000 ML IV (10:02)
[2018-09-01] MEDS: CEFEPIME 1GM/50 ML (PMX) 50 ML IVPB (20:13)
[2018-09-01] MEDS: DOCUSATE SODIUM 100 MG CAP PO (20:13)
[2018-09-01] MEDS: ATORVASTATIN 20 MG TAB PO (20:14)
[2018-09-01] MEDS: MIRTAZAPINE 15 MG TAB PO (20:15)
[2018-09-02] MEDS: ACETYLCYSTEINE 20% 4 ML VIAL NEB ×4 (03:36→20:13)
[2018-09-02] MEDS: ALBUTEROL/IPRATROPIUM (NEB) 3 ML AMP HHN ×4 (03:36→20:13)
[2018-09-02] MEDS: SOD CHLORIDE 0.9% 1,000 ML IV (04:53)
[2018-09-02 06:12] LABS: ADD MAN DIFF? NO
[2018-09-02 06:25] LABS: WHITE BLOOD COUNT 11.7 10^3/ul (4.8-10.8)
[2018-09-02 06:25] LABS: BASOPHILS % 0.3 % (0.0-2.0); EOSINOPHILS # 0.4 10^3/ul (0.0-0.5); HEMATOCRIT 27.8 % (42.0-52.0); HEMOGLOBIN 8.9 g/dl (14.0-18.0); LYMPHOCYTES # 1.8 10^3/ul (0.8-2.9); LYMPHOCYTES % 14.9 % (15.0-51.0); MEAN CORPUSCULAR HEMOGLOBIN 27.2 pg (29.0-33.0); MEAN PLATELET VOLUME 11.5 fl (7.4-10.4); MONOCYTE # 1.5 10^3/ul (0.3-0.9); MONOCYTES % 12.4 % (0.0-11.0); NEUTROPHIL # 8.1 10^3/ul (1.6-7.5); NEUTROPHILS % 69.1 % (39.0-77.0); PLATELET COUNT 178 10^3/UL (140-415); RED BLOOD COUNT 3.27 10^6/ul (4.70-6.10); RED CELL DISTRIBUTION WIDTH 15.3 % (11.5-14.5)
[2018-09-02 06:54] LABS: ANION GAP 9 (5-13); BLOOD UREA NITROGEN 33 mg/dl (7-20); CALCIUM 10.2 mg/dl (8.4-10.2); CARBON DIOXIDE 21 mmol/L (21-31); CHLORIDE 102 mmol/L (97-110); CREATININE 1.32 mg/dl (0.61-1.24); GLUCOSE 95 mg/dl (70-220); POTASSIUM 4.4 mmol/L (3.5-5.1); SODIUM 132 mmol/L (135-144)
[2018-09-02] MEDS: MULTIVITAMINS THERAPEUTIC TAB PO (08:56)
[2018-09-02] MEDS: APIXABAN 5 MG TABLET PO ×2 (08:57→20:59)
[2018-09-02] MEDS: ASCORBIC ACID 500 MG TAB PO ×2 (08:57→21:00)
[2018-09-02] MEDS: PANTOPRAZOLE (EC) 40 MG TAB PO (08:57)
[2018-09-02] MEDS: METOPROLOL 25 MG TAB PO ×2 (09:00→21:00)
[2018-09-02] MEDS: MEGESTROL (40 MG/ML) 10ML CUP PO (09:00)
[2018-09-02] MEDS: ZINC SULFATE 220 MG CAP PO (09:01)
[2018-09-02] MEDS: OLANZAPINE 2.5 MG TAB PO (09:01)
[2018-09-02] MEDS: DOXYCYCLINE 100 MG TAB PO ×2 (09:01→21:00)
[2018-09-02] MEDS: BALSAM PERU/CASTOR OIL 60 GM TUBE TOP ×2 (09:01→21:03)
[2018-09-02] MEDS: BUPROPION (XL) 150 MG TAB PO (09:01)
[2018-09-02] MEDS: FLUTICASONE/VILANTEROL 200-25 INH DEVICE INH (12:14)
[2018-09-02] MEDS: CEFEPIME 1GM/50 ML (PMX) 50 ML IVPB (20:58)
[2018-09-02] MEDS: ATORVASTATIN 20 MG TAB PO (20:59)
[2018-09-02] MEDS: DOCUSATE SODIUM 100 MG CAP PO (20:59)
[2018-09-02] MEDS: MIRTAZAPINE 15 MG TAB PO (21:00)
[2018-09-03] MEDS: ACETYLCYSTEINE 20% 4 ML VIAL NEB ×5 (01:34→20:31)
[2018-09-03] MEDS: ALBUTEROL/IPRATROPIUM (NEB) 3 ML AMP HHN ×5 (01:34→20:30)
[2018-09-03] MEDS: SOD CHLORIDE 0.9% 1,000 ML IV ×2 (05:30→21:32)
[2018-09-03] MEDS: PANTOPRAZOLE (EC) 40 MG TAB PO (05:30)
[2018-09-03] MEDS: MEGESTROL (40 MG/ML) 10ML CUP PO (09:00)
[2018-09-03] MEDS: FLUTICASONE/VILANTEROL 200-25 INH DEVICE INH (09:00)
[2018-09-03 09:15] LABS: ADD MAN DIFF? NO
[2018-09-03 09:24] LABS: BASOPHILS % 0.3 % (0.0-2.0); EOSINOPHILS # 0.4 10^3/ul (0.0-0.5); EOSINOPHILS % 3.5 % (0.0-7.0); HEMATOCRIT 26.3 % (42.0-52.0); HEMOGLOBIN 8.4 g/dl (14.0-18.0); LYMPHOCYTES # 1.6 10^3/ul (0.8-2.9); LYMPHOCYTES % 12.8 % (15.0-51.0); MEAN CORPUSCULAR HEMOGLOBIN 27.5 pg (29.0-33.0); MEAN CORPUSCULAR HGB CONC 31.9 g/dl (32.0-37.0); MEAN CORPUSCULAR VOLUME 86.2 fl (82.0-101.0); MONOCYTE # 1.3 10^3/ul (0.3-0.9); NEUTROPHIL # 8.8 10^3/ul (1.6-7.5); NEUTROPHILS % 72.1 % (39.0-77.0); PLATELET COUNT 183 10^3/UL (140-415); RED BLOOD COUNT 3.05 10^6/ul (4.70-6.10); RED CELL DISTRIBUTION WIDTH 15.7 % (11.5-14.5)
[2018-09-03 09:24] LABS: WHITE BLOOD COUNT 12.1 10^3/ul (4.8-10.8)
[2018-09-03] MEDS: ZINC SULFATE 220 MG CAP PO (09:37)
[2018-09-03 09:40] LABS: ANION GAP 8 (5-13); BLOOD UREA NITROGEN 31 mg/dl (7-20); CALCIUM 10.1 mg/dl (8.4-10.2); CARBON DIOXIDE 20 mmol/L (21-31); CHLORIDE 109 mmol/L (97-110); CREATININE 1.39 mg/dl (0.61-1.24); GLUCOSE 93 mg/dl (70-220); POTASSIUM 3.9 mmol/L (3.5-5.1); SODIUM 137 mmol/L (135-144)
[2018-09-03] MEDS: DOXYCYCLINE 100 MG TAB PO ×2 (09:42→21:30)
[2018-09-03] MEDS: ASCORBIC ACID 500 MG TAB PO ×2 (09:42→21:30)
[2018-09-03] MEDS: MULTIVITAMINS THERAPEUTIC TAB PO (09:42)
[2018-09-03] MEDS: APIXABAN 5 MG TABLET PO ×2 (09:42→21:30)
[2018-09-03] MEDS: OLANZAPINE 2.5 MG TAB PO (09:43)
[2018-09-03] MEDS: BUPROPION (XL) 150 MG TAB PO (09:43)
[2018-09-03] MEDS: METOPROLOL 25 MG TAB PO ×2 (09:43→21:31)
[2018-09-03] MEDS: BALSAM PERU/CASTOR OIL 60 GM TUBE TOP ×2 (09:51→21:30)
[2018-09-03] MEDS: DOCUSATE SODIUM 100 MG CAP PO (21:30)
[2018-09-03] MEDS: MIRTAZAPINE 15 MG TAB PO (21:30)
[2018-09-03] MEDS: ATORVASTATIN 20 MG TAB PO (21:31)
[2018-09-04] MEDS: ACETYLCYSTEINE 20% 4 ML VIAL NEB ×5 (02:24→20:00)
[2018-09-04] MEDS: ALBUTEROL/IPRATROPIUM (NEB) 3 ML AMP HHN ×5 (02:24→20:34)
[2018-09-04 05:09] LABS: ADD MAN DIFF? NO
[2018-09-04 05:12] LABS: BASOPHIL # 0.1 10^3/ul (0.0-0.1); BASOPHILS % 0.4 % (0.0-2.0); EOSINOPHILS # 0.4 10^3/ul (0.0-0.5); EOSINOPHILS % 3.7 % (0.0-7.0); HEMATOCRIT 26.5 % (42.0-52.0); HEMOGLOBIN 8.2 g/dl (14.0-18.0); LYMPHOCYTES # 1.7 10^3/ul (0.8-2.9); MEAN CORPUSCULAR HEMOGLOBIN 27.2 pg (29.0-33.0); MEAN CORPUSCULAR HGB CONC 30.9 g/dl (32.0-37.0); MEAN CORPUSCULAR VOLUME 87.7 fl (82.0-101.0); MEAN PLATELET VOLUME 11.7 fl (7.4-10.4); MONOCYTE # 1.4 10^3/ul (0.3-0.9); MONOCYTES % 11.6 % (0.0-11.0); NEUTROPHIL # 8.4 10^3/ul (1.6-7.5); PLATELET COUNT 197 10^3/UL (140-415); RED BLOOD COUNT 3.02 10^6/ul (4.70-6.10); RED CELL DISTRIBUTION WIDTH 15.9 % (11.5-14.5)
[2018-09-04] MEDS: PANTOPRAZOLE (EC) 40 MG TAB PO (06:08)
[2018-09-04 06:25] LABS: ANION GAP 6 (5-13); BLOOD UREA NITROGEN 28 mg/dl (7-20); CALCIUM 10.4 mg/dl (8.4-10.2); CARBON DIOXIDE 22 mmol/L (21-31); CHLORIDE 113 mmol/L (97-110); CREATININE 1.39 mg/dl (0.61-1.24); GLUCOSE 86 mg/dl (70-220); POTASSIUM 4.1 mmol/L (3.5-5.1); SODIUM 141 mmol/L (135-144)
[2018-09-04] MEDS: FLUTICASONE/VILANTEROL 200-25 INH DEVICE INH (09:00)
[2018-09-04] MEDS: BUPROPION (XL) 150 MG TAB PO (09:00)
[2018-09-04] MEDS: MEGESTROL (40 MG/ML) 10ML CUP PO (09:00)
[2018-09-04] MEDS: ZINC SULFATE 220 MG CAP PO (09:29)
[2018-09-04] MEDS: ASCORBIC ACID 500 MG TAB PO ×2 (09:30→21:33)
[2018-09-04] MEDS: MULTIVITAMINS THERAPEUTIC TAB PO (09:30)
[2018-09-04] MEDS: DOXYCYCLINE 100 MG TAB PO ×2 (09:30→21:32)
[2018-09-04] MEDS: APIXABAN 5 MG TABLET PO ×2 (09:30→21:32)
[2018-09-04] MEDS: OLANZAPINE 2.5 MG TAB PO (09:30)
[2018-09-04] MEDS: METOPROLOL 25 MG TAB PO ×2 (09:30→21:00)
[2018-09-04] MEDS: SOD CHLORIDE 0.9% 1,000 ML IV (09:42)
[2018-09-04] MEDS: BALSAM PERU/CASTOR OIL 60 GM TUBE TOP ×2 (09:44→21:35)
[2018-09-04] MEDS: NYSTATIN 30 GM POWDER BTL TOP ×2 (18:18→21:33)
[2018-09-04] MEDS: MIRTAZAPINE 15 MG TAB PO (21:32)
[2018-09-04] MEDS: DOCUSATE SODIUM 100 MG CAP PO (21:32)
[2018-09-04] MEDS: ATORVASTATIN 20 MG TAB PO (21:45)
[2018-09-05] MEDS: ALBUTEROL/IPRATROPIUM (NEB) 3 ML AMP HHN ×4 (01:35→19:32)
[2018-09-05] MEDS: ACETYLCYSTEINE 20% 4 ML VIAL NEB ×4 (01:35→19:32)
[2018-09-05 05:39] LABS: ADD MAN DIFF? NO
[2018-09-05 05:44] LABS: WHITE BLOOD COUNT 13.8 10^3/ul (4.8-10.8)
[2018-09-05 05:44] LABS: BASOPHIL # 0.1 10^3/ul (0.0-0.1); BASOPHILS % 0.4 % (0.0-2.0); EOSINOPHILS # 0.6 10^3/ul (0.0-0.5); EOSINOPHILS % 4.1 % (0.0-7.0); HEMATOCRIT 28.5 % (42.0-52.0); HEMOGLOBIN 8.7 g/dl (14.0-18.0); LYMPHOCYTES # 1.9 10^3/ul (0.8-2.9); LYMPHOCYTES % 13.7 % (15.0-51.0); MEAN CORPUSCULAR HEMOGLOBIN 27.3 pg (29.0-33.0); MEAN CORPUSCULAR HGB CONC 30.5 g/dl (32.0-37.0); MEAN CORPUSCULAR VOLUME 89.3 fl (82.0-101.0); MEAN PLATELET VOLUME 12.1 fl (7.4-10.4); MONOCYTE # 1.4 10^3/ul (0.3-0.9); MONOCYTES % 10.4 % (0.0-11.0); NEUTROPHIL # 9.8 10^3/ul (1.6-7.5); NEUTROPHILS % 71.1 % (39.0-77.0); PLATELET COUNT 196 10^3/UL (140-415); RED BLOOD COUNT 3.19 10^6/ul (4.70-6.10); RED CELL DISTRIBUTION WIDTH 16.2 % (11.5-14.5)
[2018-09-05 06:01] LABS: IRON 23 ug/dl (35-150)
[2018-09-05 06:11] LABS: % IRON SATURATION 15 % SAT (22-52); TOTAL IRON BINDING CAPACITY 157 ug/dl (241-421)
[2018-09-05 06:25] LABS: FREE T4 (FREE THYROXINE) 1.15 ng/dl (0.85-1.93)
[2018-09-05 06:31] LABS: FREE T3 4.49 pg/ml (2.77-5.27)
[2018-09-05] MEDS: SOD CHLORIDE 0.9% 1,000 ML IV (06:43)
[2018-09-05] MEDS: FLUTICASONE/VILANTEROL 200-25 INH DEVICE INH (09:00)
[2018-09-05] MEDS: APIXABAN 5 MG TABLET PO ×2 (09:42→21:59)
[2018-09-05] MEDS: BALSAM PERU/CASTOR OIL 60 GM TUBE TOP ×2 (09:42→22:00)
[2018-09-05] MEDS: NYSTATIN 30 GM POWDER BTL TOP ×2 (09:42→22:00)
[2018-09-05] MEDS: DOXYCYCLINE 100 MG TAB PO ×2 (09:43→21:59)
[2018-09-05] MEDS: SOD FERRIC GLUC COMPLX 125 MG in SOD CHLORIDE 0.9% 100 ML IVPB (21:59)
[2018-09-05] MEDS: DOCUSATE SODIUM 100 MG CAP PO (21:59)
[2018-09-06] MEDS: ALBUTEROL/IPRATROPIUM (NEB) 3 ML AMP HHN ×4 (01:18→20:31)
[2018-09-06] MEDS: ACETYLCYSTEINE 20% 4 ML VIAL NEB ×4 (01:18→20:31)
[2018-09-06 03:42] LABS: ADD UMIC YES; UR ASCORBIC ACID 40 mg/dL (NEGATIVE); UR BACTERIA FEW /HPF (NONE SEEN); UR BILIRUBIN (Dip) NEGATIVE (NEGATIVE); UR BLOOD (Dip) 2+ mg/dL (NEGATIVE); UR CALCIUM OXALATE CRYSTAL MANY /HPF (NONE SEEN); UR CLARITY CLOUDY (CLEAR); UR COLOR YELLOW (YELLOW); UR GLUCOSE (Dip) NEGATIVE (NEGATIVE); UR GRANULAR CAST FEW /HPF (NONE SEEN); UR HYALINE CAST FEW /HPF (NONE SEEN); UR KETONES (Dip) NEGATIVE (NEGATIVE); UR LEUKOCYTE ESTERASE (Dip) 2+ Leu/ul (NEGATIVE); UR NITRITE (Dip) NEGATIVE (NEGATIVE); UR RBC 68 /HPF (0-5); UR SPECIFIC GRAVITY (Dip) 1.019 (1.003-1.030); UR TOTAL PROTEIN (Dip) 2+ mg/dl (NEGATIVE); UR UROBILINOGEN (Dip) NEGATIVE (NEGATIVE); UR WBC 71 /HPF (0-5)
[2018-09-06 05:31] LABS: ANION GAP 7 (5-13); BLOOD UREA NITROGEN 31 mg/dl (7-20); CALCIUM 10.5 mg/dl (8.4-10.2); CARBON DIOXIDE 21 mmol/L (21-31); CHLORIDE 121 mmol/L (97-110); CREATININE 1.27 mg/dl (0.61-1.24); GLUCOSE 146 mg/dl (70-220); POTASSIUM 4.4 mmol/L (3.5-5.1); SODIUM 149 mmol/L (135-144)
[2018-09-06] MEDS: FLUTICASONE/VILANTEROL 200-25 INH DEVICE INH (09:00)
[2018-09-06] MEDS: DOXYCYCLINE 100 MG TAB PO ×2 (09:35→21:14)
[2018-09-06] MEDS: APIXABAN 5 MG TABLET PO ×2 (09:35→21:14)
[2018-09-06] MEDS: BALSAM PERU/CASTOR OIL 60 GM TUBE TOP ×2 (09:35→21:15)
[2018-09-06] MEDS: NYSTATIN 30 GM POWDER BTL TOP ×2 (09:35→21:15)
[2018-09-06] MEDS: SOD CHLORIDE 0.45% 1,000 ML IV (10:44)
[2018-09-06] MEDS: SOD FERRIC GLUC COMPLX 125 MG in SOD CHLORIDE 0.9% 100 ML IVPB (12:54)
[2018-09-06] MEDS: DOCUSATE SODIUM 100 MG CAP PO (21:14)
[2018-09-06] MEDS: ACETAMINOPHEN 325 MG TAB PO (21:15)
[2018-09-07] MEDS: ACETYLCYSTEINE 20% 4 ML VIAL NEB ×4 (02:52→20:31)
[2018-09-07] MEDS: ALBUTEROL/IPRATROPIUM (NEB) 3 ML AMP HHN ×4 (02:52→20:16)
[2018-09-07 05:39] LABS: WHITE BLOOD COUNT 29.6 10^3/ul (4.8-10.8)
[2018-09-07 05:39] LABS: ABNORMAL IP MESSAGE 1; HEMATOCRIT 25.9 % (42.0-52.0); MEAN CORPUSCULAR HEMOGLOBIN 27.6 pg (29.0-33.0); MEAN CORPUSCULAR HGB CONC 30.9 g/dl (32.0-37.0); MEAN CORPUSCULAR VOLUME 89.3 fl (82.0-101.0); MEAN PLATELET VOLUME 12.3 fl (7.4-10.4); PLATELET COUNT 167 10^3/UL (140-415); POSITIVE DIFF @See below; RED CELL DISTRIBUTION WIDTH 17.3 % (11.5-14.5)
[2018-09-07 05:53] LABS: ADD MAN DIFF? YES
[2018-09-07] MEDS: SOD CHLORIDE 0.45% 1,000 ML IV ×2 (06:30→09:48)
[2018-09-07] MEDS: DOXYCYCLINE 100 MG TAB PO ×2 (08:15→20:34)
[2018-09-07] MEDS: BALSAM PERU/CASTOR OIL 60 GM TUBE TOP ×2 (08:16→20:35)
[2018-09-07] MEDS: APIXABAN 5 MG TABLET PO ×2 (08:16→20:34)
[2018-09-07] MEDS: FLUTICASONE/VILANTEROL 200-25 INH DEVICE INH (08:16)
[2018-09-07] MEDS: NYSTATIN 30 GM POWDER BTL TOP ×2 (08:16→20:34)
[2018-09-07 09:00] LABS: ANISOCYTOSIS 1+ (0-0); BAND NEUTROPHILS #M 0.8 10^3/ul (0.0-0.6); BAND NEUTROPHILS % (M) 3 % (0-4); BURR CELLS 1+ (0-0); LYMPHOCYTES #M 0.8 10^3/ul (0.8-2.9); LYMPHOCYTES % (M) 3 % (15-51); MICROCYTOSIS 1+ (0-0); MONOCYTE #M 0.2 10^3/ul (0.3-0.9); MONOCYTES % (M) 1 % (0-11); OVALOCYTES 1+ (0-0); PLATELET ESTIMATE NORMAL; POIKILOCYTOSIS 2+ (0-0); POLYCHROMASIA 3+ (0-0); SEG NEUT #M 27.8 10^3/ul (1.6-7.5); SEGMENTED NEUTROPHILS (M) % 93 % (39-77); SMUDGE%M 3 % (0-0)
[2018-09-07 09:01] LABS: PATH REVIEW Y
[2018-09-07 12:41] LABS: OCCULT BLOOD STOOL NEGATIVE (NEGATIVE)
[2018-09-07] MEDS: SOD FERRIC GLUC COMPLX 125 MG in SOD CHLORIDE 0.9% 100 ML IVPB (13:26)
[2018-09-07] MEDS: DOCUSATE SODIUM 100 MG CAP PO (20:34)
[2018-09-08] MEDS: ACETYLCYSTEINE 20% 4 ML VIAL NEB ×4 (02:07→19:29)
[2018-09-08] MEDS: ALBUTEROL/IPRATROPIUM (NEB) 3 ML AMP HHN ×4 (02:07→19:29)
[2018-09-08] MEDS: SOD CHLORIDE 0.45% 1,000 ML IV (03:16)
[2018-09-08 05:11] LABS: WHITE BLOOD COUNT 17.8 10^3/ul (4.8-10.8)
[2018-09-08 05:11] LABS: ADD MAN DIFF? NO; BASOPHIL # 0.1 10^3/ul (0.0-0.1); BASOPHILS % 0.3 % (0.0-2.0); EOSINOPHILS # 0.3 10^3/ul (0.0-0.5); EOSINOPHILS % 1.8 % (0.0-7.0); HEMATOCRIT 25.4 % (42.0-52.0); LYMPHOCYTES # 1.5 10^3/ul (0.8-2.9); LYMPHOCYTES % 8.1 % (15.0-51.0); MEAN CORPUSCULAR HGB CONC 31.5 g/dl (32.0-37.0); MEAN CORPUSCULAR VOLUME 88.8 fl (82.0-101.0); MEAN PLATELET VOLUME 11.8 fl (7.4-10.4); MONOCYTE # 1.5 10^3/ul (0.3-0.9); MONOCYTES % 8.3 % (0.0-11.0); NEUTROPHIL # 14.4 10^3/ul (1.6-7.5); NUCLEATED RED BLOOD CELLS% 0.1 /100WBC (0.0-0.0); PLATELET COUNT 184 10^3/UL (140-415); RED BLOOD COUNT 2.86 10^6/ul (4.70-6.10); RED CELL DISTRIBUTION WIDTH 17.5 % (11.5-14.5)
[2018-09-08 05:39] LABS: ALBUMIN 3.1 g/dl (3.3-4.9); ALBUMIN/GLOBULIN RATIO 0.86; ALKALINE PHOSPHATASE 117 IU/L (42-121); ANION GAP 8 (5-13); ASPARTATE AMINO TRANSFERASE 17 IU/L (15-46); BLOOD UREA NITROGEN 44 mg/dl (7-20); CALCIUM 11.3 mg/dl (8.4-10.2); CARBON DIOXIDE 21 mmol/L (21-31); CHLORIDE 123 mmol/L (97-110); CREATININE 1.44 mg/dl (0.61-1.24); GLUCOSE 94 mg/dl (70-220); POTASSIUM 4.1 mmol/L (3.5-5.1); SODIUM 152 mmol/L (135-144); TOTAL PROTEIN 6.7 g/dl (6.1-8.1)
[2018-09-08 05:55] LABS: ALANINE AMINOTRANSFERASE < 6 IU/L (13-69)
[2018-09-08] MEDS: DOXYCYCLINE 100 MG TAB PO ×2 (09:39→20:54)
[2018-09-08] MEDS: APIXABAN 5 MG TABLET PO ×2 (09:39→20:54)
[2018-09-08] MEDS: FLUTICASONE/VILANTEROL 200-25 INH DEVICE INH (09:39)
[2018-09-08] MEDS: NYSTATIN 30 GM POWDER BTL TOP ×2 (09:40→21:34)
[2018-09-08] MEDS: BALSAM PERU/CASTOR OIL 60 GM TUBE TOP ×2 (09:40→20:56)
[2018-09-08] MEDS: PIPER-TAZO 2.25 GM (PMX) 50 ML IVPB ×2 (12:57→18:25)
[2018-09-08 18:32] LABS: FREE TESTOSTERONE 1.8 pg/mL (30.0-135.0); TESTOSTERONE, TOTAL 22 ng/dL (250-1100)
[2018-09-08] MEDS: DIPHENHYDRAMINE 50 MG INJ IV (20:54)
[2018-09-08] MEDS: ACETAMINOPHEN 325 MG TAB PO (20:55)
[2018-09-08] MEDS: DOCUSATE SODIUM 100 MG CAP PO (20:55)
[2018-09-08 20:56] LABS: IMMEDIATE SPIN CROSSMATCH 1 2
[2018-09-08] MEDS ORDERED: METHYLDOPA 500 MG TAB PO (21:00)
[2018-09-09] MEDS: PIPER-TAZO 2.25 GM (PMX) 50 ML IVPB ×4 (00:25→18:15)
[2018-09-09] MEDS: FUROSEMIDE 20 MG INJ IV (00:25)
[2018-09-09] MEDS: SOD CHLORIDE 0.45% 1,000 ML IV (00:33)
[2018-09-09] MEDS: ACETYLCYSTEINE 20% 4 ML VIAL NEB ×4 (01:57→19:48)
[2018-09-09] MEDS: ALBUTEROL/IPRATROPIUM (NEB) 3 ML AMP HHN ×3 (01:57→14:00)
[2018-09-09 08:21] LABS: ADD MAN DIFF? NO
[2018-09-09 08:29] LABS: WHITE BLOOD COUNT 12.9 10^3/ul (4.8-10.8)
[2018-09-09 08:29] LABS: BASOPHILS % 0.5 % (0.0-2.0); EOSINOPHILS % 3.1 % (0.0-7.0); HEMATOCRIT 37.8 % (42.0-52.0); LYMPHOCYTES # 1.5 10^3/ul (0.8-2.9); LYMPHOCYTES % 11.3 % (15.0-51.0); MEAN CORPUSCULAR HEMOGLOBIN 27.7 pg (29.0-33.0); MEAN CORPUSCULAR HGB CONC 31.7 g/dl (32.0-37.0); MEAN CORPUSCULAR VOLUME 87.3 fl (82.0-101.0); MEAN PLATELET VOLUME 12.5 fl (7.4-10.4); MONOCYTE # 1.3 10^3/ul (0.3-0.9); MONOCYTES % 10.1 % (0.0-11.0); NEUTROPHIL # 9.6 10^3/ul (1.6-7.5); NEUTROPHILS % 74.5 % (39.0-77.0); PLATELET COUNT 148 10^3/UL (140-415); RED BLOOD COUNT 4.33 10^6/ul (4.70-6.10); RED CELL DISTRIBUTION WIDTH 16.6 % (11.5-14.5)
[2018-09-09 08:30] LABS: BASOPHIL # 0.1 10^3/ul (0.0-0.1); EOSINOPHILS # 0.4 10^3/ul (0.0-0.5)
[2018-09-09 08:59] LABS: ANION GAP 9 (5-13); BLOOD UREA NITROGEN 43 mg/dl (7-20); CALCIUM 11.6 mg/dl (8.4-10.2); CARBON DIOXIDE 22 mmol/L (21-31); CHLORIDE 123 mmol/L (97-110); CREATININE 1.55 mg/dl (0.61-1.24); GLUCOSE 99 mg/dl (70-220); POTASSIUM 3.9 mmol/L (3.5-5.1); SODIUM 154 mmol/L (135-144)
[2018-09-09] MEDS ORDERED: LISINOPRIL 20 MG TAB PO (09:00)
[2018-09-09] MEDS ORDERED: AMLODIPINE 10 MG TAB PO (09:00)
[2018-09-09] MEDS: APIXABAN 5 MG TABLET PO ×2 (09:12→21:18)
[2018-09-09] MEDS: DOXYCYCLINE 100 MG TAB PO ×2 (09:12→21:18)
[2018-09-09] MEDS: NYSTATIN 30 GM POWDER BTL TOP ×2 (09:13→21:19)
[2018-09-09] MEDS: BALSAM PERU/CASTOR OIL 60 GM TUBE TOP ×2 (09:13→21:20)
[2018-09-09] MEDS: FLUTICASONE/VILANTEROL 200-25 INH DEVICE INH (09:13)
[2018-09-09 10:30] LABS: PROCALCITONIN 0.53 ng/mL (0.00-0.10)
[2018-09-09] MEDS: POTASSIUM BICARBONATE 25 MEQ TAB PO (18:16)
[2018-09-09] MEDS: DOCUSATE SODIUM 100 MG CAP PO (21:18)
[2018-09-10] MEDS: PIPER-TAZO 2.25 GM (PMX) 50 ML IVPB ×5 (00:01→23:25)
[2018-09-10] MEDS: ACETYLCYSTEINE 20% 4 ML VIAL NEB ×4 (02:00→19:54)
[2018-09-10 05:28] LABS: ADD MAN DIFF? NO
[2018-09-10 05:31] LABS: BASOPHIL # 0.1 10^3/ul (0.0-0.1); BASOPHILS % 0.5 % (0.0-2.0); EOSINOPHILS # 0.5 10^3/ul (0.0-0.5); EOSINOPHILS % 3.6 % (0.0-7.0); HEMATOCRIT 42.5 % (42.0-52.0); HEMOGLOBIN 13.1 g/dl (14.0-18.0); LYMPHOCYTES % 12.8 % (15.0-51.0); MEAN CORPUSCULAR HEMOGLOBIN 27.6 pg (29.0-33.0); MEAN CORPUSCULAR HGB CONC 30.8 g/dl (32.0-37.0); MEAN CORPUSCULAR VOLUME 89.5 fl (82.0-101.0); MEAN PLATELET VOLUME 11.5 fl (7.4-10.4); MONOCYTE # 1.5 10^3/ul (0.3-0.9); MONOCYTES % 9.8 % (0.0-11.0); NEUTROPHIL # 11.1 10^3/ul (1.6-7.5); NEUTROPHILS % 72.8 % (39.0-77.0); PLATELET COUNT 203 10^3/UL (140-415); RED BLOOD COUNT 4.75 10^6/ul (4.70-6.10); RED CELL DISTRIBUTION WIDTH 16.9 % (11.5-14.5)
[2018-09-10 05:31] LABS: WHITE BLOOD COUNT 15.2 10^3/ul (4.8-10.8)
[2018-09-10 06:15] LABS: ANION GAP 10 (5-13); BLOOD UREA NITROGEN 52 mg/dl (7-20); CALCIUM 11.7 mg/dl (8.4-10.2); CARBON DIOXIDE 21 mmol/L (21-31); CHLORIDE 125 mmol/L (97-110); CREATININE 2.01 mg/dl (0.61-1.24); GLUCOSE 117 mg/dl (70-220); POTASSIUM 4.7 mmol/L (3.5-5.1); SODIUM 156 mmol/L (135-144)
[2018-09-10 08:06] LABS: PARATHYROID HORMONE 19.1 pg/ml (24.0-73.0)
[2018-09-10] MEDS: DOXYCYCLINE 100 MG TAB PO ×3 (09:36→21:48)
[2018-09-10] MEDS: APIXABAN 5 MG TABLET PO ×3 (09:36→21:48)
[2018-09-10] MEDS: FLUTICASONE/VILANTEROL 200-25 INH DEVICE INH (09:37)
[2018-09-10] MEDS: NYSTATIN 30 GM POWDER BTL TOP ×2 (09:38→21:48)
[2018-09-10] MEDS: BALSAM PERU/CASTOR OIL 60 GM TUBE TOP ×2 (09:38→21:48)
[2018-09-10] MEDS: DEXTROSE 5% 1,000 ML IV ×2 (10:23→16:57)
[2018-09-10 14:11] LABS: ADD UMIC YES; UR AMORPHOUS CRYSTAL FEW /HPF (NONE SEEN); UR ASCORBIC ACID 20 mg/dL (NEGATIVE); UR BACTERIA FEW /HPF (NONE SEEN); UR BILIRUBIN (Dip) NEGATIVE (NEGATIVE); UR BLOOD (Dip) 1+ mg/dL (NEGATIVE); UR CLARITY TURBID (CLEAR); UR COLOR AMBER (YELLOW); UR GLUCOSE (Dip) NEGATIVE (NEGATIVE); UR KETONES (Dip) TRACE mg/dL (NEGATIVE); UR LEUKOCYTE ESTERASE (Dip) 3+ Leu/ul (NEGATIVE); UR NITRITE (Dip) NEGATIVE (NEGATIVE); UR RBC 11 /HPF (0-5); UR SPECIFIC GRAVITY (Dip) 1.027 (1.003-1.030); UR SQUAMOUS EPITHELIAL CELL FEW /HPF (FEW); UR TOTAL PROTEIN (Dip) 2+ mg/dl (NEGATIVE); UR UROBILINOGEN (Dip) NEGATIVE (NEGATIVE); UR WBC 153 /HPF (0-5)
[2018-09-10] MEDS: DEXTROSE 5% WATER 500 ML BAG IV (15:39)
[2018-09-10] MEDS: IPRATROPIUM (NEB) 0.5 MG/2.5 ML AMP HHN (19:54)
[2018-09-10] MEDS: DOCUSATE SODIUM 100 MG CAP PO ×2 (21:00→21:48)
[2018-09-10] MEDS: FUROSEMIDE 20 MG INJ IV ×2 (21:22→21:31)
[2018-09-10] MEDS: DIGOXIN 500 MCG INJ IV (23:25)
[2018-09-10] MEDS ORDERED: DIGOXIN 0.125 MG TAB PO (23:30)
[2018-09-11] MEDS ORDERED: NA BICARBONATE 8.4% 50 ML SYG
[2018-09-11] MEDS ORDERED: EPINEPHrine 10 MCG/1ml (10 ML SYG) IV
[2018-09-11] MEDS ORDERED: AMIODARONE 150 MG INJ
[2018-09-11] MEDS ORDERED: SUCCINYLCHOLINE CHLORIDE 100 MG/5 ML SYG IV
[2018-09-11] MEDS ORDERED: CA CHLORIDE 10% 10 ML SYRINGE
[2018-09-11] MEDS ORDERED: ATROPINE 1 MG/10 ML SYRINGE
[2018-09-11] MEDS ORDERED: ETOMIDATE 20 MG INJ
[2018-09-11 00:51] LABS: AADO2 Arterial 320.3 mmHg (7.0-24.0); Allen Test ACCEPTAB; Arterial Base Excess -17.4 mmol/L (-3.0-3); Arterial Blood Gas Oxygen Sat 98.9 mmHG (95.0-100.0); Arterial COHb 0.3 % (0.0-3.0); Arterial Fraction of Oxyhgb 98.4 % (93.0-99.0); Arterial HCO3 13.8 mmol/L (22.0-26.0); Arterial MetHb 0.2 % (0.0-1.5); Arterial pCO2 56.4 mmhg (35-45); MODE AMBU BAG; Site Right Radial
[2018-09-11] MEDS: NA BICARBONATE 8.4% 50 ML SYG IV (01:26)
[2018-09-11] MEDS: SOD CHLORIDE 0.9% 1,000 ML IV (01:26)
[2018-09-11] MEDS: NORepinephrine 8MG/250 ML (PMX 250 ML IV (01:29)
[2018-09-11] MEDS ORDERED: PHENYLephrine 20MG IN 250 ML 250 ML (01:33)
[2018-09-11] MEDS: EPINEPHrine 4 MG in SOD CHLORIDE 0.9% 246 ML IV (01:37)
[2018-09-11 02:20] LABS: ABNORMAL IP MESSAGE 1; HEMOGLOBIN 13.5 g/dl (14.0-18.0); MEAN CORPUSCULAR HGB CONC 28.7 g/dl (32.0-37.0); MEAN CORPUSCULAR VOLUME 97.3 fl (82.0-101.0); MEAN PLATELET VOLUME 11.2 fl (7.4-10.4); NUCLEATED RED BLOOD CELLS% 0.5 /100WBC (0.0-0.0); PLATELET COUNT 194 10^3/UL (140-415); POSITIVE DIFF @See below; RED BLOOD COUNT 4.83 10^6/ul (4.70-6.10); RED CELL DISTRIBUTION WIDTH 17.3 % (11.5-14.5)
[2018-09-11 02:20] LABS: WHITE BLOOD COUNT 32.2 10^3/ul (4.8-10.8)
[2018-09-11 02:31] LABS: ADD MAN DIFF? YES
[2018-09-11 02:40] LABS: ANION GAP 16 (5-13); BLOOD UREA NITROGEN 62 mg/dl (7-20); CALCIUM 12.3 mg/dl (8.4-10.2); CARBON DIOXIDE 19 mmol/L (21-31); CHLORIDE 123 mmol/L (97-110); CREATININE 2.81 mg/dl (0.61-1.24); GLUCOSE 170 mg/dl (70-220); POTASSIUM 5.3 mmol/L (3.5-5.1); SODIUM 158 mmol/L (135-144)
[2018-09-11] MEDS ORDERED: SODIUM BICARBONATE (IV ADD) 100 MEQ in DEXTROSE 5% 1,000 ML IV (03:00)
[2018-09-11] MEDS ORDERED: PHENYLephrine 20MG IN 250 ML 250 ML IV (03:00)
[2018-09-11] MEDS ORDERED: VASOPRESSIN 60 UNIT in DEXTROSE 5% 57 ML IV (03:00)
[2018-09-11 03:23] LABS: ANISOCYTOSIS 1+ (0-0); BAND NEUTROPHILS #M 0.6 10^3/ul (0.0-0.6); BAND NEUTROPHILS % (M) 2 % (0-4); EOSINOPHILS % (M) 2 % (0-7); ERYTHROBLAST% (NRBC) (M) 1 % (0-0); LYMPHOCYTES #M 3.2 10^3/ul (0.8-2.9); LYMPHOCYTES % (M) 10 % (15-51); METAMYELOCYTES #M 0.9 10^3/ul (0.0-0.0); METAMYELOCYTES %M 3 % (0-0); MONOCYTE #M 0.6 10^3/ul (0.3-0.9); MONOCYTES % (M) 2 % (0-11); MYELOCYTES #M 0.3 10^3/ul (0.0-0.0); MYELOCYTES % (M) 1 % (0-0); PLATELET ESTIMATE NORMAL; PLATELET MORPHOLOGY COMMENT @See below; POIKILOCYTOSIS 1+ (0-0); POLYCHROMASIA 1+ (0-0); REACTIVE LYMPHOCYTES #M 0.3 10^3/ul (0.0-0.0); REACTIVE LYMPHOCYTES% (M) 1 % (0-0); SEGMENTED NEUTROPHILS (M) % 80 % (39-77); SMUDGE%M 10 % (0-0)
[2018-09-11 03:26] LABS: TROPONIN-I 0.551 ng/ml (0.000-0.120)
[2018-09-11] MEDS ORDERED: CHOLECALCIFEROL 1,000 UNIT TAB PO (09:00)
[2018-09-11] MEDS ORDERED: DIGOXIN 500 MCG INJ IV (13:00)
== END 2018-09-11 03:06 | disposition expired | DRG 727 ==
LOC: MS1 08-15 23:34 → TEL 09-10 22:20 → ICU 09-11 00:25 → E/R 16:37 → MS1 20:14
PROC: 0T9B70Z Drainage of Bladder with Drainage Device, Via Natural or Artificial Opening (ICD-10-PCS; principal; 2018-08-22)
PROC: 30233N1 Transfusion of Nonautologous Red Blood Cells into Peripheral Vein, Percutaneous Approach (ICD-10-PCS; 2018-09-08)
PROC: 5A1935Z Respiratory Ventilation, Less than 24 Consecutive Hours (ICD-10-PCS; 2018-09-11)
PROC: 0BH17EZ Insertion of Endotracheal Airway into Trachea, Via Natural or Artificial Opening (ICD-10-PCS; 2018-09-11)
PROC: 5A12012 Performance of Cardiac Output, Single, Manual (ICD-10-PCS; 2018-09-11)
DX: B37.49 Other urogenital candidiasis (principal); L89.813 Pressure ulcer of head, stage 3; A41.9 Sepsis, unspecified organism; J69.0 Pneumonitis due to inhalation of food and vomit; I13.0 Hypertensive heart and chronic kidney disease with heart failure and stage 1 through stage 4 chronic kidney disease, or unspecified chronic kidney disease; G93.40 Encephalopathy, unspecified; E46 Unspecified protein-calorie malnutrition; J44.1 Chronic obstructive pulmonary disease with (acute) exacerbation; L03.113 Cellulitis of right upper limb; I82.519 Chronic embolism and thrombosis of unspecified femoral vein; E87.1 Hypo-osmolality and hyponatremia; E86.0 Dehydration; D72.829 Elevated white blood cell count, unspecified; D63.1 Anemia in chronic kidney disease; D63.8 Anemia in other chronic diseases classified elsewhere; E78.00 Pure hypercholesterolemia, unspecified; E83.42 Hypomagnesemia; E87.5 Hyperkalemia; E83.52 Hypercalcemia; F03.90 Unspecified dementia, unspecified severity, without behavioral disturbance, psychotic disturbance, mood disturbance, and anxiety; F32.9 Major depressive disorder, single episode, unspecified; F41.9 Anxiety disorder, unspecified; G72.9 Myopathy, unspecified; I50.9 Heart failure, unspecified; I25.10 Atherosclerotic heart disease of native coronary artery without angina pectoris; I46.9 Cardiac arrest, cause unspecified; I48.0 Paroxysmal atrial fibrillation; K21.9 Gastro-esophageal reflux disease without esophagitis; L89.152 Pressure ulcer of sacral region, stage 2; M75.92 Shoulder lesion, unspecified, left shoulder; N18.2 Chronic kidney disease, stage 2 (mild); N41.1 Chronic prostatitis; N30.20 Other chronic cystitis without hematuria; N28.89 Other specified disorders of kidney and ureter; R53.83 Other fatigue; R13.10 Dysphagia, unspecified; R00.0 Tachycardia, unspecified; R53.1 Weakness; R53.81 Other malaise; Z66 Do not resuscitate; Z68.26 Body mass index [BMI] 26.0-26.9, adult; Z93.3 Colostomy status; Z93.2 Ileostomy status; Z86.73 Personal history of transient ischemic attack (TIA), and cerebral infarction without residual deficits; Z85.038 Personal history of other malignant neoplasm of large intestine; Z87.891 Personal history of nicotine dependence; Z79.01 Long term (current) use of anticoagulants
CPT/HCPCS: 31500; 36415; 36430; 36600; 71045; 71250; 72197; 73030; 73223; 74176; 78806; 80048; 80053; 81001; 82040; 82140; 82270; 82533; 82803; 82962; 83036; 83540; 83690; 83735; 83970; 84134; 84145; 84403; 84439; 84443; 84481; 84484; 85025; 85651; 86885; 86900; 86901; 86920; 87040-91; 87070; 87075; 87081; 87086; 87116; 92950; 93005; 93971; 94002; 94640; 94664; 94770; 96361; 96374; 96375; 97110; 97162; 97530; 99285-25